=== PATIENT | male | born 1970 | race Caucasian/White ===

== ENCOUNTER → 2025-09-11 | Outpatient (CLI) | payer OTHER, SELFPAY ==
--- NOTE | 2025-09-11 15:36 | RAD_ITS ---
PROCEDURE: WRIST MIN 3 VIEWS 09/11/2025 REASON FOR EXAM: PAIN for 2-3 weeks. No known injury. TECHNIQUE: Procedure Code: RADWR Modality: DX Procedure: WRIST MIN 3 VIEWS Laterality: Left COMPARISON: None. FINDINGS: BONES: No acute fracture or focal osseous lesion. JOINTS: No dislocation. The joint spaces are normal. SOFT TISSUES: Linear 2.0 mm radiodense object in the palm underlying the 2nd metacarpal head. RAD/Wrist min 3 Views IMPRESSION: 1. No acute osseous abnormality. 2. Possible radiodense foreign body in the palm underlying the 2nd metacarpal head. Reading Location: [id number]
--- OUTSIDE RECORDS SUMMARY | 2025-09-11 17:06 | XMS RPT_ITS | CCD ---
Author Organization [facility] Inform ion Partnership 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 Role Phone Sumit Dhillon Primary Care Provider [phone] VINAYAK MOORE Attending Unavailab le NO, PHYSICIAN Primary Care Unavailable No, Physician Primary Care Provider Unavailabl e Windy Schwartz CNP Unavailable No, Physician Primary Care Provider Unavailaminah e CHRISTIAN ARGUELLES II Admitting Un available MANN VILLALOBOS Attending Unavailab le NO, PHYSICIAN Primary Care Unavailable EZIKE, MAXIMO HERRERA Referring Unavailable NO, PHYSICIAN Primary Care Unavailable COP LULY, GENERIC Admitting Unavailable NO, PHYSICIAN Primary Care Unavailable EZIKE, MAXIMO HERRERA Referring Unavailable EZIKE, MAXIMO HERRERA Referring Unavailable EZIKE, MAXIMO HERRERA Admitting Unavailable NO, PHYSICIAN Primary Care Unavailable EZIKE, MAXIMO HERRERA Referring Unavailable EZIKE, MAXIMO PETER Admitting Unavailable NO, PHYSICIAN Primary Care Unavailable EZIKE, MAXIMO HERRERA Referring Unavailable EZIKE, MAXIMO PETER Admitting Unavailable NO, PHYSICIAN Primary Care Unavailable EZIKE, MAXIMO HERRERA Referring Unavailable EZIKE, MAXIMO PETER Admitting Unavailable NO, PHYSICIAN Primary Care Unavailable EZIKE, MAXIMO PETER Referring Unavailable EZIKE, MAXIMO PETER Admitting Unavailable NO, PHYSICIAN Primary Care Unavailable SYSTEM, PROVIDER NOT IN Admitting Unavaila ble EZIKE, MAXIMO HERRERA Referring Unavailable NO, PHYSICIAN Primary Care Unavailable CHRISTIAN ARGUELLES II Consulting Un available [facility] Attending Ahmet jones NO, PHYSICIAN Primary Care Unavailable CREROD RUBIO Admitting Unavailab le PHYSICI[facility], [facility] Consulting Un available EZRL, MAXIMO HERRERA Referring Unavailable NO, PHYSICIAN Primary Care Unavailable SYSTEM, PROVIDER NOT IN Admitting Unavaila ble EZIKE, MAXIMO HERRERA Referring Unavailable EZIKE, MAXIMO HERRERA Admitting Unavailable NO, PHYSICIAN Primary Care Unavailable EZIKE, MAXIMO HERRERA Referring Unavailable EZIKE, MAXIMO HERRERA Admitting Unavailable NO, PHYSICIAN Primary Care Unavailable EZIKE, MAXIMO HERRERA Referring Unavailable EZIKE, MAXIMO HERRERA Admitting Unavailable NO, PHYSICIAN Primary Care Unavailable EZIKE, MAXIMO HERRERA Referring Unavailable EZIKE, MAXIMO HERRERA Admitting Unavailable NO, PHYSICIAN Primary Care Unavailable EZIKE, MAXIMO HERRERA Admitting Unavailable EZIKE, MAXIMO HERRERA Referring Unavailable NO, PHYSICIAN Primary Care Unavailable EZIKE, MAXIMO HERRERA Admitting Unavailable NO, PHYSICIAN Primary Care Unavailable EZIKE, MAXIMO HERRERA Referring Unavailable EZIKE, MAXIMO HERRERA Referring Unavailable EZIKE, MAXIMO HERRERA Admitting Unavailable NO, PHYSICIAN Primary Care Unavailable HASSMANN II, CHRISTIAN ENGLISH Attending Un available HASSMANN II, CHRISTIAN ENGLISH Referring Un available NO, PHYSICIAN Primary Care Unavailable HASSMANN II, CHRISTIAN ENGLISH Attending Un available HASSMANN II, CHRISTIAN ENGLISH Referring Un available NO, PHYSICIAN Primary Care Unavailable EZIKE, MAXIMO HERRERA Referring Unavailable EZIKE, MAXIMO HERRERA Admitting Unavailable NO, PHYSICIAN Primary Care Unavailable EZRL, MAXIMO HERRERA Referring Unavailable EZIKE, MAXIMO HERRERA Admitting Unavailable NO, PHYSICIAN Primary Care Unavailable EZRL, MAXIMO HERRERA Referring Unavailable NO, PHYSICIAN Primary Care Unavailable COPC LULY, GENERIC Admitting Unavailable TUMU, DELICIA SHUKLAODA Attending Unavailab le TUMU, DELICIA MCMAHON Referring Unavailab le NO, PHYSICIAN Primary Care Unavailable EZRL, MAXIMO HERRERA Admitting Unavailable NO, PHYSICIAN Primary Care Unavailable EZRL, MAXIMO HERRERA Referring Unavailable EZIKE, MAXIMO HERRERA Referring Unavailable EZIKE, MAXIMO HERRERA Admitting Unavailable NO, PHYSICIAN Primary Care Unavailable EZRL, MAXIMO HERRERA Referring Unavailable EZRL, MAXIMO HERRERA Admitting Unavailable NO, PHYSICIAN Primary Care Unavailable EZRL, MAXIMO HERRERA Referring Unavailable EZIKE, MAXIMO HERRERA Admitting Unavailable NO, PHYSICIAN Primary Care Unavailable EZRL, MAXIMO HERRERA Admitting Unavailable NO, PHYSICIAN Primary Care Unavailable EZRL, MAXIMO HERRERA Referring Unavailable EZRL, MAXIMO HERRERA Referring Unavailable EZIKE, MAXIMO HERRERA Admitting Unavailable NO, PHYSICIAN Primary Care Unavailable EZRL, MAXIMO HERRERA Referring Unavailable EZIKE, MAXIMO HERRERA Admitting Unavailable NO, PHYSICIAN Primary Care Unavailable EZIKE, MAXIMO HERRERA Referring Unavailable EZIKE, MAXIMO HERRERA Admitting Unavailable NO, PHYSICIAN Primary Care Unavailable SYSTEM, PROVIDER NOT IN Admitting Unavaila ble EZIKE, MAXIMO HERRERA Referring Unavailable NO, PHYSICIAN Primary Care Unavailable SYSTEM, PROVIDER NOT IN Admitting Unavaila ble EZIKE, MAXIMO HERRERA Referring Unavailable NO, PHYSICIAN Primary Care Unavailable NO, PHYSICIAN Primary Care Unavailable HASSMANN II, CHRISTIAN ENGLISH Attending Un available HASSMANN II, CHRISTIAN ENGLISH Admitting Un available ADAN BOOKER Attending Unavailabl e SELF Referring Unavailable SUMIT DHILLON Primary Care Unavail able NO, PHYSICIAN Primary Care Unavailable HASSMANN II, CHRISTIAN ENGLISH Attending Un available NO, PHYSICIAN Primary Care Unavailable HASSMANN II, CHRISTIAN ENGLISH Attending Un available NO, PHYSICIAN Primary Care Unavailable HASSMANN II, CHRISTIAN ENGLISH Attending Un available NO, PHYSICIAN Primary Care Unavailable HASSMANN II, CHRISTIAN ENGLISH Admitting Un available HASSMANN II, CHRISTIAN ENGLISH Referring Un available NO, PHYSICIAN Primary Care Unavailable HASSMANN II, CHRISTIAN ENGLISH Attending Un available NO, PHYSICIAN Primary Care Unavailable HASSMANN II, CHRISTIAN ENGLISH Referring Un available HASSMANN II, CHRISTIAN ENGLISH Admitting Un available NO, PHYSICIAN Primary Care Unavailable HASSMANN II, CHRISTIAN ENGLISH Referring Un available HASSMANN II, CHRISTIAN ENGLISH Admitting Un available NO, PHYSICIAN Primary Care Unavailable HASSMANN II, CHRISTIAN ENGLISH Attending Un available HASSMANN II, CHRISTIAN ENGLISH Referring Un available HASSMANN II, CHRISTIAN ENGLISH Admitting Un available NO, PHYSICIAN Primary Care Unavailable HASSMANN II, CHRISTIAN ENGLISH Attending Un available NO, PHYSICIAN Primary Care Unavailable NO, PHYSICIAN Primary Care Unavailable HASSMANN II, CHRISTIAN ENGLISH Attending Un available NO, PHYSICIAN Primary Care Unavailable HASSMANN II, CHRISTIAN ENGLISH Attending Un available NO, PHYSICIAN Primary Care Unavailable HASSMANN II, CHRISTIAN ENGLISH Referring Un available HASSMANN II, CHRISTIAN ENGLISH Admitting Un available NO, PHYSICIAN Primary Care Unavailable HASSMANN II, CHRISTIAN ENGLISH Admitting Un available HASSMANN II, CHRISTIAN ENGLISH Referring Un available NO, PHYSICIAN Primary Care Unavailable HASSMANN II, CHRISTIAN ENGLISH Referring Un available HASSMANN II, CHRISTIAN ENGLISH Admitting Un available HASSMANN II, CHRISTIAN ENGLISH Attending Un available NO, PHYSICIAN Primary Care Unavailable NO, PHYSICIAN Primary Care Unavailable WINDY SCHWARTZ Attending Unavailable NO, PHYSICIAN Primary Care Unavailable HASSMANN II, CHRISTIAN ENGLISH Attending Un available NO, PHYSICIAN Primary Care Unavailable WINDY SCHWARTZ Attending Unavailable NO, PHYSICIAN Primary Care Unavailable HASSMANN II, CHRISTIAN ENGLISH Referring Un available HASSMANN II, CHRISTIAN ENGLISH Admitting Un available NO, PHYSICIAN Primary Care Unavailable HASSMANN II, CHRISTIAN ENGLISH Attending Un available NO, PHYSICIAN Primary Care Unavailable HASSMANN II, CHRISTIAN ENGLISH Attending Un available NO, PHYSICIAN Primary Care Unavailable HASSMANN II, CHRISTIAN ENGLISH Attending Un available NO, PHYSICIAN Primary Care Unavailable HASSMANN II, CHRISTIAN ENGLISH Referring Un available HASSMANN II, CHRISTIAN ENGLISH Admitting Un available NO, PHYSICIAN Primary Care Unavailable HASSMANN II, CHRISTIAN EGNLISH Attending Un available NO, PHYSICIAN Primary Care Unavailable HASSMANN II, CHRISTIAN ENGLISH Referring Un available HASSMANN II, CHRISTIAN ENGLISH Admitting Un available NO, PHYSICIAN Primary Care Unavailable HASSMANN II, CHRISTIAN ENGLISH Attending Un available NO, PHYSICIAN Primary Care Unavailable HASSMANN II, CHRISTIAN ENGLISH Referring Un available HASSMANN II, CHRISTIAN ENGLISH Admitting Un available NO, PHYSICIAN Primary Care Unavailable HASSMANN II, CHRISTIAN ENGLISH Attending Un available NO, PHYSICIAN Primary Care Unavailable HASSMANN II, CHRISTIAN ENGLISH Referring Un available HASSMANN II, CHRISTIAN ENGLISH Admitting Un available NO, PHYSICIAN Primary Care Unavailable HASSMANN II, CHRISTIAN ENGLISH Attending Un available NO, PHYSICIAN Primary Care Unavailable HASSMANN II, CHRISTIAN ENGLISH Attending Un available NO, PHYSICIAN Primary Care Unavailable MAGO MOREIRA Attending Unavailable NO, PHYSICIAN Primary Care Unavailable WINDY SCHWARTZ Attending Unavailable Allergies Allergy Classification Reported Allergen(s) Allergy Type Date of Onset Reaction(s) Facility (20 sources) Chlorhexidine; Translations: [CHLORHEXIDINE] Drug Allergy 01-23-2025 Dermatitis [facility] Medications Current Medications Medication Drug Class(es) Dates Sig (Normalized) Sig (Original) acetaminophen 325 mg / oxyCODONE hydrochloride 5 mg oral tablet (2 sources) Opioid Agonist Start: 06-20-2025 End: 06-27-2025 oxyCODONE-acetamin ophen (PERCOCET) 5-325 mg per tablet Indications: Osteomyelitis of left foot, unspecified type (HCC) , Left foot pain Take 1 (one) tablet by mouth every 6 (six) hours as needed for pain (Days supply per fill: 7) . 28 tablet 06/20/2025 06/27/2025 Active amoxicillin 875 mg / clavulanate 125 mg oral tablet (8 sources) Penicillin-class Antibacterial Start: 06-10-2025 End: 06-20-2025 take 1 tablet by mouth twice daily amoxicillin-clavul anate (AUGMENTIN) 875-125 mg per tablet Take 1 (one) tablet by mouth 2 (two) times a day for 10 days . 20 tablet 06/10/2025 06/20/2025 Active Start: 12-31-2024 End: 01-07-2025 take 1 tablet by mouth twice daily amoxicillin-clavulanate (AUGMENTIN) 875-125 mg per tablet Take 1 (one) tablet by mouth 2 (two) times a day for 7 days . 14 tablet 12/31/2024 01/03/2025 Discontinued (Stop Taking at Discharge) Start: 03-21-2022 End: 03-26-2022 take 1 tablet by mouth twice daily amoxicillin-clavulanic acid (AUGMENTIN) 875-125 mg per tablet Take 1 tablet by mouth twice daily for 5 days. 10 tablet 0 03/21/2022 03/26/2022 Active Comment on above: Take 1 tablet by luly twice daily for 5 days. blood-glucose sensor (Dexcom G7 Sensor) Denise (20 sources) Start: 04-09-2025 blood-glucose sensor (Dexcom G7 Sensor) Denise Indications: Type 2 diabetes mellitus with hyperglycemia, with long-term current use of insulin ([facility]) , Type 2 diabetes mellitus without complication, with long-term current use of insulin ([facility]) 1 each by Miscellaneous route every 10 (ten) days . 9 each 3 04/09/2025 Active Start: 04-03-2025 End: 04-09-2025 blood-glucose sensor (Dexcom G7 Sensor) Denise Indications: Type 2 diabetes mellitus with hyperglycemia, with long-term current use of insulin ([facility]) 1 each by Miscellaneous route every 10 (ten) days . 3 each 11 04/03/2025 04/09/2025 Discontinued (Reorder (Suppress CancelRx Message to Pharmacy)) Start: 04-03-2025 blood-glucose sensor (Dexcom G7 Sensor) Denise Indications: Type 2 diabetes mellitus with hyperglycemia, with long-term current use of insulin (HCC) 1 each by Miscellaneous route every 10 (ten) days . 3 each 04/03/2025 Active Start: 03-18-2025 End: 04-03-2025 blood-glucose sensor (Dexcom G7 Sensor) Denise Indications: Type 2 diabetes mellitus with hyperglycemia, with long-term current use of insulin (HCC) 1 each by Miscellaneous route every 10 (ten) days . 3 each 03/18/2025 04/03/2025 Discontinued (Reorder (Suppress CancelRx Message to Pharmacy)) Start: 03-18-2025 blood-glucose sensor (Dexcom G7 Sensor) Denise Indications: Type 2 diabetes mellitus with hyperglycemia, with long-term current use of insulin (HCC) 1 each by Miscellaneous route every 10 (ten) days . 3 each 03/18/2025 Active Start: 01-12-2025 End: 03-18-2025 blood-glucose sensor (Dexcom G7 Sensor) Denise Indications: Type 2 diabetes mellitus with hyperglycemia, with long-term current use of insulin (HCC) 1 each by Miscellaneous route every 10 (ten) days . 3 each 01/12/2025 03/18/2025 Discontinued (Reorder (Suppress CancelRx Message to Pharmacy)) Start: 01-12-2025 blood-glucose sensor (Dexcom G7 Sensor) Denise Indications: Type 2 diabetes mellitus with hyperglycemia, with long-term current use of insulin (HCC) 1 each by Miscellaneous route every 10 (ten) days . 3 each 01/12/2025 Active Start: 01-03-2025 blood-glucose sensor (Dexcom G7 Sensor) Denise Indications: Type 2 diabetes mellitus with hyperglycemia, with long-term current use of insulin (HCC) 1 each by Miscellaneous route every 10 (ten) days . 3 each 01/03/2025 Active Start: 01-03-2025 blood-glucose sensor (Dexcom G7 Sensor) Denise Indications: Type 2 diabetes mellitus with hyperglycemia, with long-term current use of insulin (HCC) 1 each by Miscellaneous route every 10 (ten) days . 3 each 01/03/2025 blood-glucose sensor (FreeStyle Brionna 3 Plus Sensor) Denise (13 sources) Start: 04-02-2025 blood-glucose sensor (FreeStyle Brionna 3 Plus Sensor) Denise Indications: Type 2 diabetes mellitus without complication, with long-term current use of insulin (HCC) Use as directed to monitor BG. Change sensor every 15 days. . 2 each 04/02/2025 Active cephalexin 500 mg oral capsule (3 sources) Cephalosporin Antibacterial Start: 12-18-2024 End: 12-25-2024 take 1 capsule by mouth four times daily cephALEXin (KEFLEX) 500 MG capsule Take 1 (one) capsule (500 mg total) by mouth 4 (four) times a day for 7 days . 28 capsule 12/18/2024 12/25/2024 Active Start: 11-03-2024 End: 11-10-2024 take 1 capsule by mouth four times daily cephALEXin (KEFLEX) 500 MG capsule Take 1 (one) capsule (500 mg total) by mouth 4 (four) times a day for 7 days . 28 capsule 11/03/2024 11/10/2024 Active clindamycin 150 mg oral capsule (2 sources) Lincosamide Antibacterial Start: 06-15-2025 End: 06-22-2025 take 1 capsule by mouth three times daily clindamycin (CLEOCIN) 150 MG capsule Take 1 (one) capsule (150 mg total) by mouth 3 (three) times a day for 7 days . 21 capsule 06/15/2025 06/22/2025 Active 3 ml insulin glargine 100 unt/ml pen injector (20 sources) Insulin Analog Start: 01-03-2025 End: 04-09-2025 insulin glargine (Lantus Solostar U-100 Insulin) 100 unit/mL (3 mL) InPn Indications: Type 2 diabetes mellitus without complication, with long-term current use of insulin (HCC) Inject 25 (twenty five) Units under the skin nightly . 30 mL 3 04/09/2025 Active Start: 01-02-2025 End: 01-03-2025 25 Units, Subcutaneous, Nigh tly, First dose on Sun01/02/25 at 2100, If patient NPO and BG LESS than 100 before procedure, administer half (rounded up to nearest unit) of the glargine insulin (LANTUS) dose; if BG is GREATER than 100, administer the full dose unless otherwise instructed by ordering physician Do not mix with other insulins in a syringe. "Do NOT hold basal insulin without notifying physician" 3 ml insulin lispro 100 unt/ml pen injector (20 sources) Insulin Analog Start: 01-03-2025 End: 04-09-2025 inject 9 [IU] by subcutaneous injection three times daily before mealtime, then inject 80 [IU] by subcutaneous injection once daily insulin lispro (HumaLOG KwikPen Insulin) 100 unit/mL InPn Indications: Type 2 diabetes mellitus without complication, with long-term current use of insulin (HCC) Inject 9 (nine) Units under the skin 3 (three) times a day before meals Plus sliding scale.Up to 80 units daily. DX E11.65 . 30 mL 3 04/09/2025 Active Start: 01-02-2025 End: 01-03-2025 0-30 Units, Subcutaneous, 3 times daily before meals, First dose (after last modification) on Sun01/02/25 at 1330, * Dose should be given EITHER: No sooner than 10-15 minutes BEFORE a meal ("Specific Prandial Doses" or "NO Prandial Dose - Corrective Scale ONLY") - OR - Immediately AFTER meal completed ("Carb Counting Ratio"), Prandial Insulin Dosing Method: SPECIFIC Prandial Doses, Specific Prandial Dose (units of Insulin): 9, Corrective Insulin Regimen (select desired scale to cover BG result): USUAL Sensitivity Scale, Dose Reduction Threshold (at meals) for POC Blood Glucose less than or equal to: 80, For Downtime Calculator, use: "Insulin SC MEALtime PREprandial" isopropyl alcohol 0.7 ml/ml medicated pad (20 sources) Start: 01-03-2025 End: 04-09-2025 alcohol swabs PadM Indications: Type 2 diabetes mellitus without complication, with long-term current use of insulin (HCC) Use as directed to check blood glucose readings 4 times daily. Dx E11.65 . 400 each 3 04/09/2025 Active predniSONE 20 mg oral tablet (1 source) Start: 03-21-2022 End: 03-25-2022 take 1 tablet by mouth once daily at mealtime predniSONE (DELTASONE) 20 mg tablet Take 1 tablet by mouth once daily for 4 days. Take daily with food. 4 tablet 0 03/21/2022 03/25/2022 Active Comment on above: Take 1 tablet by [facility] once daily for 4 days. Take daily with food. traMADol hydrochloride 50 mg oral tablet (20 sources) Opioid Agonist Start: 01-03-2025 End: 01-06-2025 take 1 tablet by mouth every six hours as needed for pain traMADol (ULTRAM) 50 mg tablet Indications: Osteomyelitis of left foot, unspecified type (HCC) Take 1 (one) tablet (50 mg total) by mouth every 6 (six) hours as needed for pain . 12 tablet 01/03/2025 Active Completed/Discontinued Medications Medication Drug Class(es) Dates Sig (Normalized) Sig (Original) acetaminophen 325 mg oral tablet (1 source) Start: 01-01-2025 End: 01-03-2025 take 1 tablet by mouth every four hours as needed for headache and pain [id number] 200 actuat albuterol 0.09 mg/actuat metered dose inhaler (1 source) beta2-Adrenergic Agonist Start: 04-16-2018 take 2 puff(s) by inhalation every four hours as needed for wheezing albuterol HFA (VENTOLIN HFA) 90 mcg/actuation inhaler Inhale 2 Puffs as instructed every 4 hours as needed for Wheezing/Shortness of Breath. 1 Inhaler 0 04/16/2018 Active Comment on above: Inhale 2 Puffs as in structed every 4 hours as needed for Wheezing/Shortness of Breath. alteplase (CATH JOHNNY) injection 2 mg (1 source) Start: 01-01-2025 End: 01-03-2025 2 mg, Other, As needed, occluded PICC, Starting on Elayne 01/01/25 at 1221, Use for occlusion or absence of blood return, unless allergy or infected line. Assess catheter function 30 minutes after instillation. Repeat 2 mg x 1 dose if no blood return obtained after 120 minutes of dwell time. If medication has not yet been reconstituted RECONSTITUTE ALTEPLASE (CATHFLO) INJ WITH 2.2 ML OF STERILE WATER FOR INJ FOR CATHETER CLEARANCE ONLY aluminum hydroxide 40 mg/ml / magnesium hydroxide 40 mg/ml / simethicone 4 mg/ml oral suspension (1 source) Start: 01-01-2025 End: 01-03-2025 take 30 mL by mouth every four hours as needed benzonatate 100 mg oral capsule (1 source) Non-narcotic Antitussive Start: 09-08-2018 take 2 capsules by mouth every eight hours as needed benzonatate (TESSALON PERLES) 100 mg capsule Take 2 capsules by mouth three times daily as needed for Cough. 21 capsule 0 09/08/2018 Active Comment on above: Take 2 capsules by m out three times daily as needed for Cough. bisacodyl 10 mg rectal suppository (1 source) Stimulant Laxative Start: 01-01-2025 End: 01-03-2025 blood-glucose meter Misc (20 sources) Start: 01-03-2025 End: 02-02-2025 blood-glucose meter Misc by Miscellaneous route Use as directed to check blood glucose 4 times daily. May fill with brand insurance prefers. . 1 each 01/03/2025 02/02/2025 Start: 01-03-2025 End: 02-02-2025 blood-glucose meter Misc by Miscellaneous route Use as directed to check blood glucose 4 times daily. May fill with brand insurance prefers. . 1 each 01/03/2025 02/02/2025 Active Start: 01-03-2025 End: 02-02-2025 blood-glucose meter Misc by Miscellaneous route Use as directed to check blood glucose 4 times daily. May fill with brand insurance prefers. . 1 each 01/03/2025 02/02/2025 brompheniramine maleate 0.4 mg/ml / dextromethorphan hydrobromide 2 mg/ml / pseudoephedrine hydrochloride 6 mg/ml oral solution (1 source) alpha-Adrenergic Agonist, Uncompetitive I-woybln-Y-aspartate Receptor Antagonist, Sigma-1 Agonist Start: 04-16-2018 take 5 mL by mouth every six hours as needed Pebytvbodkgwhku-Zybbfuege-EI (BROMFED DM) 2-30-10 mg/5 mL syrup Take 5 mL by mouth four times daily as needed. 120 mL 0 04/16/2018 Active Comment on above: Take 5 mL by mouth f our times daily as needed. cefTRIAXone 2000 mg injection (20 sources) Cephalosporin Antibacterial Start: 02-02-2025 End: 03-31-2025 2,000 mg, Intravenous, at 10 0 mL/hr, Every 24 hours, First dose on 02/02/25 at 1530, Total duration of treatment with ceftriaxone = 4 weeks. Obtain labs for CBC, CRP, ESR, and BMP weekly for 4 weeks. Follow-up with the clinic in 2 weeks and at [facility] Indication: Other (specify), Indication: Osteomyelitis Start: 01-26-2025 End: 02-01-2025 2,000 mg, Intravenous, at 10 0 mL/hr, Every 24 hours, First dose on Elayne 01/29/25 at 1545, Total duration of treatment with ceftriaxone = 4 weeks. Obtain labs for CBC, CRP, ESR, and BMP weekly for 4 weeks. Follow-up with the clinic in 2 weeks and at [facility] Indication: Other (specify), Indication: Osteomyelitis Start: 01-19-2025 End: 01-25-2025 2,000 mg, Intravenous, at 10 0 mL/hr, Every 24 hours, First dose on Sun01/25/25 at 0830, Total duration of treatment with ceftriaxone = 4 weeks. Obtain labs for CBC, CRP, ESR, and BMP weekly for 4 weeks. Follow-up with the clinic in 2 weeks and at [facility] Indication: Other (specify), Indication: Osteomyelitis Start: 01-12-2025 End: 01-18-2025 2,000 mg, Intravenous, at 10 0 mL/hr, Every 24 hours, First dose on Sun01/16/25 at 1545, Total duration of treatment with ceftriaxone = 4 weeks. Obtain labs for CBC, CRP, ESR, and BMP weekly for 4 weeks. Follow-up with the clinic in 2 weeks and at [facility] Indication: Other (specify), Indication: Osteomyelitis Start: 01-05-2025 End: 01-11-2025 2,000 mg, Intravenous, at 10 0 mL/hr, Every 24 hours, First dose on Sun01/09/25 at 1530, Total duration of treatment with ceftriaxone = 4 weeks. Obtain labs for CBC, CRP, ESR, and BMP weekly for 4 weeks. Follow-up with the clinic in 2 weeks and at [facility] Indication: Other (specify), Indication: Osteomyelitis 0.4 ml enoxaparin sodium 100 mg/ml prefilled syringe (1 source) Low Molecular Weight Heparin Start: 01-01-2025 End: 01-03-2025 ibuprofen 600 mg oral tablet (1 source) Nonsteroidal Anti-inflammatory Drug Start: 01-01-2025 End: 01-03-2025 take 1 tablet by mouth every six hours as needed for pain and headache 600 mg, Oral, Every 6 hours PRN, mild pain, fever 100.4 F or greater, headaches, Starting on Sun01/01/25 at 1225, Give with food. Do Not Crush or Chew if administering orally due to bitter taste. May be crushed if given via tube. insulin lispro (AdmeLOG,HumaLOG) injection 0-15 Units (1 source) Start: 01-01-2025 End: 01-03-2025 insulin lispro (AdmeLOG,HumaLOG) injection 0-15 Units 1 ml ketorolac tromethamine 30 mg/ml injection (1 source) Nonsteroidal Anti-inflammatory Drug, Cyclooxygenase Inhibitor Start: 01-02-2025 End: 01-02-2025 30 mg, Intravenous, Once, On Sun01/02/25 at 1415, For 1 dose, Pre-Procedure Start: 01-02-2025 End: 01-02-2025 30 mg, Intravenous, Once, On Sun01/02/25 at 1415, For 1 dose, Pre-Procedure Lidocaine (9 sources) Antiarrhythmic, Amide Local Anesthetic Start: 06-10-2025 End: 06-10-2025 lidocaine 20 mg/mL (2 %) injection 3 mL Start: 06-10-2025 End: 06-10-2025 3 mL, Infiltration, Once, On Sun06/10/25 at 1000, For 1 dose Start: 01-01-2025 End: 01-03-2025 take 1 mL intradermal route every twenty-four hours as needed 1 mL, Intradermal, Once as needed, For PICC placement, if patient has no known Lidocaine allergy., Starting on Sun01/01/25 at 1221, For 1 dose Start: 11-03-2024 End: 11-03-2024 lidocaine 20 mg/mL (2 %) inj ection 6 mL Start: 11-03-2024 End: 11-03-2024 6 mL, Infiltration, Once, On Sun11/03/24 at 1600, For 1 dose magnesium hydroxide 80 mg/ml oral suspension (1 source) Start: 01-01-2025 End: 01-03-2025 melatonin 5 mg oral tablet (1 source) Start: 01-01-2025 End: 01-03-2025 mometasone furoate 0.05 mg/actuat metered dose nasal spray (1 source) Corticosteroid Start: 09-08-2018 take 2 spray(s) by mouth once daily mometasone (NASONEX) 50 mcg/actuation nasal spray Use 2 Sprays in the nose once daily. Rinse mouth after use. 1 Bottle 11 09/08/2018 Active Comment on above: Use 2 Sprays in the nose once daily. Rinse mouth after use. 24 hr nicotine 0.875 mg/hr transdermal system (1 source) Cholinergic Nicotinic Agonist Start: 01-02-2025 End: 01-03-2025 apply 1 dose transdermal route once daily as needed 1 patch, Transdermal, Administer over 24 Hours, Daily PRN, nicotine replacement, Starting on Sun01/02/25 at 1242, U/P Listed Hazardous Drug. Waste Must Be Disposed in [employer] Waste Container ondansetron (ZOFRAN-ODT) disintegrating tablet 4 mg (1 source) Start: 01-01-2025 End: 01-03-2025 take 1 tablet by mouth every six hours as needed for nausea and vomiting ondansetron (ZOFRAN-ODT) disintegrating tablet 4 mg piperacillin 3000 mg / tazobactam 375 mg injection (2 sources) Penicillin-class Antibacterial, beta Lactamase Inhibitor Start: 01-01-2025 End: 01-03-2025 take 3.375 g intravenously every eight hours 3.375 g, Intravenous, at 12.5 mL/hr, Every 8 hours, First dose on Sun01/01/25 at 1600, VESICANT, Indication: Other: (specify), Indication: Osteomyelitis Start: 01-01-2025 End: 01-01-2025 4.5 g, Intravenous, at 200 m L/hr, Once, On Sun01/01/25 at 1105, For 1 dose, VESICANT, Indication: Skin/Soft Tissue Infection sennosides, senior living 8.6 mg oral tablet (1 source) Start: 01-01-2025 End: 01-03-2025 1000 ml sodium chloride 9 mg/ml injection (20 sources) Start: 02-02-2025 End: 02-02-2025 take 25 mL intravenously every hour 25 mL/hr, Intravenous, Continuous, Starting on 02/02/25 at 1530 Start: 02-02-2025 End: 02-02-2025 Starting on Sun02/02/25 at 1 448, For 1 dose, YOGESH MIRAMONTES: cabinet override Start: 01-30-2025 End: 01-30-2025 Starting on Sun01/30/25 at 1 455, For 1 dose, MANN DÍAZ: cabinet override Start: 01-28-2025 End: 01-28-2025 Starting on Sun01/28/25 at 1 512, For 1 dose, Erika Chong: cabinet override Start: 01-27-2025 End: 01-27-2025 Starting on Tu01/27/25 at 1 449, For 1 dose, Chantelle Cervantes: cabinet override Start: 01-26-2025 End: 02-01-2025 take 25 mL intravenously every hour 25 mL/hr, Intraven ous, Continuous, Starting on Elayne 01/29/25 at 1545 Start: 01-25-2025 End: 01-25-2025 Starting on 01/25/25 at 0 754, For 1 dose, Lissa Pozo: cabinet override Start: 01-23-2025 End: 01-23-2025 Starting on Sun01/23/25 at 1 521, For 1 dose, Wilder Burrows: cabinet override Start: 01-21-2025 End: 01-22-2025 Starting on Elayne 01/22/25 at 1 448, For 1 dose, MANN DÍAZ: cabinet override Start: 01-19-2025 End: 01-24-2025 take 25 mL intravenously every hour 25 mL/hr, Intraven ous, Continuous, Starting on 01/24/25 at 0845 Start: 01-19-2025 End: 01-19-2025 Starting on 01/19/25 at 1 532, For 1 dose, Rabia Clark: cabinet override Start: 01-16-2025 End: 01-18-2025 Starting on Sun01/16/25 at 1 505, For 1 dose, MANN DÍAZ: cabinet override Start: 01-13-2025 End: 01-14-2025 Starting on Sun01/14/25 at 1 450, For 1 dose, MANN DÍAZ: cabinet override Start: 01-12-2025 End: 01-18-2025 take 25 mL intravenously every hour 25 mL/hr, Intraven ous, Continuous, Starting on Sun01/16/25 at 1545 Start: 01-11-2025 End: 01-11-2025 Starting on Sun01/11/25 at 07 59, For 1 dose, Sara Polanco: cabinet override Start: 01-09-2025 End: 01-09-2025 Starting on Sun01/09/25 at 14 47, For 1 dose, MANN DÍAZ: cabinet override Start: 01-05-2025 End: 01-11-2025 take 25 mL intravenously every hour 25 mL/hr, Intraven ous, Continuous, Starting on Sun01/09/25 at 1530 Start: 01-02-2025 End: 01-02-2025 1,000 mL, Intravenous, at 1,935.5 mL/hr, Once, On Sun01/02/25 at 1500, For 1 dose, Pre-Procedure Start: 01-02-2025 End: 01-02-2025 Starting on Sun01/02/25 at 0 017, For 1 dose, MIESHA FARMER: cabinet override Start: 01-01-2025 End: 01-03-2025 10 mL, Intracatheter, Every 8 hours scheduled, First dose on Sun01/01/25 at 1400, Flush PICC lumens when not in use. Start: 01-01-2025 End: 01-03-2025 sodium chloride (PF) (NS) fl ush 5 mL Start: 01-01-2025 End: 01-03-2025 10-20 mL, Intracatheter, As needed, line care, Flush PICC with 10ml before and after each use, and with 20ml after blood draws, transfusions, and TPN., Starting on Sun01/01/25 at 1221 Start: 01-01-2025 End: 01-03-2025 sodium chloride (PF) (NS) fl ush 5 mL traZODone hydrochloride 50 mg oral tablet (1 source) Serotonin Reuptake Inhibitor Start: 01-01-2025 End: 01-03-2025 vancomycin (VANCOCIN) 1750 mg in sodium chloride 0.9% (NS) 500 mL IVPB (1 source) Start: 01-01-2025 End: 01-01-2025 1,750 mg, Intravenous, at 250 mL/hr, Once, On Elayne 01/01/25 at 1110, For 1 dose, Indication: Skin/Soft Tissue Infection Problems Active Problems Problem Classification Problem Date Documented Da te Episodic/Chronic Chronic ulcer of skin (2 sources) Non-pressure chronic ulcer of other part of unspecified foot with unspecified severity; Translations: [Non-pressure chronic ulcer of other part of unspecified foot with unspecified severity] Onset: 06-17-2025 Chronic Complications of surgical procedures or medical care (4 sources) Dehiscence of surgical wound; Translations: [Disruption of external operation (surgical) wound, not elsewhere classified, initial encounter] 01-07-2025 Episodic Diabetes mellitus with complications (9 sources) Hyperglycemia due to type 2 diabetes mellitus; Translations: [Type 2 diabetes mellitus with hyperglycemia] Onset: 01-01-2025 01-03-2025 Chronic Diabetes mellitus without complication (12 sources) Type 2 diabetes mellitus; Translations: [Type 2 diabetes mellitus without complications] Onset: 03-09-2025 03-09-2025 Chronic Gangrene (6 sources) Skin necrosis; Translations: [Gangrene, not elsewhere classified] 01-07-2025 Episodic Infective arthritis and osteomyelitis (except that caused by tuberculosis or sexually transmitted disease) (20 sources) Osteomyelitis of left foot; Translations: [Osteomyelitis, unspecified] Onset: 01-01-2025 12-25-2024 Chronic Other connective tissue disease (2 sources) Unspecified rotator cuff tear or rupture of right shoulder, not specified as traumatic; Translations: [Unspecified rotator cuff tear or rupture of right shoulder, not specified as traumatic] Onset: 11-25-2022 Episodic Other connective tissue disease (15 sources) Chronic pain of left foot; Translations: [Pain in left toe(s)] 11-03-2024 Episodic Other connective tissue disease (18 sources) Pain in left foot; Translations: [Pain in left foot] Onset: 06-10-2025 04-01-2025 Episodic Other connective tissue disease (6 sources) Pain in left foot; Translations: [Pain in left foot] Onset: 06-11-2025 Episodic Other inflammatory condition of skin (20 sources) Erythema; Translations: [Erythematous condition, unspecified] Onset: 06-10-2025 12-25-2024 Episodic Other inflammatory condition of skin (6 sources) Erythematous condition, unspecified; Translations: [Erythematous condition, unspecified] Onset: 06-11-2025 Episodic Other nervous system disorders (4 sources) Other chronic pain; Translations: [Other chronic pain] Onset: 12-18-2024 Chronic Other skin disorders (6 sources) Ingrowing nail; Translations: [Ingrowing nail] 11-03-2024 Episodic Other upper respiratory disease (1 source) Congestion of nasal sinus; Translations: [Nasal congestion] Episodic Other upper respiratory infections (1 source) Sore throat symptom; Translations: [Acute pharyngitis, unspecified] Episodic Peripheral and visceral atherosclerosis (20 sources) Peripheral vascular disease; Translations: [Peripheral vascular disease, unspecified] Onset: 06-10-2025 12-25-2024 Chronic Skin and subcutaneous tissue infections (20 sources) Abscess of big toe; Translations: [Cutaneous abscess of left foot] Onset: 12-18-2024 11-03-2024 Episodic Unclassified (2 sources) Wound Check Onset: 04-15-2025 Past or Other Problems Problem Classification Problem Date Documented Date Episodic/Chronic Mood disorders (20 sources) Mood disorders Onset: 01-01-2025 01-01-2025 Other aftercare (4 sources) exterminator termite (current) use of insulin; Translations: [exterminator termite (current) use of insulin] Onset: 03-09-2025 Episodic Other connective tissue disease (4 sources) Pain in left toe(s); Translations: [Pain in left toe(s)] Onset: 12-18-2024 Episodic Other skin disorders (2 sources) Ingrowing nail; Translations: [Ingrowing nail] Onset: 12-18-2024 Episodic Residual codes; unclassified (2 sources) Other specified postprocedural states; Translations: [Other specified postprocedural states] Onset: 12-26-2024 Episodic Results Test Name Value Interpretation Reference Range Facility XR FOOT LEFT 3+ VIEWS (STAND GISELA)on 08-05-2025 XR FOOT LEFT 3+ VIEWS (STANDARD) 3 views of the left foot reviewed today persistent visualization of interval amputation of the distal phalanx. No evidence of subcutaneous emphysema or cortical erosion. Stable x-ray. Dictated by: FATMATA ARGUELLES on SunAug 07, 2025 9:59:13 AM EDT Transcribed by: FATMATA ARGUELLES on SunAug 07, 2025 9:59:13 AM EDT Finalized by: FTAMATA ARGUELLES on SunAug 07, 2025 9:59:13 AM EDT [facility] Comment on above: Order Comment: Injur y/Trauma or Illness?:Illness/Other How long have you had these symptoms (acute/chronic)?:Unknown Reason for exam?:Left foot pain History of cancer?:unknown Surgeries, chemotherapy, or radiation?:unknown Type of Exam?:Unknown Additional signs and symptoms?:Left foot pain XR FOOT LEFT 3+ VIEWS (STAND GISELA)on 07-15-2025 XR FOOT LEFT 3+ VIEWS (STANDARD) 3 views of the left foot reviewed today persistent visualization of interval amputation of the distal phalanx. No evidence of subcutaneous emphysema or cortical erosion. Stable x-ray. Dictated by: FATMATA ARGUELLES on SunJul 16, 2025 3:48:24 PM EDT Transcribed by: FATMATA ARGUELLES on SunJul 16, 2025 3:48:24 PM EDT Finalized by: FATMATA ARGUELLES on SunJul 16, 2025 3:48:24 PM EDT [facility] Comment on above: Order Comment: Injur y/Trauma or Illness?:Illness/Other How long have you had these symptoms (acute/chronic)?:Acute Reason for exam?:F/U left hallux amputation History of cancer?:unknown Surgeries, chemotherapy, or radiation?:unknown Type of Exam?:Ongoing Additional signs and symptoms?:DOS 06/19/25 XR FOOT LEFT 3+ VIEWS (STAND GISELA)on 06-24-2025 XR FOOT LEFT 3+ VIEWS (STANDARD) 3 views of the left foot reviewed today persistent visualization of interval amputation of the distal phalanx. No evidence of subcutaneous emphysema or cortical erosion. Stable x-ray. Dictated by: FATMATA ARGUELLES on SunJun 24, 2025 4:13:05 PM EDT Transcribed by: FATMATA ARGUELLES on SunJun 24, 2025 4:13:05 PM EDT Finalized by: FATMATA ARGUELLES on SunJun 24, 2025 4:13:05 PM EDT Normal [facility] Comment on above: Order Comment: Injur y/Trauma or Illness?:Illness/Other How long have you had these symptoms (acute/chronic)?:Acute Reason for exam?:F/U left hallux amputation History of cancer?:unknown Surgeries, chemotherapy, or radiation?:unknown Type of Exam?:Ongoing Additional signs and symptoms?:DOS 06/19/25 OP NOTEon 06-19-2025 OP NOTE Operative Report 06/19/2025 Joel Falk 54 y.o. Surgeon: FATMATA Arguelles, ANASTACIO, ANASTACIO Assistants: Scrub Person: Destiny Hermosillo RN Pre-operative Diagnosis: Osteomyelitis of left foot, unspecified type (HCC) [M86.9] Left foot pain [M79.672] Dependent rubor [L53.9] Abscess, toe, left [L02.612] Peripheral vascular disease [I73.9] Abscess of left great toe [L02.612] Post-operative Diagnosis: Same Procedure: 1. Partial hallux amputation with disarticulation at the distal interphalangeal joint, left foot Anesthesia:General Hemostasis: Well-padded ankle tourniquet inflated to 250 mmHg Estimated Blood Loss: Less than 5 Materials: 3-0 Vicryl, 4-0 Prolene Injectables: 20 cc of 0.5% Marcaine plain Pathology/Microbiology: Both, left foot partial hallux amputation stump Complications: NONE Indications: Patient is a 54y.o. male who underwent a unsuccessful salvage attempt of a intraosseous abscess of his left hallux at the distal phalanx. At this time all conservative options have been exhausted and surgical intervention is necessary. The procedure has been explained to the patient and they understand the risks, benefits and possible complications including but not limited to further infection, dehiscence, need for more proximal amputation, chronic pain, neuritis, CRPS, DVT, PE loss of limb, loss of life. No promises have been made as to surgical outcome. Procedure: The patient was transported from the pre-op holding to the operating room and placed in a supine position. A pneumatic ankle tourniquet was applied to the left ankle. A pre-operative injection of 20 cc of 0.5% Marcaine plain was injected into the left foot in a Kenny and hallux block. The left foot was then prepped and draped in the normal aspetic manner. The left foot was then exsanguinated with an esmark and the tourniquet was inflated to 250 mmHg. Attention was then directed to the left first digit. A skin marker was used to create a fishmouth type incision line at the interphalangeal joint. Forceps were then applied to the digit to check for proper anesthesia. A towel clamp was then used to grasp the distal aspect of the toe. A full thickness incision was made down to the level of bone. The interphalangeal joint joint was visualized, and all ligamentous and capsular structures were released. The dis-articulated digit was then sent to Pathology and Microbiology for Aerobic and Anaerobic culture and sensitivity. The incision site was then inspected for viable healthy tissue. The surgical site was then thoroughly irrigated using a copious amounts of sterile saline and Irrisept.. The incision was flushed with copious amounts of sterile saline. The subcutaneous tissues were re-appoximated with 3-0 Vicryl. The skin was closed using 4-0 Prolene. The incision was dressed with adaptic, 4x4's, kerlix, etc. The pneumatic ankle tourniquet was then deflated and an immediate hyperemic response was noted to all digits of the left foot. A below-knee posterior splint was then applied. The patient was transported to the PACU with VSS and NVS intact to all digits of the left foot. No complications were noted throughout the procedure. The patient is to be discharged per PACU protocol. Patient to follow-up in my outpatient clinic. FATMATA Arguelles DPM Podiatric Foot & Ankle Surgery 06/19/2025 8:01 AM AUTHENTICATED BY CHRISTIAN ARGUELLES II, ON 06/26/2025 07:29:55 Normal [facility] POC GLUCOSE - Jimena 06-19- 025 Glucose [Mass/Vol] 104 mg/dL High 65-99 [facility] Comment on above: Performed By: #### [id number] #### [address] [place], [place] [address] Adonis Gee M.D. [id number] Glucose [Mass/Vol] 110 mg/dL High 65-99 [facility] Comment on above: Performed By: #### [id number] #### [address] [place], [place] [address] Adonis Gee M.D. [id number] TISSUE EXAMon 06-19-2025 TISSUE EXAM Surgical Pathology Report Case: [id number] Authorizing Provider: FATMATA Arguelles DPM Collected: 06/19/2025 07:41 AM Ordering Location: [facility] Periop Received: 06/22/2025 08:25 AM Pathologist: Gabrielle Grande MD Specimen: Amputation, Toe, Left, left first great toe A. Toe(s), Left, First, amputation: Focal acute osteomyelitis. Skin and soft tissue with focal ulcer and abscess associated with ruptured epidermal inclusion cyst. at 1440 EDT M86.9 - Osteomyelitis of left foot, unspecified type (HCC) [ICD-10-CM] M79.672 - Left foot pain [ICD-10-CM] L53.9 - Dependent rubor [ICD-10-CM] L02.612 - Abscess, toe, left [ICD-10-CM] I73.9 - Peripheral vascular disease [ICD-10-CM] L02.612 - Abscess of left great toe [ICD-10-CM] A. The specimen is received in formalin, designated " amputation, toe, left-left first great toe", and consists of the distal portion of a digit resembling toe measuring 3.3 x 3 x 1.7 cm. The nail is thickened, yellow-diaz, and lobulated. There is an area of ulceration present at the nail base. Bone underlying the ulceration and nail is hard and not easily transected. Farm[employer] sections are submitted for decalcification in 2 cassettes. JK Gross examination performed at: [facility] - [address] [place] [address] Microscopic examination is performed. Normal [facility] Comment on above: Performed By: #### [id number] #### [address] [place], [place] [address] Adonis Gee M.D. [id number] XR CHEST AP/PA AND LATon XR CHEST AP/PA AND LAT EXAMINATION: XR CHEST AP/PA AND LAT HISTORY: ORDERING SYSTEM PROVIDED HISTORY: Osteomyelitis of left foot, unspecified type (HCC), TECHNOLOGIST PROVIDED HISTORY: Illness/Other Reason for exam: pre-op for toe sx. hx of PAD Cancer History: unknown Surgery, RadiationHistory: unknown Encounter Type: Initial Additional signs and symptoms: n ORDERING SYSTEM PROVIDED DIAGNOSIS CODES: M86.9 Osteomyelitis of left foot, unspecified type (HCC) M79.672 Left foot pain L53.9 Dependent rubor L02.612 Abscess, toe, left I73.9 Peripheral vascular disease L02.612 Abscess of left great toe COMPARISON: None. FINDINGS: Two-view chest x-ray. No pneumothorax, pleural effusion or focal airspace consolidation. Heart is normal in size. Bony thorax is unremarkable. IMPRESSION: No acute cardiopulmonary process. ST/ads Workstation ID: [id number] Dictated by: DELICIA MYERS on SunJun 17, 2025 3:45:15 PM EDT Transcribed by: CATE FEBRUARY on SunJun 17, 2025 3:57:24 PM EDT Finalized by: DELICIA MYERS on SunJun 17, 2025 8:41:55 PM EDT [facility] Comment on above: Order Comment: Injur y/Trauma or Illness?:Illness/Other How long have you had these symptoms (acute/chronic)?:Acute Reason for exam?:pre-op for toe sx. hx of PAD History of cancer?:unknown Surgeries, chemotherapy, or radiation?:unknown Type of Exam?:Initial Additional signs and symptoms?:n Basic metabolic 2000 panelon 06-11-2025 Anion gap [Moles/Vol] 12 mmol/L [facility] Calcium [Mass/Vol] 9.3 mg/dL 8.6 - 10. 3 mg/dL [facility] Chloride [Moles/Vol] 104 mmol/L 98 - 110 mmol/L [facility] CO2 [Moles/Vol] 21 mmol/L 20 - 32 mmol/L [facility] Creatinine [Mass/Vol] 1.09 mg/dL 0.70 - 1.30 mg/dL [facility] GFR/1.73 sq M.predicted among non-blacks MDRD (S/P/Bld) [Vol rate/Area] 81 mL/min/{1.73_m2} > OR = 60 mL/min/1.73m2 [facility] Glucose [Mass/Vol] 87 mg/dL 65 - 99 mg/dL [facility] Comment on above: Fasting reference interval Potassium [Moles/Vol] 4.5 mmol/L 3.5 - 5.3 mmol/L [facility] Sodium [Moles/Vol] 137 mmol/L 135 - 146 mmol/L [facility] Urea nitrogen [Mass/Vol] 16 mg/dL 7 - 25 mg/dL [facility] Urea nitrogen/Creatinine [Mass ratio] SEE NOTE: [facility] Comment on above: Not Reported: BUN an d Creatinine are within reference range. FASTING:UNKNOWN FASTING: UNKNOWN [facility] CRP [Mass/Vol]on 06-11-2025 FASTING:UNKNOWN FASTING: UNKNOWN [facility] ESR Westergren method (Bld) [Velocity]on 06-11-2025 ESR (Bld) [Velocity] 2 mm/h < OR = 20 [facility] Comment on above: No collection date a nd/or time was provided. If collection time exceeds 24 hours until testing, evaluate result with caution. It is recommended that sample be recollected, with date and time appropriately documented. FASTING:UNKNOWN FASTING: UNKNOWN [facility] Laboratory - Chemistry and C hemistry - challengeon 06-11-2025 CRP [Mass/Vol] 4.9 mg/L NINF - 8.0 mg/L [facility] Laboratory - Hematology and Cell countson 06-10-2025 Basophils (Bld) [#/Vol] 28 10*3/uL [facility] Basophils/100 WBC (Bld) 0.4 % [facility] Eosinophils (Bld) [#/Vol] 104 10*3/uL [facility] Eosinophils/100 WBC (Bld) 1.5 % [facility] Erythrocyte distribution width (RBC) [Ratio] 14.3 % 11.0 - 15.0 % [facility] Hematocrit (Bld) [Volume fraction] 53.7 % High 38.5 - 50.0 % [facility] Hemoglobin (Bld) [Mass/Vol] 18 g/dL High 13.2 - 17.1 g/dL [facility] Lymphocytes (Bld) [#/Vol] 2318 10*3/uL [facility] Lymphocytes/100 WBC (Bld) 33.6 % [facility] MCH (RBC) [Entitic mass] 31.5 pg 27.0 - 33.0 pg [facility] MCHC (RBC) [Mass/Vol] 33.5 g/dL 32.0 - 36.0 g/dL [facility] Comment on above: For adults, a slight decrease in the calculated MCHC value (in the range of 30 to 32 g/dL) is most likely not clinically significant; however, it should be interpreted with caution in correlation with other red cell parameters and the patient's clinical condition. MCV (RBC) [Entitic vol] 94 fL 80.0 - 100.0 fL [facility] Monocytes (Bld) [#/Vol] 690 10*3/uL [facility] Monocytes/100 WBC (Bld) 10 % [facility] Neutrophils (Bld) [#/Vol] 3761 10*3/uL [facility] Neutrophils/100 WBC (Bld) 54.5 % [facility] Platelet mean volume (Bld) [Entitic vol] 10.9 fL 7.5 - 12.5 fL [facility] Platelets (Bld) [#/Vol] 198 10*3/uL [facility] RBC (Bld) [#/Vol] 5.71 10*6/uL [facility]alth WBC (Bld) [#/Vol] 6.9 10*3/uL [facility] alth No Panel Informationon 06-10 Interpretation and review of laboratory results Abnormal [facility] FASTING:UNKNOWN FASTING: UNKNOWN [facility]-PI ARSEN [facility] TISSUE EXAMon 06-10-2025 TISSUE EXAM Surgical Pathology Report Case: [id number] Authorizing Provider: FATMATA Arguelles DPM Collected: 06/10/2025 08:55 AM Ordering Location: [facility] Received: 06/10/2025 01:01 PM Podiatry Pathologist: Jeffy Hill DO Specimen: Bone, Please Specify A. Bone/Nail, Left First Toe, excision: Fragments of squamous epithelium and hyperparakeratosis with focal acute inflammation, consistent with nail with focal acute inflammation. at 1412 EDT Of note, no fungal organisms are identified with PAS-F special staining. bone vs nail spicule, left first toe Osteomyelitis of left foot, unspecified type A. Received in saline designated "Bone-Tissue", is 1 fragment(s) of kqylr-fcec-hcr tissue measuring 0.9 x 0.7 x 0.7 cm. The specimen is serially sectioned. Totally submitted in 1 cassette(s). CW Gross examination performed at: [facility] - [address] [place] [address] Microscopic examination is performed. Normal [facility] Comment on above: Performed By: #### [id number] ####[place] [address] Adonis Gee M.D. [id number] WOUND AEROBIC AND ANAEROBIC CULTUREon 06-10-2025 WOUND AEROBIC AND ANAEROBIC CULTURE EXT KEERTHI - CULTURE, ANAEROBIC BACTERIA W/GRAM STAIN SEE NOTE CULTURE, ANAEROBIC BACTERIA W/GRAM STAIN Micro Number: [id number] Test Status: Final Specimen Source: Abscess Specimen Quality: Adequate Gram Stain: No white blood cells seen Rare Gram positive cocci Result: No anaerobes isolated. EXT KEERTHI - CULTURE, AEROBIC BACTERIA SEE NOTE CULTURE, AEROBIC BACTERIA Micro Number: [id number] Test Status: Final Specimen Source: Abscess Specimen Quality: Adequate Result: Moderate growth of Methicillin resistant Staphylococcus aureus (MRSA) Negative for inducible clindamycin resistance. MRSA INT CHALO CIPROFLOXACIN R >=8 CLINDAMYCIN S <=0.25 ERYTHROMYCIN R >=8 GENTAMICIN S <=0.5 LEVOFLOXACIN R >=8 OXACILLIN R NR 1 TETRACYCLINE R >=16 TRIMETHOPRIM/SULFA R >=320 VANCOMYCIN S <=0.5 S = Susceptible I = Intermediate R = Resistant NS = Not susceptible SDD = Susceptible Dose Dependent * = Not Tested NR = Not Reported NN = See Therapy Comments THERAPY COMMENTS Note 1: Oxacillin-resistant staphylococci are resistant to all currently available beta-lactam antimicrobial agents with the possible exception of ceftaroline. Abnormal [facility] XR FOOT LEFT 3+ VIEWS (STAND GISELA)on 06-10-2025 XR FOOT LEFT 3+ VIEWS (STANDARD) 3 views of the left foot reviewed today AP MO and lateral. Persistent visualization of surgical intervention to the distal phalanx which does not appear to have any increased erosion. No evidence of subcutaneous emphysema. No interval change. Stable x-ray. Dictated by: FATMATA ARGUELLES on SunJun 12, 2025 12:05:03 PM EDT Transcribed by: FATMATA ARGUELLES on SunJun 12, 2025 12:05:03 PM EDT Finalized by: FATMATA ARGUELLES on SunJun 12, 2025 12:05:03 PM EDT Normal [facility] Comment on above: Order Comment: Injur y/Trauma or Illness?:Illness/Other How long have you had these symptoms (acute/chronic)?:Acute Reason for exam?:F/U left hallux amputation History of cancer?:unknown Surgeries, chemotherapy, or radiation?:unknown Type of Exam?:Ongoing Additional signs and symptoms?:DOS 06/19/25 ALBUMIN, RANDOM URINE W/CREA TININEon 06-09-2025 ALBUMIN, URINE 0.6 mg/dL Normal See Note: [facility] Comment on above: Order Comment: FASTI NG:YES FASTING: YES Result Comment: Refe rencony Range: Reference Range Not established Performed By: #### 6 517 #### [facility] [address], [address] [place] [address] [employer] Installer: Kobe Chandler MD ALBUMIN/CREATININE RATIO, RANDOM URINE 6 mg/g creat Normal <30 [facility] Comment on above: Order Comment: FASTI NG:YES FASTING: YES Result Comment: The ADA defines abnormalities in albumin excretion as follows: Albuminuria Category Result (mg/g creatinine) Normal to Mildly increased <30 Moderately increased 30-299 Severely increased > OR = 300 The ADA recommends that at least two of three specimens collected within a 3-6 month period be abnormal before considering a patient to be within a diagnostic category. Performed By: #### 6 517 #### [facility] [address], [address] [place] [address] [employer] Installer: Kobe Chandler MD Creatinine (U) [Mass/Vol] 101 mg/dL Normal 20-320 [facility] Comment on above: Order Comment: FASTI NG:YES FASTING: YES Performed By: #### 6 517 #### [facility] [place] [address] [address] [employer] Installer: Kobe Chandler MD COMPREHENSIVE METABOLIC PANE L W/ANION GAPon 06-09-2025 Albumin [Mass/Vol] 4.4 g/dL Normal 3.6-5.1 [facility] Comment on above: Performed By: #### 4 96, 899, 866, 66390, 10732 #### [facility] of [place] [address] [employer]er: Kobe Chandler MD ALP [Catalytic activity/Vol] 70 U/L Normal 35-144 [facility] Comment on above: Performed By: #### 4 96, 899, 866, 18793, 19983 #### [facility] of [place] [address] [employer] Installer: Kobe Chandler MD ALT [Catalytic activity/Vol] 16 U/L Normal 9-46 [facility] Comment on above: Performed By: #### 4 96, 899, 866, 91739, 21169 #### [facility] of [place] [address] [employer] Installer: Kobe Chandler MD AST [Catalytic activity/Vol] 15 U/L Normal 10-35 [facility] Comment on above: Performed By: #### 4 96, 899, 866, 52871, 11720 #### [facility] of [place] [address] [employer] Installer: Kobe Chandler MD Bilirubin [Mass/Vol] 0.4 mg/dL Normal 0.2-1.2 [facility] Comment on above: Performed By: #### 4 96, 899, 866, 37870, 87971 #### [facility] of [place] [address] [employer] Installer: Kobe Chandler MD Calcium [Mass/Vol] 9.9 mg/dL Normal 8.6-10.3 [facility] Comment on above: Performed By: #### 4 96, 899, 866, 24360, 75033 #### [facility] of [place] [address] [employer] Installer: Kobe Chandler MD Chloride [Moles/Vol] 105 mmol/L Normal 98-110 [facility] Comment on above: Performed By: #### 4 96, 899, 866, 38539, 44295 #### [facility] [place] [address] [employer] Installer: Kobe Chandler MD CO2 [Moles/Vol] 28 mmol/L Normal 20-32 [facility] Comment on above: Performed By: #### 4 96, 899, 866, 52473, 27885 #### [facility] [place] [address] [employer] Installer: Kobe Chandler MD Creatinine [Mass/Vol] 1.24 mg/dL Normal 0.70-1.30 [facility] Comment on above: Performed By: #### 4 96, 899, 866, 33404, 81051 #### [facility] [place] [address] [employer] Installer: Kobe Chandler MD ELECTROLYTE BALANCE 6 mmol/L (calc) Low 7-17 [facility] Comment on above: Performed By: #### 4 96, 899, 866, 45559, 40117 #### [facility] [place] [address] [employer] Installer: Kobe Chandler MD GFR/1.73 sq M.predicted among non-blacks MDRD (S/P/Bld) [Vol rate/Area] 70 mL/min/{1.73_m2} Normal > OR = 60 [facility] Comment on above: Performed By: #### 4 96, 899, 866, 88341, 26645 #### [facility] of [place] [address] [employer] Installer: Kobe Chandler MD Glucose [Mass/Vol] 98 mg/dL Normal 65-99 [facility] Comment on above: Result Comment: Fasting reference interval Performed By: #### 4 96, 899, 866, 44292, 22708 #### [facility] [place] [address] [employer] Installer: Kobe Chandler MD Potassium [Moles/Vol] 4.7 mmol/L Normal 3.5-5.3 [facility] Comment on above: Performed By: #### 4 96, 899, 866, 46926, 24959 #### [facility] [place] [address] [employer] He[employer] Installer: Kobe Chandler MD Protein [Mass/Vol] 7.3 g/dL Normal 6.1-8.1 [facility] Comment on above: Performed By: #### 4 96, 899, 866, 03426, 13563 #### [facility] [place] [address] [employer] Heating Installer: Kobe Chandler MD Sodium [Moles/Vol] 139 mmol/L Normal 135-146 [facility] Comment on above: Performed By: #### 4 96, 899, 866, 38162, 13114 #### [facility] [place] [address] [employer] Installer: Kobe Chandler MD Urea nitrogen [Mass/Vol] 17 mg/dL Normal 7-25 [facility] Comment on above: Performed By: #### 4 96, 899, 866, 93577, 09409 #### [facility] [place] [address] [employer] He[employer] Installer: Kobe Chandler MD HEMOGLOBIN A1con 06-09-2025 HbA1c (Bld) [Mass fraction] 6.5 % High <5.7 [facility] Comment on above: Result Comment: For someone without known diabetes, a hemoglobin A1c value of 6.5% or greater indicates that they may have diabetes and this should be confirmed with a follow-up test. For someone with known diabetes, a value <7% indicates that their diabetes is well controlled and a value greater than or equal to 7% indicates suboptimal control. A1c targets should be individualized based on duration of diabetes, age, comorbid conditions, and other considerations. Currently, no consensus exists regarding use of hemoglobin A1c for diagnosis of diabetes for children. Performed By: #### 4 96, 899, 866, 72428, 24855 #### [facility] [address], [address] [place] [address] [employer] Installer: Kobe Chandler MD LIPID PANEL WITH REFLEX TO D IRECT LDLon 06-09-2025 Cholesterol [Mass/Vol] 148 mg/dL Normal <200 [facility] Comment on above: Order Comment: FASTI NG:YES FASTING: YES Performed By: #### 4 96, 899, 866, 09512, 29182 #### [facility] [address], [address] [place] [address] [employer] Installer: Kobe Chandler MD Cholesterol in HDL [Mass/Vol] 34 mg/dL Low > OR = 40 [facility] Comment on above: Order Comment: FASTI NG:YES FASTING: YES Performed By: #### 4 96, 899, 866, 35783, 58080 #### [facility] [address], [address] [place] [address] [employer] Installer: Kobe Chandler MD Cholesterol in LDL [Mass/Vol] 88 mg/dL Normal [facility] Comment on above: Order Comment: FASTI NG:YES FASTING: YES Result Comment: Refe rence range: <100 Desirable range <100 mg/dL for primary prevention; <70 mg/dL for patients with CHD or diabetic patients with > or = 2 CHD risk factors. LDL-C is now calculated using the Mendel calculation, which is a validated novel method providing better accuracy than the Friedewald equation in the estimation of LDL-C. Mat SS et al. CHERYL. 2013;310(19): 2228-3989 (http://education.[employer]Flextrip/faq/TBJ673) Performed By: #### 4 96, 899, 866, 07037, 24602 #### [facility] [address], [address] [place] [address] [employer]ating Installer: Kobe Chandler MD Cholesterol.total/C holesterol in HDL [Mass ratio] 4.4 {ratio} Normal <5.0 [facility] Comment on above: Order Comment: FASTI NG:YES FASTING: YES Performed By: #### 4 96, 899, 866, 18556, 82977 #### [facility] [place] [address] [employer] Installer: Kobe Chandler MD NON HDL CHOLESTEROL 114 mg/dL (calc) Normal <130 [facility] Comment on above: Order Comment: FASTI NG:YES FASTING: YES Result Comment: For patients with diabetes plus 1 major ASCVD risk factor, treating to a non-HDL-C goal of <100 mg/dL (LDL-C of <70 mg/dL) is considered a therapeutic option. Performed By: #### 4 96, 899, 866, 97309, 39674 #### [facility] [place] [address] [employer] Installer: Kobe Chandler MD Triglyceride [Mass/Vol] 162 mg/dL High <150 [facility] Comment on above: Order Comment: FASTI NG:YES FASTING: YES Performed By: #### 4 96, 899, 866, 63763, 14308 #### [facility] [place] [address] [employer] He[employer] Installer: Kobe Chandler MD T4, FREEon 06-09-2025 Free T4 [Mass/Vol] 1.2 ng/dL Normal 0.8-1.8 [facility] Comment on above: Performed By: #### 4 96, 899, 866, 35820, 02107 #### [facility] [place] [address] [employer] He[employer] Installer: Kobe Chandler MD TSHon 06-09-2025 TSH Qn 0.97 m[IU]/L Normal 0.40-4.50 [facility] Comment on above: Performed By: #### 4 96, 899, 866, 62032, 02574 #### [facility] [place] [address] [place] [address] [employer] Installer: Kobe Chandler MD XR FOOT LEFT 3+ VIEWS (STAND GISELA)on 04-01-2025 XR FOOT LEFT 3+ VIEWS (STANDARD) 3 views of the left foot reviewed today AP MO and lateral. Persistent visualization of surgical intervention to the distal phalanx which does not appear to have any increased erosion. No evidence of subcutaneous emphysema. No interval change. Stable x-ray. Dictated by: FATMATA ARGUELLES on SunApril 01, 2025 4:49:12 PM EDT Transcribed by: FATMATA ARGUELLES on SunApril 01, 2025 4:49:12 PM EDT Finalized by: FATMATA ARGUELLES on SunApril 01, 2025 4:49:12 PM EDT Normal [facility] Comment on above: Order Comment: Injur y/Trauma or Illness?:Illness/Other How long have you had these symptoms (acute/chronic)?:Acute Reason for exam?:F/U left hallux amputation History of cancer?:unknown Surgeries, chemotherapy, or radiation?:unknown Type of Exam?:Ongoing Additional signs and symptoms?:DOS 06/19/25 XR Foot - left 3 Viewson 3 views of the left foot reviewed today AP MO and lateral. Persistent visualization of surgical intervention to the distal phalanx which does not appear to have any increased erosion. No evidence of subcutaneous emphysema. No interval change. Stable x-ray. Wi[facility] Radiology Study observation (narrative) [facility] XR FOOT LEFT 3+ VIEWS (STAND GISELA)on 03-11-2025 XR FOOT LEFT 3+ VIEWS (STANDARD) 3 views of the left foot reviewed today AP MO and lateral. Persistent visualization of surgical intervention to the distal phalanx which does not appear to have any increased erosion. No evidence of subcutaneous emphysema. Stable x-ray. Dictated by: FATMATA ARGUELLES on SunMarch 11, 2025 4:33:44 PM EDT Transcribed by: FATMATA ARGUELLES on SunMarch 11, 2025 4:33:44 PM EDT Finalized by: FATMATA ARGUELLES on SunMarch 11, 2025 4:33:44 PM EDT [facility] Comment on above: Order Comment: Injur y/Trauma or Illness?:Illness/Other How long have you had these symptoms (acute/chronic)?:Unknown Reason for exam?:Left foot pain History of cancer?:unknown Surgeries, chemotherapy, or radiation?:unknown Type of Exam?:Unknown Additional signs and symptoms?:Left foot pain BASIC METABOLIC PANELon - Anion gap [Moles/Vol] 15 mmol/L Normal 10-20 [facility] Comment on above: Order Comment: [facility] has implemented the eGFR calculation approach that does not have a coefficient for race that conforms to the NKF-ASN Task Force Recommendations. Performed By: #### 4 4287 #### [facility] [address] [place] [address] Rod Corona M.D. [id number] Calcium [Mass/Vol] 9.4 mg/dL Normal 8.4-10.2 [facility] Comment on above: Order Comment: [facility] has implemented the eGFR calculation approach that does not have a coefficient for race that conforms to the NKF-ASN Task Force Recommendations. Performed By: #### 4 4287 #### [facility] [address] [place] [address] Rod Corona M.D. [id number] Chloride [Moles/Vol] 101 mmol/L Normal 98-108 [facility] Comment on above: Order Comment: [facility] has implemented the eGFR calculation approach that does not have a coefficient for race that conforms to the NKF-ASN Task Force Recommendations. Performed By: #### 4 4287 #### [facility] [address] [place] [address] Rod Corona M.D. [id number] Creatinine [Mass/Vol] 1.04 mg/dL Normal 0.50-1.30 [facility] Comment on above: Order Comment: [facility] has implemented the eGFR calculation approach that does not have a coefficient for race that conforms to the NKF-ASN Task Force Recommendations. Performed By: #### 4 4287 #### [facility] [address] [place], [place] [address] Rod Corona M.D. [id number] EGFR 86 mL/min/1.73 m2 Normal >=60 [facility] Comment on above: Order Comment: [facility] has implemented the eGFR calculation approach that does not have a coefficient for race that conforms to the NKF-ASN Task Force Recommendations. Result Comment: Maria Fernanda mated GFR was calculated using the 2020 CKD-EPI creatinine equation. Performed By: #### 4 4287 #### [facility] [address] [place] [address] Rod Corona M.D. [id number] Glucose [Mass/Vol] 78 mg/dL Normal 65-99 [facility] Comment on above: Order Comment: [facility] has implemented the eGFR calculation approach that does not have a coefficient for race that conforms to the NKF-ASN Task Force Recommendations. Performed By: #### 4 4287 #### [facility] [address] [place], [place] [id number] Rod Corona M.D. [id number] HCO3 (Bld) [Moles/Vol] 24 mmol/L Normal 21-32 [facility] Comment on above: Order Comment: [facility] has implemented the eGFR calculation approach that does not have a coefficient for race that conforms to the NKF-ASN Task Force Recommendations. Performed By: #### 4 4287 #### [facility] [address] [place] [address] Rod Corona M.D. [id number] Potassium [Moles/Vol] 4.1 mmol/L Normal 3.5-5.1 [facility] Comment on above: Order Comment: [facility] has implemented the eGFR calculation approach that does not have a coefficient for race that conforms to the NKF-ASN Task Force Recommendations. Performed By: #### 4 4287 #### [facility] [address] [place] [address] Rod Corona M.D. [id number] Sodium [Moles/Vol] 136 mmol/L Normal 135-145 [facility] Comment on above: Order Comment: [facility] has implemented the eGFR calculation approach that does not have a coefficient for race that conforms to the NKF-ASN Task Force Recommendations. Performed By: #### 4 4287 #### [facility] [address] [place] [address] Rod Corona M.D. [id number] Urea nitrogen [Mass/Vol] 13 mg/dL Normal 8-25 [facility] Comment on above: Order Comment: [facility] has implemented the eGFR calculation approach that does not have a coefficient for race that conforms to the NKF-ASN Task Force Recommendations. Performed By: #### 4 4287 #### [facility] [address] [place] [address] Rod Corona M.D. [id number] Urea nitrogen/Creatinine [Mass ratio] 12.5 mg/mg Normal 10.0-20.0 [facility] Comment on above: Order Comment: [facility] has implemented the eGFR calculation approach that does not have a coefficient for race that conforms to the NKF-ASN Task Force Recommendations. Performed By: #### 4 4287 #### [facility] [address] [place] [address] Rod Corona M.D. [id number] Basic metabolic 2000 panelon 01-29-2025 Anion gap [Moles/Vol] 15 mmol/L 10 - 20 mmol/L [facility] Calcium [Mass/Vol] 9.4 mg/dL 8.4 - 10. 2 mg/dL [facility] Chloride [Moles/Vol] 101 mmol/L 98 - 108 mmol/L [facility] Creatinine [Mass/Vol] 1.04 mg/dL 0.50 - 1.30 mg/dL [facility] GFR/1.73 sq M.predicted CKD-EPI (S/P/Bld) [Vol rate/Area] 86 - PINF [facility] Comment on above: Estimated GFR was ca lculated using the 2020 CKD-EPI creatinine equation. Glucose [Mass/Vol] 78 mg/dL 65 - 99 mg/dL [facility] HCO3 [Moles/Vol] 24 mmol/L 21 - 32 mmol/L [facility] Potassium [Moles/Vol] 4.1 mmol/L 3.5 - 5.1 mmol/L [facility] Sodium [Moles/Vol] 136 mmol/L 135 - 145 mmol/L [facility] Urea nitrogen [Mass/Vol] 13 mg/dL 8 - 25 mg/dL [facility] Urea nitrogen/Creatinine [Mass ratio] 12.5 mg/mg 10.0 - 20.[address] [facility] has implemented the eGFR calculation approach that does not have a coefficient for race that conforms to the NKF-ASN Task Force Recommendations. [facility] CBCon 01-29-2025 AUTO NRBC 0.0 % Normal [facility] Comment on above: Performed By: #### 4 [id number] #### [facility] [address] [place], [place] [address] Rod Corona M.D. [id number] AUTO NRBC ABS COUNT 0.00 K/mcL Normal 0.00-0.00 [facility] Comment on above: Performed By: #### 4 4287 #### [facility] [address] [place], [place] [address] Rod Corona M.D. [id number] Erythrocyte distribution width (RBC) [Ratio] 13.2 % Normal 11.6-14.8 [facility] Comment on above: Performed By: #### 4 4287 #### [facility] [address] [place], [place] [address] Rod Corona M.D. [id number] Hematocrit (Bld) [Volume fraction] 49.0 % Normal 41.0-53.0 [facility] Comment on above: Performed By: #### 4 4287 #### [facility] [address] [place], [place] [address] Rod Corona M.D. [id number] Hemoglobin (Bld) [Mass/Vol] 16.3 g/dL Normal 13.5-17.5 [facility] Comment on above: Performed By: #### 4 4287 #### [facility] [address] [place], [place] [address] Rod Corona M.D. [id number] MCH (RBC) [Entitic mass] 31.0 pg Normal 26.0-34.0 [facility] Comment on above: Performed By: #### 4 4287 #### [facility] [address] [place], [place] [address] Rod Corona M.D. [id number] MCV (RBC) [Entitic vol] 93.2 fL Normal 80.0-100.0 [facility] Comment on above: Performed By: #### 4 4287 #### [facility] [address] [place], [place] [address] Rod Corona M.D. [id number] MEAN CORPUSCULAR HEMOGLOBIN CONC 33.3 g/dL Normal 31.0-37.0 [facility] Comment on above: Performed By: #### 4 4287 #### [facility] [address] [place], [place] [address] Rod Corona M.D. [id number] Platelet mean volume (Bld) [Entitic vol] 10.0 fL Normal 9.4-12.4 [facility] Comment on above: Performed By: #### 4 4287 #### [facility] [address] [place], [place] [address] Rod Corona M.D. [id number] Platelets (Bld) [#/Vol] 198 10*3/uL Normal 150-400 [facility] Comment on above: Performed By: #### 4 [id number] #### [facility] [address] [place], [place] [address] Rod Corona M.D. [id number] RBC (Bld) [#/Vol] 5.26 10*6/uL Normal 4.50-5.90 [facility] Comment on above: Performed By: #### 4 4287 #### [facility] [address] [place], [place] [address] Rod Corona M.D. [id number] WBC (Bld) [#/Vol] 7.39 10*3/uL Normal 4.50-11.00 [facility] Comment on above: Performed By: #### 4 [id number] #### [facility] [address] [place], [place] [address] Rod Corona M.D. [id number] CBC panel Auto (Bld)on 01-29 Erythrocyte distribution width (RBC) [Entitic vol] 13.2 % 11.6 - 14.8 % [facility] Hematocrit (Bld) [Volume fraction] 49 % 41.0 - 53.0 % [facility] Hemoglobin (Bld) [Mass/Vol] 16.3 g/dL 13.5 - 17.5 g/dL [facility] MCH (RBC) [Entitic mass] 31 pg 26.0 - 34.0 pg [facility] MCHC (RBC) [Mass/Vol] 33.3 g/dL 31.0 - 37.0 g/dL [facility] MCV (RBC) [Entitic vol] 93.2 fL 80.0 - 100.0 fL [facility] Nucleated RBC (Bld) [#/Vol] 0 10*3/uL [facility] Nucleated RBC/100 WBC (Bld) [Ratio] 0 % [facility] Platelet mean volume (Bld) [Entitic vol] 10 fL 9.4 - 12.4 fL [facility] Platelets (Bld) [#/Vol] 198 10*3/uL [facility] RBC (Bld) [#/Vol] 5.26 10*6/uL [facility] WBC (Bld) [#/Vol] 7.39 10*3/uL [facility] CRP, INFLAMMATIONon 01-30-20 CRP [Mass/Vol] 4.3 mg/L Normal 0.0-10.0 [facility] Comment on above: Performed By: #### 4 6932 #### [facility] [address] [place], [place] [address] Adonis Gee M.D. [id number] ESR Westergren method (Bld) [Velocity]on 01-29-2025 ESR (Bld) [Velocity] 14 mm/h [facility] Interpretation and review of laboratory results Normal [facility] Laboratory - Chemistry and C hemistry - challengeon 01-29-2025 CRP [Mass/Vol] 4.3 mg/L 0.0 - 10.0 mg/L [facility] No Panel Informationon 01-29 Interpretation and review of laboratory results Normal [facility] SEDIMENTATION RATEon 025 SEDIMENTATION RATE, ERYTHROCYTE 14 mm/hr Normal 0-20 [facility] Comment on above: Performed By: #### 4 6932 #### [facility] [address] [place] [address] Adonis Gee M.D. [id number] BASIC METABOLIC PANELon 01-04 Anion gap [Moles/Vol] 14 mmol/L Normal 10-20 [facility] Comment on above: Order Comment: [facility] has implemented the eGFR calculation approach that does not have a coefficient for race that conforms to the NKF-ASN Task Force Recommendations. Performed By: #### 4 6932 #### [facility] [address] [place] [address] Adonis Gee M.D. [id number] Calcium [Mass/Vol] 9.3 mg/dL Normal 8.4-10.2 [facility] Comment on above: Order Comment: [facility] has implemented the eGFR calculation approach that does not have a coefficient for race that conforms to the NKF-ASN Task Force Recommendations. Performed By: #### 4 6932 #### [facility] [address] [place] [address] Adonis Gee M.D. [id number] Chloride [Moles/Vol] 102 mmol/L Normal 98-108 [facility] Comment on above: Order Comment: [facility] has implemented the eGFR calculation approach that does not have a coefficient for race that conforms to the NKF-ASN Task Force Recommendations. Performed By: #### 4 [id number] #### LAB [address] [address] Adonis Gee M.D. [id number] Creatinine [Mass/Vol] 1.09 mg/dL Normal 0.50-1.30 [facility] Comment on above: Order Comment: [facility] has implemented the eGFR calculation approach that does not have a coefficient for race that conforms to the NKF-ASN Task Force Recommendations. Performed By: #### 4 [id number] #### LAB [address] [address] Adonis Gee M.D. [id number] EGFR 81 mL/min/1.73 m2 Normal >=60 [facility] Comment on above: Order Comment: [facility] has implemented the eGFR calculation approach that does not have a coefficient for race that conforms to the NKF-ASN Task Force Recommendations. Result Comment: Maria Fernanda mated GFR was calculated using the 2020 CKD-EPI creatinine equation. Performed By: #### 4 [id number] #### LAB [address] [address] Adonis Gee M.D. [id number] Glucose [Mass/Vol] 90 mg/dL Normal 65-99 [facility] Comment on above: Order Comment: [facility] has implemented the eGFR calculation approach that does not have a coefficient for race that conforms to the NKF-ASN Task Force Recommendations. Performed By: #### 4 [id number] #### LAB [address] [address] Adonis Gee M.D. [id number] HCO3 (Bld) [Moles/Vol] 25 mmol/L Normal 21-32 [facility] Comment on above: Order Comment: [facility] has implemented the eGFR calculation approach that does not have a coefficient for race that conforms to the NKF-ASN Task Force Recommendations. Performed By: #### 4 [id number] #### LAB [address] [address] Adonis Gee M.D. [id number] Potassium [Moles/Vol] 4.3 mmol/L Normal 3.5-5.1 [facility] Comment on above: Order Comment: [facility] has implemented the eGFR calculation approach that does not have a coefficient for race that conforms to the NKF-ASN Task Force Recommendations. Performed By: #### 4 [id number] #### LAB [address] [place], [place] [address] Adonis Gee M.D. [id number] Sodium [Moles/Vol] 137 mmol/L Normal 135-145 [facility] Comment on above: Order Comment: [facility] has implemented the eGFR calculation approach that does not have a coefficient for race that conforms to the NKF-ASN Task Force Recommendations. Performed By: #### 4 [id number] #### LAB [address] [address] Adonis Gee M.D. [id number] Urea nitrogen [Mass/Vol] 12 mg/dL Normal 8-25 [facility] Comment on above: Order Comment: [facility] has implemented the eGFR calculation approach that does not have a coefficient for race that conforms to the NKF-ASN Task Force Recommendations. Performed By: #### 4 [id number] #### LAB [address] [address] Adonis Gee M.D. [id number] Urea nitrogen/Creatinine [Mass ratio] 11.0 mg/mg Normal 10.0-20.0 [facility] Comment on above: Order Comment: [facility] has implemented the eGFR calculation approach that does not have a coefficient for race that conforms to the NKF-ASN Task Force Recommendations. Performed By: #### 4 [id number] #### LAB [address] [place], [place] [address] Adonis Gee M.D. [id number] Basic metabolic 2000 panelon 01-22-2025 Anion gap [Moles/Vol] 14 mmol/L 10 - 20 mmol/L [facility] Calcium [Mass/Vol] 9.3 mg/dL 8.4 - 10. 2 mg/dL [facility] Chloride [Moles/Vol] 102 mmol/L 98 - 108 mmol/L [facility] Creatinine [Mass/Vol] 1.09 mg/dL 0.50 - 1.30 mg/dL [facility] GFR/1.73 sq M.predicted CKD-EPI (S/P/Bld) [Vol rate/Area] 81 - PINF [facility] Comment on above: Estimated GFR was ca lculated using the 2020 CKD-EPI creatinine equation. Glucose [Mass/Vol] 90 mg/dL 65 - 99 mg/dL [facility] HCO3 [Moles/Vol] 25 mmol/L 21 - 32 mmol/L [facility] Potassium [Moles/Vol] 4.3 mmol/L 3.5 - 5.1 mmol/L [facility] Sodium [Moles/Vol] 137 mmol/L 135 - 145 mmol/L [facility] Urea nitrogen [Mass/Vol] 12 mg/dL 8 - 25 mg/dL [facility] Urea nitrogen/Creatinine [Mass ratio] 11 mg/mg 10.0 - 20.[address] [facility] has implemented the eGFR calculation approach that does not have a coefficient for race that conforms to the NKF-ASN Task Force Recommendations. [facility] CBCon 01-22-2025 AUTO NRBC 0.0 % Normal [facility] Comment on above: Performed By: #### [id number] #### [facility] [address] [place], [place] [address] Rod Corona M.D. [id number] AUTO NRBC ABS COUNT 0.00 K/mcL Normal 0.00-0.00 [facility] Comment on above: Performed By: #### 4 [id number] #### [facility] [address] [place] [address] Rod Corona M.D. [id number] Erythrocyte distribution width (RBC) [Ratio] 13.1 % Normal 11.6-14.8 [facility] Comment on above: Performed By: #### 4 [id number] #### [facility] [address] [place], [place] [address] Rod Corona M.D. [id number] Hematocrit (Bld) [Volume fraction] 48.8 % Normal 41.0-53.0 [facility] Comment on above: Performed By: #### 4 [id number] #### [facility] [address] [place], [place] [address] Rod Corona M.D. [id number] Hemoglobin (Bld) [Mass/Vol] 16.5 g/dL Normal 13.5-17.5 [facility] Comment on above: Performed By: #### 4 [id number] #### [facility] [address] [place], [place] [address] Rod Corona M.D. [id number] MCH (RBC) [Entitic mass] 31.7 pg Normal 26.0-34.0 [facility] Comment on above: Performed By: #### 4 [id number] #### [facility] [address] [place] [address] Rod Corona M.D. [id number] MCV (RBC) [Entitic vol] 93.7 fL Normal 80.0-100.0 [facility] Comment on above: Performed By: #### 4 [id number] #### [facility] [address] [place] [address] Rod Corona M.D. [id number] MEAN CORPUSCULAR HEMOGLOBIN CONC 33.8 g/dL Normal 31.0-37.0 [facility] Comment on above: Performed By: #### 4 [id number] #### [facility] [address] [place], [place] [address] Rod Corona M.D. [id number] Platelet mean volume (Bld) [Entitic vol] 10.3 fL Normal 9.4-12.4 [facility] Comment on above: Performed By: #### 4 [id number] #### [facility] [address] [place], [place] [address] Rod Corona M.D. [id number] Platelets (Bld) [#/Vol] 190 10*3/uL Normal 150-400 [facility] Comment on above: Performed By: #### 4 [id number] #### [facility] [address] [place], [place] [address] Rod Corona M.D. [id number] RBC (Bld) [#/Vol] 5.21 10*6/uL Normal 4.50-5.90 [facility] Comment on above: Performed By: #### 4 [id number] #### [facility] [address] [place], [place] [address] Rod Corona M.D. [id number] WBC (Bld) [#/Vol] 8.20 10*3/uL Normal 4.50-11.00 [facility] Comment on above: Performed By: #### 4 [id number] #### [facility] [address] [place] [address] Rod Corona M.D. [id number] CBC panel Auto (Bld)on 01-22 Erythrocyte distribution width (RBC) [Entitic vol] 13.1 % 11.6 - 14.8 % [facility] Hematocrit (Bld) [Volume fraction] 48.8 % 41.0 - 53.0 % [facility] Hemoglobin (Bld) [Mass/Vol] 16.5 g/dL 13.5 - 17.5 g/dL [facility] MCH (RBC) [Entitic mass] 31.7 pg 26.0 - 34.0 pg [facility] MCHC (RBC) [Mass/Vol] 33.8 g/dL 31.0 - 37.0 g/dL [facility] MCV (RBC) [Entitic vol] 93.7 fL 80.0 - 100.0 fL [facility] Nucleated RBC (Bld) [#/Vol] 0 10*3/uL [facility] Nucleated RBC/100 WBC (Bld) [Ratio] 0 % [facility] Platelet mean volume (Bld) [Entitic vol] 10.3 fL 9.4 - 12.4 fL [facility] Platelets (Bld) [#/Vol] 190 10*3/uL [facility] RBC (Bld) [#/Vol] 5.21 10*6/uL [facility] WBC (Bld) [#/Vol] 8.2 10*3/uL [facility] CRP, INFLAMMATIONon 01-23-20 CRP [Mass/Vol] 3.9 mg/L Normal 0.0-10.0 [facility] Comment on above: Performed By: #### 4 [id number] #### [facility] [address] [place], [place] [address] Adonis Gee M.D. [id number] ESR Westergren method (Bld) [Velocity]on 01-22-2025 ESR (Bld) [Velocity] 9 mm/h [facility] Interpretation and review of laboratory results Normal [facility] Laboratory - Chemistry and C hemistry - challengeon 01-22-2025 CRP [Mass/Vol] 3.9 mg/L 0.0 - 10.0 mg/L [facility] No Panel Informationon 01-22 Interpretation and review of laboratory results Normal [facility] SEDIMENTATION RATEon 025 SEDIMENTATION RATE, ERYTHROCYTE 9 mm/hr Normal [facility] Comment on above: Performed By: #### 4 6939 #### [facility] [address] [facility] [place] [address] Adonis Gee M.D. [id number] XR FOOT LEFT 3+ VIEWS (STAND GISELA)on 01-19-2025 XR FOOT LEFT 3+ VIEWS (STANDARD) Left AP MO and lateral. Interval visualization of antibiotic beads and ostectomy of the distal phalanx. Most have been resorbed leaving none remaining. No evidence of subcutaneous emphysema. Stable x-ray Dictated by: FATMATA ARGUELLES on SunFeb 06, 2025 7:25:21 AM EDT Transcribed by: FATMATA ARGUELLES on SunFeb 06, 2025 7:25:21 AM EDT Finalized by: FATMATA ARGUELLES on SunFeb 06, 2025 7:25:21 AM EDT Normal [facility] Comment on above: Order Comment: Injur y/Trauma or Illness?:Illness/Other How long have you had these symptoms (acute/chronic)?:Unknown Reason for exam?:Left foot wound History of cancer?:unknown Surgeries, chemotherapy, or radiation?:unknown Type of Exam?:Subsequent/Follow-up Additional signs and symptoms?:Left foot wound BASIC METABOLIC PANELon 01-03 Anion gap [Moles/Vol] 14 mmol/L Normal 08-24 [facility] Comment on above: Order Comment: [facility] has implemented the eGFR calculation approach that does not have a coefficient for race that conforms to the NKF-ASN Task Force Recommendations. Performed By: #### 4 [id number] #### [facility] [address] [place], [place] [address] Adonis Gee M.D. [id number] Calcium [Mass/Vol] 9.5 mg/dL Normal 8.4-10.2 [facility] Comment on above: Order Comment: [facility] has implemented the eGFR calculation approach that does not have a coefficient for race that conforms to the NKF-ASN Task Force Recommendations. Performed By: #### 4 [id number] #### [facility] [address] [address] Adonis Gee M.D. [id number] Chloride [Moles/Vol] 104 mmol/L Normal 98-108 [facility] Comment on above: Order Comment: [facility] has implemented the eGFR calculation approach that does not have a coefficient for race that conforms to the NKF-ASN Task Force Recommendations. Performed By: #### 4 [id number] #### LAB [address] [address] Adonis Gee M.D. [id number] Creatinine [Mass/Vol] 0.99 mg/dL Normal 0.50-1.30 [facility] Comment on above: Order Comment: [facility] has implemented the eGFR calculation approach that does not have a coefficient for race that conforms to the NKF-ASN Task Force Recommendations. Performed By: #### 4 [id number] #### LAB [address] [address] Adonis Gee M.D. [id number] EGFR 91 mL/min/1.73 m2 Normal >=60 [facility] Comment on above: Order Comment: [facility] has implemented the eGFR calculation approach that does not have a coefficient for race that conforms to the NKF-ASN Task Force Recommendations. Result Comment: Maria Fernanda mated GFR was calculated using the 2020 CKD-EPI creatinine equation. Performed By: #### 4 [id number] #### [facility] [address] [address] Adonis Gee M.D. [id number] Glucose [Mass/Vol] 118 mg/dL High 65-99 [facility] Comment on above: Order Comment: [facility] has implemented the eGFR calculation approach that does not have a coefficient for race that conforms to the NKF-ASN Task Force Recommendations. Performed By: #### 4 [id number] #### [facility] [address] [address] Adonis Gee M.D. [id number] HCO3 (Bld) [Moles/Vol] 25 mmol/L Normal 21-32 [facility] Comment on above: Order Comment: [facility] has implemented the eGFR calculation approach that does not have a coefficient for race that conforms to the NKF-ASN Task Force Recommendations. Performed By: #### 4 6917 #### [facility] [address] [address] Adonis Gee M.D. [id number] Potassium [Moles/Vol] 4.5 mmol/L Normal 3.5-5.1 [facility] Comment on above: Order Comment: [facility] has implemented the eGFR calculation approach that does not have a coefficient for race that conforms to the NKF-ASN Task Force Recommendations. Performed By: #### 4 [id number] #### [facility] [address] [address] Adonis Gee M.D. [id number] Sodium [Moles/Vol] 138 mmol/L Normal 135-145 [facility] Comment on above: Order Comment: [facility] has implemented the eGFR calculation approach that does not have a coefficient for race that conforms to the NKF-ASN Task Force Recommendations. Performed By: #### 4 6935 #### LAB [address] [address] Adonis Gee M.D. [id number] Urea nitrogen [Mass/Vol] 15 mg/dL Normal 8-25 [facility] Comment on above: Order Comment: [facility] has implemented the eGFR calculation approach that does not have a coefficient for race that conforms to the NKF-ASN Task Force Recommendations. Performed By: #### 4 6976 #### [facility] [address] [address] Adonis Gee M.D. [id number] Urea nitrogen/Creatinine [Mass ratio] 15.2 mg/mg Normal 10.0-20.0 [facility] Comment on above: Order Comment: [facility] has implemented the eGFR calculation approach that does not have a coefficient for race that conforms to the NKF-ASN Task Force Recommendations. Performed By: #### 4 [id number] #### [facility] [address] [place], [place] [address] Adonis Gee M.D. [id number] Basic metabolic 2000 panelon 01-15-2025 Anion gap [Moles/Vol] 14 mmol/L 10 - 20 mmol/L [facility] Calcium [Mass/Vol] 9.5 mg/dL 8.4 - 10. 2 mg/dL [facility] Chloride [Moles/Vol] 104 mmol/L 98 - 108 mmol/L [facility] Creatinine [Mass/Vol] 0.99 mg/dL 0.50 - 1.30 mg/dL [facility] GFR/1.73 sq M.predicted CKD-EPI (S/P/Bld) [Vol rate/Area] 91 - PINF [facility] Comment on above: Estimated GFR was ca lculated using the 2020 CKD-EPI creatinine equation. Glucose [Mass/Vol] 118 mg/dL High 65 - 99 mg/dL [facility] HCO3 [Moles/Vol] 25 mmol/L 21 - 32 mmol/L [facility] Interpretation and review of laboratory results Abnormal [facility] Potassium [Moles/Vol] 4.5 mmol/L 3.5 - 5.1 mmol/L [facility] Sodium [Moles/Vol] 138 mmol/L 135 - 145 mmol/L [facility] Urea nitrogen [Mass/Vol] 15 mg/dL 8 - 25 mg/dL [facility] Urea nitrogen/Creatinine [Mass ratio] 15.2 mg/mg 10.0 - 20.[address] [facility] has implemented the eGFR calculation approach that does not have a coefficient for race that conforms to the NKF-ASN Task Force Recommendations. [facility] CBCon 01-15-2025 AUTO NRBC 0.0 % Normal [facility] Comment on above: Performed By: #### [id number] #### [facility] [address] [address] Rdo Corona M.D. [id number] AUTO NRBC ABS COUNT 0.00 K/mcL Normal 0.00-0.00 [facility] Comment on above: Performed By: #### 4 [id number] #### [facility] [address] [place] [address] Rod Corona M.D. [id number] Erythrocyte distribution width (RBC) [Ratio] 13.2 % Normal 11.6-14.8 [facility] Comment on above: Performed By: #### 4 [id number] #### [facility] [address] [place] [address] Rod Corona M.D. [id number] Hematocrit (Bld) [Volume fraction] 48.2 % Normal 41.0-53.0 [facility] Comment on above: Performed By: #### 4 [id number] #### [facility] [address] [place] [address] Rod Corona M.D. [id number] Hemoglobin (Bld) [Mass/Vol] 16.2 g/dL Normal 13.5-17.5 [facility] Comment on above: Performed By: #### 4 [id number] #### [facility] [address] [place], [place] [address] Rod Corona M.D. [id number] MCH (RBC) [Entitic mass] 32.0 pg Normal 26.0-34.0 [facility] Comment on above: Performed By: #### 4 [id number] #### [facility] [address] [place], [place] [address] Rod Corona M.D. [id number] MCV (RBC) [Entitic vol] 95.1 fL Normal 80.0-100.0 [facility] Comment on above: Performed By: #### 4 [id number] #### [facility] [address] [place] [address] Rod Corona M.D. [id number] MEAN CORPUSCULAR HEMOGLOBIN CONC 33.6 g/dL Normal 31.0-37.0 [facility] Comment on above: Performed By: #### 4 [id number] #### [facility] [address] [place], [place] [address] Rod Corona M.D. [id number] Platelet mean volume (Bld) [Entitic vol] 9.9 fL Normal 9.4-12.4 [facility] Comment on above: Performed By: #### 4 [id number] #### [facility] [address] [place] [address] Rod Corona M.D. [id number] Platelets (Bld) [#/Vol] 212 10*3/uL Normal 150-400 [facility] Comment on above: Performed By: #### 4 [id number] #### [facility] [address] [place] [address] Rod Corona M.D. [id number] RBC (Bld) [#/Vol] 5.07 10*6/uL Normal 4.50-5.90 [facility] Comment on above: Performed By: #### 4 [id number] #### [facility] [address] [place], [place] [address] Rod Corona M.D. [id number] WBC (Bld) [#/Vol] 8.95 10*3/uL Normal 4.50-11.00 [facility] Comment on above: Performed By: #### 4 [id number] #### [facility] [address] [place], [place] [address] Rod Corona M.D. [id number] CBC panel Auto (Bld)on 01-15 Erythrocyte distribution width (RBC) [Entitic vol] 13.2 % 11.6 - 14.8 % [facility] Hematocrit (Bld) [Volume fraction] 48.2 % 41.0 - 53.0 % [facility] Hemoglobin (Bld) [Mass/Vol] 16.2 g/dL 13.5 - 17.5 g/dL [facility] MCH (RBC) [Entitic mass] 32 pg 26.0 - 34.0 pg [facility] MCHC (RBC) [Mass/Vol] 33.6 g/dL 31.0 - 37.0 g/dL [facility] MCV (RBC) [Entitic vol] 95.1 fL 80.0 - 100.0 fL [facility] Nucleated RBC (Bld) [#/Vol] 0 10*3/uL [facility] Nucleated RBC/100 WBC (Bld) [Ratio] 0 % [facility] Platelet mean volume (Bld) [Entitic vol] 9.9 fL 9.4 - 12.4 fL [facility] Platelets (Bld) [#/Vol] 212 10*3/uL [facility] RBC (Bld) [#/Vol] 5.07 10*6/uL [facility] WBC (Bld) [#/Vol] 8.95 10*3/uL [facility] CRP [Mass/Vol]on 01-15-2025 Interpretation and review of laboratory results Normal [facility] CRP, INFLAMMATIONon 01-16-20 25 CRP [Mass/Vol] 3.7 mg/L Normal 0.0-10.0 [facility] Comment on above: Performed By: #### 4 [id number] #### [facility] [address] [place], [place] [address] Adonis Gee M.D. [id number] ESR Westergren method (Bld) [Velocity]on 01-15-2025 ESR (Bld) [Velocity] 15 mm/h [facility] Interpretation and review of laboratory results Normal [facility] Laboratory - Chemistry and C hemistry - challengeon 01-15-2025 CRP [Mass/Vol] 3.7 mg/L 0.0 - 10.0 mg/L [facility] No Panel Informationon 01-15 [facility] SEDIMENTATION RATEon 025 SEDIMENTATION RATE, ERYTHROCYTE 15 mm/hr Normal 0-20 [facility] Comment on above: Performed By: #### [id number] #### [facility] [address] [place], [place] [address] Rod Corona M.D. [id number] XR FOOT LEFT 3+ VIEWS (STAND GISELA)on 01-14-2025 XR FOOT LEFT 3+ VIEWS (STANDARD) 3 views of the left foot reviewed today AP MO and lateral. Interval visualization of antibiotic beads and ostectomy of the distal phalanx. Most have been resorbed or are coming out. No evidence of subcutaneous emphysema. Stable x-ray Dictated by: FATMATA ARGUELLES on SunJan 19, 2025 4:40:36 PM EDT Transcribed by: FATMATA ARGUELLES on SunJan 19, 2025 4:40:36 PM EDT Finalized by: FATMATA ARGUELLES on SunJan 19, 2025 4:40:36 PM EDT Normal [facility] Comment on above: Order Comment: Injur y/Trauma or Illness?:Illness/Other How long have you had these symptoms (acute/chronic)?:Unknown Reason for exam?:Left foot pain History of cancer?:unknown Surgeries, chemotherapy, or radiation?:unknown Type of Exam?:Unknown Additional signs and symptoms?:Left foot pain BASIC METABOLIC PANELon Anion gap [Moles/Vol] 14 mmol/L Normal 10-20 [facility] Comment on above: Order Comment: [facility] has implemented the eGFR calculation approach that does not have a coefficient for race that conforms to the NKF-ASN Task Force Recommendations. Performed By: #### [id number] #### [facility] [address] [place] [address] Rod Corona M.D. [id number] Calcium [Mass/Vol] 9.4 mg/dL Normal 8.4-10.2 [facility] Comment on above: Order Comment: [facility] has implemented the eGFR calculation approach that does not have a coefficient for race that conforms to the NKF-ASN Task Force Recommendations. Performed By: #### [id number] #### [facility] [address] [place] [address] Rod Corona M.D. [id number] Chloride [Moles/Vol] 104 mmol/L Normal 98-108 [facility] Comment on above: Order Comment: [facility] has implemented the eGFR calculation approach that does not have a coefficient for race that conforms to the NKF-ASN Task Force Recommendations. Performed By: #### 4 [id number] #### [facility] [address] [place] [address] Rod Corona M.D. [id number] Creatinine [Mass/Vol] 1.02 mg/dL Normal 0.50-1.30 [facility] Comment on above: Order Comment: [facility] has implemented the eGFR calculation approach that does not have a coefficient for race that conforms to the NKF-ASN Task Force Recommendations. Performed By: #### [id number] #### [facility] [address] [place] [address] Rod Corona M.D. [id number] EGFR 88 mL/min/1.73 m2 Normal >=60 [facility] Comment on above: Order Comment: [facility] has implemented the eGFR calculation approach that does not have a coefficient for race that conforms to the NKF-ASN Task Force Recommendations. Result Comment: Maria Fernanda mated GFR was calculated using the 2020 CKD-EPI creatinine equation. Performed By: #### 4 [id number] #### [facility] [address] [place] [address] Rod Corona M.D. [id number] Glucose [Mass/Vol] 106 mg/dL High 65-99 [facility] Comment on above: Order Comment: [facility] has implemented the eGFR calculation approach that does not have a coefficient for race that conforms to the NKF-ASN Task Force Recommendations. Performed By: #### 4 [id number] #### [facility] [address] [place] [address] Rod Corona M.D. [id number] HCO3 (Bld) [Moles/Vol] 24 mmol/L Normal 21-32 [facility] Comment on above: Order Comment: [facility] has implemented the eGFR calculation approach that does not have a coefficient for race that conforms to the NKF-ASN Task Force Recommendations. Performed By: #### 4 [id number] #### [facility] [address] [place] [address] Rod Corona M.D. [id number] Potassium [Moles/Vol] 4.3 mmol/L Normal 3.5-5.1 [facility] Comment on above: Order Comment: [facility] has implemented the eGFR calculation approach that does not have a coefficient for race that conforms to the NKF-ASN Task Force Recommendations. Performed By: #### 4 [id number] #### [facility] [address] [place] [address] Rod Corona M.D. [id number] Sodium [Moles/Vol] 138 mmol/L Normal 135-145 [facility] Comment on above: Order Comment: [facility] has implemented the eGFR calculation approach that does not have a coefficient for race that conforms to the NKF-ASN Task Force Recommendations. Performed By: #### 4 [id number] #### [facility] [address] [place] [address] Rod Corona M.D. [id number] Urea nitrogen [Mass/Vol] 17 mg/dL Normal 8-25 [facility] Comment on above: Order Comment: [facility] has implemented the eGFR calculation approach that does not have a coefficient for race that conforms to the NKF-ASN Task Force Recommendations. Performed By: #### 4 [id number] #### [facility] [address] [place] [address] Rod Corona M.D. [id number] Urea nitrogen/Creatinine [Mass ratio] 16.7 mg/mg Normal 10.0-20.0 [facility] Comment on above: Order Comment: [facility] has implemented the eGFR calculation approach that does not have a coefficient for race that conforms to the NKF-ASN Task Force Recommendations. Performed By: #### [id number] #### [facility] [address] [place] [address] Rod Corona M.D. [id number] Basic metabolic 2000 panelon 01-08-2025 Anion gap [Moles/Vol] 14 mmol/L 10 - 20 mmol/L [facility] Calcium [Mass/Vol] 9.4 mg/dL 8.4 - 10. 2 mg/dL [facility] Chloride [Moles/Vol] 104 mmol/L 98 - 108 mmol/L [facility] Creatinine [Mass/Vol] 1.02 mg/dL 0.50 - 1.30 mg/dL [facility] GFR/1.73 sq M.predicted CKD-EPI (S/P/Bld) [Vol rate/Area] 88 - PINF [facility] Comment on above: Estimated GFR was ca lculated using the 2020 CKD-EPI creatinine equation. Glucose [Mass/Vol] 106 mg/dL High 65 - 99 mg/dL [facility] HCO3 [Moles/Vol] 24 mmol/L 21 - 32 mmol/L [facility] Interpretation and review of laboratory results Abnormal [facility] Potassium [Moles/Vol] 4.3 mmol/L 3.5 - 5.1 mmol/L [facility] Sodium [Moles/Vol] 138 mmol/L 135 - 145 mmol/L [facility] Urea nitrogen [Mass/Vol] 17 mg/dL 8 - 25 mg/dL [facility] Urea nitrogen/Creatinine [Mass ratio] 16.7 mg/mg 10.0 - 20.[address] [facility] has implemented the eGFR calculation approach that does not have a coefficient for race that conforms to the NKF-ASN Task Force Recommendations. [facility] CBCon 01-08-2025 AUTO NRBC 0.0 % Normal [facility] Comment on above: Performed By: #### [id number] #### [facility] [address] [place], [place] [id number] Rod Corona M.D. [id number] AUTO NRBC ABS COUNT 0.00 K/mcL Normal 0.00-0.00 [facility] Comment on above: Performed By: #### 4 [id number] #### [facility] [address] [place], [place] [id number] Rod Corona M.D. [id number] Erythrocyte distribution width (RBC) [Ratio] 13.2 % Normal 11.6-14.8 [facility] Comment on above: Performed By: #### 4 [id number] #### [facility] [address] [place], [place] [address] Rod Corona M.D. [id number] Hematocrit (Bld) [Volume fraction] 48.1 % Normal 41.0-53.0 [facility] Comment on above: Performed By: #### 4 [id number] #### [facility] [address] [place] [address] Rod Corona M.D. [id number] Hemoglobin (Bld) [Mass/Vol] 16.3 g/dL Normal 13.5-17.5 [facility] Comment on above: Performed By: #### 4 [id number] #### [facility] [address] [place] [address] Rod Corona M.D. [id number] MCH (RBC) [Entitic mass] 31.4 pg Normal 26.0-34.0 [facility] Comment on above: Performed By: #### 4 [id number] #### [facility] [address] [place], [place] [address] Rod Corona M.D. [id number] MCV (RBC) [Entitic vol] 92.7 fL Normal 80.0-100.0 [facility] Comment on above: Performed By: #### 4 [id number] #### [facility] [address] [place], [place] [address] Rod Corona M.D. [id number] MEAN CORPUSCULAR HEMOGLOBIN CONC 33.9 g/dL Normal 31.0-37.0 [facility] Comment on above: Performed By: #### 4 [id number] #### [facility] [address] [place], [place] [address] Rod Corona M.D. [id number] Platelet mean volume (Bld) [Entitic vol] 10.3 fL Normal 9.4-12.4 [facility] Comment on above: Performed By: #### 4 [id number] #### [facility] [place], [place] [address] Rod Corona M.D. [id number] Platelets (Bld) [#/Vol] 207 10*3/uL Normal 150-400 [facility] Comment on above: Performed By: #### 4 [id number] #### [facility] [address] [place] [address] Rod Corona M.D. [id number] RBC (Bld) [#/Vol] 5.19 10*6/uL Normal 4.50-5.90 [facility] Comment on above: Performed By: #### 4 [id number] #### [facility] [address] [place] [address] Rod Corona M.D. [id number] WBC (Bld) [#/Vol] 9.87 10*3/uL Normal 4.50-11.00 [facility] Comment on above: Performed By: #### 4 [id number] #### [facility] [address] [place] [address] Rod Corona M.D. [id number] CBC panel Auto (Bld)on 01-08 Erythrocyte distribution width (RBC) [Entitic vol] 13.2 % 11.6 - 14.8 % [facility] Hematocrit (Bld) [Volume fraction] 48.1 % 41.0 - 53.0 % [facility] Hemoglobin (Bld) [Mass/Vol] 16.3 g/dL 13.5 - 17.5 g/dL [facility] MCH (RBC) [Entitic mass] 31.4 pg 26.0 - 34.0 pg [facility] MCHC (RBC) [Mass/Vol] 33.9 g/dL 31.0 - 37.0 g/dL [facility] MCV (RBC) [Entitic vol] 92.7 fL 80.0 - 100.0 fL [facility] Nucleated RBC (Bld) [#/Vol] 0 10*3/uL [facility] Nucleated RBC/100 WBC (Bld) [Ratio] 0 % [facility] Platelet mean volume (Bld) [Entitic vol] 10.3 fL 9.4 - 12.4 fL [facility] Platelets (Bld) [#/Vol] 207 10*3/uL [facility] RBC (Bld) [#/Vol] 5.19 10*6/uL [facility] WBC (Bld) [#/Vol] 9.87 10*3/uL [facility] CRP [Mass/Vol]on 01-08-2025 Interpretation and review of laboratory results Normal [facility] CRP, INFLAMMATIONon 01-09-20 25 CRP [Mass/Vol] 9.8 mg/L Normal 0.0-10.0 [facility] Comment on above: Performed By: #### 4 [id number] #### [facility] [address] [place], [place] [address] Adonis Gee M.D. [id number] ESR Westergren method (Bld) [Velocity]on 01-08-2025 ESR (Bld) [Velocity] 20 mm/h [facility] Interpretation and review of laboratory results Normal [facility] - Chemistry and C hemistry - challengeon 01-08-2025 CRP [Mass/Vol] 9.8 mg/L 0.0 - 10.0 mg/L [facility] No Panel Informationon 01-08 [facility] SEDIMENTATION RATEon 025 SEDIMENTATION RATE, ERYTHROCYTE 20 mm/hr Normal 0-20 [facility] Comment on above: Performed By: #### 4 [id number] #### [facility] [address] [address] Rod Corona M.D. [id number] XR FOOT LEFT 3+ VIEWS (STAND GISELA)on 01-07-2025 XR FOOT LEFT 3+ VIEWS (STANDARD) Left AP MO and lateral. Interval visualization of antibiotic beads and ostectomy of the distal phalanx. No evidence of subcutaneous emphysema. Stable x-ray Dictated by: FATMATA ARGUELLES on SunJan 09, 2025 7:22:34 AM EST Transcribed by: FATMATA ARGUELLES on SunJan 09, 2025 7:22:34 AM EST Finalized by: FATMATA ARGUELLES on SunJan 09, 2025 7:22:34 AM EST Normal [facility] Comment on above: Order Comment: Injur y/Trauma or Illness?:Illness/Other How long have you had these symptoms (acute/chronic)?:Unknown Reason for exam?:Left foot pain History of cancer?:unknown Surgeries, chemotherapy, or radiation?:unknown Type of Exam?:Unknown Additional signs and symptoms?:Left foot pain CREATININE, SERUMon 01-04-20 25 Creatinine [Mass/Vol] 1.12 mg/dL Normal 0.50-1.30 [facility] Comment on above: Order Comment: [facility] has implemented the eGFR calculation approach that does not have a coefficient for race that conforms to the NKF-ASN Task Force Recommendations. Performed By: #### 4 [id number] #### [facility] [address] [place], [place] [address] Adonis Gee M.D. [id number] EGFR 79 mL/min/1.73 m2 Normal >=60 [facility] Comment on above: Order Comment: [facility] has implemented the eGFR calculation approach that does not have a coefficient for race that conforms to the NKF-ASN Task Force Recommendations. Result Comment: Maria Fernanda mated GFR was calculated using the 2020 CKD-EPI creatinine equation. Performed By: #### 4 [id number] #### [facility] [address] [place], [place] [address] Adonis Gee M.D. [id number] Creatinine [Mass/Vol]on GFR/1.73 sq M.predicted CKD-EPI (S/P/Bld) [Vol rate/Area] 79 - PINF [facility] Comment on above: Estimated GFR was ca lculated using the 2020 CKD-EPI creatinine equation. Interpretation and review of laboratory results Normal [facility] has implemented the eGFR calculation approach that does not have a coefficient for race that conforms to the NKF-ASN Task Force Recommendations. [facility] Creatinine, serumon 01-04-20 25 Creatinine [Mass/Vol] 1.12 mg/dL 0.50 - 1.30 mg/dL [facility] Glucose (Bld) [Mass/Vol]on 0 01-03-2025 Glucose [Mass/Vol] 163 mg/dL High 65 - 99 mg/dL [facility] Interpretation and review of laboratory results Abnormal [facility] POC GLUCOSE - [facility] 025 Glucose [Mass/Vol] 163 mg/dL High 65-99 [facility] Comment on above: Performed By: #### 4 [id number] #### [facility] [address] [address] Adonis Gee M.D. [id number] BASIC METABOLIC PANELon 12-07 Anion gap [Moles/Vol] 13 mmol/L Normal 10-20 [facility] Comment on above: Order Comment: [facility] has implemented the eGFR calculation approach that does not have a coefficient for race that conforms to the NKF-ASN Task Force Recommendations. Performed By: #### 4 [id number] #### [facility] [address] [address] Adonis Gee M.D. [id number] Calcium [Mass/Vol] 9.0 mg/dL Normal 8.4-10.2 [facility] Comment on above: Order Comment: [facility] has implemented the eGFR calculation approach that does not have a coefficient for race that conforms to the NKF-ASN Task Force Recommendations. Performed By: #### 4 [id number] #### [facility] [address] [address] Adonis Gee M.D. [id number] Chloride [Moles/Vol] 100 mmol/L Normal 98-108 [facility] Comment on above: Order Comment: [facility] has implemented the eGFR calculation approach that does not have a coefficient for race that conforms to the NKF-ASN Task Force Recommendations. Performed By: #### 4 [id number] #### [facility] [address] [address] Adonis Gee M.D. [id number] Creatinine [Mass/Vol] 1.07 mg/dL Normal 0.50-1.30 [facility] Comment on above: Order Comment: [facility] has implemented the eGFR calculation approach that does not have a coefficient for race that conforms to the NKF-ASN Task Force Recommendations. Performed By: #### 4 [id number] #### [facility] [address] [address] Adonis Gee M.D. [id number] EGFR 83 mL/min/1.73 m2 Normal >=60 [facility] Comment on above: Order Comment: [facility] has implemented the eGFR calculation approach that does not have a coefficient for race that conforms to the NKF-ASN Task Force Recommendations. Result Comment: Maria Fernanda mated GFR was calculated using the 2020 CKD-EPI creatinine equation. Performed By: #### 4 [id number] #### [facility] [address] [address] Adonis Gee M.D. [id number] Glucose [Mass/Vol] 240 mg/dL High 65-99 [facility] Comment on above: Order Comment: [facility] has implemented the eGFR calculation approach that does not have a coefficient for race that conforms to the NKF-ASN Task Force Recommendations. Performed By: #### 4 [id number] #### [facility] [address] [address] Adonis Gee M.D. [id number] HCO3 (Bld) [Moles/Vol] 26 mmol/L Normal 21-32 [facility] Comment on above: Order Comment: [facility] has implemented the eGFR calculation approach that does not have a coefficient for race that conforms to the NKF-ASN Task Force Recommendations. Performed By: #### 4 [id number] #### [facility] [address] [address] Adonis Gee M.D. [id number] Potassium [Moles/Vol] 4.0 mmol/L Normal 3.5-5.1 [facility] Comment on above: Order Comment: [facility] has implemented the eGFR calculation approach that does not have a coefficient for race that conforms to the NKF-ASN Task Force Recommendations. Performed By: #### 4 [id number] #### [facility] [address] [address] Adonis Gee M.D. [id number] Sodium [Moles/Vol] 135 mmol/L Normal 135-145 [facility] Comment on above: Order Comment: [facility] has implemented the eGFR calculation approach that does not have a coefficient for race that conforms to the NKF-ASN Task Force Recommendations. Performed By: #### 4 [id number] #### [facility] [address] [place], [place] [address] Adonis Gee M.D. [id number] Urea nitrogen [Mass/Vol] 11 mg/dL Normal 8-25 [facility] Comment on above: Order Comment: [facility] has implemented the eGFR calculation approach that does not have a coefficient for race that conforms to the NKF-ASN Task Force Recommendations. Performed By: #### 4 [id number] #### [facility] [address] [place], [place] [address] Adonis Gee M.D. [id number] Urea nitrogen/Creatinine [Mass ratio] 10.3 mg/mg Normal 10.0-20.0 [facility] Comment on above: Order Comment: [facility] has implemented the eGFR calculation approach that does not have a coefficient for race that conforms to the NKF-ASN Task Force Recommendations. Performed By: #### 4 [id number] #### [facility] [address] [place], [place] [address] Adonis Gee M.D. [id number] Basic metabolic 2000 panelon 01-02-2025 Anion gap [Moles/Vol] 13 mmol/L 10 - 20 mmol/L [facility] Calcium [Mass/Vol] 9 mg/dL 8.4 - 10. 2 mg/dL [facility] Chloride [Moles/Vol] 100 mmol/L 98 - 108 mmol/L [facility] Creatinine [Mass/Vol] 1.07 mg/dL 0.50 - 1.30 mg/dL [facility] GFR/1.73 sq M.predicted CKD-EPI (S/P/Bld) [Vol rate/Area] 83 - PINF [facility] Comment on above: Estimated GFR was ca lculated using the 2020 CKD-EPI creatinine equation. Glucose [Mass/Vol] 240 mg/dL High 65 - 99 mg/dL [facility] HCO3 [Moles/Vol] 26 mmol/L 21 - 32 mmol/L [facility] Interpretation and review of laboratory results Abnormal [facility] Potassium [Moles/Vol] 4 mmol/L 3.5 - 5.1 mmol/L [facility] Sodium [Moles/Vol] 135 mmol/L 135 - 145 mmol/L [facility] Urea nitrogen [Mass/Vol] 11 mg/dL 8 - 25 mg/dL [facility] Urea nitrogen/Creatinine [Mass ratio] 10.3 mg/mg 10.0 - 20.[address] [facility] has implemented the eGFR calculation approach that does not have a coefficient for race that conforms to the NKF-ASN Task Force Recommendations. [facility] CBCon 01-02-2025 AUTO NRBC 0.0 % Normal [facility] Comment on above: Performed By: #### 4 [id number] #### [facility] [address] [address] Adonis Gee M.D. [id number] AUTO NRBC ABS COUNT 0.00 K/mcL Normal 0.00-0.00 [facility] Comment on above: Performed By: #### 4 6917 #### [facility] [address] [address] Adonis Gee M.D. [id number] Erythrocyte distribution width (RBC) [Ratio] 13.2 % Normal 11.6-14.8 [facility] Comment on above: Performed By: #### 4 [id number] #### [facility] [address] [address] Adonis Gee M.D. [id number] Hematocrit (Bld) [Volume fraction] 48.4 % Normal 41.0-53.0 [facility] Comment on above: Performed By: #### 4 [id number] #### [facility] [address] [address] Adonis Gee M.D. [id number] Hemoglobin (Bld) [Mass/Vol] 16.2 g/dL Normal 13.5-17.5 [facility] Comment on above: Performed By: #### 4 6930 #### [facility] [address] [address] Adonis Gee M.D. [id number] MCH (RBC) [Entitic mass] 32.0 pg Normal 26.0-34.0 [facility] Comment on above: Performed By: #### 4 [id number] #### [facility] [address] [address] Adonis Gee M.D. [id number] MCV (RBC) [Entitic vol] 95.5 fL Normal 80.0-100.0 [facility] Comment on above: Performed By: #### 4 [id number] #### [facility] [address] [address] Adonis Gee M.D. [id number] MEAN CORPUSCULAR HEMOGLOBIN CONC 33.5 g/dL Normal 31.0-37.0 [facility] Comment on above: Performed By: #### 4 [id number] #### [facility] [address] [address] Adonis Gee M.D. [id number] Platelet mean volume (Bld) [Entitic vol] 10.8 fL Normal 9.4-12.4 [facility] Comment on above: Performed By: #### 4 [id number] #### [facility] [address] [address] Adonis Gee M.D. [id number] Platelets (Bld) [#/Vol] 162 10*3/uL Normal 150-400 [facility] Comment on above: Performed By: #### 4 [id number] #### [facility] [address] [address] Adonis Gee M.D. [id number] RBC (Bld) [#/Vol] 5.07 10*6/uL Normal 4.50-5.90 [facility] Comment on above: Performed By: #### 4 [id number] #### [facility] [address] [address] Adonis Gee M.D. [id number] WBC (Bld) [#/Vol] 7.58 10*3/uL Normal 4.50-11.00 [facility] Comment on above: Performed By: #### 4 [id number] #### [facility] [address] [address] Adonis Gee M.D. [id number] CBC panel Auto (Bld)on 01-02 Erythrocyte distribution width (RBC) [Entitic vol] 13.2 % 11.6 - 14.8 % [facility] Hematocrit (Bld) [Volume fraction] 48.4 % 41.0 - 53.0 % [facility] Hemoglobin (Bld) [Mass/Vol] 16.2 g/dL 13.5 - 17.5 g/dL [facility] MCH (RBC) [Entitic mass] 32 pg 26.0 - 34.0 pg [facility] MCHC (RBC) [Mass/Vol] 33.5 g/dL 31.0 - 37.0 g/dL [facility] MCV (RBC) [Entitic vol] 95.5 fL 80.0 - 100.0 fL [facility] Nucleated RBC (Bld) [#/Vol] 0 10*3/uL [facility] Nucleated RBC/100 WBC (Bld) [Ratio] 0 % [facility] Platelet mean volume (Bld) [Entitic vol] 10.8 fL 9.4 - 12.4 fL [facility] Platelets (Bld) [#/Vol] 162 10*3/uL [facility] RBC (Bld) [#/Vol] 5.07 10*6/uL [facility] WBC (Bld) [#/Vol] 7.58 10*3/uL [facility] CONSULTon 01-02-2025 CONSULT --- Attestation signed by Chang Charles MD at 01/06/2025 2:12 PM I attest to Maximo's evaluation, review medical record and radiological findings, and labs, have discussed extensively with nurse practitioner management plan, and examination. Patient was presented with Left great toe wounds, being followed by the airborne and air delivery specialist, with the left great toe also swelling and had an MRI that showed osteomyelitis of the left great toe. Patient admitted in the hospital for debridement and bone biopsy. Patient had WBC of 11.9 on admission and C-reactive protein of 15.5. MRI however has shown some aspect of abscess in the fourth distal phalanx. Podiatry following. Patient with 1. Left great toe abscess 2. Left great toe osteomyelitis 3. Cellulitis of the left great toe Plan. Continue patient on current therapy Patient currently on IV Zosyn and continue vancomycin DC antibiotics at this time pending culture result Follow-up airborne and air delivery specialist for I&D and bone culture. I reviewed MRI with a comfortable signs of infection of the first toe, and abscess of the distal phalanx. Appreciate podiatry evaluation, scheduling for I&D Will continue to follow with you. Patient Name: Joel Falk Admit Date: [id number] MR #: [id number] : 1970 Physicians: No, Physician (Family); No ref. provider found (Referring) Chief complaint: Left great toe osteomyelitis History: Joel is a 54-year-old male with no pertinent medical history on file except for ACL repair. He presented at the ER yesterday with complaint of foot injury. Stated that a couple of months ago he had a nail avulsion of the left great toe and has been following up with airborne and air delivery specialist Dr. Jett and has been on oral antibiotics. He stated that last week they did an MRI that showed any osteomyelitis. He had denied any history of fever or chills, no nausea no vomiting and no diarrhea. Patient does not have any abdominal or urinary symptoms. Has a white cell counts of 11.9 leukocytosis. ESR of 12 and CRP of 15.5. MRSA probe is negative. Blood culture has no growth to date. Left foot MRI findings compatible with infection of the first toenail with erosive changes of the adjacent dorsal cortex of the first distal phalanx and intervention was abscess of the first distal phalanx with surrounding osteomyelitis of the majority of the first distal phalanx. Patient has been placed on IV Zosyn and IV vancomycin. Current evaluation is for left great toe nail avulsion, abscess, osteomyelitis and antibiotics management. ROS: Constitutional: Negative for fatigue, change in appetite, chills and fever. HENT: Negative for congestion and rhinorrhea. Negative for ear pain, sore throat. Eyes: Negative for pain and redness. Respiratory: Negative for cough and shortness of breath. Cardiovascular: Negative for chest pain and palpitations. Gastrointestinal: Negative for abdominal pain, constipation, diarrhea, nausea and vomiting. Genitourinary: Negative for difficulty urinating, dysuria, frequency, hesitancy, flank pain Musculoskeletal: Negative for back pain, neck pain and neck stiffness. Skin: Negative for color change and rash. Neurological: Negative for lightheadedness, dizziness, syncope, weakness and headaches. Psychiatric/Behavioral: Negative for confusion, hallucinations and suicidal ideas. Positives and pertinent negatives as per HPI. History reviewed. No pertinent past medical history. Past Surgical History: Procedure Laterality Date ACL REPAIR Right History reviewed. No pertinent family history. Exam: PACU Vitals 01/02/25 0752 BP: (!) 152/81 Pulse: 66 Resp: Temp: 98.1 degrees F (36.7 degrees C) SpO2: 94% Allergies: Patient has no known allergies. Current Facility-Administered Medications: acetaminophen (TYLENOL) tablet 650 mg, 650 mg, Oral, Q4H PRN, Rod Frost MD alteplase (CATH JOHNNY) injection 2 mg, 2 mg, Other, PRN, Rod Frost MD aluminum-magnesium hydroxide-simethicone (MAALOX PLUS) 200-200-20 mg/5 mL suspension 30 mL, 30 mL, Oral, Q4H PRN, Rod Frost MD bisacodyL (DULCOLAX) suppository 10 mg, 10 mg, Rectal, Daily PRN, Rod Frost MD enoxaparin (LOVENOX) syringe 40 mg, 40 mg, Subcutaneous, Daily, Rod Frost MD ibuprofen (ADVIL,MOTRIN) tablet 600 mg, 600 mg, Oral, Q6H PRN, Rod Frost MD, 600 mg at 01/01/255 insulin lispro (AdmeLOG,HumaLOG) injection 0-15 Units, 0-15 Units, Subcutaneous, at bedtime AND Notify physician, , , Until Discontinued, Rod Frost MD insulin lispro (AdmeLOG,HumaLOG) injection 0-30 Units, 0-30 Units, Subcutaneous, TID AC, Rod Frost MD lidocaine 10 mg/mL (1 %) injection 1 mL, 1 mL, Intraderm (more content not included)... Normal [facility] CONSULT Patient ID: Patient Name: Joel Falk Admit Date: 01/01/2025 MR #: [id number] : 1970 Current location: [facility] Physicians: Yesi, Physician (Family); Alondra Gregorio CNP (Referring) Reason for consult: Type 2 diabetes newly diagnosed Assessment/Plan: Dx: Type 2 diabetes, under poor control- newly diagnosed Currently taking as outpatient: No DM Meds Current Hemoglobin A1C= Lab Results Component Value Date HGBA1C 11.5 (H) 01/02/2025 NOTES: 01/02: Patient resting in bed with no real complaints right now. He is awaiting a an I&D procedure with podiatry. Blood sugar this morning was elevated at 243. He is currently ordered sliding scale insulin coverage. He is n.p.o. currently. Blood Glucoses: 12/13: 243--- Plan: 1. Rx changes: see below Start Lantus insulin 25 units nightly Start Humalog 9 units at meals plus usual sensitivity sliding scale Consults of already been placed for diabetic education and dietitian referral. We did discuss what is diabetes, goals/expectations of treatment, possible complications from diabetes should it remain out of control. 2. Education: Reviewed 'ABCs' of diabetes management (respective goals in parentheses): A1C (7.0-8.0), blood pressure (<130/80), and cholesterol (LDL <100). Referral to Diabetes Education Referral to Nutrition therapy Subjective: Brief HPI: Joel Falk is a 54 y.o. 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 Spoke with podiatry who prescribed Augmentin and was coordinating outpatient IV antibiotics. Patient says noone has communicated with him since, so he presented to the ED. this has been an ongoing issue for this patient for quite some time, since August. No fever, chills, N/V. Denies h/o diabetes. He had an MRI which demonstrated osteomyelitis on 12/26/2024. He was also found to be hyperglycemic on admission and endocrinology was consulted to further evaluate. Hemoglobin A1c was checked and was 11.5%. He denies any family history of diabetes. He does drink mountain dew every day, about 8 or 9 cans per day. He denies polyuria, polydipsia or polyphagia. He has had no weight loss. Allergies: No Known Allergies Home Medications: Outpatient Medications Marked as Taking for the 01/01/25 encounter (Hospital Encounter): amoxicillin-clavulanate (AUGMENTIN) 875-125 mg per tablet, Take 1 (one) tablet by mouth 2 (two) times a day for 7 days . Current Medications: enoxaparin (LOVENOX) injection 40 mg Subcutaneous Daily lispro insulin 0-15 Units Subcutaneous at bedtime insulin lispro 0-30 Units Subcutaneous TID AC piperacillin-tazobactam (ZOSYN) extended infusion 3.375 g Intravenous Q8H sodium chloride (PF) 10 mL Intracatheter Q8H DONELL sodium chloride (PF) 5 mL Intravenous Q8H DONELL acetaminophen, alteplase, aluminum-magnesium hydroxide-simethicone, bisacodyL, ibuprofen, lidocaine 1%, magnesium hydroxide, melatonin, ondansetron OR ondansetron, senna, sodium chloride (PF), [COMPLETED] Insert peripheral IV AND Saline lock IV AND sodium chloride (PF) AND sodium chloride 0.9 %, Saline lock IV AND sodium chloride (PF) AND sodium chloride (PF) AND sodium chloride 0.9 %, sodium chloride 0.9 %, traZODone Review of Systems: Review of Systems Constitutional: Negative for activity change, appetite change, fatigue and unexpected weight change. HENT: Negative. Negative for sore throat and trouble swallowing. Eyes: Negative. Respiratory: Negative for cough, chest tightness and shortness of breath. Cardiovascular: Negative for chest pain, palpitations and leg swelling. Gastrointestinal: Negative for abdominal pain, constipation, diarrhea, nausea and vomiting. Endocrine: Negative for cold intolerance, heat intolerance, polydipsia, polyphagia and polyuria. Genitourinary: Negative for dysuria and frequency. Musculoskeletal: Negative. Skin: Positive for wound (Left great toe). Negative for rash. Allergic/Immunologic: Negative. Neurological: Negative for numbness. Hematological: Negative. Psychiatric/Behavioral: Negative. History: History reviewed. No pertinent past medical history. Past Surgical History: Procedure Laterality Date ACL REPAIR Right History reviewed. No pertinent family history. Social History Tobacco Use Smoking status: Every Day Current packs/day: 1.00 Types: Cigarettes Smokeless tobacco: Never Vaping Use Vaping status: Never Used Substance Use Topics Drug use: Never The following portions of the patient's history were reviewed and updated as appropriate: allergies, current medications, past family history, past medical history, past social history, past surgical history and problem list. Objective: BP (!) 152/81 Pulse 66 Temp 98.1 degrees F (36.7 degrees C) (Oral) Resp 16 Ht 5' 10" Wt 116.4 kg (256 lb 9.9 oz) SpO2 94% BMI 36.82 (more content not included)... Normal [facility] Glucose (Bld) [Mass/Vol]on 0 01-02-2025 Glucose [Mass/Vol] 237 mg/dL High 65 - 99 mg/dL [facility] Interpretation and review of laboratory results Abnormal [facility] Glucose [Mass/Vol] 175 mg/dL High 65 - 99 mg/dL [facility] Interpretation and review of laboratory results Abnormal [facility] Glucose [Mass/Vol] 215 mg/dL High 65 - 99 mg/dL [facility] Interpretation and review of laboratory results Abnormal [facility] Glucose [Mass/Vol] 226 mg/dL High 65 - 99 mg/dL [facility] Interpretation and review of laboratory results Abnormal [facility] Glucose [Mass/Vol] 243 mg/dL High 65 - 99 mg/dL [facility] Interpretation and review of laboratory results Abnormal [facility] HEMOGLOBIN A1Con 01-02-2025 Glucose [Mass/Vol] 283 mg/dL High 74-114 [facility] Comment on above: Performed By: #### 4 [id number] #### LAB [address] [place] [place] [address] Adonis Gee M.D. [id number] HbA1c (Bld) [Mass fraction] 11.5 % High 4.2-5.6 [facility] Comment on above: Performed By: #### 4 [id number] #### LAB [address] [place], [place] [address] Adonis Gee M.D. [id number] HbA1c (Bld) [Mass fraction]o n 01-02-2025 Average glucose Estimated from glycated hemoglobin (Bld) [Mass/Vol] 283 mg/dL High 74 - 114 mg/dL [facility] Interpretation and review of laboratory results Abnormal [facility] Hemoglobin A1con 01-02-2025 HbA1c (Bld) [Mass fraction] 11.5 % High 4.2 - 5.6 % [facility] OP NOTEon 01-02-2025 OP NOTE Operative Report 01/02/2025 Joel Laddion 54 y.o. Surgeon: FATMATA Arguelles DPM, ANASTACIO Assistants: Clerk Guide: Anita Valentin PSA Scrub Person Preceptor: Chiquis Gottlieb ST Float: Nallely Linton RN; Nevin Granado RN Pre-operative Diagnosis: * Left great toe osteomyelitis status post previous traumatic nail avulsion Left great toe cellulitis Tobacco abuse Post-operative Diagnosis: Same Procedure: 1. Incision and drainage of left great toe, distal phalanx with bone biopsy, left foot 2. Implantation of antibiotic impregnated cement beads, left hallux, left foot Anesthesia:General Hemostasis: Well-padded ankle tourniquet inflated 250 mmHg Estimated Blood Loss: Less than 5 Materials: 3-0 Prolene Injectables: 10 cc of 0.5% Marcaine plain Pathology/Microbiology: 2 samples for micro bone and swab of purulence, left hallux 1 sample sent for pathology of bone, left hallux Complications: NONE Indications: Patient is a 54 y.o. male who unfortunately acquired osteomyelitis after a traumatic nail avulsion. MRI confirmed intraosseous abscess. Patient's wound was essentially all completely healed at this time but the toe remains quite erythematous and painful. At this time all conservative options have been exhausted and surgical intervention is necessary. The procedure has been explained to the patient and they understand the risks, benefits and possible complications including further infection, dehiscence, loss of toe, loss of limb, loss of life. No promises have been made as to surgical outcome. Procedure: The patient was transported from the pre-op holding to the operating room and placed in a supine position. A pneumatic ankle tourniquet was applied to the left ankle. A pre-operative injection of 10 cc of 0.5% Marcaine plain was injected into the left foot in a H block. The left foot was then prepped and draped in the normal aspetic manner. The left foot was then exsanguinated with an esmark and the tourniquet was inflated to 250 mmHg. Attention was directed to the left hallux. Upon manipulation of the hallux and squeezing the toe a small amount of purulence was expressed from a distal what appears to be sinus tract that was previously undiscovered. Swab culture was taken of this for aerobic and anaerobic evaluation. At this time an L-type incision was planned. 15 blade was used to make a full-thickness incision down to bone. Full flap was raised appropriately and a small amount of purulence was encountered and bone abscess was appreciated. Area was thoroughly irrigated for visualization. Curette was utilized to take bone specimen for aerobic and anaerobic evaluation and saline as well as pathological analysis in formalin. Curette was used to curettage the distal phalanx until hard bone and viable bleeding bone was encountered. Rongeur was utilized to assist in this. At this time healthy bleeding and viable tissue remained. Distal abscess site was ellipsed and excised. Area was then thoroughly irrigated with copious amounts of Irrisept. On the back table antibiotic beads with half a gram of vancomycin were created. They were then implanted into the wound site into the bone cavity and attempt for salvage. The incision was flushed with copious amounts of sterile saline. The skin was closed using 4-0 Prolene. Proximal corner was closed using an modified Allgower Donati stitch. The incision was dressed with adaptic, 4x4's, kerlix, etc. The pneumatic ankle tourniquet was then deflated and an immediate hyperemic response was noted to all digits of the left foot. A postop shoe was then applied. The patient was transported to the PACU with VSS and NVS intact to all digits of the left foot. No complications were noted throughout the procedure. The patient is to be discharged per PACU protocol. Patient will need at least 6 to 8 weeks of IV antibiotics. Did warn patient that should this fail patient would likely need a hallux amputation. Patient understands high risk nature given clinical disposition of the toe and elevated hemoglobin A1c. FATMATA Arguelles DPM Podiatric Foot & Ankle Surgery 01/02/2025 3:42 PM AUTHENTICATED BY CHRISTIAN ARGUELLES II, ON 01/13/2025 08:15:50 [facility] POC GLUCOSE - [facility] 025 Glucose [Mass/Vol] 237 mg/dL High [address] [place] [address] Comment on above: Performed By: #### 4 [id number] #### [facility] [address] [place] [address] Adonis Gee M.D. [id number] Glucose [Mass/Vol] 175 mg/dL [address] Comment on above: Performed By: #### 4 [id number] #### [facility] [address] [place] [address] Adonis Gee M.D. [id number] Glucose [Mass/Vol] 215 mg/dL [address] Comment on above: Performed By: #### 4 [id number] #### [facility] [address] [place] [address] Adonis Gee M.D. [id number] Glucose [Mass/Vol] 226 mg/dL [address] Comment on above: Performed By: #### 4 [id number] #### [facility] [address] [place] [address] Adonis Gee M.D. [id number] Glucose [Mass/Vol] 243 mg/dL [address] Comment on above: Performed By: #### 4 [id number] #### [facility] [address] [place] [address] Adonis Gee M.D. [id number] TISSUE EXAMon 01-02-2025 TISSUE EXAM Surgical Pathology Report Case: [id number] Authorizing Provider: FATMATA Arguelles DPM Collected: 01/02/2025 03:12 PM Ordering Location: [facility] Periop Received: 01/05/2025 08:01 AM Pathologist: Erwin Ignacio IV, MD Specimen: Toe, Left, One A. Bone, Left Great Toe, excision: Acute osteomyelitis. A. Received in formalin, designated "Toe, Left, One Bone", is 1 fragment(s) of bone measuring 0.7 x 0.4 x 0.4 cm. Submitted for decalcification. Totally submitted in 1 cassette(s). CW Microscopic examination is performed. Normal [facility] Comment on above: Performed By: #### 4 [id number] #### LAB [address] [place], [place] [address] Adonis Gee M.D. [id number] WOUND AEROBIC AND ANAEROBIC CULTUREon 01-02-2025 WOUND AEROBIC AND ANAEROBIC CULTURE CULTURE STREPTOCOCCUS VIRIDANS- ANGINOSUS GROUP Heavy Growth Streptococcus viridans, Anginosus Group COAGULASE NEGATIVE STAPHYLOCOCCUS Rare growth Coagulase Negative Staphylococcus Heavy Growth Mixed Anaerobic Margaux GRAM STAIN RESULT No WBC Seen Few Gram Positive Bacilli Many Gram Positive Cocci Many Gram Negative Bacilli Organism: STREPTOCOCCUS VIRIDANS- ANGINOSUS GROUP Antibiotic Interpretation CHALO Status Ampicillin Susc Islt S <=0.25 F Penicillin G Susc Islt S <=0.06 F Ceftriaxone Susc Islt S <=0.12 F Clindamycin Susc Islt R >=1 F Erythromycin Susc Islt R >=8 F Vancomycin Susc Islt S 0.5 F Abnormal [facility] Comment on above: Performed By: #### 4 [id number] #### [facility] [address] [place] [address] Rod Corona M.D. [id number] XR Foot - left 2 Viewson EXAMINATION: XR OR FOOT LEFT 2 VIEWS HISTORY: ORDERING SYSTEM PROVIDED HISTORY: Lt. Foot Great Toe Bx, TECHNOLOGIST PROVIDED HISTORY: Illness/Other Reason for exam: Lt. Foot Great Toe Bx Encounter Type: Initial Additional signs and symptoms: n Fluoro dose in mGy: 0.02 ORDERING SYSTEM PROVIDED DIAGNOSIS CODES: M86.9 Osteomyelitis of great toe of left foot (HCC) COMPARISON: 12/26/2024 FINDINGS: Fluoroscopic spot images are acquired during distal phalangeal tuft resection in progress. Juan Miguel Brand MD - 01/02/2025 EXAMINATION: XR OR FOOT LEFT 2 VIEWS HISTORY: ORDERING SYSTEM PROVIDED HISTORY: Lt. Foot Great Toe Bx, TECHNOLOGIST PROVIDED HISTORY: Illness/Other Reason for exam: Lt. Foot Great Toe Bx Encounter Type: Initial Additional signs and symptoms: n Fluoro dose in mGy: 0.02 ORDERING SYSTEM PROVIDED DIAGNOSIS CODES: M86.9 Osteomyelitis of great toe of left foot (HCC) COMPARISON: 12/26/2024 FINDINGS: Fluoroscopic spot images are acquired during distal phalangeal tuft resection in progress. IMPRESSION: 1. Intraoperative fluoroscopy. See operative report for procedure description 2. Ka,r mGy: Fluoro dose in Ka,r mGy: 0.02 Workstation ID: [id number] [facility] Radiology Study observation (narrative) [facility] XR Foot - left 2 ViewsOrdere d By: Juan Miguel Clarke on 01-02-2025 [facility] Work Phone: XR OR FOOT LEFT 2 VIEWSon XR OR FOOT LEFT 2 VIEWS EXAMINATION: XR OR FOOT LEFT 2 VIEWS HISTORY: ORDERING SYSTEM PROVIDED HISTORY: Lt. Foot Great Toe Bx, TECHNOLOGIST PROVIDED HISTORY: Illness/Other Reason for exam: Lt. Foot Great Toe Bx Encounter Type: Initial Additional signs and symptoms: n Fluoro dose in mGy: 0.02 ORDERING SYSTEM PROVIDED DIAGNOSIS CODES: M86.9 Osteomyelitis of great toe of left foot (HCC) COMPARISON: 12/26/2024 FINDINGS: Fluoroscopic spot images are acquired during distal phalangeal tuft resection in progress. IMPRESSION: 1. Intraoperative fluoroscopy. See operative report for procedure description 2. Ka,r mGy: Fluoro dose in Ka,r mGy: 0.02 Workstation ID: [id number] Dictated by: JUAN MIGUEL CLARKE on SunJan 02, 2025 4:05:17 PM EST Transcribed by: JUAN MIGUEL CLARKE on SunJan 02, 2025 4:05:17 PM EST Finalized by: JUAN MIGUEL CLARKE on SunJan 02, 2025 4:05:17 PM EST Normal [facility] Comment on above: Order Comment: Injur y/Trauma or Illness?:Illness/OtherHow long have you had these symptoms (acute/chronic)?:AcuteReason for exam?:Lt. Foot Great Toe BxType of Exam?:InitialAdditional signs and symptoms?:nFluoro time in minutes:0.053 secondsFluoro dose in mGy?:0.02 BASIC METABOLIC PANELon 12-07 Anion gap [Moles/Vol] 16 mmol/L Normal 10-20 [facility] Comment on above: Order Comment: [facility] has implemented the eGFR calculation approach that does not have a coefficient for race that conforms to the NKF-ASN Task Force Recommendations. Performed By: #### 4 6965 #### LAB [address] [address] Adonis Gee M.D. [id number] Calcium [Mass/Vol] 9.4 mg/dL Normal 8.4-10.2 [facility] Comment on above: Order Comment: [facility] has implemented the eGFR calculation approach that does not have a coefficient for race that conforms to the NKF-ASN Task Force Recommendations. Performed By: #### 4 [id number] #### LAB [address] [address] Adonis Gee M.D. [id number] Chloride [Moles/Vol] 98 mmol/L Normal 98-108 [facility] Comment on above: Order Comment: [facility] has implemented the eGFR calculation approach that does not have a coefficient for race that conforms to the NKF-ASN Task Force Recommendations. Performed By: #### 4 [id number] #### LAB [address] [address] Adonis Gee M.D. [id number] Creatinine [Mass/Vol] 1.05 mg/dL Normal 0.50-1.30 [facility] Comment on above: Order Comment: [facility] has implemented the eGFR calculation approach that does not have a coefficient for race that conforms to the NKF-ASN Task Force Recommendations. Performed By: #### 4 6971 #### LAB [address] [address] Adonis Gee M.D. [id number] EGFR 85 mL/min/1.73 m2 Normal >=60 [facility] Comment on above: Order Comment: [facility] has implemented the eGFR calculation approach that does not have a coefficient for race that conforms to the NKF-ASN Task Force Recommendations. Result Comment: Maria Fernanda mated GFR was calculated using the 2020 CKD-EPI creatinine equation. Performed By: #### 4 [id number] #### LAB [address] [address] Adonis Gee M.D. [id number] Glucose [Mass/Vol] 294 mg/dL High 65-99 [facility] Comment on above: Order Comment: [facility] has implemented the eGFR calculation approach that does not have a coefficient for race that conforms to the NKF-ASN Task Force Recommendations. Performed By: #### 4 [id number] #### LAB [address] [address] Adonis Gee M.D. [id number] HCO3 (Bld) [Moles/Vol] 24 mmol/L Normal 21-32 [facility] Comment on above: Order Comment: [facility] has implemented the eGFR calculation approach that does not have a coefficient for race that conforms to the NKF-ASN Task Force Recommendations. Performed By: #### 4 [id number] #### LAB [address] [address] Adonis Gee M.D. [id number] Potassium [Moles/Vol] 4.3 mmol/L Normal 3.5-5.1 [facility] Comment on above: Order Comment: [facility] has implemented the eGFR calculation approach that does not have a coefficient for race that conforms to the NKF-ASN Task Force Recommendations. Performed By: #### 4 [id number] #### LAB [address] [address] Adonis Gee M.D. [id number] Sodium [Moles/Vol] 134 mmol/L Low 135-145 [facility] Comment on above: Order Comment: [facility] has implemented the eGFR calculation approach that does not have a coefficient for race that conforms to the NKF-ASN Task Force Recommendations. Performed By: #### 4 [id number] #### LAB [address] [place], [place] [address] Adonis Gee M.D. [id number] Urea nitrogen [Mass/Vol] 11 mg/dL Normal 8-25 [facility] Comment on above: Order Comment: [facility] has implemented the eGFR calculation approach that does not have a coefficient for race that conforms to the NKF-ASN Task Force Recommendations. Performed By: #### 4 [id number] #### LAB [address] [address] Adonis Gee M.D. [id number] Urea nitrogen/Creatinine [Mass ratio] 10.5 mg/mg Normal 10.0-20.0 [facility] Comment on above: Order Comment: [facility] has implemented the eGFR calculation approach that does not have a coefficient for race that conforms to the NKF-ASN Task Force Recommendations. Performed By: #### 4 [id number] #### LAB [address] [address] Adonis Gee M.D. [id number] BLOOD CULTURE AEROBIC/ANAERO BIC 01-01-2025 BLOOD CULTURE AEROBIC/ANAEROBIC BLOOD CULTURE No Growth after 5 days [facility] Comment on above: Performed By: #### 4 [id number] #### LAB [address] [address] Adonis Gee M.D. [id number] Performed By: #### 4 [id number] #### LAB [address] [address] Adonis Gee M.D. [id number] Basic metabolic 2000 panelon 01-01-2025 Anion gap [Moles/Vol] 16 mmol/L 10 - 20 mmol/L [facility] Calcium [Mass/Vol] 9.4 mg/dL 8.4 - 10. 2 mg/dL [facility] Chloride [Moles/Vol] 98 mmol/L 98 - 108 mmol/L [facility] Creatinine [Mass/Vol] 1.05 mg/dL 0.50 - 1.30 mg/dL [facility] GFR/1.73 sq M.predicted CKD-EPI (S/P/Bld) [Vol rate/Area] 85 - PINF [facility] Comment on above: Estimated GFR was ca lculated using the 2020 CKD-EPI creatinine equation. Glucose [Mass/Vol] 294 mg/dL High 65 - 99 mg/dL [facility] HCO3 [Moles/Vol] 24 mmol/L 21 - 32 mmol/L [facility] Interpretation and review of laboratory results Abnormal [facility] Potassium [Moles/Vol] 4.3 mmol/L 3.5 - 5.1 mmol/L [facility] Sodium [Moles/Vol] 134 mmol/L Low 135 - 145 mmol/L [facility] Urea nitrogen [Mass/Vol] 11 mg/dL 8 - 25 mg/dL [facility] Urea nitrogen/Creatinine [Mass ratio] 10.5 mg/mg 10.0 - 20.[address] [facility] has implemented the eGFR calculation approach that does not have a coefficient for race that conforms to the NKF-ASN Task Force Recommendations. [facility] CBC Auto Differentialon 12-07 Basophils (Bld) [#/Vol] 0.05 10*3/uL [facility] Basophils/100 WBC (Bld) 0.4 % [facility] Eosinophils (Bld) [#/Vol] 0.07 10*3/uL [facility] Eosinophils/100 WBC (Bld) 0.6 % [facility] Erythrocyte distribution width (RBC) [Entitic vol] 13.1 % 11.6 - 14.8 % [facility] Hematocrit (Bld) [Volume fraction] 50.1 % 41.0 - 53.0 % [facility] Hemoglobin (Bld) [Mass/Vol] 17.6 g/dL High 13.5 - 17.5 g/dL [facility] Immature granulocytes (Bld) [#/Vol] 0.05 10*3/uL [facility] Immature granulocytes/100 WBC (Bld) 0.4 % [facility] Comment on above: The IG parameter is the percentage of metamyelocytes, myelocytes and promyelocytes. An immature granulocyte count (IG) of 1% or more suggests the possibility of infection, an IG count of 3% is very likely related to an infection. Interpretation and review of laboratory results Abnormal [facility] Lymphocytes (Bld) [#/Vol] 1.95 10*3/uL [facility] Lymphocytes/100 WBC (Bld) 16.4 % [facility] MCH (RBC) [Entitic mass] 31.7 pg 26.0 - 34.0 pg [facility] MCHC (RBC) [Mass/Vol] 35.1 g/dL 31.0 - 37.0 g/dL [facility] MCV (RBC) [Entitic vol] 90.1 fL 80.0 - 100.0 fL [facility] Monocytes (Bld) [#/Vol] 0.75 10*3/uL [facility] Monocytes/100 WBC (Bld) 6.3 % [facility] Neutrophils (Bld) [#/Vol] 9.03 10*3/uL High [facility] Neutrophils/100 WBC (Bld) 75.9 % [facility] Nucleated RBC (Bld) [#/Vol] 0 10*3/uL [facility] Nucleated RBC/100 WBC (Bld) [Ratio] 0 % [facility] Platelet mean volume (Bld) [Entitic vol] 10.9 fL 9.4 - 12.4 fL [facility] Platelets (Bld) [#/Vol] 186 10*3/uL [facility] RBC (Bld) [#/Vol] 5.56 10*6/uL [facility] WBC (Bld) [#/Vol] 11.9 10*3/uL High [facility] WITH AUTO DIFFERENTIALon 01-01-2025 AUTO NRBC 0.0 % Normal [facility] Comment on above: Performed By: #### 4 [id number] #### LAB [address] [address] Adonis Gee M.D. [id number] AUTO NRBC ABS COUNT 0.00 K/mcL Normal 0.00-0.00 [facility] Comment on above: Performed By: #### 4 [id number] #### LAB [address] [address] Adonis Gee M.D. [id number] BASOPHILS ABSOLUTE COUNT 0.05 K/mcL Normal 0.00-0.30 [facility] Comment on above: Performed By: #### 4 [id number] #### LAB [address] [address] Adonis Gee M.D. [id number] Basophils/100 WBC (Bld) 0.4 % Normal [facility] Comment on above: Performed By: #### 4 6965 #### LAB [address] [address] Adonis Gee M.D. [id number] Eosinophils (Bld) [#/Vol] 0.07 10*3/uL Normal 0.00-0.50 [facility] Comment on above: Performed By: #### 4 [id number] #### LAB [address] [address] Adonis Gee M.D. [id number] Eosinophils/100 WBC (Bld) 0.6 % Normal [facility] Comment on above: Performed By: #### 4 6817 #### LAB [address] [address] Adonis Gee M.D. [id number] Erythrocyte distribution width (RBC) [Ratio] 13.1 % Normal 11.6-14.8 [facility] Comment on above: Performed By: #### 4 [id number] #### LAB [address] [address] Adonis Gee M.D. [id number] Hematocrit (Bld) [Volume fraction] 50.1 % Normal 41.0-53.0 [facility] Comment on above: Performed By: #### 4 6977 #### LAB [address] [address] Adonis Gee M.D. [id number] Hemoglobin (Bld) [Mass/Vol] 17.6 g/dL High 13.5-17.5 [facility] Comment on above: Performed By: #### 4 0110 #### LAB [address] [address] Adonis Gee M.D. [id number] IG ABSOLUTE 0.05 K/mcL Normal 0.00-0.30 [facility] Comment on above: Performed By: #### 4 3758 #### LAB [address] [address] Adonis Gee M.D. [id number] IG PERCENT 0.40 % Normal [facility] Comment on above: Result Comment: The IG parameter is the percentage of metamyelocytes, myelocytes and promyelocytes. An immature granulocyte count (IG) of 1% or more suggests the possibility of infection, an IG count of 3% is very likely related to an infection. Performed By: #### 4 [id number] #### LAB [address] [address] Adonis Gee M.D. [id number] Lymphocytes (Bld) [#/Vol] 1.95 10*3/uL Normal 0.90-4.00 [facility] Comment on above: Performed By: #### 4 6953 #### LAB [address] [address] Adonis Gee M.D. [id number] Lymphocytes/100 WBC (Bld) 16.4 % Normal [facility] Comment on above: Performed By: #### 4 6939 #### LAB [address] [address] Adonis Gee M.D. [id number] MCH (RBC) [Entitic mass] 31.7 pg Normal 26.0-34.0 [facility] Comment on above: Performed By: #### 4 6971 #### LAB [address] [address] Adonis Gee M.D. [id number] MCV (RBC) [Entitic vol] 90.1 fL Normal 80.0-100.0 [facility] Comment on above: Performed By: #### 4 6971 #### LAB [address] [address] Adonis Gee M.D. [id number] MEAN CORPUSCULAR HEMOGLOBIN CONC 35.1 g/dL Normal 31.0-37.0 [facility] Comment on above: Performed By: #### 4 6988 #### LAB [address] [place] [address] Adonis Gee M.D. [id number] Monocytes (Bld) [#/Vol] 0.75 10*3/uL Normal 0.30-0.90 [facility] Comment on above: Performed By: #### 4 [id number] #### LAB [address] [address] Adonis Gee M.D. [id number] Monocytes/100 WBC (Bld) 6.3 % Normal [facility] Comment on above: Performed By: #### 4 [id number] #### LAB [address] [address] Adonis Gee M.D. [id number] NEUTROPHILS ABSOLUTE COUNT 9.03 K/mcL High 1.70-7.00 [facility] Comment on above: Performed By: #### 4 [id number] #### LAB [address] [address] Adonis Gee M.D. [id number] Neutrophils/100 WBC (Bld) 75.9 % Normal [facility] Comment on above: Performed By: #### 4 6932 #### LAB [address] [address] Adonis Gee M.D. [id number] Platelet mean volume (Bld) [Entitic vol] 10.9 fL Normal 9.4-12.4 [facility] Comment on above: Performed By: #### 4 [id number] #### LAB [address] [address] Adonis Gee M.D. [id number] Platelets (Bld) [#/Vol] 186 10*3/uL Normal 150-400 [facility] Comment on above: Performed By: #### 4 [id number] #### LAB [address] [address] Adonis Gee M.D. [id number] RBC (Bld) [#/Vol] 5.56 10*6/uL Normal 4.50-5.90 [facility] Comment on above: Performed By: #### 4 6918 #### LAB [address] [address] Adonis Gee M.D. [id number] WBC (Bld) [#/Vol] 11.90 10*3/uL High 4.50-11.00 [facility] Comment on above: Performed By: #### 4 [id number] #### [facility] LAB [address] [place] [address] Adonis Gee M.D. [id number] CONSULTon 01-01-2025 CONSULT --- Attestation signed by FATMATA Arguelles, DPTisha at 01/02/2025 7:24 AM Patient was seen at bedside. I agree with Daisy Abarca's assessment and plan. PODIATRY CONSULTATION Patient Name: Joel Falk. . Date of : 1970, 54 y.o.. Gender: male. Date of Consultation: 01/01/2025. Author: Mayuri Abarca CNP Thank you Rod Frost MD for this consultation. We appreciate the opportunity to help care for your patient. Below you will find our findings and recommendations: Reason for Consultation: Left great toe osteomyelitis Assessment: 54 y.o. male with the following pedal anomalies: Left great toe osteomyelitis status post previous traumatic nail avulsion Left great toe cellulitis Tobacco abuse Plan: Patient was seen and evaluated at the bedside, I discussed the findings with the patient. CRP 15.5, ESR normal. WBC 11.90. Hemoglobin A1c pending Left foot MRI: probable infection of the 1st toenail with erosive change of the adjacent dorsal cortex of the 1st distal phalanx and an intraosseous abscess of the 1st distal phalanx with surrounding osteomyelitis of the majority of the 1st distal phalanx. Previous wound culture in October no growth. Toe is completely closed without ulceration at this time. Infectious disease has been consulted Plan for surgical washout and bone biopsy tomorrow with Dr. Arguelles 01/02. N.p.o. at midnight, hold blood thinners History of Present Illness: Patient is a 54 y.o. male consulted to the Podiatry Service for left great toe osteomyelitis. Patient suffered left great toe trauma back in October when he dropped a soup can onto his left foot. He did have a traumatic nail avulsion as a result and was following with Dr. Arguelels. Nail bed and left great toe in general was slow to heal despite outpatient antibiotics. Toe remained erythematous, bruised, swollen and tender. MRI was obtained which showed osteomyelitis and possible intraosseous abscess. Due to clinical presentation of the left great toe, arrangements were started with infectious disease for outpatient IV antibiotics. Instead of waiting for infectious disease to follow-up with him, patient came to the ED instead. Decision was made for inpatient admission. Since infectious disease specialist Dr. Charles is requesting bone biopsy to determine need for IV antibiotics, patient will go for surgical washout and bone biopsy tomorrow with Dr. Jett 01/02. On exam patient reports sinus congestion and feeling cold but no other constitutional symptoms. No reports of fevers, no nausea/vomiting/diarrhe a. No changes in appetite. Reports no further trauma to the great toe other than what happened in October. 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 Patient has no significant past medical history. Patient is a daily smoker. Estimated body mass index is 36.59 kg/m as calculated from the following: Height as of 12/26/24: 5' 10". Weight as of 12/26/24: 115.7 kg (255 lb). Allergies: No Known Allergies. Scheduled Meds: enoxaparin (LOVENOX) injection 40 mg Subcutaneous Daily lispro insulin 0-15 Units Subcutaneous at bedtime insulin lispro 0-30 Units Subcutaneous TID AC sodium chloride (PF) 10 mL Intracatheter Q8H DONELL sodium chloride (PF) 5 mL Intravenous Q8H DONELL . Continuous Infusions: . PRN Meds: acetaminophen, alteplase, aluminum-magnesium hydroxide-simethicone, bisacodyL, ibuprofen, lidocaine 1%, magnesium hydroxide, melatonin, ondansetron OR ondansetron, senna, sodium chloride (PF), [COMPLETED] Insert peripheral IV AND Saline lock IV AND sodium chloride (PF) AND sodium chloride 0.9 %, Saline lock IV AND sodium chloride (PF) AND sodium chloride (PF) AND sodium chloride 0.9 %, traZODone. Medical History: History reviewed. No pertinent past medical history.. Surgical History: Past Surgical History: Procedure Laterality Date ACL REPAIR Right . Social History: Social History Socioeconomic History Marital status: Tobacco Use Smoking status: Every Day Current packs/day: 1.00 Types: Cigarettes Smokeless tobacco: Never Vaping Use Vaping status: Never Used Substance and Sexual Activity Drug use: Never Family History: History reviewed. No pertinent family history. Review of Systems: Pertinent positives and negatives as mentioned above, otherwise full review of systems is negative unless mentioned below: Patient currently denies Nausea/Vomiting/Fever/C hills/Shortness of Breath/Chest Pain. Physical Examination: BP (!) 149/86 Pulse 79 Temp 97.5 degrees F (36.4 degrees C) Resp 18 SpO2 92% General Appearance: Alert, cooperative, no distress, appears stated age. Podiatric Exam Vascular: DP and PT pulses are palpable 2 of 4. Capill (more content not included)... Normal [facility] CRP [Mass/Vol]on 01-01-2025 Interpretation and review of laboratory results Abnormal [facility] CRP, INFLAMMATIONon 01-01-20 25 CRP [Mass/Vol] 15.5 mg/L High 0.0-10.0 [facility] Comment on above: Performed By: #### 4 [id number] #### [facility] [address] [facility] [address] [place], [place] [address] Adonis Gee M.D. [id number] CRP, Inflammationon 01-01-20 25 CRP [Mass/Vol] 15.5 mg/L High 0.0 - 10.0 mg/L [facility] ED Prov Noteon 01-01-2025 ED Prov Note ED PROVIDER NOTE [facility] MEDICAL OBSERVATION NAME: Joel Falk AGE: 54 y.o. : 1970 VISIT DATE: 01/01/2025 CSN: [id number] PCP: Yesi, Physician Chief Complaint Patient presents with Foot Injury Patient is a 54-year-old male history of ACL repair, temporary nail avulsion of left great toe presents to emergency department for evaluation of left great toe infection . Patient stated that he has been following up with his airborne and air delivery specialist for the past few months. Patient also stated that he completed a couple of courses of oral antibiotics 1 in September and second 1 in November. Approximately 1 week ago he underwent MRI imaging of his left foot which revealed osteomyelitis. Patient subsequently came to emergency for further evaluation management. He denies any fever or chills, no other complaints no other concerns. Past Medical History: Diagnosis Date Diabetes mellitus (HCC) Type 2 Past Surgical History: Procedure Laterality Date ACL REPAIR Right 2009 INCISION AND DRAINAGE FOOT AND ANKLE Left 01/02/2025 Procedure: INCISION AND DRAINAGE Left Great Toe with bone bx; Surgeon: FATMATA Arguelles DPM; Location: Main OR; Service: Podiatry; Laterality: Left; History reviewed. No pertinent family history. Social History Socioeconomic History Marital status: Tobacco Use Smoking status: Every Day Current packs/day: 1.00 Average packs/day: 1 pack/day for 35.2 years (35.2 ttl pk-yrs) Types: Cigarettes Start date: 1989 Smokeless tobacco: Never Vaping Use Vaping status: Never Used Substance and Sexual Activity Drug use: Never Social Drivers of Health Food Insecurity: No Food Insecurity (01/01/2025) Hunger Vital Sign Worried About Running Out of Food in the Last Year: Never true Ran Out of Food in the Last Year: Never true Transportation Needs: No Transportation Needs (01/01/2025) PRAPARE - Transportation Lack of Transportation (Medical): No Lack of Transportation (Non-Medical): No Housing Stability: Low Risk (01/01/2025) Housing Stability Vital Sign Unable to Pay for Housing in the Last Year: No Number of Times Moved in the Last Year: 0 Homeless in the Last Year: No No current outpatient medications on file prior to encounter. No Known Allergies Review of Systems All other systems reviewed and are negative. No data found. Physical Exam Vitals and nursing note reviewed. Constitutional: General: He is not in acute distress. Appearance: Normal appearance. He is not ill-appearing, toxic-appearing or diaphoretic. HENT: Head: Normocephalic and atraumatic. Mouth/Throat: Mouth: Mucous membranes are moist. Eyes: Conjunctiva/sclera: Conjunctivae normal. Cardiovascular: Rate and Rhythm: Normal rate and regular rhythm. Musculoskeletal: Cervical back: Normal range of motion. Comments: Left great toe exam; no erythema, no purulent drainage noted. Range of motion normal, neurovascularly intact. No tenderness noted at this time. Patient appears to have a onychomycosis. Pulmonary: Effort: Pulmonary effort is normal. No respiratory distress. Breath sounds: Normal breath sounds. No stridor. Abdominal: General: There is no distension. Palpations: Abdomen is soft. Tenderness: There is no abdominal tenderness. Neurological: Mental Status: He is alert and oriented to person, place, and time. Psychiatric: Mood and Affect: Mood normal. Behavior: Behavior normal. Laboratory & Radiographic Imaging (if done): Results for orders placed or performed during the hospital encounter of 01/01/25 Blood Culture Aerobic/Anaerobic Specimen: Blood, Peripheral Result Value Ref Range Culture No Growth after 5 days Blood Culture Aerobic/Anaerobic Specimen: Blood, Peripheral Result Value Ref Range Culture No Growth after 5 days MRSA DNA Amplified Probe Specimen: Nasal; Swab Result Value Ref Range MRSA DNA Amplified Probe MRSA NEGATIVE Not Detected, MRSA NEGATIVE Wound Aerobic And Anaerobic Culture Specimen: Toe, Left, One; Swab Result Value Ref Range Culture (A) Heavy Growth Streptococcus viridans, Anginosus Group Culture Rare growth Coagulase Negative Staphylococcus (A) Culture Heavy Growth Mixed Anaerobic Margaux Gram Stain Result No WBC Seen Gram Stain Result Few Gram Positive Bacilli Gram Stain Result Many Gram Positive Cocci Gram Stain Result Many Gram Negative Bacilli Susceptibility Streptococcus viridans, Anginosus Group - CHALO Ampicillin Susceptible mcg/mL Penicillin G Susceptible mcg/mL Ceftriaxone Susceptible mcg/mL Clindamycin Resistant mcg/mL Erythromycin Resistant mcg/mL Vancomycin Susceptible mcg/mL Bone Aerobic & Anaerobic Culture Specimen: Toe, Left, One; Bone Result Value Ref Range Culture (A) Moderate Growth Streptococcus viridans, Anginosus Group Culture Moderate Growth Peptostreptococcus species (A) Gram Stain Result Many RBC Gram Stain Result Rare WBC G (more content not included)... Normal [facility] ESR Westergren method (Bld) [Velocity]on 01-01-2025 ESR (Bld) [Velocity] 12 mm/h [facility] Interpretation and review of laboratory results Normal [facility] LACTIC ACID, PLASMAon 2024 LACTIC ACID, PLASMA 1.8 mmol/L Normal 0.6-2.0 [facility] Comment on above: Performed By: #### 4 [id number] #### [facility] [address] [place] [id number] Rod Corona M.D. [id number] Lactate [Moles/Vol]on 2024 Interpretation and review of laboratory results Normal [facility] Lactic Acidon 01-01-2025 Lactate [Moles/Vol] 1.8 mmol/L 0.6 - 2. 0 mmol/L [facility] Light Blue Topon 01-01-2025 Extra Tube Hold for add-ons. [facility] Comment on above: Auto resulted. [facility] MRSA DNA AMPLIFIED PROBEon 0 01-01-2025 MRSA DNA AMPLIFIED PROBE Negative Normal Not Detected, MRSA NEGATIVE [facility] Comment on above: Performed By: #### 4 8061 #### LAB [address] [place] [address] Adonis Gee M.D. [id number] MRSA DNA Amplified ProbeOrde red By: Tayler Hall on 01-01-2025 MRSA DNA GARRETT+probe Ql (Unsp spec) Negative Not Detected, MRSA NEGATIVE [facility] MRSA DNA GARRETT+probe Ql (Unsp spec)Ordered By: Tayler Hall on 01-01-2025 Interpretation and review of laboratory results Normal [facility] SEDIMENTATION RATEon 025 SEDIMENTATION RATE, ERYTHROCYTE 12 mm/hr Normal 0-20 [facility] Comment on above: Performed By: #### 4 [id number] #### [facility] [address] [place] [address] Rod Corona M.D. [id number] MR FOOT LEFT WITHOUT CONTRAS Ton 12-26-2024 MR FOOT LEFT WITHOUT CONTRAST EXAMINATION: MR FOOT LEFT WITHOUT CONTRAST 12/26/2024. HISTORY: ORDERING SYSTEM PROVIDED HISTORY: possible osteomyelitis left hallux, TECHNOLOGIST PROVIDED HISTORY: Illness/Other Reason for exam: left great toe wound/bruising/redness following dropping can of soup on it 3 months ago: Encounter Type: Unknown Additional signs and symptoms: n ORDERING SYSTEM PROVIDED DIAGNOSIS CODES: M86.9 Osteomyelitis of left foot, unspecified type ([facility]) M79.675 Chronic toe pain, left foot G89.29 Chronic toe pain, left foot L02.612 Abscess of left great toe L53.9 Dependent rubor I73.9 Peripheral vascular disease COMPARISON: Radiographs left foot 12/18/2024. TECHNIQUE: Multiplanar, multisequence MRI images of the left midfoot/forefoot were obtained without contrast. CONTRAST: None. FINDINGS: The bone marrow signal intensity is age-appropriate. The Lisfranc ligament complex appears intact. There is diffuse thickening and increased STIR signal intensity involving the toenail of the 1st toe. There is erosive change of the adjacent dorsal cortex of the 1st distal phalanx in this region and there is an ovoid focus of increased STIR signal intensity within the base and shaft of the 1st distal phalanx in this region. This measures 4 x 4 x 10 mm in craniocaudal, transverse and AP dimension respectively. There is abnormal decreased T1 and increased STIR signal intensity involving the majority of the bone marrow of the 1st distal phalanx and there is also erosive change of the tuft of the 1st distal phalanx. There is mild soft tissue edema of the distal aspect of the 1st toe. The bone marrow signal intensity of the remainder of the midfoot/forefoot appears within normal limits. There are mild degenerative changes of the 1st metatarsal-sesamoid joints. IMPRESSION: There are MRI findings compatible with a probable infection of the 1st toenail with erosive change of the adjacent dorsal cortex of the 1st distal phalanx and an intraosseous abscess of the 1st distal phalanx with surrounding osteomyelitis of the majority of the 1st distal phalanx. Workstation ID: [id number] Dictated by: RYAN COLON on SunDec 26, 2024 9:56:49 AM EST Transcribed by: RYAN COLON on SunDec 26, 2024 9:56:49 AM EST Finalized by: RYAN COLON on SunDec 26, 2024 9:56:49 AM EST Normal [facility] Comment on above: Order Comment: Injur y/Trauma or Illness?:Illness/OtherHow long have you had these symptoms (acute/chronic)?:UnknownReason for exam?:left great toe wound/bruising/redness following dropping can of soup on it 3 months ago:Type of Exam?:UnknownAdditional signs and symptoms?:n XR FOR MRI CLEARANCEon 12-26 XR FOR MRI CLEARANCE EXAMINATION: XR FOR MRI CLEARANCE HISTORY: ORDERING SYSTEM PROVIDED HISTORY: Hx of metal removed from eye, TECHNOLOGIST PROVIDED HISTORY: Illness/Other Reason for exam: Hx of metal removed from eye Cancer History: unknown Surgery, RadiationHistory: unknown Encounter Type: Initial Additional signs and symptoms: . ORDERING SYSTEM PROVIDED DIAGNOSIS CODES: Z98.890 Hx of metal removed from eye COMPARISON: None. TECHNIQUE: Two views of the orbits and facial bones. FINDINGS: No radiopaque foreign bodies overlying the orbits. Normal aeration and development of the paranasal sinuses. IMPRESSION: No radiopaque foreign bodies overlying the orbits. ST/jw Workstation ID: [id number] Dictated by: DELICIA MYERS on SunDec 26, 2024 8:49:15 AM EST Transcribed by: RUBÉN CLARKE on SunDec 26, 2024 9:17:55 AM EST Finalized by: DELICIA MYERS on SunDec 26, 2024 2:49:52 PM EST Normal [facility] Comment on above: Order Comment: Orbit xray/ pre-mri clearanceInjury/Trauma or Illness?:Illness/OtherHow long have you had these symptoms (acute/chronic)?:AcuteReason for exam?:Hx of metal removed from eyeHistory of cancer?:unknownSurgeries, chemotherapy, or radiation?:unknownType of Exam?:InitialAdditional signs and symptoms?:. XR ORTHO FOOT LEFTon 025 XR ORTHO FOOT LEFT 3 views of the left foot reviewed today AP MO and lateral. No acute fracture or dislocation of note. No evidence of cortical erosion or subcutaneous emphysema. Stable x-ray Dictated by: FATMATA ARGUELLES on SunDec 19, 2024 8:48:51 AM EST Transcribed by: FATMATA ARGUELLES on SunDec 19, 2024 8:48:51 AM EST Finalized by: FATMATA ARGUELLES on SunDec 19, 2024 8:48:51 AM EST Normal [facility] Comment on above: Order Comment: Injur y/Trauma or Illness?:Illness/Other How long have you had these symptoms (acute/chronic)?:Unknown Reason for exam?:Left foot pain History of cancer?:unknown Surgeries, chemotherapy, or radiation?:unknown Type of Exam?:Unknown Additional signs and symptoms?:Left foot pain Destruction of lesionon 10-07 FATMATA Arguelles DPM 11/03/2024 4:38 PM Destruction of lesion Timeout: Verbal Consent obtained?: Yes Written Consent obtained?: Yes Date:: 11/03/2024 Consent given by:: Patient Procedure: Procedure Performed for: Left great toe total temporary nail avulsion Performed by: Physician Dr. FATMATA Arguelles DPM Fenestrated: No Bleeding: Minimal Hemostasis Achieved: N/A Secured: Yes Secured with: Bandage Dressing Applied: Yes Type of dressing applied: Adaptic Pain Control: 2% Lidocaine Procedural Pain:: 0 Post Procedural Pain:: 0 Additional Procedure details:: Attention was directed to the left great toenail. Area was prepped and draped in normal aseptic fashion. [place] elevator was used to free up the nail plate from the nailbed. Upon doing this small amount of purulence was released. No significant malodor is noted with this. Appears almost cottage cheeselike possibly consistent with a sterile abscess. Aerobic and anaerobic culture was taken. Proximal nail fold was then freed up from the nail plate. The nail was then avulsed appropriately. Area was inspected and no spicules were found. Area was then thoroughly irrigated. Dry sterile dressing was applied. Response to Treatment:: Procedure was tolerated well [facility] XR FOOT LEFT 3+ VIEWS (STAND GISELA)on 11-03-2024 XR FOOT LEFT 3+ VIEWS (STANDARD) 3 views of the left foot reviewed today AP MO and lateral. No acute fracture or dislocation of note. Questionable radiolucency noted to the distal hallux will clinically correlate. Dictated by: FATMATA ARGUELLES on SunNov 07, 2024 10:23:35 AM EST Transcribed by: FATMATA ARGUELLES on SunNov 07, 2024 10:23:35 AM EST Finalized by: FATMATA ARGUELLES on SunNov 07, 2024 10:23:35 AM EST Normal [facility] Comment on above: Order Comment: Injur y/Trauma or Illness?:Injury/Trauma How long have you had these symptoms (acute/chronic)?:Acute Reason for exam?:Left great toe injury History of cancer?:unknown Surgeries, chemotherapy, or radiation?:unknown Type of Exam?:Initial Mechanism of injury?:Left great toe injury XR SHOULDER RIGHT 2+ VIEWS ( STANDARD)on 11-25-2022 XR SHOULDER RIGHT 2+ VIEWS (STANDARD) EXAMINATION: XR SHOULDER RIGHT 2+ VIEWS (STANDARD) 11/25/2022 7:37 am HISTORY: ORDERING SYSTEM PROVIDED HISTORY: pain, TECHNOLOGIST PROVIDED HISTORY: Injury/Trauma Reason for exam: pain Cancer History: [place] Surgery, RadiationHistory: [place] Encounter Type: Initial Mechanism of injury: Pt presents to the ED with right shoulder pain after picking dog up last night. +limited ROM ORDERING SYSTEM PROVIDED DIAGNOSIS CODES: M75.101 Rotator cuff syndrome of right shoulder COMPARISON: None IMPRESSION: FINDINGS/ Normal alignment. Mild AC joint and glenohumeral osteoarthritis. Normal shoulder soft tissues. Workstation ID: [id number] Dictated by: CARLOS MAGDALENO on Sat Nov 25, 2022 8:49:21 AM EST Transcribed by: CAROLS MAGDALENO on [facility] Nov 25, 2022 8:49:21 AM EST Finalized by: CARLOS MAGDALENO on Sat Nov 25, 2022 8:49:21 AM EST Normal [facility] Comment on above: Order Comment: Injur y/Trauma or Illness?:Injury/Trauma How long have you had these symptoms (acute/chronic)?:Acute Reason for exam?:pain History of cancer?:uk Surgeries, chemotherapy, or radiation?: Type of Exam?:Initial Mechanism of injury?:Pt presents to the ED with right shoulder pain after picking dog up last night. +limited ROM STREP A MOLECULAR (POC)on Procedural Control Valid [facility] Strep A (POCT) Negative Negative [facility] Vital Signs Date Time Vital Sign Value Performing Clinician Faci lity 08-05-2025 15:16-0400 Body temperature 98.4 [degF] FATMATA DUMASM Work Phone: [facility] 08-05-2025 15:16-0400 Diastolic blood pressure 89 mm[Hg] FATMATA Arguelles DPM Work Phone: [facility] 08-05-2025 15:16-0400 Heart rate 85 /min FATMATA DUMASM Work Phone: [facility] 08-05-2025 15:16-0400 Systolic blood pressure 160 mm[Hg] CJ Hassmann DPM Work Phone: [facility] 07-15-2025 08:40-0400 Diastolic blood pressure 96 mm[Hg] CJ Hassmann DPM Work Phone: [facility] 07-15-2025 08:40-0400 Systolic blood pressure 164 mm[Hg] CJ Hassmann DPM Work Phone: [facility] 07-15-2025 08:38-0400 Heart rate 90 /min CJ Hassmann DPM Work Phone: [facility] 07-15-2025 08:38-0400 SaO2% (BldA) [Mass fraction] 92 % CJ Hassmann DPM Work Phone: [facility] 07-09-2025 08:19-0400 Body mass index (BMI) [Ratio] 35.58 kg/m2 Windy Lowe DOPE DRY HOUSE OPERATOR Work Phone: [facility] 07-09-2025 08:19-0400 Body weight 112.49 kg Windy Lowe DOPE DRY HOUSE OPERATOR Work Phone: [facility] 07-09-2025 08:19-0400 Diastolic blood pressure 92 mm[Hg] Windy Lowe DOPE DRY HOUSE OPERATOR Work Phone: [facility] 07-09-2025 08:19-0400 Heart rate 82 /min Windy Lowe DOPE DRY HOUSE OPERATOR Work Phone: [facility] 07-09-2025 08:19-0400 SaO2% (BldA) [Mass fraction] 92 % Windy Lowe DOPE DRY HOUSE OPERATOR Work Phone: [facility] 07-09-2025 08:19-0400 Systolic blood pressure 143 mm[Hg] Windy Lowe DOPE DRY HOUSE OPERATOR Work Phone: [facility] 06-24-2025 08:32-0400 Diastolic blood pressure 98 mm[Hg] CJ Hassmann DPM Work Phone: [facility] 06-24-2025 08:32-0400 SaO2% (BldA) [Mass fraction] 89 % CJ Hassmann DPM Work Phone: [facility] 06-24-2025 08:32-0400 Systolic blood pressure 158 mm[Hg] CJ Hassmann DPM Work Phone: [facility] 06-15-2025 13:14-0400 Diastolic blood pressure 90 mm[Hg] CJ Hassmann DPM Work Phone: [facility] 06-15-2025 13:14-0400 Heart rate 84 /min CJ Hassmann DPM Work Phone: [facility] 06-15-2025 13:14-0400 SaO2% (BldA) [Mass fraction] 92 % CJ Hassmann DPM Work Phone: [facility] 06-15-2025 13:14-0400 Systolic blood pressure 165 mm[Hg] CJ Hassmann DPM Work Phone: [facility] 06-10-2025 08:21-0400 Diastolic blood pressure 106 mm[Hg] CJ Hassmann DPM Work Phone: [facility] 06-10-2025 08:21-0400 Systolic blood pressure 160 mm[Hg] CJ Hassmann DPM Work Phone: [facility] 06-10-2025 07:50-0400 Body temperature 97.5 [degF] CJ Hassmann DPM Work Phone: [facility] 06-10-2025 07:50-0400 Heart rate 79 /min CJ Hassmann DPM Work Phone: [facility] 06-10-2025 07:50-0400 SaO2% (BldA) [Mass fraction] 92 % CJ Hassmann DPM Work Phone: [facility] 04-15-2025 15:34-0400 Body temperature 98.49 [degF] CJ Hassmann DPM Work Phone: [facility] 04-15-2025 15:34-0400 Diastolic blood pressure 92 mm[Hg] CJ Hassmann DPM Work Phone: [facility] 04-15-2025 15:34-0400 Heart rate 85 /min CJ Hassmann DPM Work Phone: [facility] 04-15-2025 15:34-0400 SaO2% (BldA) [Mass fraction] 92 % CJ Hassmann DPM Work Phone: [facility] 04-15-2025 15:34-0400 Systolic blood pressure 148 mm[Hg] CJ Hassmann DPM Work Phone: [facility] 04-01-2025 15:35-0400 Body temperature 98.2 [degF] CJ Hassmann DPM Work Phone: [facility] 04-01-2025 15:35-0400 Diastolic blood pressure 76 mm[Hg] CJ Hassmann DPM Work Phone: [facility] 04-01-2025 15:35-0400 Heart rate 81 /min CJ Hassmann DPM Work Phone: [facility] 04-01-2025 15:35-0400 Systolic blood pressure 132 mm[Hg] CJ Hassmann DPM Work Phone: [facility] 03-11-2025 15:21-0400 Body temperature 98.6 [degF] CJ Hassmann DPM Work Phone: [facility] 03-11-2025 15:21-0400 Diastolic blood pressure 89 mm[Hg] CJ Hassmann DPM Work Phone: [facility] 03-11-2025 15:21-0400 Heart rate 86 /min CJ Hassmann DPM Work Phone: [facility] 03-11-2025 15:21-0400 SaO2% (BldA) [Mass fraction] 91 % CJ Hassmann DPM Work Phone: [facility] 03-11-2025 15:21-0400 Systolic blood pressure 152 mm[Hg] CJ Hassmann DPM Work Phone: [facility] 03-09-2025 13:30-0400 Diastolic blood pressure 96 mm[Hg] Windy Schwartz DOPE DRY HOUSE OPERATOR Work Phone: [facility] 03-09-2025 13:30-0400 Heart rate 84 /min Windy Schwartz DOPE DRY HOUSE OPERATOR Work Phone: [facility] 03-09-2025 13:30-0400 Systolic blood pressure 152 mm[Hg] Windy Schwartz DOPE DRY HOUSE OPERATOR Work Phone: [facility] 03-09-2025 13:20-0400 Body mass index (BMI) [Ratio] 36.82 kg/m2 Windy Schwartz DOPE DRY HOUSE OPERATOR Work Phone: [facility] 03-09-2025 13:20-0400 Body weight 116.39 kg Windy Schwartz DOPE DRY HOUSE OPERATOR Work Phone: [facility] 02-09-2025 15:51-0400 Body temperature 98.2 [degF] CJ Hassmann DPM Work Phone: [facility] 02-09-2025 15:51-0400 Diastolic blood pressure 84 mm[Hg] CJ Hassmann DPM Work Phone: [facility] 02-09-2025 15:51-0400 Heart rate 71 /min CJ Hassmann DPM Work Phone: [facility] 02-09-2025 15:51-0400 Systolic blood pressure 160 mm[Hg] CJ Hassmann DPM Work Phone: [facility] 02-02-2025 16:05-0400 Heart rate 74 /min [facility] 02-02-2025 16:05-0400 SaO2% (BldA) [Mass fraction] 93 % [facility] 02-02-2025 16:04-0400 Diastolic blood pressure 79 mm[Hg] [facility] 02-02-2025 16:04-0400 Systolic blood pressure 148 mm[Hg] [facility] 02-01-2025 08:40-0400 Body temperature 97.39 [degF] [facility] 02-01-2025 08:40-0400 Diastolic blood pressure 88 mm[Hg] [facility] 02-01-2025 08:40-0400 Heart rate 76 /min [facility] 02-01-2025 08:40-0400 Respiratory rate 18 /min [facility] 02-01-2025 08:40-0400 SaO2% (BldA) [Mass fraction] 91 % [facility] 02-01-2025 08:40-0400 Systolic blood pressure 145 mm[Hg] [facility] 01-31-2025 07:56-0400 Body temperature 97.7 [degF] [facility] 01-31-2025 07:56-0400 Diastolic blood pressure 89 mm[Hg] [facility] 01-31-2025 07:56-0400 Heart rate 85 /min [facility] 01-31-2025 07:56-0400 Respiratory rate 16 /min [facility] 01-31-2025 07:56-0400 SaO2% (BldA) [Mass fraction] 93 % [facility] 01-31-2025 07:56-0400 Systolic blood pressure 155 mm[Hg] [facility] 01-30-2025 15:10-0400 Body temperature 98.6 [degF] [facility] 01-30-2025 15:10-0400 Diastolic blood pressure 78 mm[Hg] [facility] 01-30-2025 15:10-0400 Heart rate 87 /min [facility] 01-30-2025 15:10-0400 Respiratory rate 16 /min [facility] 01-30-2025 15:10-0400 SaO2% (BldA) [Mass fraction] 93 % [facility] 01-30-2025 15:10-0400 Systolic blood pressure 137 mm[Hg] [facility] 01-29-2025 15:33-0400 Body temperature 97.5 [degF] [facility] 01-29-2025 15:33-0400 Diastolic blood pressure 82 mm[Hg] [facility] 01-29-2025 15:33-0400 Heart rate 82 /min [facility] 01-29-2025 15:33-0400 Respiratory rate 16 /min [facility] 01-29-2025 15:33-0400 SaO2% (BldA) [Mass fraction] 92 % [facility] 01-29-2025 15:33-0400 Systolic blood pressure 142 mm[Hg] [facility] 01-28-2025 15:19-0400 Body temperature 98.29 [degF] [facility] 01-28-2025 15:19-0400 Diastolic blood pressure 81 mm[Hg] [facility] 01-28-2025 15:19-0400 Heart rate 80 /min [facility] 01-28-2025 15:19-0400 Respiratory rate 16 /min [facility] 01-28-2025 15:19-0400 SaO2% (BldA) [Mass fraction] 93 % [facility] 01-28-2025 15:19-0400 Systolic blood pressure 163 mm[Hg] [facility] 01-27-2025 14:53-0400 Body temperature 97.39 [degF] [facility] 01-27-2025 14:53-0400 Diastolic blood pressure 90 mm[Hg] [facility] 01-27-2025 14:53-0400 Heart rate 80 /min [facility] 01-27-2025 14:53-0400 Respiratory rate 16 /min [facility] 01-27-2025 14:53-0400 SaO2% (BldA) [Mass fraction] 93 % [facility] 01-27-2025 14:53-0400 Systolic blood pressure 160 mm[Hg] [facility] 01-26-2025 14:52-0400 Body temperature 97.5 [degF] [facility] 01-26-2025 14:52-0400 Diastolic blood pressure 85 mm[Hg] [facility] 01-26-2025 14:52-0400 Heart rate 82 /min [facility] 01-26-2025 14:52-0400 Respiratory rate 16 /min [facility] 01-26-2025 14:52-0400 SaO2% (BldA) [Mass fraction] 94 % [facility] 01-26-2025 14:52-0400 Systolic blood pressure 141 mm[Hg] [facility] 01-26-2025 14:17-0400 Diastolic blood pressure 91 mm[Hg] CJ Hassmann DPM Work Phone: [facility] 01-26-2025 14:17-0400 Heart rate 83 /min CJ Hassmann DPM Work Phone: [facility] 01-26-2025 14:17-0400 SaO2% (BldA) [Mass fraction] 93 % CJ Hassmann DPM Work Phone: [facility] 01-26-2025 14:17-0400 Systolic blood pressure 155 mm[Hg] CJ Hassmann DPM Work Phone: [facility] 01-25-2025 08:39-0400 Body temperature 97.3 [degF] [facility] 01-25-2025 08:39-0400 Diastolic blood pressure 83 mm[Hg] [facility] 01-25-2025 08:39-0400 Heart rate 82 /min [facility] 01-25-2025 08:39-0400 Respiratory rate 16 /min [facility] 01-25-2025 08:39-0400 SaO2% (BldA) [Mass fraction] 93 % [facility] 01-25-2025 08:39-0400 Systolic blood pressure 134 mm[Hg] [facility] 01-24-2025 07:53-0400 Body temperature 97.3 [degF] [facility] 01-24-2025 07:53-0400 Diastolic blood pressure 94 mm[Hg] [facility] 01-24-2025 07:53-0400 Heart rate 84 /min [facility] 01-24-2025 07:53-0400 Respiratory rate 16 /min [facility] 01-24-2025 07:53-0400 SaO2% (BldA) [Mass fraction] 93 % [facility] 01-24-2025 07:53-0400 Systolic blood pressure 162 mm[Hg] [facility] 01-23-2025 14:47-0400 Body temperature 97.5 [degF] [facility] 01-23-2025 14:47-0400 Diastolic blood pressure 94 mm[Hg] [facility] 01-23-2025 14:47-0400 Heart rate 89 /min [facility] 01-23-2025 14:47-0400 Respiratory rate 16 /min [facility] 01-23-2025 14:47-0400 SaO2% (BldA) [Mass fraction] 94 % [facility] 01-23-2025 14:47-0400 Systolic blood pressure 157 mm[Hg] [facility] 01-22-2025 14:59-0400 Body temperature 97.81 [degF] [facility] 01-22-2025 14:59-0400 Diastolic blood pressure 83 mm[Hg] [facility] 01-22-2025 14:59-0400 Heart rate 87 /min [facility] 01-22-2025 14:59-0400 Respiratory rate 16 /min [facility] 01-22-2025 14:59-0400 SaO2% (BldA) [Mass fraction] 93 % [facility] 01-22-2025 14:59-0400 Systolic blood pressure 139 mm[Hg] [facility] 01-21-2025 15:12-0400 Diastolic blood pressure 76 mm[Hg] [facility] 01-21-2025 15:12-0400 Heart rate 87 /min [facility] 01-21-2025 15:12-0400 SaO2% (BldA) [Mass fraction] 93 % [facility] 01-21-2025 15:12-0400 Systolic blood pressure 143 mm[Hg] [facility] 01-20-2025 15:11-0400 Body temperature 97.7 [degF] [facility] 01-20-2025 15:11-0400 Diastolic blood pressure 68 mm[Hg] [facility] 01-20-2025 15:11-0400 Heart rate 81 /min [facility] 01-20-2025 15:11-0400 Respiratory rate 18 /min [facility] 01-20-2025 15:11-0400 SaO2% (BldA) [Mass fraction] 94 % [facility] 01-20-2025 15:11-0400 Systolic blood pressure 129 mm[Hg] [facility] 01-19-2025 15:31-0400 Body temperature 97.3 [degF] [facility] 01-19-2025 15:31-0400 Diastolic blood pressure 88 mm[Hg] [facility] 01-19-2025 15:31-0400 Heart rate 95 /min [facility] 01-19-2025 15:31-0400 Respiratory rate 16 /min [facility] 01-19-2025 15:31-0400 SaO2% (BldA) [Mass fraction] 93 % [facility] 01-19-2025 15:31-0400 Systolic blood pressure 156 mm[Hg] [facility] 01-19-2025 14:44-0400 Body temperature 98.49 [degF] FATMATA Arguelles DPM Work Phone: [facility] 01-19-2025 14:44-0400 Diastolic blood pressure 85 mm[Hg] FATMATA Arguelles DPM Work Phone: [facility] 01-19-2025 14:44-0400 Heart rate 93 /min FATMATA Arguelles DPM Work Phone: [facility] 01-19-2025 14:44-0400 Systolic blood pressure 137 mm[Hg] FATMATA Arguelles DPTisha Work Phone: [facility] 01-18-2025 07:56-0400 Body temperature 97.3 [degF] [facility] 01-18-2025 07:56-0400 Diastolic blood pressure 87 mm[Hg] [facility] 01-18-2025 07:56-0400 Heart rate 99 /min [facility] 01-18-2025 07:56-0400 Respiratory rate 16 /min [facility] 01-18-2025 07:56-0400 SaO2% (BldA) [Mass fraction] 92 % [facility] 01-18-2025 07:56-0400 Systolic blood pressure 138 mm[Hg] [facility] 01-17-2025 08:02-0400 Body temperature 97.7 [degF] [facility] 01-17-2025 08:02-0400 Diastolic blood pressure 79 mm[Hg] [facility] 01-17-2025 08:02-0400 Heart rate 89 /min [facility] 01-17-2025 08:02-0400 Respiratory rate 14 /min [facility] 01-17-2025 08:02-0400 SaO2% (BldA) [Mass fraction] 92 % [facility] 01-17-2025 08:02-0400 Systolic blood pressure 155 mm[Hg] [facility] 01-16-2025 15:19-0400 Body temperature 97.9 [degF] [facility] 01-16-2025 15:19-0400 Diastolic blood pressure 84 mm[Hg] [facility] 01-16-2025 15:19-0400 Heart rate 84 /min [facility] 01-16-2025 15:19-0400 Respiratory rate 18 /min [facility] 01-16-2025 15:19-0400 SaO2% (BldA) [Mass fraction] 92 % [facility] 01-16-2025 15:19-0400 Systolic blood pressure 127 mm[Hg] [facility] 01-15-2025 14:43-0400 Body temperature 97.9 [degF] [facility] 01-15-2025 14:43-0400 Diastolic blood pressure 79 mm[Hg] [facility] 01-15-2025 14:43-0400 Heart rate 85 /min [facility] 01-15-2025 14:43-0400 Respiratory rate 18 /min [facility] 01-15-2025 14:43-0400 SaO2% (BldA) [Mass fraction] 94 % [facility] 01-15-2025 14:43-0400 Systolic blood pressure 144 mm[Hg] [facility] 01-14-2025 15:04-0400 Body temperature 98.6 [degF] [facility] 01-14-2025 15:04-0400 Diastolic blood pressure 78 mm[Hg] [facility] 01-14-2025 15:04-0400 Heart rate 90 /min [facility] 01-14-2025 15:04-0400 Respiratory rate 16 /min [facility] 01-14-2025 15:04-0400 SaO2% (BldA) [Mass fraction] 91 % [facility] 01-14-2025 15:04-0400 Systolic blood pressure 126 mm[Hg] [facility] 01-14-2025 13:59-0400 Body temperature 98.2 [degF] FATMATA Arguelles DPM Work Phone: [facility] 01-14-2025 13:59-0400 Diastolic blood pressure 78 mm[Hg] FATMATA Arguelles DPM Work Phone: [facility] 01-14-2025 13:59-0400 Heart rate 94 /min FATMATA Arguelles DPM Work Phone: [facility] 01-14-2025 13:59-0400 Systolic blood pressure 137 mm[Hg] FATMATA Arguelles DPTisha Work Phone: [facility] 01-13-2025 14:59-0400 Body temperature 98.01 [degF] [facility] 01-13-2025 14:59-0400 Diastolic blood pressure 81 mm[Hg] [facility] 01-13-2025 14:59-0400 Heart rate 83 /min [facility] 01-13-2025 14:59-0400 Respiratory rate 16 /min [facility] 01-13-2025 14:59-0400 SaO2% (BldA) [Mass fraction] 93 % [facility] 01-13-2025 14:59-0400 Systolic blood pressure 147 mm[Hg] [facility] 01-12-2025 15:13-0400 Body temperature 98.29 [degF] [facility] 01-12-2025 15:13-0400 Diastolic blood pressure 74 mm[Hg] [facility] 01-12-2025 15:13-0400 Heart rate 81 /min [facility] 01-12-2025 15:13-0400 Respiratory rate 16 /min [facility] 01-12-2025 15:13-0400 SaO2% (BldA) [Mass fraction] 92 % [facility] 01-12-2025 15:13-0400 Systolic blood pressure 142 mm[Hg] [facility] 01-11-2025 07:58-0400 Body temperature 97.81 [degF] [facility] 01-11-2025 07:58-0400 Diastolic blood pressure 82 mm[Hg] [facility] 01-11-2025 07:58-0400 Heart rate 99 /min [facility] 01-11-2025 07:58-0400 Respiratory rate 16 /min [facility] 01-11-2025 07:58-0400 SaO2% (BldA) [Mass fraction] 94 % [facility] 01-11-2025 07:58-0400 Systolic blood pressure 149 mm[Hg] [facility] 01-10-2025 07:53-0500 Body temperature 97.9 [degF] [facility] 01-10-2025 07:53-0500 Diastolic blood pressure 77 mm[Hg] [facility] 01-10-2025 07:53-0500 Heart rate 106 /min [facility] 01-10-2025 07:53-0500 Respiratory rate 16 /min [facility] 01-10-2025 07:53-0500 SaO2% (BldA) [Mass fraction] 94 % [facility] 01-10-2025 07:53-0500 Systolic blood pressure 171 mm[Hg] [facility] 01-09-2025 14:54-0500 Body temperature 98.01 [degF] [facility] 01-09-2025 14:54-0500 Diastolic blood pressure 80 mm[Hg] [facility] 01-09-2025 14:54-0500 Heart rate 86 /min [facility] 01-09-2025 14:54-0500 SaO2% (BldA) [Mass fraction] 94 % [facility] 01-09-2025 14:54-0500 Systolic blood pressure 127 mm[Hg] [facility] 01-08-2025 15:00-0500 Body temperature 98.1 [degF] [facility] 01-08-2025 15:00-0500 Diastolic blood pressure 80 mm[Hg] [facility] 01-08-2025 15:00-0500 Heart rate 89 /min [facility] 01-08-2025 15:00-0500 Respiratory rate 16 /min [facility] 01-08-2025 15:00-0500 SaO2% (BldA) [Mass fraction] 92 % [facility] 01-08-2025 15:00-0500 Systolic blood pressure 135 mm[Hg] [facility] 01-07-2025 16:17-0500 Body temperature 97.9 [degF] [facility] 01-07-2025 16:17-0500 Diastolic blood pressure 92 mm[Hg] [facility] 01-07-2025 16:17-0500 Heart rate 87 /min [facility] 01-07-2025 16:17-0500 Respiratory rate 16 /min [facility] 01-07-2025 16:17-0500 SaO2% (BldA) [Mass fraction] 90 % [facility] 01-07-2025 16:17-0500 Systolic blood pressure 161 mm[Hg] [facility] 01-07-2025 15:12-0500 Body temperature 98.2 [degF] CJ Hassmann DPM Work Phone: [facility] 01-07-2025 15:12-0500 Diastolic blood pressure 92 mm[Hg] CJ Hassmann DPM Work Phone: [facility] 01-07-2025 15:12-0500 Heart rate 89 /min CJ Hassmann DPM Work Phone: [facility] 01-07-2025 15:12-0500 Systolic blood pressure 157 mm[Hg] CJ Hassmann DPM Work Phone: [facility] 01-06-2025 15:16-0500 Body temperature 97.59 [degF] [facility] 01-06-2025 15:16-0500 Diastolic blood pressure 93 mm[Hg] [facility] 01-06-2025 15:16-0500 Heart rate 85 /min [facility] 01-06-2025 15:16-0500 Respiratory rate 16 /min [facility] 01-06-2025 15:16-0500 SaO2% (BldA) [Mass fraction] 94 % [facility] 01-06-2025 15:16-0500 Systolic blood pressure 163 mm[Hg] [facility] 01-05-2025 15:13-0500 Body height 177.8 cm [facility] 01-05-2025 15:13-0500 Body mass index (BMI) [Ratio] 36.59 kg/m2 [facility] 01-05-2025 15:13-0500 Body weight 115.67 kg [facility] [facility] 01-05-2025 14:22-0500 Body temperature 97.7 [degF] [facility] 01-05-2025 14:22-0500 Diastolic blood pressure 85 mm[Hg] [facility] 01-05-2025 14:22-0500 Heart rate 85 /min [facility] 01-05-2025 14:22-0500 Respiratory rate 14 /min [facility] 01-05-2025 14:22-0500 SaO2% (BldA) [Mass fraction] 93 % [facility] 01-05-2025 14:22-0500 Systolic blood pressure 151 mm[Hg] Room [facility] 01-03-2025 07:57-0500 Body temperature 97.9 [degF] Generic [facility] Work Phone: [facility] 01-03-2025 07:57-0500 Diastolic blood pressure 83 mm[Hg] Generic [facility] Work Phone: [facility] 01-03-2025 07:57-0500 Heart rate 85 /min [facility] Work Phone: [facility] 01-03-2025 07:57-0500 Respiratory rate 18 /min [facility] Work Phone: [facility] 01-03-2025 07:57-0500 SaO2% (BldA) [Mass fraction] 92 % [facility] Work Phone: [facility] 01-03-2025 07:57-0500 Systolic blood pressure 152 mm[Hg] [facility] Work Phone: [facility] 01-01-2025 17:29-0500 Body height 177.8 cm Generic [facility] Work Phone: [facility] 01-01-2025 17:29-0500 Body mass index (BMI) [Ratio] 36.82 kg/m2 Generic [facility] Work Phone: [facility] 01-01-2025 17:29-0500 Body weight 116.4 kg Generic [facility] Work Phone: [facility] 12-31-2024 15:26-0500 Body temperature 98.01 [degF] CJ Hassmann DPM Work Phone: [facility] 12-31-2024 15:26-0500 Diastolic blood pressure 103 mm[Hg] CJ Hassmann DPM Work Phone: [facility] 12-31-2024 15:26-0500 Heart rate 90 /min CJ Hassmann DPM Work Phone: [facility] 12-31-2024 15:26-0500 Systolic blood pressure 166 mm[Hg] CJ Hassmann DPM Work Phone: [facility] 12-25-2024 09:39-0500 Body temperature 98.4 [degF] CJ Hassmann DPM Work Phone: [facility] 12-25-2024 09:39-0500 Diastolic blood pressure 100 mm[Hg] CJ Hassmann DPM Work Phone: [facility] 12-25-2024 09:39-0500 Heart rate 98 /min CJ Hassmann DPM Work Phone: [facility] 12-25-2024 09:39-0500 Systolic blood pressure 150 mm[Hg] CJ Hassmann DPM Work Phone: [facility] 12-18-2024 14:27-0500 Body temperature 98.01 [degF] CJ Hassmann DPM Work Phone: [facility] 12-18-2024 14:27-0500 Diastolic blood pressure 119 mm[Hg] CJ Hassmann DPM Work Phone: [facility] 12-18-2024 14:27-0500 Heart rate 103 /min CJ Hassmann DPM Work Phone: [facility] 12-18-2024 14:27-0500 Systolic blood pressure 165 mm[Hg] CJ Hassmann DPM Work Phone: [facility] 11-20-2024 10:36-0500 Body temperature 97 [degF] CJ Hassmann DPM Work Phone: [facility] 11-20-2024 10:36-0500 Diastolic blood pressure 99 mm[Hg] CJ Hassmann DPM Work Phone: [facility] 11-20-2024 10:36-0500 Heart rate 99 /min CJ Hassmann DPM Work Phone: [facility] 11-20-2024 10:36-0500 Systolic blood pressure 172 mm[Hg] CJ Hassmann DPM Work Phone: [facility] 11-03-2024 13:58-0500 Body temperature 98.49 [degF] CJ Hassmann DPM Work Phone: [facility] 11-03-2024 13:58-0500 Diastolic blood pressure 98 mm[Hg] CJ Hassmann DPM Work Phone: [facility] 11-03-2024 13:58-0500 Heart rate 83 /min CJ Hassmann DPM Work Phone: [facility] 11-03-2024 13:58-0500 SaO2% (BldA) [Mass fraction] 92 % CJ Hassmann DPM Work Phone: [facility] 11-03-2024 13:58-0500 Systolic blood pressure 166 mm[Hg] CJ Hassmann DPM Work Phone: [facility] 03-21-2022 10:06-0400 Body temperature 97.59 [degF] Marlyn Martin APRN.[employer]OPE [employer]Y HOUSE OPERATOR Work Phone: [facility] 03-21-2022 10:06-0400 Body weight 119.48 kg Marlyn Martin APRN.[employer]OPE [employer]Y HOUSE OPERATOR Work Phone: [facility] 03-21-2022 10:06-0400 Diastolic blood pressure 84 mm[Hg] Marlyn Martin APRN.[employer]OPE [employer]Y HOUSE OPERATOR Work Phone: [facility] 03-21-2022 10:06-0400 Heart rate 77 /min Marlyn Martin APRN.DOPE [employer]Y HOUSE OPERATOR Work Phone: [facility] 03-21-2022 10:06-0400 Respiratory rate 16 /min Marlyn Martin APRN.[employer]OPE [employer]Y HOUSE OPERATOR Work Phone: [facility] 03-21-2022 10:06-0400 SaO2% (BldA) [Mass fraction] 96 % Marlyn Martin APRN.[employer]OPE [employer]Y HOUSE OPERATOR Work Phone: [facility] 03-21-2022 10:06-0400 Systolic blood pressure 132 mm[Hg] Marlyn Martin APRN.[employer]OPE [employer]Y HOUSE OPERATOR Work Phone: [facility] Encounters Encounter Date Encounter Type Care Provider Facility Start: 09-08-2025 ambulatory ADAN BOOKER Fa cility:[facility] Start: 08-05-2025 End: 08-05-2025 Office outpatient visit 15 minutes FATMATA Arguelles DPM Work Phone: [facility] Comment on above: Status post amputati on (Primary Dx); Osteomyelitis of left foot, unspecified type (HCC); Left foot pain; Abscess, toe, left; Peripheral vascular disease; Dependent rubor Start: 08-05-2025 End: 08-09-2025 ambulatory PHYSICIAN [facility] Start: 07-15-2025 End: 07-15-2025 Office outpatient visit 15 minutes FATMATA Arguelles DPM Work Phone: [facility] Comment on above: Osteomyelitis of lef t foot, unspecified type (HCC) (Primary Dx); Left foot pain; Peripheral vascular disease Start: 07-15-2025 End: 07-19-2025 ambulatory PHYSICIAN NO [facility] Start: 07-09-2025 End: 07-09-2025 Office outpatient visit 25 minutes Windy Schwartz DOPE [employer]Y HOUSE OPERATOR Work Phone: [facility] Comment on above: Type 2 diabetes babatunde itus without complication, with long-term current use of insulin (HCC) (Primary Dx) Start: 07-09-2025 End: 07-09-2025 ambulatory PHYSICIAN [facility] ry Start: 06-24-2025 End: 06-24-2025 Office outpatient visit 15 minutes FATMATA Arguelles DPM Work Phone: [facility] Comment on above: Osteomyelitis of lef t foot, unspecified type (HCC) (Primary Dx); Left foot pain; Abscess, toe, left; Peripheral vascular disease Start: 06-24-2025 End: 06-28-2025 ambulatory PHYSICIAN [facility] Start: 06-20-2025 End: 06-20-2025 Orders Only FATMATA Arguelles DPM Work Phone: [facility] Comment on above: Osteomyelitis of lef t foot, unspecified type (HCC) (Primary Dx); Left foot pain Start: 06-19-2025 End: 06-19-2025 ambulatory PHYSICIAN [facility] Start: 06-17-2025 Preprocedural examination done FATMATA Arguelles DPM Work Phone: [facility] Start: 06-17-2025 Encounter for other preprocedural examination MANN [facility] Start: 06-17-2025 End: 06-17-2025 ambulatory [facility] Start: 06-17-2025 End: 06-21-2025 ambulatory [facility] Start: 06-17-2025 End: 06-21-2025 Encounter for other preprocedural examination [facility] Start: 06-15-2025 End: 06-15-2025 Office outpatient visit 25 minutes FATMATA Arguelles DPM Work Phone: [facility] Comment on above: Osteomyelitis of lef t foot, unspecified type (HCC) (Primary Dx); Left foot pain; Dependent rubor; Abscess, toe, left; Peripheral vascular disease Start: 06-15-2025 End: 06-15-2025 [facility] Start: 06-10-2025 End: 06-10-2025 Office outpatient visit 25 minutes FATMATA Arguelles DPM Work Phone: [facility] Comment on above: Osteomyelitis of lef t foot, unspecified type (HCC) (Primary Dx); Left foot pain; Dependent rubor; Abscess, toe, left; Peripheral vascular disease; Abscess of left great toe Start: 06-10-2025 End: 06-14-2025 [facility] Start: 04-15-2025 End: 04-15-2025 Office outpatient visit 10 minutes FATMATA Arguelles DPM Work Phone: [facility] Comment on above: Chronic toe pain, le ft foot (Primary Dx); Osteomyelitis of left foot, unspecified type (HCC); Left foot pain; Peripheral vascular disease Start: 04-15-2025 End: 04-15-2025 ambulatory PHYSICIAN NO [facility] ry Start: 04-09-2025 End: 04-09-2025 Refill Windy Schwartz CNP Work Phone: [facility] Comment on above: Type 2 diabetes babatunde itus with hyperglycemia, with long-term current use of insulin ([facility]); Type 2 diabetes mellitus without complication, with long-term current use of insulin (HCC) Start: 04-03-2025 End: 04-03-2025 Refill iWndy Schwartz CNP Work Phone: [facility] Comment on above: Type 2 diabetes babatunde itus with hyperglycemia, with long-term current use of insulin (HCC) Start: 04-02-2025 End: 04-02-2025 Orders Only Windy Schwartz CNP Work Phone: [facility] Comment on above: Type 2 diabetes babatunde itus without complication, with long-term current use of insulin (HCC) (Primary Dx) Start: 04-01-2025 End: 04-01-2025 Office outpatient visit 15 minutes FATMATA Arguelles DPM Work Phone: [facility] Comment on above: Left foot pain (Prim narendra Dx); Chronic toe pain, left foot; Osteomyelitis of left foot, unspecified type (HCC); Peripheral vascular disease; Dependent rubor Start: 04-01-2025 End: 04-05-2025 ambulatory PHYSICIAN NO [facility] Start: 03-18-2025 End: 03-18-2025 Willa Randolph DOPE DRY HOUSE OPERATOR Work Phone: [facility] Comment on above: Type 2 diabetes babatunde itus with hyperglycemia, with long-term current use of insulin (HCC) Start: 03-11-2025 End: 03-11-2025 Postop follow up visit related to original px FATMATA Arguelles DPM Work Phone: [facility] Comment on above: Osteomyelitis of lef t foot, unspecified type (HCC) (Primary Dx); Chronic toe pain, left foot; Peripheral vascular disease; Dependent rubor Start: 03-11-2025 End: 03-15-2025 ambulatory PHYSICIAN NO [facility] Start: 03-11-2025 ambulatory PHYSICIAN NO [facility] Start: 03-09-2025 End: 03-09-2025 Office outpatient visit 25 minutes Windy Schwartz CNP Work Phone: [facility] Comment on above: Type 2 diabetes babatunde itus without complication, with long-term current use of insulin (HCC) (Primary Dx) Start: 03-09-2025 End: 03-09-2025 ambulatory PHYSICIAN NO [facility] Start: 02-09-2025 End: 02-09-2025 Postop follow up visit related to original px FATMATA Arguelles DPM Work Phone: [facility] Comment on above: Skin necrosis (HCC) (Primary Dx); Osteomyelitis of left foot, unspecified type (HCC); Chronic toe pain, left foot; Dependent rubor; Peripheral vascular disease Start: 02-09-2025 End: 02-09-2025 ambulatory PHYSICIAN NO [facility] Start: 02-02-2025 End: 02-03-2025 ambulatory Maximo Charles DOPE DRY HOUSE OPERATOR Work Phone: [facility] Librarian Comment on above: Acute hematogenous o steomyelitis, unspecified site (HCC) (Primary Dx) Start: 02-01-2025 End: 02-01-2025 ambulatory Provider Not In System [facility] Libr[facility] Comment on above: Acute hematogenous o steomyelitis, unspecified site (HCC) (Primary Dx) Start: 01-31-2025 End: 01-31-2025 ambulatory Provider Not In System [facility] Librarian Comment on above: Acute hematogenous o steomyelitis, unspecified site (HCC) (Primary Dx) Start: 01-30-2025 End: 01-30-2025 ambulatory Maximo P Ezike DOPE DRY HOUSE OPERATOR Work Phone: [facility] Librarian Comment on above: Acute hematogenous o steomyelitis, unspecified site (HCC) (Primary Dx) Start: 01-30-2025 End: 01-30-2025 Documentation procedure Windy Schwartz DOPE DRY HOUSE OPERATOR Work Phone: [facility] Start: 01-29-2025 End: 01-29-2025 ambulatory Maximo P Ezike DOPE DRY HOUSE OPERATOR Work Phone: [facility] Librarian Comment on above: Acute hematogenous o steomyelitis, unspecified site (HCC) (Primary Dx) Start: 01-28-2025 End: 01-28-2025 ambulatory Maximo P Ezike DOPE DRY HOUSE OPERATOR Work Phone: [facility] Librarian Comment on above: Acute hematogenous o steomyelitis, unspecified site (HCC) (Primary Dx) Start: 01-27-2025 End: 01-27-2025 ambulatory Maximo P Ezike DOPE DRY HOUSE OPERATOR Work Phone: [facility] Librarian Comment on above: Acute hematogenous o steomyelitis, unspecified site (HCC) (Primary Dx) Start: 01-26-2025 End: 01-26-2025 Postop follow up visit related to original px FATMATA DUMASM Work Phone: [facility] Comment on above: Surgical wound dehis cence, initial encounter (Primary Dx); Skin necrosis (HCC); Osteomyelitis of left foot, unspecified type (HCC); Chronic toe pain, left foot Start: 01-26-2025 End: 01-26-2025 ambulatory Maximo P Ezike DOPE DRY HOUSE OPERATOR Work Phone: [facility] Librarian Comment on above: Acute hematogenous o steomyelitis, unspecified site (HCC) (Primary Dx) Start: 01-25-2025 End: 01-25-2025 ambulatory Provider Not In System [facility] Librarian Comment on above: Acute hematogenous o steomyelitis, unspecified site (HCC) (Primary Dx) Start: 01-24-2025 End: 01-24-2025 ambulatory Maximo P Ezike DOPE DRY HOUSE OPERATOR Work Phone: [facility] Librarian Comment on above: Acute hematogenous o steomyelitis, unspecified site (HCC) (Primary Dx) Start: 01-23-2025 End: 01-23-2025 ambulatory Generic [facility] Work Phone: [facility] Librarian Comment on above: Acute hematogenous o steomyelitis, unspecified site (HCC) (Primary Dx) Start: 01-22-2025 End: 01-22-2025 ambulatory Maximo P Ezike DOPE DRY HOUSE OPERATOR Work Phone: [facility] Librarian Comment on above: Acute hematogenous o steomyelitis, unspecified site (HCC) (Primary Dx) Start: 01-21-2025 End: 01-21-2025 ambulatory Maximo P Ezike DOPE DRY HOUSE OPERATOR Work Phone: [facility] Librarian Comment on above: Acute hematogenous o steomyelitis, unspecified site (HCC) (Primary Dx) Start: 01-20-2025 End: 01-20-2025 ambulatory Maximo P Ezike DOPE DRY HOUSE OPERATOR Work Phone: [facility] Librarian Comment on above: Acute hematogenous o steomyelitis, unspecified site (HCC) (Primary Dx) Start: 01-19-2025 End: 01-19-2025 Office outpatient visit 15 minutes FATMATA Arguelles DPM Work Phone: [facility] Comment on above: Surgical wound dehis cence, initial encounter (Primary Dx); Skin necrosis (HCC); Osteomyelitis of left foot, unspecified type (HCC); Chronic toe pain, left foot Start: 01-19-2025 End: 01-23-2025 ambulatory Maximo P Ezike DOPE DRY HOUSE OPERATOR Work Phone: [facility] Librarian Comment on above: Acute hematogenous o steomyelitis, unspecified site (HCC) (Primary Dx) Start: 01-18-2025 End: 01-18-2025 ambulatory Maximo P Ezike DOPE DRY HOUSE OPERATOR Work Phone: [facility] Librarian Comment on above: Acute hematogenous o steomyelitis, unspecified site (HCC) (Primary Dx) Start: 01-17-2025 End: 01-17-2025 ambulatory Maximo P Ezike DOPE DRY HOUSE OPERATOR Work Phone: [facility] Librarian Comment on above: Acute hematogenous o steomyelitis, unspecified site (HCC) (Primary Dx) Start: 01-16-2025 End: 01-16-2025 ambulatory Maximo P Ezike DOPE DRY HOUSE OPERATOR Work Phone: [facility] Librarian Comment on above: Acute hematogenous o steomyelitis, unspecified site (HCC) (Primary Dx) Start: 01-15-2025 End: 01-15-2025 ambulatory Maximo P Ezike DOPE DRY HOUSE OPERATOR Work Phone: [facility] Librarian Comment on above: Acute hematogenous o steomyelitis, unspecified site (HCC) (Primary Dx) Start: 01-14-2025 End: 01-14-2025 Office outpatient visit 15 minutes FATMATA Arguelles DPM Work Phone: [facility] Comment on above: Surgical wound dehis cence, initial encounter (Primary Dx); Skin necrosis (HCC); Osteomyelitis of left foot, unspecified type (HCC); Chronic toe pain, left foot; Abscess of left great toe; Dependent rubor Start: 01-14-2025 End: 01-18-2025 ambulatory Maximo P Ezike DOPE DRY HOUSE OPERATOR Work Phone: [facility] Librarian Comment on above: Acute hematogenous o steomyelitis, unspecified site (HCC) (Primary Dx) Start: 01-13-2025 End: 01-13-2025 ambulatory Maximo P Ezike DOPE DRY HOUSE OPERATOR Work Phone: [facility] Libr[facility] Comment on above: Acute hematogenous o steomyelitis, unspecified site (HCC) (Primary Dx) Start: 01-12-2025 End: 01-13-2025 ambulatory Maximo P Ezike DOPE DRY HOUSE OPERATOR Work Phone: [facility] Librarian Comment on above: Acute hematogenous o steomyelitis, unspecified site (HCC) (Primary Dx) Start: 01-11-2025 End: 01-11-2025 ambulatory Room 13 [facility] Librarian Comment on above: Acute hematogenous o steomyelitis, unspecified site (HCC) (Primary Dx) Start: 01-10-2025 End: 01-10-2025 ambulatory Maximo P Ezike DOPE DRY HOUSE OPERATOR Work Phone: [facility] Librarian Comment on above: Acute hematogenous o steomyelitis, unspecified site (HCC) (Primary Dx) Start: 01-09-2025 End: 01-09-2025 ambulatory Maximo P Ezike DOPE DRY HOUSE OPERATOR Work Phone: [facility] Librarian Comment on above: Acute hematogenous o steomyelitis, unspecified site (HCC) (Primary Dx) Start: 01-08-2025 End: 01-08-2025 ambulatory Maximo P Ezike DOPE DRY HOUSE OPERATOR Work Phone: [facility] Libr[facility] Comment on above: Acute hematogenous o steomyelitis, unspecified site (HCC) (Primary Dx) Start: 01-07-2025 End: 01-07-2025 Office outpatient visit 25 minutes FATMATA Arguelles DPM Work Phone: [facility] Comment on above: Surgical wound dehis cence, initial encounter (Primary Dx); Skin necrosis (HCC); Osteomyelitis of left foot, unspecified type (HCC); Chronic toe pain, left foot; Abscess of left great toe; Dependent rubor; Cellulitis of foot, left Start: 01-07-2025 End: 01-11-2025 ambulatory Maximo P Ezike DOPE DRY HOUSE OPERATOR Work Phone: [facility] Librarian Comment on above: Acute hematogenous o steomyelitis, unspecified site (HCC) (Primary Dx) Start: 01-06-2025 End: 01-06-2025 ambulatory Provider Not In System [facility] Librarian Comment on above: Acute hematogenous o steomyelitis, unspecified site (HCC) (Primary Dx) Start: 01-05-2025 End: 01-06-2025 Orders Only Chang Charles MD Work Phone: [facility] Provider Infectious Disease Comment on above: Acute hematogenous o steomyelitis, unspecified site (HCC) (Primary Dx) Start: 01-01-2025 End: 01-03-2025 Evaluation and management of inpatient Yfn Moss MD Work Phone: [facility] Medical Observation Start: 01-01-2025 End: 01-03-2025 ambulatory CHRISTIAN [facility] Start: 12-31-2024 End: 12-31-2024 Office outpatient visit 25 minutes FATMATA Arguelles DPM Work Phone: [facility] Comment on above: Osteomyelitis of lef t foot, unspecified type (HCC) (Primary Dx); Chronic toe pain, left foot; Abscess of left great toe; Dependent rubor; Peripheral vascular disease Start: 12-31-2024 End: 12-31-2024 ambulatory PHYSICIAN YESI [facility] Start: 12-26-2024 End: 12-26-[address] [facility] Start: 12-25-2024 End: 12-25-2024 Office outpatient visit 15 minutes FATMATA Arguelles DPM Work Phone: [facility] Comment on above: Osteomyelitis of lef t foot, unspecified type (HCC) (Primary Dx); Chronic toe pain, left foot; Abscess of left great toe; Dependent rubor; Peripheral vascular disease Start: 12-25-2024 End: 12-25-2024 ambulatory PHYSICIAN YESI [facility] Start: 12-18-2024 End: 12-18-2024 Office outpatient visit 15 minutes FATMATA Arguelles DPM Work Phone: [facility] Comment on above: Cellulitis, unspecif ied cellulitis site (Primary Dx); Onychocryptosis; Abscess of left great toe; Ingrown nail; Chronic toe pain, left foot Start: 12-18-2024 End: 12-22-2024 ambulatory PHYSICIAN NO [facility] Start: 11-20-2024 End: 11-20-2024 ambulatory PHYSICIAN NO [facility] Start: 11-20-2024 End: 11-20-2024 Office outpatient visit 10 minutes FATMATA Arguelles DPM Work Phone: [facility] Comment on above: Abscess of left grea t toe (Primary Dx); Onychocryptosis; Ingrown nail; Chronic toe pain, left foot Start: 11-03-2024 End: 11-03-2024 Office outpatient new 30 minutes FATMATA Arguelles DPM Work Phone: [facility] Comment on above: Abscess of left grea t toe (Primary Dx); Onychocryptosis; Ingrown nail; Chronic toe pain, left foot Start: 11-03-2024 End: 11-07-2024 [facility] Start: 11-25-2022 End: 11-25-2022 Emergency department patient visit [facility] Start: 03-21-2022 End: 03-21-2022 Patient encounter procedure Marlyn Martin APRN.DOPE DRY HOUSE OPERATOR Work Phone: [facility] Comment on above: Sinus congestion (Pr imary Dx); Sore throat Procedures Date Procedure Procedure Detail Performing Clinician Start: 07-08-2025 End: 07-08-2025 External head doffer, CGM benigno Schwartz DOPE [employer]Y HOUSE OPERATOR Work Phone: Start: 06-10-2025 Basic metabolic panel calcium total FATMATA DUMASM Work Phone: Start: 06-10-2025 C-reactive protein FATMATA DUMASM Work Phone: Start: 06-10-2025 Complete blood count with white cell differential, manual FATMATA DUMASM Work Phone: Start: 04-01-2025 Radex foot complete minimum 3 views FATMATA DUMASM Work Phone: Start: 03-09-2025 External head doffer, CGM sys Windy Schwartz DOPE DRY HOUSE OPERATOR Work Phone: Start: 01-29-2025 Basic metabolic panel calcium total Maximo P Ezike DOPE DRY HOUSE OPERATOR Work Phone: Start: 01-29-2025 C-reactive protein Maximo P Ezike DOPE DRY HOUSE OPERATOR Work Phone: Start: 01-22-2025 Basic metabolic panel calcium total Maximo P Ezike DOPE DRY HOUSE OPERATOR Work Phone: Start: 01-22-2025 C-reactive protein Maximo P Ezike DOPE DRY HOUSE OPERATOR Work Phone: Start: 01-15-2025 Basic metabolic panel calcium total Maximo P Ezike DOPE DRY HOUSE OPERATOR Work Phone: Start: 01-15-2025 C-reactive protein Maximo P Ezike DOPE DRY HOUSE OPERATOR Work Phone: Start: 01-08-2025 Basic metabolic panel calcium total Maximo P Ezike DOPE DRY HOUSE OPERATOR Work Phone: Start: 01-08-2025 C-reactive protein Maximo P Ezike DOPE [employer]Y HOUSE OPERATOR Work Phone: Start: 01-03-2025 Glucose measurement Generic [facility] Work Phone: Start: 01-03-2025 Creatinine blood Arron Olivas [facility],Ph armD Start: 01-02-2025 Glucose measurement Generic [facility] Work Phone: Start: 01-02-2025 Radiologic examination foot 2 views FATMATA Arguelles DPM Work Phone: Start: 01-02-2025 Glucose measurement Generic [facility] Work Phone: Start: 01-02-2025 End: 01-02-2025 Cul bact xcpt urine blood/stool aerobic isol FATMATA Arguelles DPM Work Phone: Start: 01-02-2025 Glucose measurement Generic [facility] Work Phone: Start: 01-02-2025 Glucose measurement Generic [facility] ists Work Phone: Start: 01-02-2025 Glucose measurement Generic [facility] ists Work Phone: Start: 01-02-2025 Basic metabolic panel calcium total Rod Frost MD Work Phone: Start: 01-01-2025 Iadna s aureus methicillin resist amp probe tq Rod Frost MD Work Phone: Start: 01-01-2025 LIGHT BLUE TOP Yfn Moss MD Work Phone: Start: 01-01-2025 RAINBOW DRAW Yfn Moss MD Work Phone: Start: 01-01-2025 Basic metabolic panel calcium total Yfn Moss MD Work Phone: Start: 01-01-2025 C-reactive protein Mayuri Abarca [employer]SE OPERATOR Work Phone: Start: 01-01-2025 Culture bacterial blood aerobic w/id isolates Yfn Moss MD Work Phone: Start: 11-03-2024 Destruction of lesion FATMATA Arguelles DPM Work Phone: Start: 03-21-2022 STREP A MOLECULAR (POC) Marlyn Martin APRN.[employer] HOU[employer] OPERATOR Work Phone: Start: 01-12-2017 Colonoscopy FATMATA Arguelles DPM Work Phone: H/O: surgery Status post amputation FATMATA DUMASM Work Phone: Plan of Treatment Date Care Activity Detail Author Start: 01-12-2027 Screening for malignant neoplasm of colon [facility] Start: 06-10-2026 eGFR Diabetes eGFR Diabetes [facility] Start: 06-08-2026 eGFR Diabetes eGFR Diabetes [facility] Start: 06-08-2026 Urine screening for protein Urine (micro)albumin/creatini ne ratio - Diabetes [facility] Start: 01-29-2026 eGFR Diabetes eGFR Diabetes [facility] Start: 01-29-2026 Urine screening for protein eGFR Diabetes [facility] Start: 01-22-2026 Urine screening for protein eGFR Diabetes [facility] Start: 01-15-2026 Urine screening for protein eGFR Diabetes [facility] Start: 01-08-2026 Urine screening for protein eGFR Diabetes [facility] Start: 01-03-2026 Urine screening for protein eGFR Diabetes [facility] Start: 01-01-2026 Depression screening using PHQ-9 (Patient Health Questionnaire 9) score Depression Screening/Follow-Up (PHQ-2/9) [facility] Start: 2025 Hemoglobin A1c measurement A1C [facility] Start: 11-09-2025 End: 11-09-2025 Patient encounter procedure [facility] Start: 08-05-2025 End: 08-05-2025 Follow-up encounter 08/05/2025 3:00 PM EDT Follow-Up [facility] [address] [place] [address] FATMATA Arguelles, DPM [address] [place] [address] [facility] Start: 07-15-2025 End: 07-15-2025 Follow-up encounter 07/15/2025 8:30 AM EDT Follow-Up [facility] [address] [place] [address] FATMATA Arguelles, DPM [address] [place] [address] [facility] Start: 07-09-2025 End: 07-09-2025 Patient encounter procedure 07/09/2025 8:30 AM EDT Office Visit [facility] [address] [place] [address] [place] [id number] Windy Schwartz, DOPE [employer]Y HOUSE OPERATOR [address] [place] [address] [facility] Start: 07-06-2025 COVID-19 Vaccine () COVID-19 Vaccine () [facility] Start: 07-06-2025 Influenza vaccination [facility] Start: 06-24-2025 End: 06-24-2025 Patient encounter procedure 06/24/2025 8:30 AM EDT Office Visit [facility] [address] [place] [address] FATMATA Arguelles, DPM [address] [place] [address] [facility] Start: 06-19-2025 End: 06-19-2025 Admission to same day surgery center 06/19/2025 9:43 AM EDT - 06/19/2025 10:48 AM EDT Surgery [facility] [address] [place] [phone] FATMATA Arguelles, DPM [address] [place] [address] Left hallux amputation, left foot, - Podiatry set [facility] Comment on above: Left hallux amputation, left foot, - Pod iatry set Start: 06-19-2025 End: 06-19-2025 Amputation toe metatarsophalangeal joint AMPUTATION TOE(S) Osteomyelitis of left foot, unspecified type (HCC) Left foot pain Dependent rubor Abscess, toe, left Peripheral vascular disease Abscess of left great toe 06/19/2025 9:43 AM EDT [facility] Start: 06-19-2025 End: 06-19-2025 Anesthesia consultation 06/19/2025 9:43 AM EDT Anesthesia Event [facility]i [address] [place] [address] Shelia Stanley MD [address], [place] [id number] [facility] Start: 06-19-2025 Subsequent hospital visit by physician [facility] Start: 06-17-2025 End: 06-17-2025 Patient encounter procedure 06/17/2025 11:15 AM EDT Office Visit [facility] Preadmission Testing [address] [place] [address] Discharge Disposition: Home [facility] Preadmission Testing Start: 06-15-2025 End: 06-15-2025 Patient encounter procedure 06/15/2025 1:00 PM EDT Office Visit [facility] [address] [place] [address] FATMATA Arguelles, DPM [address] [place] [address] [facility] Start: 06-12-2025 End: 06-11-2026 12 lead ECG ECG 12 Lead ECG Routine Osteomyelitis of left foot, unspecified type (HCC) Left foot pain Dependent rubor Abscess, toe, left Peripheral vascular disease Abscess of left great toe Expected: 06/12/2025, Expires: 06/11/2026 [facility] Comment on above: Expected: 06/12/2025, Expires: Start: 06-12-2025 End: 06-11-2026 Basic metabolic 2000 panel - Serum or Plasma Basic metabolic panel Lab Routine Osteomyelitis of left foot, unspecified type (HCC) Left foot pain Dependent rubor Abscess, toe, left Peripheral vascular disease Abscess of left great toe Expected: 06/12/2025, Expires: 06/11/2026 [facility] Comment on above: Expected: 06/12/2025, Expires: Start: 06-12-2025 End: 06-11-2026 Complete blood count with white cell differential, manual CBC and differential Lab Routine Osteomyelitis of left foot, unspecified type (HCC) Left foot pain Dependent rubor Abscess, toe, left Peripheral vascular disease Abscess of left great toe Expected: 06/12/2025, Expires: 06/11/2026 [facility] Comment on above: Expected: 06/12/2025, Expires: Start: 06-12-2025 End: 06-11-2026 XR Chest PA and Lateral and AP lateral-decubitus XR Chest AP/PA and LAT Imaging Routine Osteomyelitis of left foot, unspecified type (HCC) Left foot pain Dependent rubor Abscess, toe, left Peripheral vascular disease Abscess of left great toe Expected: 06/12/2025, Expires: 06/11/2026 [facility] Comment on above: Expected: 06/12/2025, Expires: Start: 06-11-2025 End: 06-11-2025 Patient encounter procedure 06/11/2025 1:15 PM EDT Office Visit [facility] [address] [facility] [place] [address] Windy Schwartz, DOPE [employer]Y HOUSE OPERATOR [address] [place] [address] [facility] Start: 06-10-2025 End: 06-10-2026 Bacteria identified in Blood by Culture Blood Culture Aerobic/Anaerobic Microbiology Routine Osteomyelitis of left foot, unspecified type (HCC) Expected: 06/10/2025, Expires: 06/10/2026 [facility] Work Phone: Comment on above: Expected: 06/10/2025, Expires: Start: 06-10-2025 End: 06-10-2026 Wound Aerobic And Anaerobic Culture [facility] Comment on above: Expected: 06/10/2025, Expires: Start: 06-09-2025 End: 03-09-2026 Comprehensive metabolic 2000 panel - Serum or Plasma Comprehensive Metabolic Panel Lab Routine Type 2 diabetes mellitus without complication, with long-term current use of insulin (HCC) Expected: 06/09/2025 (Approximate), Expires: 03/09/2026 [facility] Comment on above: Expected: 06/09/2025 (Approximate), Expi res: 03/09/2026 Start: 06-09-2025 End: 03-09-2026 Hemoglobin A1c/Hemoglobin.total in Blood Hemoglobin A1c Lab Routine Type 2 diabetes mellitus without complication, with long-term current use of insulin (HCC) Expected: 06/09/2025 (Approximate), Expires: 03/09/2026 [facility] Work Phone: Comment on above: Expected: 06/09/2025 (Approximate), Expi res: 03/09/2026 Start: 06-09-2025 End: 03-09-2026 Lipid 1996 panel - Serum or Plasma Lipid Panel Lab Routine Type 2 diabetes mellitus without complication, with long-term current use of insulin (HCC) Expected: 06/09/2025 (Approximate), Expires: 03/09/2026 [facility] Comment on above: Expected: 06/09/2025 (Approximate), Expi res: 03/09/2026 Start: 06-09-2025 End: 03-09-2026 Microalbumin measurement, urine, quantitative Microalbumin/Creatinine Ratio, UR Random Lab Routine Type 2 diabetes mellitus without complication, with long-term current use of insulin (HCC) Expected: 06/09/2025 (Approximate), Expires: 03/09/2026 [facility] Comment on above: Expected: 06/09/2025 (Approximate), Expi res: 03/09/2026 Start: 06-09-2025 End: 03-09-2026 Thyrotropin [Units/volume] in Serum or Plasma TSH Lab Routine Type 2 diabetes mellitus without complication, with long-term current use of insulin (HCC) Expected: 06/09/2025 (Approximate), Expires: 03/09/2026 [facility] Comment on above: Expected: 06/09/2025 (Approximate), Expi res: 03/09/2026 Start: 06-09-2025 End: 03-09-2026 Thyroxine (T4) free [Mass/volume] in Serum or Plasma T4, Free Lab Routine Type 2 diabetes mellitus without complication, with long-term current use of insulin (HCC) Expected: 06/09/2025 (Approximate), Expires: 03/09/2026 [facility] Comment on above: Expected: 06/09/2025 (Approximate), Expi res: 03/09/2026 Start: 04-15-2025 End: 04-15-2025 Patient encounter procedure 04/15/2025 3:30 PM EDT Office Visit [facility] [address] [place] [address] FATMATA Arguelles, DPM [address] [place] [address] [facility] Start: 04-01-2025 Hemoglobin A1c measurement A1C [facility] Start: 03-11-2025 End: 03-11-2025 Patient encounter procedure 03/11/2025 3:15 PM EDT Office Visit [facility] [address] [place] [address] FATMATA Arguelles, DPM [address] [place] [address] [facility] Start: 03-09-2025 End: 03-09-2025 Patient encounter procedure 03/09/2025 1:30 PM EDT Office Visit [facility] [address] [place] [address] [place] [address] Windy Schwartz, DOPE [employer]Y HOUSE OPERATOR [address] [place] [address] [facility] Start: 02-09-2025 End: 02-09-2025 Patient encounter procedure 02/09/2025 3:45 PM EDT Office Visit [facility] [address] [place] [address] FATMATA Arguelles, DPM [address] [place] [address] [facility] Physician [facility] Podiatry Start: 02-02-2025 End: 02-02-2025 ambulatory [facility] Librarian Start: 02-01-2025 End: 02-01-2025 ambulatory [facility] Librarian Start: 01-31-2025 End: 01-31-2025 ambulatory [facility] Librarian Start: 01-30-2025 End: 01-30-2025 ambulatory [facility] Librarian Start: 01-29-2025 End: 01-29-2025 ambulatory [facility] Librarian Start: 01-28-2025 End: 01-28-2025 [facility] Librarian Start: 01-27-2025 End: 01-27-2025 ambulatory [facility] Librarian Start: 01-26-2025 End: 01-26-2025 ambulatory [facility] Librarian Comment on above: Acute hematogenous osteomyelitis, unspec ified site (HCC) (Primary Dx) Start: 01-26-2025 End: 01-26-2025 Patient encounter procedure 01/26/2025 2:00 PM EDT Office Visit [facility] [address] [place] [address] FATMATA Arguelles, DPM [address] [place] [address] [facility] Start: 01-25-2025 End: 01-25-2025 ambulatory [facility] Librarian Start: 01-24-2025 End: 01-24-2025 [facility] Librarian Start: 01-23-2025 End: 01-23-2025 [facility] Librarian Start: 01-22-2025 End: 01-22-2025 [facility] Librarian Start: 01-21-2025 End: 01-21-2025 [facility] Librarian Start: 01-20-2025 End: 01-20-2025 ambulatory 01/20/2025 3:00 PM EDT Infusion/Injection [facility] Librarian [address] [place] [address] [facility] Librarian Start: 01-19-2025 End: 01-19-2025 [facility] Librarian Start: 01-19-2025 End: 01-19-2025 Patient encounter procedure 01/19/2025 2:30 PM EDT Office Visit [facility] [address] [place] [address] FATMATA Arguelles, DPM [address] [place] [address] [facility] Start: 01-18-2025 End: 01-18-2025 ambulatory [facility] Librarian Start: 01-17-2025 End: 01-17-2025 ambulatory [facility] Librarian Start: 01-16-2025 End: 01-16-2025 ambulatory [facility] Librarian Start: 01-15-2025 End: 01-15-2025 ambulatory [facility] Librarian Start: 01-14-2025 End: 01-14-2025 ambulatory [facility] Librarian Start: 01-14-2025 End: 01-14-2025 Follow-up encounter 01/14/2025 1:45 PM EDT Follow-Up [facility] [address] [place] [address] FATMATA Arguelles, DPTisha [address] [place] [address] [facility] Start: 01-13-2025 End: 01-13-2025 ambulatory [facility] Librarian Start: 01-12-2025 End: 01-12-2025 ambulatory [facility] Librarian Start: 01-11-2025 End: 01-11-2025 ambulatory [facility] Librarian Start: 01-10-2025 End: 01-10-2025 ambulatory [facility] Librarian Start: 01-09-2025 End: 01-09-2025 ambulatory [facility] Librarian Start: 01-08-2025 End: 01-08-2025 ambulatory [facility] Librarian Start: 01-07-2025 End: 01-07-2025 ambulatory [facility] Librarian Start: 01-07-2025 End: 01-07-2025 Patient encounter procedure 01/07/2025 3:15 PM EST Office Visit [facility] [address] [place] [address] FATMATA Arguelles, DPM [address] [place] [address] [facility] Physician [facility] Podiatry Start: 01-06-2025 End: 01-06-2025 ambulatory 01/06/2025 3:00 PM EST Infusion/Injection [facility] [address] [place] [address] Discharge Disposition: Home [facility] Librarian Start: 01-05-2025 End: 01-05-2025 Nursing evaluation of patient and report [facility] Librarian Comment on above: Arrived Start: 12-31-2024 End: 12-31-2024 Patient encounter procedure 12/31/2024 3:30 PM EST Office Visit [facility] [address] [place] [address] FATMATA Arguelles, DPM [address] [place] [address] [facility] Start: 12-26-2024 Subsequent hospital visit by physician 12/26/2024 9:30 AM EST Hospital Encounter [facility] MRI [address] [place] [address] FATMATA Arguelles, DPM [address] [place] [address] [facility] MRI Start: 12-25-2024 End: 12-25-2025 MR Foot - left WO contrast MR Foot Left Without Contrast Imaging STAT Osteomyelitis of left foot, unspecified type (HCC) Chronic toe pain, left foot Abscess of left great toe Dependent rubor Peripheral vascular disease Expected: 12/25/2024, Expires: 12/25/2025 [facility] Work Phone: Comment on above: Expected: 12/25/2024, Expires: Start: 12-25-2024 End: 12-25-2024 Patient encounter procedure 12/25/2024 9:30 AM EST Office Visit [facility] [address] [place] [address] FATMATA Arguelles, DPM [address] [place] [address] [facility] Physicians [facility] Start: 11-20-2024 End: 11-20-2024 Patient encounter procedure 11/20/2024 10:30 AM EST Office Visit [facility] [address] [place] [address] FATMATA Arguelles, DPM [address] [place] [address] [facility] Start: 11-03-2024 End: 11-03-2025 Wound Aerobic And Anaerobic Culture Wound Aerobic And Anaerobic Culture Microbiology Routine Abscess of left great toe Onychocryptosis Ingrown nail Chronic toe pain, left foot Expected: 11/03/2024, Expires: 11/03/2025 [facility] Work Phone: Comment on above: Expected: 11/03/2024, Expires: Start: 07-06-2024 COVID-19 Vaccine ( season) COVID-19 Vaccine ( season) [facility] Start: 07-06-2024 COVID-19 Vaccine ( season) COVID-19 Vaccine ( season) [facility] Start: 07-06-2024 Influenza vaccination Influenza Vaccine (#1) [facility] Start: 07-06-2022 Influenza vaccination INFLUENZA (Season Ended) [facility] Start: 2021 Administration of herpes zoster vaccine Zoster Vaccines (1 of 2) [facility] Start: 2021 Screening for malignant neoplasm of colon Flexible sigmoidoscopy [facility] Start: 2021 SHINGRIX VACCINE (1 of 2) SHINGRIX VACCINE (1 of 2) [facility] Start: 2016 COLOGUARD (FIT-DNA) COLOGUARD (FIT-DNA) [facility] Start: 2016 Colonoscopy COLONOSCOPY [facility] Start: 2016 COLORECTAL CANCER SCREENING COLORECTAL CANCER SCREENING [facility] Start: [address] COLONOGRAPHY [facility] Start: 2016 DIABETES SCREEN DIABETES SCREEN [facility] Start: 2016 FECAL OCCULT BLOOD FECAL OCCULT BLOOD [facility] Start: 2016 SIGMOIDOSCOPY SIGMOIDOSCOPY [facility] Start: 2006 LIPID SCREEN LIPID SCREEN [facility] Start: 1990 Pneumococcal Vaccine: Age 50+ (1 of 2 - PCV) Pneumococcal Vaccine: Age 50+ (1 of 2 - PCV) [facility] Start: 1990 Pneumococcal Vaccine: Ped or At-Risk (1 of 2 - PCV) Pneumococcal Vaccine: Ped or At-Risk (1 of 2 - PCV) [facility] Start: 1990 Urine microalbumin profile DTAP,TDAP,TD (1 - Tdap) [facility] Start: 1989 HEPATITIS C SCREENING HEPATITIS C SCREENING [facility] Start: 1989 Hepatitis C screening Hepatitis C Screening [facility] Start: 1989 HIV SCREENING HIV SCREENING [facility] Start: 1986 HIV screening HIV Screening [facility] Start: 1983 Adult depression screening assessment [facility] Start: 1981 Diabetic foot examination Diabetic Foot Exam [facility] Start: 1981 Glaucoma screening Diabetic Eye Exam [facility] Start: 1981 Urine screening for protein Urine (micro)albumin/creatini ne ratio - Diabetes [facility] Start: 1976 COVID-19 VACCINE (#1) COVID-19 VACCINE (#1) [facility] Start: 1974 History and physical examination, annual for health maintenance Wellness Visit [facility] Start: 1971 Prostate specific antigen measurement PSA Level [facility] Start: 1971 Screening for malignant neoplasm of colon [facility] Start: 1971 Screening for malignant neoplasm of lung Low-dose CT Lung Cancer Screen [facility] Start: 1971 Tetanus vaccination Tetanus: Every 10yrs [facility] Amputation toe metatarsophalangeal joint AMPUTATION TOE(S) Osteomyelitis of left foot, unspecified type (HCC) Left foot pain Dependent rubor Abscess, toe, left Peripheral vascular disease Abscess of left great toe [facility] Bacteria identified in Blood by Culture Blood Culture Aerobic/Anaerobic Microbiology Routine 01/01/2025 11:06 AM [facility] Work Phone: Bacteria identified in Unspecified specimen by Anaerobe culture Bone Aerobic & Anaerobic Culture Microbiology Routine 01/02/2025 3:11 PM EST [facility] End: 06-10-2026 Basic metabolic 2000 panel - Serum or Plasma Basic Metabolic Panel Lab Routine Osteomyelitis of left foot, unspecified type (HCC) 1 Occurrences starting 06/10/2025 until 06/10/2026 [facility] Comment on above: 1 Occurrences starting 06/10/2025 until 06/10/2026 End: 06-10-2026 C reactive protein [Mass/volume] in Serum or Plasma CRP, Inflammation Lab Routine Osteomyelitis of left foot, unspecified type (HCC) 1 Occurrences starting 06/10/2025 until 06/10/2026 [facility] Comment on above: 1 Occurrences starting 06/10/2025 until 06/10/2026 End: 06-10-2026 Complete blood count with white cell differential, manual CBC and differential Lab Routine Osteomyelitis of left foot, unspecified type (HCC) 1 Occurrences starting 06/10/2025 until 06/10/2026 [facility] Comment on above: 1 Occurrences starting 06/10/2025 until 06/10/2026 End: 06-10-2026 Erythrocyte sedimentation rate Sedimentation Rate Lab Routine Osteomyelitis of left foot, unspecified type (HCC) 1 Occurrences starting 06/10/2025 until 06/10/2026 [facility] Comment on above: 1 Occurrences starting 06/10/2025 until 06/10/2026 Procedure on tissue specimen Tissue Exam Pathology and Cytology STAT Release Upon Ordering for 1 Occurrences starting 01/02/2025 [facility] Work Phone: Comment on above: Release Upon Ordering for 1 Occurrences starting 01/02/2025 Procedure on tissue specimen Tissue Exam Pathology and Cytology Routine Osteomyelitis of left foot, unspecified type (HCC) 06/10/2025 8:55 AM EDT [facility] Wound Aerobic And An aerobic Culture Wound Aerobic And Anaerobic Culture Microbiology Routine 01/02/2025 2:59 PM EST [facility] Payers Date Payer Category Payer Managed Care PPO (unspecified) [id number] 2024 Unknown [id number] 2024 Unknown [id number] 2022 Private Health Insurance [employer]ET[employer] AETNA CHOICE POS II [id number] 2022-Present [phone] [address] [place] [address] POS [id number] 2022 Managed Care POS (unspecified) [employer] CHOICE POS/POSII/PREMIER CARE/PREMIER CARE PLUS [id number] 2022 Private Health Insurance [id number] 1971 Unknown [id number] 1971 Unknown [id number] 1971 Unknown [id number] 1971 Unknown [id number] 2.16840.1.971592.3.579. 2. 1970 Unknown [id number] 2.16840.1.739708.3.579. 2. 1971 Unknown [id number] 2.16840.1.447567.3.579. 2.3 1971 Unknown [id number] 2.16840.1.291952.3.579. 2. 1971 Unknown [id number] 2.16840.1.726683.3.579. 2. 1971 Unknown [id number] 2.16840.1.227604.3.579. 2. 1971 Unknown [id number] 2.16840.1.257110.3.579. 2. 1971 Unknown [id number] 2.16840.1.414395.3.579. 2 1971 Unknown [id number] 2.840.1.315668.3.579. 2 1971 Unknown [id number] 2.840.1.557522.3.579. 2 1971 Unknown [id number] 2.840.1.497310.3.579. 2 1971 Unknown [id number] .840.1.695477.3.579. 2 1971 Unknown [id number] 2.840.1.550529.3.579. 2 1971 Unknown [id number] ..1.242475.3.579. 2 1971 Unknown [id number] 12.21.830.1.077564.3.579. 2 1971 Unknown [id number] .1.893746.3.579. 2 1971 Unknown [id number] .1.944921.3.579. 2 1971 Unknown [id number] .1.500701.3.579. 2 1971 Unknown [id number] 12.21.830.1.091023.3.579. 2 1971 Unknown [id number] 12.21.830.1.850795.3.579. 2 1971 Unknown [id number] 12.21.830.1.795327.3.579. 2 1971 Unknown [id number] 12.21.830.1.875892.3.579. 2 1971 Unknown [id number] 2840.1.203566.3.579. 2 1971 Unknown [id number] 840.1.134407.3.579. 2 1971 Unknown [id number] .0.1.571038.3.579. 2 1971 Unknown [id number] 2..1.061158.3.579. 2 1971 Unknown [id number] .1.259145.3.579. 2 1971 Unknown [id number] .0.1.226435.3.579. 2 1971 Unknown [id number] ..1.710765.3.579. 1971 Unknown [id number] ..1.951235.3.579. 2 1971 Unknown [id number] .1.683661.3.579. 1971 Unknown [id number] .1.962897.3.579. 2 1971 Unknown [id number] .1.526393.3.579. 2 1971 Unknown [id number] .1.108270.3.579. 2 1971 Unknown [id number] .1.817717.3.579. 2 1971 Unknown [id number] .1.831882.3.579. 2 1971 Unknown [id number] .1.529886.3.579. 2 1971 Unknown [id number] .1.310188.3.579. 2 1971 Unknown [id number] 12.21.830.1.432840.3.579. 2 1971 Unknown [id number] 12.21.830.1.719894.3.579. 2 1971 Unknown [id number] 2.0.1.847401.3.579. 2 1971 Unknown [id number] 2.840.1.276843.3.579. 2 1971 Unknown [id number] 2.840.1.889917.3.579. 2 1971 Unknown [id number] 2.0.1.513632.3.579. 2 1971 Unknown [id number] 12.21.830.1.933293.3.579. 2 1971 Unknown [id number] 20.1.830335.3.579. 2 1971 Unknown [id number] 2.1.162138.3.579. 2 1971 Unknown [id number] 2.1.941461.3.579. 2 1971 Unknown [id number] 12.21.830.1.602966.3.579. 2 1971 Unknown [id number] 20.1.387779.3.579. 2 1971 Unknown [id number] 12.21.830.1.087298.3.579. 2 1971 Unknown [id number] 840.1.129615.3.579. 2 1971 Unknown [id number] 840.1.765298.3.579. 2 1971 Unknown [id number] 840.1.529294.3.579. 2 1971 Unknown [id number] 2840.1.274729.3.579. 21972 Unknown [id number] 2.16.840.1.402376.3.579. 2. 1971 Unknown [id number] 2.16.840.1.551902.3.579. 2. 1971 Unknown [id number] 2.16.840.1.518202.3.579. 2. 1971 Unknown [id number] 2.16.840.1.422259.3.579. 2. 1971 Unknown [id number] 2.16.840.1.501739.3.579. 2. 1971 Unknown [id number] 2.16840.1.990498.3.579. 2. 1971 Unknown [id number] 2.16840.1.751432.3.579. 2 1971 Unknown [id number] 2.16840.1.355563.3.579. 2. 1971 Unknown [id number] 2.16840.1.518545.3.579. 2. 1971 Unknown [id number] 2.16840.1.460150.3.579. 2. 1971 Unknown [id number] 2.16840.1.171859.3.579. 2. 1971 Unknown [id number] 2.16840.1.873080.3.579. 2 Social History Date Type Detail Facility Start: 11-05-1989 End: 01-05-2025 Tobacco smoking status NHIS Smokes tobacco daily [facility] Start: 04-16-2018 End: 01-05-2025 Tobacco use and exposure Smokeless tobacco non-user [facility] Start: 1970 Sex Assigned At Not on file [facility] Start: 03-11-2022 End: 03-21-2022 Exposure to SARS-CoV-2 (event) Not sure [facility] Work Phone: Start: 11-05-1989 History of tobacco use Cigarette Smo ker [facility] Start: 11-03-2024 End: 01-22-2025 Alcoholic beverage intake Not Asked [facility] Start: 11-03-2024 End: 01-01-2025 History of Social function [facility] Start: 11-03-2024 End: 01-01-2025 Tobacco use panel [facility] Start: 11-03-2024 Alcohol Comment occassional [facility] Has the [employer], or [employer] threatened to shut off services in your home in past 12Mo No [facility] Adult Depression Screening Assessment 0 [facility] (I/We) worried wheth er (my/our) food would run out before (I/we) got money to buy more. Never true [facility] Start: 01-23-2025 End: 08-05-2025 Alcoholic beverage intake Current drinker of alcohol (finding) [facility] Medical Equipment Procedure Code Equipment Code Equipment Origin al Text Equipment Identifier Dates Kit 5cc Fast Cur e Mini Bead Resorb Osteoset - [id number] Start: 01-02-2025 Use as directed to check blood glucose readings 4 times daily. Dx E11.65 . [id number] Start: 01-03-2025 End: 03-09-2025 Use as directed to check blood glucose 4 times daily. DX . [id number] Start: 01-03-2025 End: 03-09-2025 Use as directed to check blood glucose readings 4 times daily. Dx E11.65 . [id number] Start: 01-03-2025 End: 03-09-2025 Use as directed to check blood glucose readings 4 times daily. Dx E11.65 . [id number] Start: 03-09-2025 End: 04-09-2025 Use as directed to check blood glucose 4 times daily. DX . [id number] Start: 03-09-2025 End: 04-09-2025 Use as directed to check blood glucose readings 4 times daily. Dx E11.65 . [id number] Start: 03-09-2025 End: 04-09-2025 Use as directed to check blood glucose readings 4 times daily. Dx E11.65 . [id number] Start: 03-09-2025 End: 03-09-2025 Use as directed to check blood glucose readings 4 times daily. Dx E11.65 . [id number] Start: 04-09-2025 Use as directed to check blood glucose 4 times daily. DX . [id number] Start: 04-09-2025 Use as directed to check blood glucose readings 4 times daily. Dx E11.65 . 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 Author Type: Broadcasting Equipment Mechanic Type: Progress Notes Filed: 09/08/2025 15:13 Note Text: ASSESSMENT/PLAN: 1. Type 2 diabetes mellitus without retinopathy (HCC) - ICD9: 250.00, ICD10: E11.9 (primary diagnosis) Examination shows no ocular diabetic complications today. Discussed need for optimal diabetes control to minimize chance of ocular complications. Advise patient to immediately report worsening in status or additional symptoms. Continue yearly dilated eye examinations. 2. Floaters, bilateral - ICD9: 379.24, ICD10: H43.393 Signs and symptoms of a retinal tear/detachment (flashes, floaters or change in peripheral vision) were reviewed with the patients. Patient understands they should return or call our office immediately if any of theses symptoms present. 3. 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 Hyperopia, bilateral - ICD9: 367.0, ICD10: H52.03 5. Regular astigmatism, bilateral - ICD9: 367.21, ICD10: H52.223 6. Presbyopia - ICD9: 367.4, ICD10: H52.4 Continue to wear his glasses as desired. Recommended yearly dilated exams. Adan Booker, MARVIN I have confirmed and edited as necessary the relevant ophthalmic history, ROS, and the neuro exam findings as obtained by others. [facility] 08-05-2025 Note Established Patient Visit FATMATA Arguelles DPM Patient Name: Joel Falk. . Date of : 1970, 54 y.o.. Gender: male. Subjective: Patient is a pleasant 54-year-old for preop status post partial left hallux amputation (date of surgery 06/19/2025).. Patient's toe is completely healed and he is doing incredibly well with no pain. Patient denies any current fever, chills, nausea, vomiting, chest pain calf pain or shortness of breath. Patient has no other pedal complaints at this time. Physical Examination: BP (!) 160/89 Pulse 85 Temp 98.4 degrees F (36.9 degrees C) (Oral) General Appearance: Alert, cooperative, no distress, appears stated age. Podiatric Exam Vascular: DP and PT pulses are easily palpable, 2/4. Capillary refill time is brisk to distal digits, less than 3 seconds. Skin temperature is warm to warm from proximal tibial tuberosity to distal digits. No dependent rubor. Neurological: Epicritic and protopathic sensation intact to bilateral lower extremities. Dermatologic: Toe is completely healed. No ischemia to the incision. Mild hyperemia and edema present. Musculoskeletal: Bilateral foot and ankle overall rectus alignment. Muscle strength testing 5 out of 5 to all tested muscle groups. Ankle range of motion limited with knee extended and slightly creased knee flex. No tenderness to the incision. Diagnoses: 1. Status post amputation 2. Osteomyelitis of left foot, unspecified type (HCC) 3. Left foot pain 4. Abscess, toe, left 5. Peripheral vascular disease 6. Dependent rubor Imagin views of the left foot reviewed today persistent visualization of interval amputation of the distal phalanx. No evidence of subcutaneous emphysema or cortical erosion. Stable x-ray. MRI reviewed in detail today. Impression below. XR MR Clear Result Date: 12/26/2024 EXAMINATION: XR FOR MRI CLEARANCE HISTORY: ORDERING SYSTEM PROVIDED HISTORY: Hx of metal removed from eye, TECHNOLOGIST PROVIDED HISTORY: Illness/Other Reason for exam: Hx of metal removed from eye Cancer History: unknown Surgery, RadiationHistory: unknown Encounter Type: Initial Additional signs and symptoms: . ORDERING SYSTEM PROVIDED DIAGNOSIS CODES: Z98.890 Hx of metal removed from eye COMPARISON: None. TECHNIQUE: Two views of the orbits and facial bones. FINDINGS: No radiopaque foreign bodies overlying the orbits. Normal aeration and development of the paranasal sinuses. No radiopaque foreign bodies overlying the orbits. [employer] Workstation ID: [id number] MR Foot Left Without Contrast Result Date: 12/26/2024 EXAMINATION: MR FOOT LEFT WITHOUT CONTRAST 12/26/2024. HISTORY: ORDERING SYSTEM PROVIDED HISTORY: possible osteomyelitis left hallux, TECHNOLOGIST PROVIDED HISTORY: Illness/Other Reason for exam: left great toe wound/bruising/redness following dropping can of soup on it 3 months ago: Encounter Type: Unknown Additional signs and symptoms: n ORDERING SYSTEM PROVIDED DIAGNOSIS CODES: M86.9 Osteomyelitis of left foot, unspecified type ([facility]) M79.675 Chronic toe pain, left foot G89.29 Chronic toe pain, left foot L02.612 Abscess of left great toe L53.9 Dependent rubor I73.9 Peripheral vascular disease COMPARISON: Radiographs left foot 12/18/2024. TECHNIQUE: Multiplanar, multisequence MRI images of the left midfoot/forefoot were obtained without contrast. CONTRAST: None. FINDINGS: The bone marrow signal intensity is age-appropriate. The Lisfranc ligament complex appears intact. There is diffuse thickening and increased STIR signal intensity involving the toenail of the 1st toe. There is erosive change of the adjacent dorsal cortex of the 1st distal phalanx in this region and there is an ovoid focus of increased STIR signal intensity within the base and shaft of the 1st distal phalanx in this region. This measures 4 x 4 x 10 mm in craniocaudal, transverse and AP dimension respectively. There is abnormal decreased T1 and increased STIR signal intensity involving the majority of the bone marrow of the 1st distal phalanx and there is also erosive change of the tuft of the 1st distal phalanx. There is mild soft tissue edema of the distal aspect of the 1st toe. The bone marrow signal intensity of the remainder of the midfoot/forefoot appears within normal limits. There are mild degenerative changes of the 1st metatarsal-sesamoid joints. There are MRI findings compatible with a probable infection of the 1st toenail with erosive change of the adjacent dorsal cortex of the 1st distal phalanx and an intraosseous abscess of the 1st distal phalanx with surrounding osteomyelitis of the majority of the 1st distal phalanx. Workstation ID: [id number] Xr Ortho Foot Left Result Date: 12/19/2024 3 views of the left foot reviewed today AP MO and lateral. No acute fracture or dislocation of note. No evidence of cortical erosion or subcutaneous emphysema. Stable x-ray Assessment/Plan: Patient w (more content not included)... [facility] 08-05-2025 History of Present illness Narrative Images from the original note were not included. Established Patient Visit FATMATA Arguelles DPM Patient Name: Joel Falk. . Date of : 1970, 54 y.o.. Gender: male. Subjective: Patient is a pleasant 54-year-old for preop status post partial left hallux amputation (date of surgery 06/19/2025).. Patient's toe is completely healed and he is doing incredibly well with no pain. Patient denies any current fever, chills, nausea, vomiting, chest pain calf pain or shortness of breath. Patient has no other pedal complaints at this time. Physical Examination: BP (!) 160/89 Pulse 85 Temp 98.4 F (36.9 C) (Oral) General Appearance: Alert, cooperative, no distress, appears stated age. Podiatric Exam Vascular: DP and PT pulses are easily palpable, 2/4. Capillary refill time is brisk to distal digits, less than 3 seconds. Skin temperature is warm to warm from proximal tibial tuberosity to distal digits. No dependent rubor. Neurological: Epicritic and protopathic sensation intact to bilateral lower extremities. Dermatologic: Toe is completely healed. No ischemia to the incision. Mild hyperemia and edema present. Musculoskeletal: Bilateral foot and ankle overall rectus alignment. Muscle strength testing 5 out of 5 to all tested muscle groups. Ankle range of motion limited with knee extended and slightly creased knee flex. No tenderness to the incision. Diagnoses: 1. Status post amputation 2. Osteomyelitis of left foot, unspecified type (HCC) 3. Left foot pain 4. Abscess, toe, left 5. Peripheral vascular disease 6. Dependent rubor Imagin views of the left foot reviewed today persistent visualization of interval amputation of the distal phalanx. No evidence of subcutaneous emphysema or cortical erosion. Stable x-ray. MRI reviewed in detail today. Impression below. XR MR Clear Result Date: 12/26/2024 EXAMINATION: XR FOR MRI CLEARANCE HISTORY: ORDERING SYSTEM PROVIDED HISTORY: Hx of metal removed from eye, TECHNOLOGIST PROVIDED HISTORY: Illness/Other Reason for exam: Hx of metal removed from eye Cancer History: unknown Surgery, RadiationHistory: unknown Encounter Type: Initial Additional signs and symptoms: . ORDERING SYSTEM PROVIDED DIAGNOSIS CODES: Z98.890 Hx of metal removed from eye COMPARISON: None. TECHNIQUE: Two views of the orbits and facial bones. FINDINGS: No radiopaque foreign bodies overlying the orbits. Normal aeration and development of the paranasal sinuses. No radiopaque foreign bodies overlying the orbits. [employer] Workstation ID: [id number] MR Foot Left Without Contrast Result Date: 12/26/2024 EXAMINATION: MR FOOT LEFT WITHOUT CONTRAST 12/26/2024. HISTORY: ORDERING SYSTEM PROVIDED HISTORY: possible osteomyelitis left hallux, TECHNOLOGIST PROVIDED HISTORY: Illness/Other Reason for exam: left great toe wound/bruising/redness following dropping can of soup on it 3 months ago: Encounter Type: Unknown Additional signs and symptoms: n ORDERING SYSTEM PROVIDED DIAGNOSIS CODES: M86.9 Osteomyelitis of left foot, unspecified type ([facility]) M79.675 Chronic toe pain, left foot G89.29 Chronic toe pain, left foot L02.612 Abscess of left great toe L53.9 Dependent rubor I73.9 Peripheral vascular disease COMPARISON: Radiographs left foot 12/18/2024. TECHNIQUE: Multiplanar, multisequence MRI images of the left midfoot/forefoot were obtained without contrast. CONTRAST: None. FINDINGS: The bone marrow signal intensity is age-appropriate. The Lisfranc ligament complex appears intact. There is diffuse thickening and increased STIR signal intensity involving the toenail of the 1st toe. There is erosive change of the adjacent dorsal cortex of the 1st distal phalanx in this region and there is an ovoid focus of increased STIR signal intensity within the base and shaft of the 1st distal phalanx in this region. This measures 4 x 4 x 10 mm in craniocaudal, transverse and AP dimension respectively. There is abnormal decreased T1 and increased STIR signal intensity involving the majority of the bone marrow of the 1st distal phalanx and there is also erosive change of the tuft of the 1st distal phalanx. There is mild soft tissue edema of the distal aspect of the 1st toe. The bone marrow signal intensity of the remainder of the midfoot/forefoot appears within normal limits. There are mild degenerative changes of the 1st metatarsal-sesamoid joints. There are MRI findings compatible with a probable infection of the 1st toenail with erosive change of the adjacent dorsal cortex of the 1st distal phalanx and an intraosseous abscess of the 1st distal phalanx with surrounding osteomyelitis of the majority of the 1st distal phalanx. Workstation ID: [id number] Xr Ortho Foot Left Result Date: 12/19/2024 3 views of the left foot reviewed today AP MO and lateral. No acute fracture or dislocation of note. No evidence of cortical erosion or subcutaneous emphysema. Stable x-ray Assessment/Plan: Patient was seen and evaluated. Discussed all clinical findings Educated patient on overall nature of injury and process of bone and soft tissue healing. Educated patient on overall status of the toe. Incision is completely healed. Pat wash pat dry no soaking still. No picking. Patient can start using lotion to the area and massaging incision. Patient follow-up in 3 months for reevaluation. This note was partially created using voice recognition software and is inherently subject to errors including those of syntax and "sound-alike" substitutions which may escape proofreading. In such instances, original meaning may be extrapolated by contextual derivation. FATMATA Arguelles DPM Podiatric Foot & Ankle Surgery documented in this encounter [facility] 07-15-2025 Note Established Patient Visit FATMATA Arguelles DPM Patient Name: Joel Falk. . Date of : 1970, 54 y.o.. Gender: male. Subjective: Patient is a pleasant 54-year-old for preop status post partial left hallux amputation (date of surgery 06/19/2025).. Patient overall doing quite well minimal pain. Patient did sustain a multiple falls recently but did not place any pressure on the toe. Patient denies any current fever, chills, nausea, vomiting, chest pain calf pain or shortness of breath. Patient has no other pedal complaints at this time. Physical Examination: BP (!) 164/96 (BP Location: Right arm, Patient Position: Sitting, BP Cuff Size: X-large Adult) Pulse 90 SpO2 92% General Appearance: Alert, cooperative, no distress, appears stated age. Podiatric Exam Vascular: DP and PT pulses are easily palpable, 2/4. Capillary refill time is brisk to distal digits, less than 3 seconds. Skin temperature is warm to warm from proximal tibial tuberosity to distal digits. No dependent rubor. Neurological: Epicritic and protopathic sensation intact to bilateral lower extremities. Dermatologic: See picture below. Mild ischemic changes to the dorsal aspect of the toe and incision. Many of these flaked off except for the central dorsal aspect. Otherwise plantar flap is appropriate and has appropriate CFT. Upon removal of sutures skin is well-healed flap is perfused. Musculoskeletal: Bilateral foot and ankle overall rectus alignment. Muscle strength testing 5 out of 5 to all tested muscle groups. Ankle range of motion limited with knee extended and slightly creased knee flex. Minimal to no tenderness to the incision. Diagnoses: 1. Osteomyelitis of left foot, unspecified type (HCC) 2. Left foot pain 3. Peripheral vascular disease Imagin views of the left foot reviewed today persistent visualization of interval amputation of the distal phalanx. No evidence of subcutaneous emphysema or cortical erosion. Stable x-ray. MRI reviewed in detail today. Impression below. XR MR Clear Result Date: 12/26/2024 EXAMINATION: XR FOR MRI CLEARANCE HISTORY: ORDERING SYSTEM PROVIDED HISTORY: Hx of metal removed from eye, TECHNOLOGIST PROVIDED HISTORY: Illness/Other Reason for exam: Hx of metal removed from eye Cancer History: unknown Surgery, RadiationHistory: unknown Encounter Type: Initial Additional signs and symptoms: . ORDERING SYSTEM PROVIDED DIAGNOSIS CODES: Z98.890 Hx of metal removed from eye COMPARISON: None. TECHNIQUE: Two views of the orbits and facial bones. FINDINGS: No radiopaque foreign bodies overlying the orbits. Normal aeration and development of the paranasal sinuses. No radiopaque foreign bodies overlying the orbits. ST[facility] Workstation ID: [id number] MR Foot Left Without Contrast Result Date: 12/26/2024 EXAMINATION: MR FOOT LEFT WITHOUT CONTRAST 12/26/2024. HISTORY: ORDERING SYSTEM PROVIDED HISTORY: possible osteomyelitis left hallux, TECHNOLOGIST PROVIDED HISTORY: Illness/Other Reason for exam: left great toe wound/bruising/redness following dropping can of soup on it 3 months ago: Encounter Type: Unknown Additional signs and symptoms: n ORDERING SYSTEM PROVIDED DIAGNOSIS CODES: M86.9 Osteomyelitis of left foot, unspecified type ([facility]) M79.675 Chronic toe pain, left foot G89.29 Chronic toe pain, left foot L02.612 Abscess of left great toe L53.9 Dependent rubor I73.9 Peripheral vascular disease COMPARISON: Radiographs left foot 12/18/2024. TECHNIQUE: Multiplanar, multisequence MRI images of the left midfoot/forefoot were obtained without contrast. CONTRAST: None. FINDINGS: The bone marrow signal intensity is age-appropriate. The Lisfranc ligament complex appears intact. There is diffuse thickening and increased STIR signal intensity involving the toenail of the 1st toe. There is erosive change of the adjacent dorsal cortex of the 1st distal phalanx in this region and there is an ovoid focus of increased STIR signal intensity within the base and shaft of the 1st distal phalanx in this region. This measures 4 x 4 x 10 mm in craniocaudal, transverse and AP dimension respectively. There is abnormal decreased T1 and increased STIR signal intensity involving the majority of the bone marrow of the 1st distal phalanx and there is also erosive change of the tuft of the 1st distal phalanx. There is mild soft tissue edema of the distal aspect of the 1st toe. The bone marrow signal intensity of the remainder of the midfoot/forefoot appears within normal limits. There are mild degenerative changes of the 1st metatarsal-sesamoid joints. There are MRI findings compatible with a probable infection of the 1st toenail with erosive change of the adjacent dorsal cortex of the 1st distal phalanx and an intraosseous abscess of the 1st distal phalanx with surrounding osteomyelitis of the majority of the 1st distal phalanx. Workstation ID: [id number] Xr Ortho Foot Left (more content not included)... [facility] 07-15-2025 History of Present illness Narrative Images from the original note were not included. Established Patient Visit FATMATA Arguelles DPM Patient Name: Joel Falk. . Date of : 1970, 54 y.o.. Gender: male. Subjective: Patient is a pleasant 54-year-old for preop status post partial left hallux amputation (date of surgery 06/19/2025).. Patient overall doing quite well minimal pain. Patient did sustain a multiple falls recently but did not place any pressure on the toe. Patient denies any current fever, chills, nausea, vomiting, chest pain calf pain or shortness of breath. Patient has no other pedal complaints at this time. Physical Examination: BP (!) 164/96 (BP Location: Right arm, Patient Position: Sitting, BP Cuff Size: X-large Adult) Pulse 90 SpO2 92% General Appearance: Alert, cooperative, no distress, appears stated age. Podiatric Exam Vascular: DP and PT pulses are easily palpable, 2/4. Capillary refill time is brisk to distal digits, less than 3 seconds. Skin temperature is warm to warm from proximal tibial tuberosity to distal digits. No dependent rubor. Neurological: Epicritic and protopathic sensation intact to bilateral lower extremities. Dermatologic: See picture below. Mild ischemic changes to the dorsal aspect of the toe and incision. Many of these flaked off except for the central dorsal aspect. Otherwise plantar flap is appropriate and has appropriate CFT. Upon removal of sutures skin is well-healed flap is perfused. Musculoskeletal: Bilateral foot and ankle overall rectus alignment. Muscle strength testing 5 out of 5 to all tested muscle groups. Ankle range of motion limited with knee extended and slightly creased knee flex. Minimal to no tenderness to the incision. Diagnoses: 1. Osteomyelitis of left foot, unspecified type (HCC) 2. Left foot pain 3. Peripheral vascular disease Imagin views of the left foot reviewed today persistent visualization of interval amputation of the distal phalanx. No evidence of subcutaneous emphysema or cortical erosion. Stable x-ray. MRI reviewed in detail today. Impression below. XR MR Clear Result Date: 12/26/2024 EXAMINATION: XR FOR MRI CLEARANCE HISTORY: ORDERING SYSTEM PROVIDED HISTORY: Hx of metal removed from eye, TECHNOLOGIST PROVIDED HISTORY: Illness/Other Reason for exam: Hx of metal removed from eye Cancer History: unknown Surgery, RadiationHistory: unknown Encounter Type: Initial Additional signs and symptoms: . ORDERING SYSTEM PROVIDED DIAGNOSIS CODES: Z98.890 Hx of metal removed from eye COMPARISON: None. TECHNIQUE: Two views of the orbits and facial bones. FINDINGS: No radiopaque foreign bodies overlying the orbits. Normal aeration and development of the paranasal sinuses. No radiopaque foreign bodies overlying the orbits. ST/ Workstation ID: [id number] MR Foot Left Without Contrast Result Date: 12/26/2024 EXAMINATION: MR FOOT LEFT WITHOUT CONTRAST 12/26/2024. HISTORY: ORDERING SYSTEM PROVIDED HISTORY: possible osteomyelitis left hallux, TECHNOLOGIST PROVIDED HISTORY: Illness/Other Reason for exam: left great toe wound/bruising/redness following dropping can of soup on it 3 months ago: Encounter Type: Unknown Additional signs and symptoms: n ORDERING SYSTEM PROVIDED DIAGNOSIS CODES: M86.9 Osteomyelitis of left foot, unspecified type ([facility]) M79.675 Chronic toe pain, left foot G89.29 Chronic toe pain, left foot L02.612 Abscess of left great toe L53.9 Dependent rubor I73.9 Peripheral vascular disease COMPARISON: Radiographs left foot 12/18/2024. TECHNIQUE: Multiplanar, multisequence MRI images of the left midfoot/forefoot were obtained without contrast. CONTRAST: None. FINDINGS: The bone marrow signal intensity is age-appropriate. The Lisfranc ligament complex appears intact. There is diffuse thickening and increased STIR signal intensity involving the toenail of the 1st toe. There is erosive change of the adjacent dorsal cortex of the 1st distal phalanx in this region and there is an ovoid focus of increased STIR signal intensity within the base and shaft of the 1st distal phalanx in this region. This measures 4 x 4 x 10 mm in craniocaudal, transverse and AP dimension respectively. There is abnormal decreased T1 and increased STIR signal intensity involving the majority of the bone marrow of the 1st distal phalanx and there is also erosive change of the tuft of the 1st distal phalanx. There is mild soft tissue edema of the distal aspect of the 1st toe. The bone marrow signal intensity of the remainder of the midfoot/forefoot appears within normal limits. There are mild degenerative changes of the 1st metatarsal-sesamoid joints. There are MRI findings compatible with a probable infection of the 1st toenail with erosive change of the adjacent dorsal cortex of the 1st distal phalanx and an intraosseous abscess of the 1st distal phalanx with surrounding osteomyelitis of the majority of the 1st distal phalanx. Workstation ID: [id number] Xr Ortho Foot Left Result Date: 12/19/2024 3 views of the left foot reviewed today AP MO and lateral. No acute fracture or dislocation of note. No evidence of cortical erosion or subcutaneous emphysema. Stable x-ray Assessment/Plan: Patient was seen and evaluated. Discussed all clinical findings Educated patient on overall nature of injury and process of bone and soft tissue healing. Patient was consented and sutures were removed without incident. A couple of the dried hematoma scabs flaked off. The central dorsal 1 is still well intact. Patient can bathe pat wash pat dry no soaking. Betadine every other day patient can start ambulating in a shoe. He can return back to work but told him to be aware of the site and let us know if there is any problems. Patient follow-up in 3 weeks for reevaluation This note was partially created using voice recognition software and is inherently subject to errors including those of syntax and "sound-alike" substitutions which may escape proofreading. In such instances, original meaning may be extrapolated by contextual derivation. FATMATA Arguelles DPM Podiatric Foot & Ankle Surgery documented in this encounter [facility] 07-09-2025 Instructions Windy Schwartz, [facility] - 07/09/2025 8:38 AM EDT Humalog with Sliding scale insulin with meals and at bedtime: BG<150=0 150-200=+1 U 201-250=+2 U 251-300= +3 U 301-350=+4 U >350=+5 U Lantus 25 units nightly Call the office with Blood sugar readings in 1 week for dose adjustments to your insulin, if needed. The goal hemoglobin A1C is 7%-8%, closer to 7%, which is an average BG of 150 Please call the office sooner for episodes of hypoglycemia, BG < 70. Please remember to check your blood sugar 4x per day. Bring your blood sugar meter with you to appointments for review/download. It is important for us to prove you are checking your blood sugar, in order for us to renew/prescribe testing supplies. *Get updated labs done prior to your follow up appointment with us. If you do not get updated labs done, that are requested, please consider rescheduling your appointment until those are done * If you do not have labs or blood sugar readings for review at your visit please consider rescheduling your appointment as it is difficult for us to make changes to your diabetes regimen without sufficient information. documented in this encounter [facility] 07-09-2025 History of Present illness Narrative Images from the original note were not included. Reason for visit/chief complaint: Type 2 diabetes Date: 07/09/2025 Referring Provider: No ref. provider found Primary Care Provider: Yesi, Physician HPI: Mr. Falk is a 54 y.o. male with hx of osteomyelitis who was initially seen by our practice during hospital admission 01/01/2025. He presents today for hospital follow-up of his type 2 diabetes. His most recent hemoglobin A1c is 6.5%. He is currently utilizing a Dexcom CGM which was downloaded and reviewed today. DM type: T2DM Duration/since: 12/2024 At time of diagnosis, patient was overweight/obese Hx of autoimmune diseases: No Family hx of DM: No Diagnostic continuous glucose monitoring interpretation: Trends/interpretation of data: CGM trends reviewed. BG predominantly within target range. Overall excellent glucose control. 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 Glucose checks: -Frequency: 4 times daily; Dexcom -Trends: 72-165 -Hypoglycemia: yes, 70-80 with lunch and dinner (false low on dexcom) glucometer read 101., awareness: no. Lab Results Component Value Date HGBA1C 11.5 (H) 01/02/2025 Mr. Falk endorses No increased thirst, polyuria, blurry vision, or weight loss. Complications/comorbidities: -Retinopathy: no, last dilated eye exam: few years--eye exam coming up. -Nephropathy: no Lab Results Component Value Date EGFR 86 01/29/2025 EGFR 81 01/22/2025 EGFR 91 01/15/2025 -Neuropathy: no, does follow up with podiatry, no feet ulcers--Dr. John; Surgery 01/02/25; status post left great toe partial amputation due to osteomyelitis -Prior CV events: no No results found for: "LDLCALC" -Smoking status: current --1 PPD smoker Diabetes medications tried before/other possible contraindications for DM medications: --none Patient has personal/family hx of medullary thyroid cancer/MEN2 syndrome( Aunt--not sure if thyroid cancer had thyroidectomy). No renal impairment, alcoholism, CHF, decompensated liver disease, persistent nausea/vomiting, hx of pancreatitis, GB/biliary disease, recurrent UTI/genital fungal infections, postural dizziness, PVD, or osteoporosis Review of Systems: as per HPI Medical History: Past Medical History: Diagnosis Date Diabetes mellitus, type 2 (HCC) Surgical History: Past Surgical History: Procedure Laterality Date ACL REPAIR Right 2009 AMPUTATION TOE(S) Left 06/19/2025 Procedure: Left hallux amputation, left foot, - Podiatry set; Surgeon: FATMATA Arguelles DPM; Location: Main OR; Service: Podiatry; Laterality: Left; INCISION AND DRAINAGE FOOT AND ANKLE Left 01/02/2025 Procedure: INCISION AND DRAINAGE Left Great Toe with bone bx; Surgeon: FATMATA Arguelles DPM; Location: Main OR; Service: Podiatry; Laterality: Left; MULTIPLE TOOTH EXTRACTIONS top set of dentures Family History: Family History Problem Relation Age of Onset Multiple sclerosis Mother Cancer Father Cancer Natural Brother No Known Problems Natural Sister No Known Problems Natural Sister Social History: Social History[1] Allergies: Allergies[2] Current Medications: Current Medications[3] Physical Exam: Vitals: BP (!) 143/92 Pulse 82 Wt 112.5 kg (248 lb) SpO2 92% BMI 35.58 kg/m , Body mass index is 35.58 kg/m ., Wt Readings from Last 3 Encounters: 07/09/25 112.5 kg (248 lb) 06/19/25 112.9 kg (249 lb) 06/17/25 112.9 kg (249 lb) General/Constitutional: well-developed and in no distress. Head: atrautmatic, no facial lesions observed Eyes: no lid retraction (stare), no proptosis Neck: supple, normal range of motion. no thyromegaly present Cardiovascular: normal rate, regular rhythm, normal heart sounds and intact distal pulses, no edema. Pulmonary/Chest: effort normal and breath sounds normal, no respiratory distress Abdominal: soft, no tenderness Musculoskeletal: nomal range of motion, normal muscle mass and strength Neurological: alert and oriented, no focal deficits, no tremors, DTRs normal, Skin: warm and moist, no rash noted, no acanthosis nigricans, no lipohypertrophy/lipodystrophy, no ulcers or lesions on the feet and nails are intact Psychiatric: appropriate affect Lab/Imaging Data: Lab Results Component Value Date WBC 7.39 01/29/2025 HGB 16.3 01/29/2025 HCT 49.0 01/29/2025 MCV 93.2 01/29/2025 PLT 198 01/29/2025 Lab Results Component Value Date GLUCOSE 78 01/29/2025 NA 136 01/29/2025 K 4.1 01/29/2025 CL 101 01/29/2025 BUN 13 01/29/2025 CREATININE 1.09 06/10/2025 No results found for: "ALT", "AST", "GGT", "ALKPHOS", BILITOT No results found for: "TSH", "[id number]", "THYROIDAB" Lab Results Component Value Date CALCIUM 9.4 01/29/2025 Lab Results Component Value Date HGBA1C 11.5 (H) 01/02/2025 No results found for: "LDLCALC", "CHOL", "HDL", "TRIG", "CHOLHDL" No results found for: "MICALBCREAT", "[id number]" No results found for: "CPEPTIDE" 06/08/2025 Hemoglobin A1c 6.5% Creatinine 1.24, eGFR 70 Microalbumin/creatinine ratio: 6 AST 15, ALT 16 TChol 148, TG 162, HDL 34, LDL 88 TSH 0.97, free T4--1.2 Assessment and plan: Mr. Falk is a 54 y.o. male with T2DM. HbA1c goal <7% At goal? yes 6.5 % Lab Results Component Value Date HGBA1C 11.5 (H) 01/02/2025 Assessment of glycemic status Excellent Recommended testing frequency Continue 4 times daily blood glucose checks with CGM Changes recommended None Retinopathy Due for dilated exam yes --has appointment coming up Nephropathy Next microalb due Next Cr/GFR due CHERELLE inh/ARB indicated? no 06/08/2025 Creatinine 1.24, eGFR 70 Microalbumin/creatinine ratio: 6 no Neuropathy Due for foot exam no --Follows with podiatry --S/p partial great toe L foot CV risk/Lipids ACC 10 yr ASCVD risk Due for repeat lipid panel Statin indicated? 06/08/2025 AST 15, ALT 16 TChol 148, TG 162, HDL 34, LDL 88 Thyroid functions/other tests No results found for: "TSH" 06/08/2025 TSH 0.97, free T4--1.2 Vaccines If not up to date, recommend annual flu vaccine, COVID vaccine, pneumococcal vaccine, HBV vaccine if (specially if <60 years), shingles vaccine >50 years, tetanus vaccine every 10 years, and HPV vaccine (<26 years). Return in about 4 months (around 11/08/2025). Humalog with Sliding scale insulin with meals and at bedtime: BG<150=0 150-200=+1 U 201-250=+2 U 251-300= +3 U 301-350=+4 U >350=+5 U Lantus 25 units nightly No changes were made to the patient's current diabetic medication management today. He is applauded at his efforts to keep his diabetes under improved control. He is advised to contact our office should he experience multiple episodes of hypo-/hyperglycemia with any questions/concerns prior to follow-up. We did discuss the possibility of adding on other agents to further assist with his diabetic management and possibly transition off of some insulin however the patient declines at the present time and would like to continue with 4 times daily injections. I am managing Joel Falk for complex chronic condition(s) serving as the focal point for the patient's care for consistency and continuity over time. Electronically signed by CASSIDY Castillo 07/09/2025 [1] Social History Socioeconomic History Marital status: Tobacco Use Smoking status: Every Day Current packs/day: 1.00 Average packs/day: 1 pack/day for 35.7 years (35.7 ttl pk-yrs) Types: Cigarettes Start date: 1989 Smokeless tobacco: Never Vaping Use Vaping status: Never Used Substance and Sexual Activity Alcohol use: Yes Comment: occassional Drug use: Never Social Drivers of Health Food Insecurity: No Food Insecurity (01/01/2025) Hunger Vital Sign Worried About Running Out of Food in the Last Year: Never true Ran Out of Food in the Last Year: Never true Transportation Needs: No Transportation Needs (01/01/2025) PRAPARE - Transportation Lack of Transportation (Medical): No Lack of Transportation (Non-Medical): No Housing Stability: Low Risk (01/01/2025) Housing Stability Vital Sign Unable to Pay for Housing in the Last Year: No Number of Times Moved in the Last Year: 0 Homeless in the Last Year: No [2] Allergies Allergen Reactions Chlorhexidine Dermatitis [3] Current Outpatient Medications Medication Sig Dispense Refill alcohol swabs PadM Use as directed to check blood glucose readings 4 times daily. Dx E11.65 . 400 each 3 blood sugar diagnostic strips Use as directed to check blood glucose readings 4 times daily. Dx E11.65 . 400 each 3 blood-glucose sensor (Dexcom G7 Sensor) Denise 1 each by Miscellaneous route every 10 (ten) days . 9 each 3 blood-glucose sensor (FreeStyle Brionna 3 Plus Sensor) Denise Use as directed to monitor BG. Change sensor every 15 days. . 2 each 11 insulin glargine (Lantus Solostar U-100 Insulin) 100 unit/mL (3 mL) InPn Inject 25 (twenty five) Units under the skin nightly . 30 mL 3 insulin lispro (HumaLOG KwikPen Insulin) 100 unit/mL InPn Inject 9 (nine) Units under the skin 3 (three) times a day before meals Plus sliding scale.Up to 80 units daily. DX E11.65 . 30 mL 3 lancets Misc Use as directed to check blood glucose 4 times daily. DX . 400 each 3 pen needle, diabetic (NovoFine Plus) 32 gauge x 1/6" Ndle Use as directed to check blood glucose readings 4 times daily. Dx E11.65 . 400 each 3 traMADol (ULTRAM) 50 mg tablet Take 1 (one) tablet (50 mg total) by mouth every 6 (six) hours as needed for pain . (Patient not taking: Reported on 07/09/2025 .) 12 tablet 0 No current facility-administered medications for this visit. documented in this encounter [facility] 07-09-2025 Note Reason for visit/chi ef complaint: Type 2 diabetes Date: 07/09/2025 Referring Provider: Yesi ref. provider found Primary Care Provider: Yesi Physician HPI: Mr. Falk is a 54 y.o. male with hx of osteomyelitis who was initially seen by our practice during hospital admission 01/01/2025. He presents today for hospital follow-up of his type 2 diabetes. His most recent hemoglobin A1c is 6.5%. He is currently utilizing a Dexcom CGM which was downloaded and reviewed today. DM type: T2DM Duration/since: 12/2024 At time of diagnosis, patient was overweight/obese Hx of autoimmune diseases: No Family hx of DM: No Diagnostic continuous glucose monitoring interpretation: Trends/interpretation of data: CGM trends reviewed. BG predominantly within target range. Overall excellent glucose control. 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 Glucose checks: -Frequency: 4 times daily; Dexcom -Trends: 72-165 -Hypoglycemia: yes, 70-80 with lunch and dinner (false low on dexcom) glucometer read 101., awareness: no. Lab Results Component Value Date HGBA1C 11.5 (H) 01/02/2025 Mr. Falk endorses No increased thirst, polyuria, blurry vision, or weight loss. Complications/comorbidities: -Retinopathy: no, last dilated eye exam: few years--eye exam coming up. -Nephropathy: no Lab Results Component Value Date EGFR 86 01/29/2025 EGFR 81 01/22/2025 EGFR 91 01/15/2025 -Neuropathy: no, does follow up with podiatry, no feet ulcers--Dr. John; Surgery 01/02/25; status post left great toe partial amputation due to osteomyelitis -Prior CV events: no No results found for: "LDLCALC" -Smoking status: current --1 PPD smoker Diabetes medications tried before/other possible contraindications for DM medications: --none Patient has personal/family hx of medullary thyroid cancer/MEN2 syndrome( Aunt--not sure if thyroid cancer had thyroidectomy). No renal impairment, alcoholism, CHF, decompensated liver disease, persistent nausea/vomiting, hx of pancreatitis, GB/biliary disease, recurrent UTI/genital fungal infections, postural dizziness, PVD, or osteoporosis Review of Systems: as per HPI Medical History: Past Medical History: Diagnosis Date Diabetes mellitus, type 2 (HCC) Surgical History: Past Surgical History: Procedure Laterality Date ACL REPAIR Right 2009 AMPUTATION TOE(S) Left 06/19/2025 Procedure: Left hallux amputation, left foot, - Podiatry set; Surgeon: FATMATA Arguelles DPM; Location: Main OR; Service: Podiatry; Laterality: Left; INCISION AND DRAINAGE FOOT AND ANKLE Left 01/02/2025 Procedure: INCISION AND DRAINAGE Left Great Toe with bone bx; Surgeon: FATMATA Arguelles DPM; Location: Main OR; Service: Podiatry; Laterality: Left; MULTIPLE TOOTH EXTRACTIONS top set of dentures Family History: Family History Problem Relation Age of Onset Multiple sclerosis Mother Cancer Father Cancer Natural Brother No Known Problems Natural Sister No Known Problems Natural Sister Social History: Social History[1] Allergies: Allergies[2] Current Medications: Current Medications[3] Physical Exam: Vitals: BP (!) 143/92 Pulse 82 Wt 112.5 kg (248 lb) SpO2 92% BMI 35.58 kg/m , Body mass index is 35.58 kg/m ., Wt Readings from Last 3 Encounters: 07/09/25 112.5 kg (248 lb) 06/19/25 112.9 kg (249 lb) 06/17/25 112.9 kg (249 lb) General/Constitutional: well-developed and in no distress. Head: atrautmatic, no facial lesions observed Eyes: no lid retraction (stare), no proptosis Neck: supple, normal range of motion. no thyromegaly present Cardiovascular: normal rate, regular rhythm, normal heart sounds and intact distal pulses, no edema. Pulmonary/Chest: effort normal and breath sounds normal, no respiratory distress Abdominal: soft, no tenderness Musculoskeletal: nomal range of motion, normal muscle mass and strength Neurological: alert and oriented, no focal deficits, no tremors, DTRs normal, Skin: warm and moist, no rash noted, no acanthosis nigricans, no lipohypertrophy/lipodystrophy, no ulcers or lesions on the feet and nails are intact Psychiatric: appropriate affect Lab/Imaging Data: Lab Results Component Value Date WBC 7.39 01/29/2025 HGB 16.3 01/29/2025 HCT 49.0 01/29/2025 MCV 93.2 01/29/2025 PLT 198 01/29/2025 Lab Results Component Value Date GLUCOSE 78 01/29/2025 NA 136 01/29/2025 K 4.1 01/29/2025 CL 101 01/29/2025 BUN 13 01/29/2025 CREATININE 1.09 06/10/2025 No results found for: "ALT", "AST", "GGT", "ALKPHOS", BILITOT No results found for: "TSH", "[id number]", "THYROIDAB" Lab Results Component Va (more content not included)... [facility] 06-24-2025 Note Established Patient Visit FATMATA Arguelles DPM Patient Name: Joel Falk. . Date of : 1970, 54 y.o.. Gender: male. Subjective: Patient is a pleasant 54-year-old for preop status post partial left hallux amputation (date of surgery 06/19/2025).. Patient overall doing quite well minimal pain. Patient did sustain a multiple falls recently but did not place any pressure on the toe. Patient denies any current fever, chills, nausea, vomiting, chest pain calf pain or shortness of breath. Patient has no other pedal complaints at this time. Physical Examination: BP (!) 158/98 (BP Location: Right arm, Patient Position: Sitting, BP Cuff Size: X-large Adult) SpO2 (!) 89% General Appearance: Alert, cooperative, no distress, appears stated age. Podiatric Exam Vascular: DP and PT pulses are easily palpable, 2/4. Capillary refill time is brisk to distal digits, less than 3 seconds. Skin temperature is warm to warm from proximal tibial tuberosity to distal digits. No dependent rubor. Neurological: Epicritic and protopathic sensation intact to bilateral lower extremities. Dermatologic: See picture below. Mild ischemic changes to the dorsal aspect of the toe and incision. Otherwise plantar flap is appropriate and has appropriate CFT. Musculoskeletal: Bilateral foot and ankle overall rectus alignment. Muscle strength testing 5 out of 5 to all tested muscle groups. Ankle range of motion limited with knee extended and slightly creased knee flex. Mild tenderness to the incision. Diagnoses: 1. Osteomyelitis of left foot, unspecified type (HCC) 2. Left foot pain 3. Abscess, toe, left 4. Peripheral vascular disease Imagin views of the left foot reviewed today persistent visualization of interval amputation of the distal phalanx. No evidence of subcutaneous emphysema or cortical erosion. Stable x-ray. MRI reviewed in detail today. Impression below. XR MR Clear Result Date: 12/26/2024 EXAMINATION: XR FOR MRI CLEARANCE HISTORY: ORDERING SYSTEM PROVIDED HISTORY: Hx of metal removed from eye, TECHNOLOGIST PROVIDED HISTORY: Illness/Other Reason for exam: Hx of metal removed from eye Cancer History: unknown Surgery, RadiationHistory: unknown Encounter Type: Initial Additional signs and symptoms: . ORDERING SYSTEM PROVIDED DIAGNOSIS CODES: Z98.890 Hx of metal removed from eye COMPARISON: None. TECHNIQUE: Two views of the orbits and facial bones. FINDINGS: No radiopaque foreign bodies overlying the orbits. Normal aeration and development of the paranasal sinuses. No radiopaque foreign bodies overlying the orbits. ST/ Workstation ID: [id number] MR Foot Left Without Contrast Result Date: 12/26/2024 EXAMINATION: MR FOOT LEFT WITHOUT CONTRAST 12/26/2024. HISTORY: ORDERING SYSTEM PROVIDED HISTORY: possible osteomyelitis left hallux, TECHNOLOGIST PROVIDED HISTORY: Illness/Other Reason for exam: left great toe wound/bruising/redness following dropping can of soup on it 3 months ago: Encounter Type: Unknown Additional signs and symptoms: n ORDERING SYSTEM PROVIDED DIAGNOSIS CODES: M86.9 Osteomyelitis of left foot, unspecified type (HCC) M79.675 Chronic toe pain, left foot G89.29 Chronic toe pain, left foot L02.612 Abscess of left great toe L53.9 Dependent rubor I73.9 Peripheral vascular disease COMPARISON: Radiographs left foot 12/18/2024. TECHNIQUE: Multiplanar, multisequence MRI images of the left midfoot/forefoot were obtained without contrast. CONTRAST: None. FINDINGS: The bone marrow signal intensity is age-appropriate. The Lisfranc ligament complex appears intact. There is diffuse thickening and increased STIR signal intensity involving the toenail of the 1st toe. There is erosive change of the adjacent dorsal cortex of the 1st distal phalanx in this region and there is an ovoid focus of increased STIR signal intensity within the base and shaft of the 1st distal phalanx in this region. This measures 4 x 4 x 10 mm in craniocaudal, transverse and AP dimension respectively. There is abnormal decreased T1 and increased STIR signal intensity involving the majority of the bone marrow of the 1st distal phalanx and there is also erosive change of the tuft of the 1st distal phalanx. There is mild soft tissue edema of the distal aspect of the 1st toe. The bone marrow signal intensity of the remainder of the midfoot/forefoot appears within normal limits. There are mild degenerative changes of the 1st metatarsal-sesamoid joints. There are MRI findings compatible with a probable infection of the 1st toenail with erosive change of the adjacent dorsal cortex of the 1st distal phalanx and an intraosseous abscess of the 1st distal phalanx with surrounding osteomyelitis of the majority of the 1st distal phalanx. Workstation ID: [id number] Xr Ortho Foot Left Result Date: 12/19/2024 3 views of the left foot reviewed today AP MO and lateral. No acute fracture or dislocation (more content not included)... [facility] 06-24-2025 History of Present illness Narrative Images from the original note were not included. Established Patient Visit FATMATA Arguelles DPM Patient Name: Joel Falk. . Date of : 1970, 54 y.o.. Gender: male. Subjective: Patient is a pleasant 54-year-old for preop status post partial left hallux amputation (date of surgery 06/19/2025).. Patient overall doing quite well minimal pain. Patient did sustain a multiple falls recently but did not place any pressure on the toe. Patient denies any current fever, chills, nausea, vomiting, chest pain calf pain or shortness of breath. Patient has no other pedal complaints at this time. Physical Examination: BP (!) 158/98 (BP Location: Right arm, Patient Position: Sitting, BP Cuff Size: X-large Adult) SpO2 (!) 89% General Appearance: Alert, cooperative, no distress, appears stated age. Podiatric Exam Vascular: DP and PT pulses are easily palpable, 2/4. Capillary refill time is brisk to distal digits, less than 3 seconds. Skin temperature is warm to warm from proximal tibial tuberosity to distal digits. No dependent rubor. Neurological: Epicritic and protopathic sensation intact to bilateral lower extremities. Dermatologic: See picture below. Mild ischemic changes to the dorsal aspect of the toe and incision. Otherwise plantar flap is appropriate and has appropriate CFT. Musculoskeletal: Bilateral foot and ankle overall rectus alignment. Muscle strength testing 5 out of 5 to all tested muscle groups. Ankle range of motion limited with knee extended and slightly creased knee flex. Mild tenderness to the incision. Diagnoses: 1. Osteomyelitis of left foot, unspecified type (HCC) 2. Left foot pain 3. Abscess, toe, left 4. Peripheral vascular disease Imagin views of the left foot reviewed today persistent visualization of interval amputation of the distal phalanx. No evidence of subcutaneous emphysema or cortical erosion. Stable x-ray. MRI reviewed in detail today. Impression below. XR MR Clear Result Date: 12/26/2024 EXAMINATION: XR FOR MRI CLEARANCE HISTORY: ORDERING SYSTEM PROVIDED HISTORY: Hx of metal removed from eye, TECHNOLOGIST PROVIDED HISTORY: Illness/Other Reason for exam: Hx of metal removed from eye Cancer History: unknown Surgery, RadiationHistory: unknown Encounter Type: Initial Additional signs and symptoms: . ORDERING SYSTEM PROVIDED DIAGNOSIS CODES: Z98.890 Hx of metal removed from eye COMPARISON: None. TECHNIQUE: Two views of the orbits and facial bones. FINDINGS: No radiopaque foreign bodies overlying the orbits. Normal aeration and development of the paranasal sinuses. No radiopaque foreign bodies overlying the orbits. ST/anjana Workstation ID: [id number] MR Foot Left Without Contrast Result Date: 12/26/2024 EXAMINATION: MR FOOT LEFT WITHOUT CONTRAST 12/26/2024. HISTORY: ORDERING SYSTEM PROVIDED HISTORY: possible osteomyelitis left hallux, TECHNOLOGIST PROVIDED HISTORY: Illness/Other Reason for exam: left great toe wound/bruising/redness following dropping can of soup on it 3 months ago: Encounter Type: Unknown Additional signs and symptoms: n ORDERING SYSTEM PROVIDED DIAGNOSIS CODES: M86.9 Osteomyelitis of left foot, unspecified type ([facility]) M79.675 Chronic toe pain, left foot G89.29 Chronic toe pain, left foot L02.612 Abscess of left great toe L53.9 Dependent rubor I73.9 Peripheral vascular disease COMPARISON: Radiographs left foot 12/18/2024. TECHNIQUE: Multiplanar, multisequence MRI images of the left midfoot/forefoot were obtained without contrast. CONTRAST: None. FINDINGS: The bone marrow signal intensity is age-appropriate. The Lisfranc ligament complex appears intact. There is diffuse thickening and increased STIR signal intensity involving the toenail of the 1st toe. There is erosive change of the adjacent dorsal cortex of the 1st distal phalanx in this region and there is an ovoid focus of increased STIR signal intensity within the base and shaft of the 1st distal phalanx in this region. This measures 4 x 4 x 10 mm in craniocaudal, transverse and AP dimension respectively. There is abnormal decreased T1 and increased STIR signal intensity involving the majority of the bone marrow of the 1st distal phalanx and there is also erosive change of the tuft of the 1st distal phalanx. There is mild soft tissue edema of the distal aspect of the 1st toe. The bone marrow signal intensity of the remainder of the midfoot/forefoot appears within normal limits. There are mild degenerative changes of the 1st metatarsal-sesamoid joints. There are MRI findings compatible with a probable infection of the 1st toenail with erosive change of the adjacent dorsal cortex of the 1st distal phalanx and an intraosseous abscess of the 1st distal phalanx with surrounding osteomyelitis of the majority of the 1st distal phalanx. Workstation ID: [id number] Xr Ortho Foot Left Result Date: 12/19/2024 3 views of the left foot reviewed today AP MO and lateral. No acute fracture or dislocation of note. No evidence of cortical erosion or subcutaneous emphysema. Stable x-ray Assessment/Plan: Patient was seen and evaluated. Discussed all clinical findings Educated patient on overall nature of injury and process of bone and soft tissue healing. Did educate patient on evidence of subtle ischemia to the dorsal aspect of the incision. I do feel that this is mostly superficial. CFT is credibly brisk and foot is stable. No need for antibiotics. Dry sterile dressing was applied today. Patient to continue nonweightbearing. Patient follow-up in 2 weeks for reevaluation. This note was partially created using voice recognition software and is inherently subject to errors including those of syntax and "sound-alike" substitutions which may escape proofreading. In such instances, original meaning may be extrapolated by contextual derivation. FATMATA Arguelles DPM Podiatric Foot & Ankle Surgery documented in this encounter [facility] 06-17-2025 Note Pre-Operative H&P Assessment and Plan Osteomyelitis (HCC) Pt scheduled to undergo a Left hallux amputation, left foot with Dr. Arguelles on 06/19/2025. Diabetes (HCC) HA1C down from 11.5 to 6.5. He has made great diet changes and is compliant with insulin schedule. Preoperative insulin instructions have been discussed. Pre-op examination BYRNES score indicates a less than 1% risk of VA or cardiac arrest, intraoperatively or up to 30 days post-op. Pt denies chest pain, abnormal SOB with exertion, palpitations, syncope or near syncopal episodes, PND, orthopnea, or pedal edema. METS greater than 4. Per 2014 ACC/AHA guidelines, no further cardiac testing is indicated. Apfel score of 1; 21% 24-hour risk of PONV. According to the stop bang assessment, the patient would be considered a moderate risk for SLOAN. Chronic conditions appear stable for surgery at this time. Labs drawn 7 days ago are stable. EKG denotes NSR. Chest xray pending. Chief Complaint Patient presents with Pre-operative Medical Risk Stratification History of Present Illness Joel Falk is a 54 y.o. male who presents at the request of Dr. Arguelles prior to Left hallux amputation, left foot. Héctor has a past medical history that consists of diabetes, foot ulcer, and diabetes. He denies previous complications with anesthesia. He denies cardiopulmonary complaints. Labs and EKG reviewed. Chest xray pending. Preoperative medication instructions have been provided. Please see below regarding status of active medical conditions and assessment and plan regarding details of preoperative medical risk stratification. Past Medical History: Diagnosis Date Diabetes mellitus, type 2 (HCC) No past medical history pertinent negatives. Past Surgical History: Procedure Laterality Date ACL REPAIR Right 2009 INCISION AND DRAINAGE FOOT AND ANKLE Left 01/02/2025 Procedure: INCISION AND DRAINAGE Left Great Toe with bone bx; Surgeon: FATMATA Arguelles DPM; Location: Main OR; Service: Podiatry; Laterality: Left; MULTIPLE TOOTH EXTRACTIONS top set of dentures Social History Tobacco Use Smoking status: Every Day Current packs/day: 1.00 Average packs/day: 1 pack/day for 35.6 years (35.6 ttl pk-yrs) Types: Cigarettes Start date: 1989 Smokeless tobacco: Never Substance Use Topics Alcohol use: Yes Comment: occassional Family History Problem Relation Age of Onset Multiple sclerosis Mother Cancer Father Cancer Natural Brother No Known Problems Natural Sister No Known Problems Natural Sister Prior to Admission medications taking for visit date 06/17/25 Medication Sig Taking? Discontinued? alcohol swabs PadM Use as directed to check blood glucose readings 4 times daily. Dx E11.65 . Yes blood sugar diagnostic strips Use as directed to check blood glucose readings 4 times daily. Dx E11.65 . Yes blood-glucose sensor ([employer] G7 Sensor) Denise 1 each by Miscellaneous route every 10 (ten) days . Yes blood-glucose sensor ([employer] Bironna 3 Plus Sensor) Denise Use as directed to monitor BG. Change sensor every 15 days. . Yes clindamycin (CLEOCIN) 150 MG capsule Take 1 (one) capsule (150 mg total) by mouth 3 (three) times a day for 7 days . Yes insulin glargine (Lantus Solostar U-100 Insulin) 100 unit/mL (3 mL) InPn Inject 25 (twenty five) Units under the skin nightly . Yes insulin lispro (HumaLOG KwikPen Insulin) 100 unit/mL InPn Inject 9 (nine) Units under the skin 3 (three) times a day before meals Plus sliding scale.Up to 80 units daily. DX E11.65 . Yes lancets Misc Use as directed to check blood glucose 4 times daily. DX . Yes pen needle, diabetic (NovoFine Plus) 32 gauge x 1/6" Ndle Use as directed to check blood glucose readings 4 times daily. Dx E11.65 . Yes amoxicillin-clavulanate (AUGMENTIN) 875-125 mg per tablet Take 1 (one) tablet by mouth 2 (two) times a day for 10 days . traMADol (ULTRAM) 50 mg tablet Take 1 (one) tablet (50 mg total) by mouth every 6 (six) hours as needed for pain . Patient not taking: Reported on 06/15/2025 . Allergies[1] Review of Systems Constitution: (negative) HENT: abnormal dentition Eyes: (negative) Respiratory: (negative) Cardiovascular: (negative) - Exercise capacity: Greater than 4 METS Gastrointestinal: (negative) Genitourinary: (negative) Musculoskeletal: - Left foot ulcer Skin: (negative) Neurological: (negative) Hematological: (negative) Physical Exam BP (!) 150/83 (BP Location: Left arm, Patient Position: Sitting) Pulse 74 Ht 5' 10" Wt 112.9 kg (249 lb) SpO2 93% BMI 35.73 kg/m Constitutional: He is oriented to person, place, and time. He appears well developed and well-nourished. Skin: Skin is warm, dry and intact. Eyes: Conjunctivae and EOM are normal. Pupils are equal, round, and reactive to light. HENT: Right Ear: External ear normal. Left Ear: External ear normal. Nose: Nose normal. Mouth/Throat: Abnormal dentitio (more content not included)... [facility] 06-15-2025 Note Established Patient Visit FAMTATA Arguelles DPM Patient Name: Joel Falk. . Date of : 1970, 54 y.o.. Gender: male. Subjective: Patient is a pleasant 54-year-old for preop H&P of left hallux amputation (date of surgery 06/19/2025).. Patient overall doing quite well minimal pain. He has been doing the dressing daily. Here for preop consent patient denies any current fever, chills, nausea, vomiting, chest pain calf pain or shortness of breath. Patient has no other pedal complaints at this time. Physical Examination: BP (!) 165/90 (BP Location: Right arm, Patient Position: Sitting, BP Cuff Size: X-large Adult) Pulse 84 SpO2 92% General Appearance: Alert, cooperative, no distress, appears stated age. Podiatric Exam Vascular: DP and PT pulses are easily palpable, 2/4. Capillary refill time is brisk to distal digits, less than 3 seconds. Skin temperature is warm to warm from proximal tibial tuberosity to distal digits. No dependent rubor. Neurological: Epicritic and protopathic sensation intact to bilateral lower extremities. Dermatologic: See picture below. Patient has fluctuance of the proximal lateral nail fold. No purulence noted today. This is down to and including bone. No streaking lymphangitis or erythema. No malodor. No crepitus. Musculoskeletal: Bilateral foot and ankle overall rectus alignment. Muscle strength testing 5 out of 5 to all tested muscle groups. Ankle range of motion limited with knee extended and slightly creased knee flex. tenderness to the left great toe in its entirety mostly to the distal phalanx, improved. Diagnoses: 1. Osteomyelitis of left foot, unspecified type (HCC) 2. Left foot pain 3. Dependent rubor 4. Abscess, toe, left 5. Peripheral vascular disease Imagin views of the left foot reviewed today AP MO and lateral. Persistent visualization of surgical intervention to the distal phalanx which does not appear to have any increased erosion. No evidence of subcutaneous emphysema. No interval change. Stable x-ray. MRI reviewed in detail today. Impression below. XR MR Clear Result Date: 12/26/2024 EXAMINATION: XR FOR MRI CLEARANCE HISTORY: ORDERING SYSTEM PROVIDED HISTORY: Hx of metal removed from eye, TECHNOLOGIST PROVIDED HISTORY: Illness/Other Reason for exam: Hx of metal removed from eye Cancer History: unknown Surgery, RadiationHistory: unknown Encounter Type: Initial Additional signs and symptoms: . ORDERING SYSTEM PROVIDED DIAGNOSIS CODES: Z98.890 Hx of metal removed from eye COMPARISON: None. TECHNIQUE: Two views of the orbits and facial bones. FINDINGS: No radiopaque foreign bodies overlying the orbits. Normal aeration and development of the paranasal sinuses. No radiopaque foreign bodies overlying the orbits. ST/jw Workstation ID: [id number] MR Foot Left Without Contrast Result Date: 12/26/2024 EXAMINATION: MR FOOT LEFT WITHOUT CONTRAST 12/26/2024. HISTORY: ORDERING SYSTEM PROVIDED HISTORY: possible osteomyelitis left hallux, TECHNOLOGIST PROVIDED HISTORY: Illness/Other Reason for exam: left great toe wound/bruising/redness following dropping can of soup on it 3 months ago: Encounter Type: Unknown Additional signs and symptoms: n ORDERING SYSTEM PROVIDED DIAGNOSIS CODES: M86.9 Osteomyelitis of left foot, unspecified type ([facility]) M79.675 Chronic toe pain, left foot G89.29 Chronic toe pain, left foot L02.612 Abscess of left great toe L53.9 Dependent rubor I73.9 Peripheral vascular disease COMPARISON: Radiographs left foot 12/18/2024. TECHNIQUE: Multiplanar, multisequence MRI images of the left midfoot/forefoot were obtained without contrast. CONTRAST: None. FINDINGS: The bone marrow signal intensity is age-appropriate. The Lisfranc ligament complex appears intact. There is diffuse thickening and increased STIR signal intensity involving the toenail of the 1st toe. There is erosive change of the adjacent dorsal cortex of the 1st distal phalanx in this region and there is an ovoid focus of increased STIR signal intensity within the base and shaft of the 1st distal phalanx in this region. This measures 4 x 4 x 10 mm in craniocaudal, transverse and AP dimension respectively. There is abnormal decreased T1 and increased STIR signal intensity involving the majority of the bone marrow of the 1st distal phalanx and there is also erosive change of the tuft of the 1st distal phalanx. There is mild soft tissue edema of the distal aspect of the 1st toe. The bone marrow signal intensity of the remainder of the midfoot/forefoot appears within normal limits. There are mild degenerative changes of the 1st metatarsal-sesamoid joints. There are MRI findings compatible with a probable infection of the 1st toenail with erosive change of the adjacent dorsal cortex of the 1st distal phalanx and an intraosseous abscess of the 1st distal phalanx with surrounding osteomyelitis of the majority of the 1st distal phalan (more content not included)... [facility] 06-15-2025 History of Present illness Narrative Images from the original note were not included. Established Patient Visit FATMATA Arguelles DPM Patient Name: Joel Falk. . Date of : 1970, 54 y.o.. Gender: male. Subjective: Patient is a pleasant 54-year-old for preop H&P of left hallux amputation (date of surgery 06/19/2025).. Patient overall doing quite well minimal pain. He has been doing the dressing daily. Here for preop consent patient denies any current fever, chills, nausea, vomiting, chest pain calf pain or shortness of breath. Patient has no other pedal complaints at this time. Physical Examination: BP (!) 165/90 (BP Location: Right arm, Patient Position: Sitting, BP Cuff Size: X-large Adult) Pulse 84 SpO2 92% General Appearance: Alert, cooperative, no distress, appears stated age. Podiatric Exam Vascular: DP and PT pulses are easily palpable, 2/4. Capillary refill time is brisk to distal digits, less than 3 seconds. Skin temperature is warm to warm from proximal tibial tuberosity to distal digits. No dependent rubor. Neurological: Epicritic and protopathic sensation intact to bilateral lower extremities. Dermatologic: See picture below. Patient has fluctuance of the proximal lateral nail fold. No purulence noted today. This is down to and including bone. No streaking lymphangitis or erythema. No malodor. No crepitus. Musculoskeletal: Bilateral foot and ankle overall rectus alignment. Muscle strength testing 5 out of 5 to all tested muscle groups. Ankle range of motion limited with knee extended and slightly creased knee flex. tenderness to the left great toe in its entirety mostly to the distal phalanx, improved. Diagnoses: 1. Osteomyelitis of left foot, unspecified type (HCC) 2. Left foot pain 3. Dependent rubor 4. Abscess, toe, left 5. Peripheral vascular disease Imagin views of the left foot reviewed today AP MO and lateral. Persistent visualization of surgical intervention to the distal phalanx which does not appear to have any increased erosion. No evidence of subcutaneous emphysema. No interval change. Stable x-ray. MRI reviewed in detail today. Impression below. XR MR Clear Result Date: 12/26/2024 EXAMINATION: XR FOR MRI CLEARANCE HISTORY: ORDERING SYSTEM PROVIDED HISTORY: Hx of metal removed from eye, TECHNOLOGIST PROVIDED HISTORY: Illness/Other Reason for exam: Hx of metal removed from eye Cancer History: unknown Surgery, RadiationHistory: unknown Encounter Type: Initial Additional signs and symptoms: . ORDERING SYSTEM PROVIDED DIAGNOSIS CODES: Z98.890 Hx of metal removed from eye COMPARISON: None. TECHNIQUE: Two views of the orbits and facial bones. FINDINGS: No radiopaque foreign bodies overlying the orbits. Normal aeration and development of the paranasal sinuses. No radiopaque foreign bodies overlying the orbits. ST/jw Workstation ID: [id number] MR Foot Left Without Contrast Result Date: 12/26/2024 EXAMINATION: MR FOOT LEFT WITHOUT CONTRAST 12/26/2024. HISTORY: ORDERING SYSTEM PROVIDED HISTORY: possible osteomyelitis left hallux, TECHNOLOGIST PROVIDED HISTORY: Illness/Other Reason for exam: left great toe wound/bruising/redness following dropping can of soup on it 3 months ago: Encounter Type: Unknown Additional signs and symptoms: n ORDERING SYSTEM PROVIDED DIAGNOSIS CODES: M86.9 Osteomyelitis of left foot, unspecified type ([facility]) M79.675 Chronic toe pain, left foot G89.29 Chronic toe pain, left foot L02.612 Abscess of left great toe L53.9 Dependent rubor I73.9 Peripheral vascular disease COMPARISON: Radiographs left foot 12/18/2024. TECHNIQUE: Multiplanar, multisequence MRI images of the left midfoot/forefoot were obtained without contrast. CONTRAST: None. FINDINGS: The bone marrow signal intensity is age-appropriate. The Lisfranc ligament complex appears intact. There is diffuse thickening and increased STIR signal intensity involving the toenail of the 1st toe. There is erosive change of the adjacent dorsal cortex of the 1st distal phalanx in this region and there is an ovoid focus of increased STIR signal intensity within the base and shaft of the 1st distal phalanx in this region. This measures 4 x 4 x 10 mm in craniocaudal, transverse and AP dimension respectively. There is abnormal decreased T1 and increased STIR signal intensity involving the majority of the bone marrow of the 1st distal phalanx and there is also erosive change of the tuft of the 1st distal phalanx. There is mild soft tissue edema of the distal aspect of the 1st toe. The bone marrow signal intensity of the remainder of the midfoot/forefoot appears within normal limits. There are mild degenerative changes of the 1st metatarsal-sesamoid joints. There are MRI findings compatible with a probable infection of the 1st toenail with erosive change of the adjacent dorsal cortex of the 1st distal phalanx and an intraosseous abscess of the 1st distal phalanx with surrounding osteomyelitis of the majority of the 1st distal phalanx. Workstation ID: [id number] Xr Ortho Foot Left Result Date: 12/19/2024 3 views of the left foot reviewed today AP MO and lateral. No acute fracture or dislocation of note. No evidence of cortical erosion or subcutaneous emphysema. Stable x-ray Assessment/Plan: Patient was seen and evaluated. Discussed all clinical findings Educated patient on overall nature of injury and process of bone and soft tissue healing. Reviewed blood cultures which were preliminarily negative Tissue exam showed hyperparakeratosis with focal acute inflammation. ESR and CRP are within normal limits Hemoglobin A1c is 6.5 No leukocytosis Wound cultures are growing gram-positive cocci almost tiwari resistant with exception to clindamycin and vancomycin Rx for clindamycin Discussed what surgical intervention would entail in the form of left hallux partial or for total amputation, left foot. Educated patient on risk associated proposed procedure including but not limited to infection, dehiscence, numbness burning tingling neuritis, CRPS, delayed union, malunion, nonunion, hardware pain, chronic pain, posttraumatic arthritis DVT, PE, loss of limb, loss of life. Despite these risks patient wishes to move forward with proposed treatment. No promises were made or implied. Informed consent was received and consent was signed Reviewed preoperative labs chest x-ray and EKG. PAT visit this Sunday. Will reevaluate this prior to surgery to ensure appropriate to move forward with proposed treatment. Patient relates that he will not need narcotic medication. Answered all of patient's questions to their satisfaction. Patient to follow-up postoperatively. This note was partially created using voice recognition software and is inherently subject to errors including those of syntax and "sound-alike" substitutions which may escape proofreading. In such instances, original meaning may be extrapolated by contextual derivation. FATMATA Arguelles DPM Podiatric Foot & Ankle Surgery documented in this encounter [facility] 06-11-2025 Note Addended by: FATMATA DOYLE on: 06/11/2025 02:04 PM Modules accepted: Orders [facility] 06-11-2025 Miscellaneous Notes Addended by: FATMATA ARGUELLES on: 06/11/2025 02:04 PM Modules accepted: Orders documented in this encounter [facility] 06-10-2025 Note Established Patient Visit FATMATA Arguelles DPM Patient Name: Joel Falk. . Date of : 1970, 54 y.o.. Gender: male. Subjective: Patient is a pleasant 54-year-old male status post curettage of left hallux distal phalanx with implantation of antibiotic beads (date of surgery 01/02/2025). Patient presents today with new onset pain and swelling to his operative toe. Patient relates it is bubbling up like it had in the past but had not yet ruptured. He denies any substantial pain only when it is touched. He is not currently on any antibiotics. Patient relates his last known hemoglobin A1c was 6.5. Patient denies any current fever, chills, nausea, vomiting, chest pain calf pain or shortness of breath. Patient has no other pedal complaints at this time. Physical Examination: BP (!) 160/106 (BP Location: Right arm, Patient Position: Sitting, BP Cuff Size: X-large Adult) Pulse 79 Temp 97.5 degrees F (36.4 degrees C) (Oral) SpO2 92% General Appearance: Alert, cooperative, no distress, appears stated age. Podiatric Exam Vascular: DP and PT pulses are easily palpable, 2/4. Capillary refill time is brisk to distal digits, less than 3 seconds. Skin temperature is warm to warm from proximal tibial tuberosity to distal digits. No dependent rubor. Neurological: Epicritic and protopathic sensation intact to bilateral lower extremities. Dermatologic: See picture below. Patient has fluctuance of the proximal lateral nail fold. Moderate purulent drainage was expressed. This is down to and including bone. No streaking lymphangitis or erythema. No malodor. No crepitus. Musculoskeletal: Bilateral foot and ankle overall rectus alignment. Muscle strength testing 5 out of 5 to all tested muscle groups. Ankle range of motion limited with knee extended and slightly creased knee flex. tenderness to the left great toe in its entirety mostly to the distal phalanx, improved. Diagnoses: 1. Osteomyelitis of left foot, unspecified type (HCC) Blood Culture Aerobic/Anaerobic CBC and differential Basic Metabolic Panel Sedimentation Rate CRP, Inflammation Wound Aerobic And Anaerobic Culture Tissue Exam Blood Culture Aerobic/Anaerobic Wound Aerobic And Anaerobic Culture 2. Left foot pain 3. Dependent rubor 4. Abscess, toe, left 5. Peripheral vascular disease 6. Abscess of left great toe Imagin views of the left foot reviewed today AP MO and lateral. Persistent visualization of surgical intervention to the distal phalanx which does not appear to have any increased erosion. No evidence of subcutaneous emphysema. No interval change. Stable x-ray. MRI reviewed in detail today. Impression below. XR MR Clear Result Date: 12/26/2024 EXAMINATION: XR FOR MRI CLEARANCE HISTORY: ORDERING SYSTEM PROVIDED HISTORY: Hx of metal removed from eye, TECHNOLOGIST PROVIDED HISTORY: Illness/Other Reason for exam: Hx of metal removed from eye Cancer History: unknown Surgery, RadiationHistory: unknown Encounter Type: Initial Additional signs and symptoms: . ORDERING SYSTEM PROVIDED DIAGNOSIS CODES: Z98.890 Hx of metal removed from eye COMPARISON: None. TECHNIQUE: Two views of the orbits and facial bones. FINDINGS: No radiopaque foreign bodies overlying the orbits. Normal aeration and development of the paranasal sinuses. No radiopaque foreign bodies overlying the orbits. / Workstation ID: [id number] MR Foot Left Without Contrast Result Date: 12/26/2024 EXAMINATION: MR FOOT LEFT WITHOUT CONTRAST 12/26/2024. HISTORY: ORDERING SYSTEM PROVIDED HISTORY: possible osteomyelitis left hallux, TECHNOLOGIST PROVIDED HISTORY: Illness/Other Reason for exam: left great toe wound/bruising/redness following dropping can of soup on it 3 months ago: Encounter Type: Unknown Additional signs and symptoms: n ORDERING SYSTEM PROVIDED DIAGNOSIS CODES: M86.9 Osteomyelitis of left foot, unspecified type ([facility]) M79.675 Chronic toe pain, left foot G89.29 Chronic toe pain, left foot L02.612 Abscess of left great toe L53.9 Dependent rubor I73.9 Peripheral vascular disease COMPARISON: Radiographs left foot 12/18/2024. TECHNIQUE: Multiplanar, multisequence MRI images of the left midfoot/forefoot were obtained without contrast. CONTRAST: None. FINDINGS: The bone marrow signal intensity is age-appropriate. The Lisfranc ligament complex appears intact. There is diffuse thickening and increased STIR signal intensity involving the toenail of the 1st toe. There is erosive change of the adjacent dorsal cortex of the 1st distal phalanx in this region and there is an ovoid focus of increased STIR signal intensity within the base and shaft of the 1st distal phalanx in this region. This measures 4 x 4 x 10 mm in craniocaudal, transverse and AP dimension respectively. There is abnormal decreased T1 and increased STIR signal intensity involving the majority of the bone marrow of the 1st distal phalanx and the (more content not included)... [facility] 06-10-2025 History of Present illness Narrative Images from the original note were not included. Established Patient Visit FATMATA Arguelles DPM Patient Name: Joel Falk. . Date of : 1970, 54 y.o.. Gender: male. Subjective: Patient is a pleasant 54-year-old male status post curettage of left hallux distal phalanx with implantation of antibiotic beads (date of surgery 01/02/2025). Patient presents today with new onset pain and swelling to his operative toe. Patient relates it is bubbling up like it had in the past but had not yet ruptured. He denies any substantial pain only when it is touched. He is not currently on any antibiotics. Patient relates his last known hemoglobin A1c was 6.5. Patient denies any current fever, chills, nausea, vomiting, chest pain calf pain or shortness of breath. Patient has no other pedal complaints at this time. Physical Examination: BP (!) 160/106 (BP Location: Right arm, Patient Position: Sitting, BP Cuff Size: X-large Adult) Pulse 79 Temp 97.5 F (36.4 C) (Oral) SpO2 92% General Appearance: Alert, cooperative, no distress, appears stated age. Podiatric Exam Vascular: DP and PT pulses are easily palpable, 2/4. Capillary refill time is brisk to distal digits, less than 3 seconds. Skin temperature is warm to warm from proximal tibial tuberosity to distal digits. No dependent rubor. Neurological: Epicritic and protopathic sensation intact to bilateral lower extremities. Dermatologic: See picture below. Patient has fluctuance of the proximal lateral nail fold. Moderate purulent drainage was expressed. This is down to and including bone. No streaking lymphangitis or erythema. No malodor. No crepitus. Musculoskeletal: Bilateral foot and ankle overall rectus alignment. Muscle strength testing 5 out of 5 to all tested muscle groups. Ankle range of motion limited with knee extended and slightly creased knee flex. tenderness to the left great toe in its entirety mostly to the distal phalanx, improved. Diagnoses: 1. Osteomyelitis of left foot, unspecified type ([facility]) Blood Culture Aerobic/Anaerobic CBC and differential Basic Metabolic Panel Sedimentation Rate CRP, Inflammation Wound Aerobic And Anaerobic Culture Tissue Exam Blood Culture Aerobic/Anaerobic Wound Aerobic And Anaerobic Culture 2. Left foot pain 3. Dependent rubor 4. Abscess, toe, left 5. Peripheral vascular disease 6. Abscess of left great toe Imagin views of the left foot reviewed today AP MO and lateral. Persistent visualization of surgical intervention to the distal phalanx which does not appear to have any increased erosion. No evidence of subcutaneous emphysema. No interval change. Stable x-ray. MRI reviewed in detail today. Impression below. XR MR Clear Result Date: 12/26/2024 EXAMINATION: XR FOR MRI CLEARANCE HISTORY: ORDERING SYSTEM PROVIDED HISTORY: Hx of metal removed from eye, TECHNOLOGIST PROVIDED HISTORY: Illness/Other Reason for exam: Hx of metal removed from eye Cancer History: unknown Surgery, RadiationHistory: unknown Encounter Type: Initial Additional signs and symptoms: . ORDERING SYSTEM PROVIDED DIAGNOSIS CODES: Z98.890 Hx of metal removed from eye COMPARISON: None. TECHNIQUE: Two views of the orbits and facial bones. FINDINGS: No radiopaque foreign bodies overlying the orbits. Normal aeration and development of the paranasal sinuses. No radiopaque foreign bodies overlying the orbits. Magin/Fortem Workstation ID: [id number] MR Foot Left Without Contrast Result Date: 12/26/2024 EXAMINATION: MR FOOT LEFT WITHOUT CONTRAST 12/26/2024. HISTORY: ORDERING SYSTEM PROVIDED HISTORY: possible osteomyelitis left hallux, TECHNOLOGIST PROVIDED HISTORY: Illness/Other Reason for exam: left great toe wound/bruising/redness following dropping can of soup on it 3 months ago: Encounter Type: Unknown Additional signs and symptoms: n ORDERING SYSTEM PROVIDED DIAGNOSIS CODES: M86.9 Osteomyelitis of left foot, unspecified type ([facility]) M79.675 Chronic toe pain, left foot G89.29 Chronic toe pain, left foot L02.612 Abscess of left great toe L53.9 Dependent rubor I73.9 Peripheral vascular disease COMPARISON: Radiographs left foot 12/18/2024. TECHNIQUE: Multiplanar, multisequence MRI images of the left midfoot/forefoot were obtained without contrast. CONTRAST: None. FINDINGS: The bone marrow signal intensity is age-appropriate. The Lisfranc ligament complex appears intact. There is diffuse thickening and increased STIR signal intensity involving the toenail of the 1st toe. There is erosive change of the adjacent dorsal cortex of the 1st distal phalanx in this region and there is an ovoid focus of increased STIR signal intensity within the base and shaft of the 1st distal phalanx in this region. This measures 4 x 4 x 10 mm in craniocaudal, transverse and AP dimension respectively. There is abnormal decreased T1 and increased STIR signal intensity involving the majority of the bone marrow of the 1st distal phalanx and there is also erosive change of the tuft of the 1st distal phalanx. There is mild soft tissue edema of the distal aspect of the 1st toe. The bone marrow signal intensity of the remainder of the midfoot/forefoot appears within normal limits. There are mild degenerative changes of the 1st metatarsal-sesamoid joints. There are MRI findings compatible with a probable infection of the 1st toenail with erosive change of the adjacent dorsal cortex of the 1st distal phalanx and an intraosseous abscess of the 1st distal phalanx with surrounding osteomyelitis of the majority of the 1st distal phalanx. Workstation ID: [id number] Xr Ortho Foot Left Result Date: 12/19/2024 3 views of the left foot reviewed today AP MO and lateral. No acute fracture or dislocation of note. No evidence of cortical erosion or subcutaneous emphysema. Stable x-ray Assessment/Plan: Patient was seen and evaluated. Discussed all clinical findings Educated patient on overall status of the toe. Fairly extensive discussion today with patient with regards to the toe. I do believe that there is a clinical abscess in this area. Patient was consented for an I&D/excisional debridement down to and including bone Informed consent was received and consent was signed, procedure was performed, see procedure note below. Area was prepped and draped in normal aseptic fashion. 15 blade was used to make a stab incision to the lateral nail fold. Sharp podiatric dermal curette was used to remove a spicule of nail/bone. This was sent for aerobic and anaerobic evaluation as well as pathological analysis. Culture swab was used for underlying abscess was sent for aerobic and anaerobic evaluation. Area was then thoroughly irrigated with copious amounts of sterile saline. Final wound measurement was approximately 1.3 cm x 1.5 cm x 0.5 cm down to and including bone. Epidermal dermal subcutaneous fascial and bone tissue were removed. Fairly extensive discussion with patient with regards to treatment options moving forward conservative versus surgical and slightly salvage versus amputation. Unfortunately patient has undergone considerable conservative treatment and salvage attempts. While this is not grossly infected I do have concern with the persistent recurrence to the area. Patient is already undergone IV antibiotics. Patient ultimately wanted to move forward with amputation. Discussed case with admitting hospitalist. Upon admission order CBC BMP ESR CRP blood cultures Patient is wanting to move forward with elective hallux semi amputation. Did discuss risk for more proximal amputation. Patient understands this. Podiatry will follow patient while in house. This note was partially created using voice recognition software and is inherently subject to errors including those of syntax and "sound-alike" substitutions which may escape proofreading. In such instances, original meaning may be extrapolated by contextual derivation. FATMATA Arguelles DPM Podiatric Foot & Ankle Surgery documented in this encounter [facility] 06-10-2025 History of Present illness Narrative Images from the original note were not included. Established Patient Visit FATMATA Arguelles DPM Patient Name: Joel Falk. . Date of : 1970, 54 y.o.. Gender: male. Subjective: Patient is a pleasant 54-year-old male status post curettage of left hallux distal phalanx with implantation of antibiotic beads (date of surgery 01/02/2025). Patient presents today with new onset pain and swelling to his operative toe. Patient relates it is bubbling up like it had in the past but had not yet ruptured. He denies any substantial pain only when it is touched. He is not currently on any antibiotics. Patient relates his last known hemoglobin A1c was 6.5. Patient denies any current fever, chills, nausea, vomiting, chest pain calf pain or shortness of breath. Patient has no other pedal complaints at this time. Physical Examination: BP (!) 160/106 (BP Location: Right arm, Patient Position: Sitting, BP Cuff Size: X-large Adult) Pulse 79 Temp 97.5 F (36.4 C) (Oral) SpO2 92% General Appearance: Alert, cooperative, no distress, appears stated age. Podiatric Exam Vascular: DP and PT pulses are easily palpable, 2/4. Capillary refill time is brisk to distal digits, less than 3 seconds. Skin temperature is warm to warm from proximal tibial tuberosity to distal digits. No dependent rubor. Neurological: Epicritic and protopathic sensation intact to bilateral lower extremities. Dermatologic: See picture below. Patient has fluctuance of the proximal lateral nail fold. Moderate purulent drainage was expressed. This is down to and including bone. No streaking lymphangitis or erythema. No malodor. No crepitus. Musculoskeletal: Bilateral foot and ankle overall rectus alignment. Muscle strength testing 5 out of 5 to all tested muscle groups. Ankle range of motion limited with knee extended and slightly creased knee flex. tenderness to the left great toe in its entirety mostly to the distal phalanx, improved. Diagnoses: 1. Osteomyelitis of left foot, unspecified type (HCC) Blood Culture Aerobic/Anaerobic CBC and differential Basic Metabolic Panel Sedimentation Rate CRP, Inflammation Wound Aerobic And Anaerobic Culture Tissue Exam Blood Culture Aerobic/Anaerobic Wound Aerobic And Anaerobic Culture 2. Left foot pain 3. Dependent rubor 4. Abscess, toe, left 5. Peripheral vascular disease 6. Abscess of left great toe Imagin views of the left foot reviewed today AP MO and lateral. Persistent visualization of surgical intervention to the distal phalanx which does not appear to have any increased erosion. No evidence of subcutaneous emphysema. No interval change. Stable x-ray. MRI reviewed in detail today. Impression below. XR MR Clear Result Date: 12/26/2024 EXAMINATION: XR FOR MRI CLEARANCE HISTORY: ORDERING SYSTEM PROVIDED HISTORY: Hx of metal removed from eye, TECHNOLOGIST PROVIDED HISTORY: Illness/Other Reason for exam: Hx of metal removed from eye Cancer History: unknown Surgery, RadiationHistory: unknown Encounter Type: Initial Additional signs and symptoms: . ORDERING SYSTEM PROVIDED DIAGNOSIS CODES: Z98.890 Hx of metal removed from eye COMPARISON: None. TECHNIQUE: Two views of the orbits and facial bones. FINDINGS: No radiopaque foreign bodies overlying the orbits. Normal aeration and development of the paranasal sinuses. No radiopaque foreign bodies overlying the orbits. ST/jw Workstation ID: [id number] MR Foot Left Without Contrast Result Date: 12/26/2024 EXAMINATION: MR FOOT LEFT WITHOUT CONTRAST 12/26/2024. HISTORY: ORDERING SYSTEM PROVIDED HISTORY: possible osteomyelitis left hallux, TECHNOLOGIST PROVIDED HISTORY: Illness/Other Reason for exam: left great toe wound/bruising/redness following dropping can of soup on it 3 months ago: Encounter Type: Unknown Additional signs and symptoms: n ORDERING SYSTEM PROVIDED DIAGNOSIS CODES: M86.9 Osteomyelitis of left foot, unspecified type ([facility]) M79.675 Chronic toe pain, left foot G89.29 Chronic toe pain, left foot L02.612 Abscess of left great toe L53.9 Dependent rubor I73.9 Peripheral vascular disease COMPARISON: Radiographs left foot 12/18/2024. TECHNIQUE: Multiplanar, multisequence MRI images of the left midfoot/forefoot were obtained without contrast. CONTRAST: None. FINDINGS: The bone marrow signal intensity is age-appropriate. The Lisfranc ligament complex appears intact. There is diffuse thickening and increased STIR signal intensity involving the toenail of the 1st toe. There is erosive change of the adjacent dorsal cortex of the 1st distal phalanx in this region and there is an ovoid focus of increased STIR signal intensity within the base and shaft of the 1st distal phalanx in this region. This measures 4 x 4 x 10 mm in craniocaudal, transverse and AP dimension respectively. There is abnormal decreased T1 and increased STIR signal intensity involving the majority of the bone marrow of the 1st distal phalanx and there is also erosive change of the tuft of the 1st distal phalanx. There is mild soft tissue edema of the distal aspect of the 1st toe. The bone marrow signal intensity of the remainder of the midfoot/forefoot appears within normal limits. There are mild degenerative changes of the 1st metatarsal-sesamoid joints. There are MRI findings compatible with a probable infection of the 1st toenail with erosive change of the adjacent dorsal cortex of the 1st distal phalanx and an intraosseous abscess of the 1st distal phalanx with surrounding osteomyelitis of the majority of the 1st distal phalanx. Workstation ID: [id number] Xr Ortho Foot Left Result Date: 12/19/2024 3 views of the left foot reviewed today AP MO and lateral. No acute fracture or dislocation of note. No evidence of cortical erosion or subcutaneous emphysema. Stable x-ray Assessment/Plan: Patient was seen and evaluated. Discussed all clinical findings Educated patient on overall status of the toe. Fairly extensive discussion today with patient with regards to the toe. I do believe that there is a clinical abscess in this area. Patient was consented for an I&D/excisional debridement down to and including bone Informed consent was received and consent was signed, procedure was performed, see procedure note below. Area was prepped and draped in normal aseptic fashion. 15 blade was used to make a stab incision to the lateral nail fold. Sharp podiatric dermal curette was used to remove a spicule of nail/bone. This was sent for aerobic and anaerobic evaluation as well as pathological analysis. Culture swab was used for underlying abscess was sent for aerobic and anaerobic evaluation. Area was then thoroughly irrigated with copious amounts of sterile saline. Final wound measurement was approximately 1.3 cm x 1.5 cm x 0.5 cm down to and including bone. Epidermal dermal subcutaneous fascial and bone tissue were removed. Fairly extensive discussion with patient with regards to treatment options moving forward conservative versus surgical and slightly salvage versus amputation. Unfortunately patient has undergone considerable conservative treatment and salvage attempts. While this is not grossly infected I do have concern with the persistent recurrence to the area. Patient is already undergone IV antibiotics. Patient ultimately wanted to move forward with amputation. Discussed case with admitting hospitalist. Upon admission order CBC BMP ESR CRP blood cultures Patient is wanting to move forward with elective hallux semi amputation. Did discuss risk for more proximal amputation. Patient understands this. Podiatry will follow patient while in house. This note was partially created using voice recognition software and is inherently subject to errors including those of syntax and "sound-alike" substitutions which may escape proofreading. In such instances, original meaning may be extrapolated by contextual derivation. FATMATA Arguelles DPM Podiatric Foot & Ankle Surgery documented in this encounter [facility] 06-10-2025 History of Present illness Narrative Images from the original note were not included. Established Patient Visit FATMATA Arguelles DPM Patient Name: Joel Falk. . Date of : 1970, 54 y.o.. Gender: male. Subjective: Patient is a pleasant 54-year-old male status post curettage of left hallux distal phalanx with implantation of antibiotic beads (date of surgery 01/02/2025). Patient presents today with new onset pain and swelling to his operative toe. Patient relates it is bubbling up like it had in the past but had not yet ruptured. He denies any substantial pain only when it is touched. He is not currently on any antibiotics. Patient relates his last known hemoglobin A1c was 6.5. Patient denies any current fever, chills, nausea, vomiting, chest pain calf pain or shortness of breath. Patient has no other pedal complaints at this time. Physical Examination: BP (!) 160/106 (BP Location: Right arm, Patient Position: Sitting, BP Cuff Size: X-large Adult) Pulse 79 Temp 97.5 F (36.4 C) (Oral) SpO2 92% General Appearance: Alert, cooperative, no distress, appears stated age. Podiatric Exam Vascular: DP and PT pulses are easily palpable, 2/4. Capillary refill time is brisk to distal digits, less than 3 seconds. Skin temperature is warm to warm from proximal tibial tuberosity to distal digits. No dependent rubor. Neurological: Epicritic and protopathic sensation intact to bilateral lower extremities. Dermatologic: See picture below. Patient has fluctuance of the proximal lateral nail fold. Moderate purulent drainage was expressed. This is down to and including bone. No streaking lymphangitis or erythema. No malodor. No crepitus. Musculoskeletal: Bilateral foot and ankle overall rectus alignment. Muscle strength testing 5 out of 5 to all tested muscle groups. Ankle range of motion limited with knee extended and slightly creased knee flex. tenderness to the left great toe in its entirety mostly to the distal phalanx, improved. Diagnoses: 1. Osteomyelitis of left foot, unspecified type (HCC) Blood Culture Aerobic/Anaerobic CBC and differential Basic Metabolic Panel Sedimentation Rate CRP, Inflammation Wound Aerobic And Anaerobic Culture Tissue Exam Blood Culture Aerobic/Anaerobic Wound Aerobic And Anaerobic Culture 2. Left foot pain 3. Dependent rubor 4. Abscess, toe, left 5. Peripheral vascular disease 6. Abscess of left great toe Imagin views of the left foot reviewed today AP MO and lateral. Persistent visualization of surgical intervention to the distal phalanx which does not appear to have any increased erosion. No evidence of subcutaneous emphysema. No interval change. Stable x-ray. MRI reviewed in detail today. Impression below. XR MR Clear Result Date: 12/26/2024 EXAMINATION: XR FOR MRI CLEARANCE HISTORY: ORDERING SYSTEM PROVIDED HISTORY: Hx of metal removed from eye, TECHNOLOGIST PROVIDED HISTORY: Illness/Other Reason for exam: Hx of metal removed from eye Cancer History: unknown Surgery, RadiationHistory: unknown Encounter Type: Initial Additional signs and symptoms: . ORDERING SYSTEM PROVIDED DIAGNOSIS CODES: Z98.890 Hx of metal removed from eye COMPARISON: None. TECHNIQUE: Two views of the orbits and facial bones. FINDINGS: No radiopaque foreign bodies overlying the orbits. Normal aeration and development of the paranasal sinuses. No radiopaque foreign bodies overlying the orbits. / Workstation ID: [id number] MR Foot Left Without Contrast Result Date: 12/26/2024 EXAMINATION: MR FOOT LEFT WITHOUT CONTRAST 12/26/2024. HISTORY: ORDERING SYSTEM PROVIDED HISTORY: possible osteomyelitis left hallux, TECHNOLOGIST PROVIDED HISTORY: Illness/Other Reason for exam: left great toe wound/bruising/redness following dropping can of soup on it 3 months ago: Encounter Type: Unknown Additional signs and symptoms: n ORDERING SYSTEM PROVIDED DIAGNOSIS CODES: M86.9 Osteomyelitis of left foot, unspecified type ([facility]) M79.675 Chronic toe pain, left foot G89.29 Chronic toe pain, left foot L02.612 Abscess of left great toe L53.9 Dependent rubor I73.9 Peripheral vascular disease COMPARISON: Radiographs left foot 12/18/2024. TECHNIQUE: Multiplanar, multisequence MRI images of the left midfoot/forefoot were obtained without contrast. CONTRAST: None. FINDINGS: The bone marrow signal intensity is age-appropriate. The Lisfranc ligament complex appears intact. There is diffuse thickening and increased STIR signal intensity involving the toenail of the 1st toe. There is erosive change of the adjacent dorsal cortex of the 1st distal phalanx in this region and there is an ovoid focus of increased STIR signal intensity within the base and shaft of the 1st distal phalanx in this region. This measures 4 x 4 x 10 mm in craniocaudal, transverse and AP dimension respectively. There is abnormal decreased T1 and increased STIR signal intensity involving the majority of the bone marrow of the 1st distal phalanx and there is also erosive change of the tuft of the 1st distal phalanx. There is mild soft tissue edema of the distal aspect of the 1st toe. The bone marrow signal intensity of the remainder of the midfoot/forefoot appears within normal limits. There are mild degenerative changes of the 1st metatarsal-sesamoid joints. There are MRI findings compatible with a probable infection of the 1st toenail with erosive change of the adjacent dorsal cortex of the 1st distal phalanx and an intraosseous abscess of the 1st distal phalanx with surrounding osteomyelitis of the majority of the 1st distal phalanx. Workstation ID: [id number] Xr Ortho Foot Left Result Date: 12/19/2024 3 views of the left foot reviewed today AP MO and lateral. No acute fracture or dislocation of note. No evidence of cortical erosion or subcutaneous emphysema. Stable x-ray Assessment/Plan: Patient was seen and evaluated. Discussed all clinical findings Educated patient on overall status of the toe. Fairly extensive discussion today with patient with regards to the toe. I do believe that there is a clinical abscess in this area. Patient was consented for an I&D/excisional debridement down to and including bone Informed consent was received and consent was signed, procedure was performed, see procedure note below. Area was prepped and draped in normal aseptic fashion. 15 blade was used to make a stab incision to the lateral nail fold. Sharp podiatric dermal curette was used to remove a spicule of nail/bone. This was sent for aerobic and anaerobic evaluation as well as pathological analysis. Culture swab was used for underlying abscess was sent for aerobic and anaerobic evaluation. Area was then thoroughly irrigated with copious amounts of sterile saline. Final wound measurement was approximately 1.3 cm x 1.5 cm x 0.5 cm down to and including bone. Epidermal dermal subcutaneous fascial and bone tissue were removed. Fairly extensive discussion with patient with regards to treatment options moving forward conservative versus surgical and slightly salvage versus amputation. Unfortunately patient has undergone considerable conservative treatment and salvage attempts. While this is not grossly infected I do have concern with the persistent recurrence to the area. Patient is already undergone IV antibiotics. Patient ultimately wanted to move forward with amputation. Discussed case with admitting hospitalist. Upon admission order CBC BMP ESR CRP blood cultures Patient is wanting to move forward with elective hallux semi amputation. Did discuss risk for more proximal amputation. Patient understands this. Podiatry will follow patient while in house. Addendum: Patient was unable to be admitted due to high in-house census. We will attempt to keep patient on oral antibiotics given stability of ulcer and osteomyelitis and do an outpatient amputation. Preop and PAT request placed. Verbalized everything with patient. This note was partially created using voice recognition software and is inherently subject to errors including those of syntax and "sound-alike" substitutions which may escape proofreading. In such instances, original meaning may be extrapolated by contextual derivation. FATMATA Arguelles DPM Podiatric Foot & Ankle Surgery documented in this encounter [facility] 04-15-2025 History of Present illness Narrative Images from the original note were not included. Established Patient Visit FATMATA Arguelles DPM Patient Name: Joel Falk. . Date of : 1970, 54 y.o.. Gender: male. Subjective: Patient is a pleasant 54-year-old male status post curettage of left hallux distal phalanx with implantation of antibiotic beads (date of surgery 01/02/2025). Patient relates that he has been quite active and only recently he patient presents today with concern of the toe that there was something stuck in the skin. He was unable to put weight on it for a couple days this was as of . He came out and now he has no pain and there is no ulceration at all. Patient denies any current fever, chills, nausea, vomiting, chest pain calf pain or shortness of breath. Patient has no other pedal complaints at this time. Physical Examination: There were no vitals taken for this visit. General Appearance: Alert, cooperative, no distress, appears stated age. Podiatric Exam Vascular: DP and PT pulses are easily palpable, 2/4. Capillary refill time is brisk to distal digits, less than 3 seconds. Skin temperature is warm to warm from proximal tibial tuberosity to distal digits. No dependent rubor. Neurological: Epicritic and protopathic sensation intact to bilateral lower extremities. Dermatologic: Toe looks substantially improved. No open wound noted. Completely healed.. Completely stable and hard. Little bit of rubor still present to the toe. Musculoskeletal: Bilateral foot and ankle overall rectus alignment. Muscle strength testing 5 out of 5 to all tested muscle groups. Ankle range of motion limited with knee extended and slightly creased knee flex. No tenderness to the left great toe in its entirety mostly to the distal phalanx, improved. Diagnoses: No diagnosis found. Imagin views of the left foot reviewed today AP MO and lateral. Persistent visualization of surgical intervention to the distal phalanx which does not appear to have any increased erosion. No evidence of subcutaneous emphysema. No interval change. Stable x-ray. MRI reviewed in detail today. Impression below. XR MR Clear Result Date: 12/26/2024 EXAMINATION: XR FOR MRI CLEARANCE HISTORY: ORDERING SYSTEM PROVIDED HISTORY: Hx of metal removed from eye, TECHNOLOGIST PROVIDED HISTORY: Illness/Other Reason for exam: Hx of metal removed from eye Cancer History: unknown Surgery, RadiationHistory: unknown Encounter Type: Initial Additional signs and symptoms: . ORDERING SYSTEM PROVIDED DIAGNOSIS CODES: Z98.890 Hx of metal removed from eye COMPARISON: None. TECHNIQUE: Two views of the orbits and facial bones. FINDINGS: No radiopaque foreign bodies overlying the orbits. Normal aeration and development of the paranasal sinuses. No radiopaque foreign bodies overlying the orbits. /[employer] Workstation ID: [id number] MR Foot Left Without Contrast Result Date: 12/26/2024 EXAMINATION: MR FOOT LEFT WITHOUT CONTRAST 12/26/2024. HISTORY: ORDERING SYSTEM PROVIDED HISTORY: possible osteomyelitis left hallux, TECHNOLOGIST PROVIDED HISTORY: Illness/Other Reason for exam: left great toe wound/bruising/redness following dropping can of soup on it 3 months ago: Encounter Type: Unknown Additional signs and symptoms: n ORDERING SYSTEM PROVIDED DIAGNOSIS CODES: M86.9 Osteomyelitis of left foot, unspecified type ([facility]) M79.675 Chronic toe pain, left foot G89.29 Chronic toe pain, left foot L02.612 Abscess of left great toe L53.9 Dependent rubor I73.9 Peripheral vascular disease COMPARISON: Radiographs left foot 12/18/2024. TECHNIQUE: Multiplanar, multisequence MRI images of the left midfoot/forefoot were obtained without contrast. CONTRAST: None. FINDINGS: The bone marrow signal intensity is age-appropriate. The Lisfranc ligament complex appears intact. There is diffuse thickening and increased STIR signal intensity involving the toenail of the 1st toe. There is erosive change of the adjacent dorsal cortex of the 1st distal phalanx in this region and there is an ovoid focus of increased STIR signal intensity within the base and shaft of the 1st distal phalanx in this region. This measures 4 x 4 x 10 mm in craniocaudal, transverse and AP dimension respectively. There is abnormal decreased T1 and increased STIR signal intensity involving the majority of the bone marrow of the 1st distal phalanx and there is also erosive change of the tuft of the 1st distal phalanx. There is mild soft tissue edema of the distal aspect of the 1st toe. The bone marrow signal intensity of the remainder of the midfoot/forefoot appears within normal limits. There are mild degenerative changes of the 1st metatarsal-sesamoid joints. There are MRI findings compatible with a probable infection of the 1st toenail with erosive change of the adjacent dorsal cortex of the 1st distal phalanx and an intraosseous abscess of the 1st distal phalanx with surrounding osteomyelitis of the majority of the 1st distal phalanx. Workstation ID: [id number] Xr Ortho Foot Left Result Date: 12/19/2024 3 views of the left foot reviewed today AP MO and lateral. No acute fracture or dislocation of note. No evidence of cortical erosion or subcutaneous emphysema. Stable x-ray Assessment/Plan: Patient was seen and evaluated. Discussed all clinical findings Educated patient on overall status of the toe. Patient was consented and area was investigated. No open wound no maceration no foreign body. Patient to follow-up with me as needed This note was partially created using voice recognition software and is inherently subject to errors including those of syntax and "sound-alike" substitutions which may escape proofreading. In such instances, original meaning may be extrapolated by contextual derivation. FATMATA Arguelles DPM Podiatric Foot & Ankle Surgery documented in this encounter [facility] 04-15-2025 Note Established Patient Visit FATMATA Arguelles DPM Patient Name: Joel Falk. . Date of : 1970, 54 y.o.. Gender: male. Subjective: Patient is a pleasant 54-year-old male status post curettage of left hallux distal phalanx with implantation of antibiotic beads (date of surgery 01/02/2025). Patient relates that he has been quite active and only recently he patient presents today with concern of the toe that there was something stuck in the skin. He was unable to put weight on it for a couple days this was as of . He came out and now he has no pain and there is no ulceration at all. Patient denies any current fever, chills, nausea, vomiting, chest pain calf pain or shortness of breath. Patient has no other pedal complaints at this time. Physical Examination: There were no vitals taken for this visit. General Appearance: Alert, cooperative, no distress, appears stated age. Podiatric Exam Vascular: DP and PT pulses are easily palpable, 2/4. Capillary refill time is brisk to distal digits, less than 3 seconds. Skin temperature is warm to warm from proximal tibial tuberosity to distal digits. No dependent rubor. Neurological: Epicritic and protopathic sensation intact to bilateral lower extremities. Dermatologic: Toe looks substantially improved. No open wound noted. Completely healed.. Completely stable and hard. Little bit of rubor still present to the toe. Musculoskeletal: Bilateral foot and ankle overall rectus alignment. Muscle strength testing 5 out of 5 to all tested muscle groups. Ankle range of motion limited with knee extended and slightly creased knee flex. No tenderness to the left great toe in its entirety mostly to the distal phalanx, improved. Diagnoses: No diagnosis found. Imagin views of the left foot reviewed today AP MO and lateral. Persistent visualization of surgical intervention to the distal phalanx which does not appear to have any increased erosion. No evidence of subcutaneous emphysema. No interval change. Stable x-ray. MRI reviewed in detail today. Impression below. XR MR Clear Result Date: 12/26/2024 EXAMINATION: XR FOR MRI CLEARANCE HISTORY: ORDERING SYSTEM PROVIDED HISTORY: Hx of metal removed from eye, TECHNOLOGIST PROVIDED HISTORY: Illness/Other Reason for exam: Hx of metal removed from eye Cancer History: unknown Surgery, RadiationHistory: unknown Encounter Type: Initial Additional signs and symptoms: . ORDERING SYSTEM PROVIDED DIAGNOSIS CODES: Z98.890 Hx of metal removed from eye COMPARISON: None. TECHNIQUE: Two views of the orbits and facial bones. FINDINGS: No radiopaque foreign bodies overlying the orbits. Normal aeration and development of the paranasal sinuses. No radiopaque foreign bodies overlying the orbits. ST/ Workstation ID: [id number] MR Foot Left Without Contrast Result Date: 12/26/2024 EXAMINATION: MR FOOT LEFT WITHOUT CONTRAST 12/26/2024. HISTORY: ORDERING SYSTEM PROVIDED HISTORY: possible osteomyelitis left hallux, TECHNOLOGIST PROVIDED HISTORY: Illness/Other Reason for exam: left great toe wound/bruising/redness following dropping can of soup on it 3 months ago: Encounter Type: Unknown Additional signs and symptoms: n ORDERING SYSTEM PROVIDED DIAGNOSIS CODES: M86.9 Osteomyelitis of left foot, unspecified type ([facility]) M79.675 Chronic toe pain, left foot G89.29 Chronic toe pain, left foot L02.612 Abscess of left great toe L53.9 Dependent rubor I73.9 Peripheral vascular disease COMPARISON: Radiographs left foot 12/18/2024. TECHNIQUE: Multiplanar, multisequence MRI images of the left midfoot/forefoot were obtained without contrast. CONTRAST: None. FINDINGS: The bone marrow signal intensity is age-appropriate. The Lisfranc ligament complex appears intact. There is diffuse thickening and increased STIR signal intensity involving the toenail of the 1st toe. There is erosive change of the adjacent dorsal cortex of the 1st distal phalanx in this region and there is an ovoid focus of increased STIR signal intensity within the base and shaft of the 1st distal phalanx in this region. This measures 4 x 4 x 10 mm in craniocaudal, transverse and AP dimension respectively. There is abnormal decreased T1 and increased STIR signal intensity involving the majority of the bone marrow of the 1st distal phalanx and there is also erosive change of the tuft of the 1st distal phalanx. There is mild soft tissue edema of the distal aspect of the 1st toe. The bone marrow signal intensity of the remainder of the midfoot/forefoot appears within normal limits. There are mild degenerative changes of the 1st metatarsal-sesamoid joints. There are MRI findings compatible with a probable infection of the 1st toenail with erosive change of the adjacent dorsal cortex of the 1st distal phalanx and an intraosseous abscess of the 1st distal phalanx with surrounding osteomyelitis of the majority of the 1st distal phalanx. (more content not included)... [facility] 04-01-2025 Note Established Patient Visit FATMATA Arguelles DPM Patient Name: Joel Falk. . Date of : 1970, 54 y.o.. Gender: male. Subjective: Patient is a pleasant 54-year-old male status post curettage of left hallux distal phalanx with implantation of antibiotic beads (date of surgery 01/02/2025). Patient relates that he has been quite active and only recently he had a little bit of drainage and was concerned he is here for evaluation. He feels as though it is drying up now. This has been since Sunday. Patient denies any current fever, chills, nausea, vomiting, chest pain calf pain or shortness of breath. Patient has no other pedal complaints at this time. Physical Examination: BP 132/76 (BP Location: Right arm, Patient Position: Sitting, BP Cuff Size: X-large Adult) Pulse 81 Temp 98.2 degrees F (36.8 degrees C) General Appearance: Alert, cooperative, no distress, appears stated age. Podiatric Exam Vascular: DP and PT pulses are easily palpable, 2/4. Capillary refill time is brisk to distal digits, less than 3 seconds. Skin temperature is warm to warm from proximal tibial tuberosity to distal digits. No dependent rubor. Neurological: Epicritic and protopathic sensation intact to bilateral lower extremities. Dermatologic: Toe looks substantially improved. No open wound noted. Dry eschar present. Completely stable and hard. Little bit of rubor still present to the toe. Musculoskeletal: Bilateral foot and ankle overall rectus alignment. Muscle strength testing 5 out of 5 to all tested muscle groups. Ankle range of motion limited with knee extended and slightly creased knee flex. No tenderness to the left great toe in its entirety mostly to the distal phalanx, improved. Diagnoses: 1. Left foot pain XR Foot Left 3+ Views (Standard) 2. Chronic toe pain, left foot 3. Osteomyelitis of left foot, unspecified type ([facility]) 4. Peripheral vascular disease 5. Dependent rubor Imagin views of the left foot reviewed today AP MO and lateral. Persistent visualization of surgical intervention to the distal phalanx which does not appear to have any increased erosion. No evidence of subcutaneous emphysema. No interval change. Stable x-ray. MRI reviewed in detail today. Impression below. XR MR Clear Result Date: 12/26/2024 EXAMINATION: XR FOR MRI CLEARANCE HISTORY: ORDERING SYSTEM PROVIDED HISTORY: Hx of metal removed from eye, TECHNOLOGIST PROVIDED HISTORY: Illness/Other Reason for exam: Hx of metal removed from eye Cancer History: unknown Surgery, RadiationHistory: unknown Encounter Type: Initial Additional signs and symptoms: . ORDERING SYSTEM PROVIDED DIAGNOSIS CODES: Z98.890 Hx of metal removed from eye COMPARISON: None. TECHNIQUE: Two views of the orbits and facial bones. FINDINGS: No radiopaque foreign bodies overlying the orbits. Normal aeration and development of the paranasal sinuses. No radiopaque foreign bodies overlying the orbits. / Workstation ID: [id number] MR Foot Left Without Contrast Result Date: 12/26/2024 EXAMINATION: MR FOOT LEFT WITHOUT CONTRAST 12/26/2024. HISTORY: ORDERING SYSTEM PROVIDED HISTORY: possible osteomyelitis left hallux, TECHNOLOGIST PROVIDED HISTORY: Illness/Other Reason for exam: left great toe wound/bruising/redness following dropping can of soup on it 3 months ago: Encounter Type: Unknown Additional signs and symptoms: n ORDERING SYSTEM PROVIDED DIAGNOSIS CODES: M86.9 Osteomyelitis of left foot, unspecified type ([facility]) M79.675 Chronic toe pain, left foot G89.29 Chronic toe pain, left foot L02.612 Abscess of left great toe L53.9 Dependent rubor I73.9 Peripheral vascular disease COMPARISON: Radiographs left foot 12/18/2024. TECHNIQUE: Multiplanar, multisequence MRI images of the left midfoot/forefoot were obtained without contrast. CONTRAST: None. FINDINGS: The bone marrow signal intensity is age-appropriate. The Lisfranc ligament complex appears intact. There is diffuse thickening and increased STIR signal intensity involving the toenail of the 1st toe. There is erosive change of the adjacent dorsal cortex of the 1st distal phalanx in this region and there is an ovoid focus of increased STIR signal intensity within the base and shaft of the 1st distal phalanx in this region. This measures 4 x 4 x 10 mm in craniocaudal, transverse and AP dimension respectively. There is abnormal decreased T1 and increased STIR signal intensity involving the majority of the bone marrow of the 1st distal phalanx and there is also erosive change of the tuft of the 1st distal phalanx. There is mild soft tissue edema of the distal aspect of the 1st toe. The bone marrow signal intensity of the remainder of the midfoot/forefoot appears within normal limits. There are mild degenerative changes of the 1st metatarsal-sesamoid joints. There are MRI findings compatible with a probable infection of the 1st toenail with erosive change of the eliot (more content not included)... [facility] 04-01-2025 History of Present illness Narrative Images from the original note were not included. Established Patient Visit FATMATA Arguelles DPM Patient Name: Joel Falk. . Date of : 1970, 54 y.o.. Gender: male. Subjective: Patient is a pleasant 54-year-old male status post curettage of left hallux distal phalanx with implantation of antibiotic beads (date of surgery 01/02/2025). Patient relates that he has been quite active and only recently he had a little bit of drainage and was concerned he is here for evaluation. He feels as though it is drying up now. This has been since Sunday. Patient denies any current fever, chills, nausea, vomiting, chest pain calf pain or shortness of breath. Patient has no other pedal complaints at this time. Physical Examination: BP 132/76 (BP Location: Right arm, Patient Position: Sitting, BP Cuff Size: X-large Adult) Pulse 81 Temp 98.2 F (36.8 C) General Appearance: Alert, cooperative, no distress, appears stated age. Podiatric Exam Vascular: DP and PT pulses are easily palpable, 2/4. Capillary refill time is brisk to distal digits, less than 3 seconds. Skin temperature is warm to warm from proximal tibial tuberosity to distal digits. No dependent rubor. Neurological: Epicritic and protopathic sensation intact to bilateral lower extremities. Dermatologic: Toe looks substantially improved. No open wound noted. Dry eschar present. Completely stable and hard. Little bit of rubor still present to the toe. Musculoskeletal: Bilateral foot and ankle overall rectus alignment. Muscle strength testing 5 out of 5 to all tested muscle groups. Ankle range of motion limited with knee extended and slightly creased knee flex. No tenderness to the left great toe in its entirety mostly to the distal phalanx, improved. Diagnoses: 1. Left foot pain XR Foot Left 3+ Views (Standard) 2. Chronic toe pain, left foot 3. Osteomyelitis of left foot, unspecified type ([facility]) 4. Peripheral vascular disease 5. Dependent rubor Imagin views of the left foot reviewed today AP MO and lateral. Persistent visualization of surgical intervention to the distal phalanx which does not appear to have any increased erosion. No evidence of subcutaneous emphysema. No interval change. Stable x-ray. MRI reviewed in detail today. Impression below. XR MR Clear Result Date: 12/26/2024 EXAMINATION: XR FOR MRI CLEARANCE HISTORY: ORDERING SYSTEM PROVIDED HISTORY: Hx of metal removed from eye, TECHNOLOGIST PROVIDED HISTORY: Illness/Other Reason for exam: Hx of metal removed from eye Cancer History: unknown Surgery, RadiationHistory: unknown Encounter Type: Initial Additional signs and symptoms: . ORDERING SYSTEM PROVIDED DIAGNOSIS CODES: Z98.890 Hx of metal removed from eye COMPARISON: None. TECHNIQUE: Two views of the orbits and facial bones. FINDINGS: No radiopaque foreign bodies overlying the orbits. Normal aeration and development of the paranasal sinuses. No radiopaque foreign bodies overlying the orbits. [employer] Workstation ID: [id number] MR Foot Left Without Contrast Result Date: 12/26/2024 EXAMINATION: MR FOOT LEFT WITHOUT CONTRAST 12/26/2024. HISTORY: ORDERING SYSTEM PROVIDED HISTORY: possible osteomyelitis left hallux, TECHNOLOGIST PROVIDED HISTORY: Illness/Other Reason for exam: left great toe wound/bruising/redness following dropping can of soup on it 3 months ago: Encounter Type: Unknown Additional signs and symptoms: n ORDERING SYSTEM PROVIDED DIAGNOSIS CODES: M86.9 Osteomyelitis of left foot, unspecified type (HCC) M79.675 Chronic toe pain, left foot G89.29 Chronic toe pain, left foot L02.612 Abscess of left great toe L53.9 Dependent rubor I73.9 Peripheral vascular disease COMPARISON: Radiographs left foot 12/18/2024. TECHNIQUE: Multiplanar, multisequence MRI images of the left midfoot/forefoot were obtained without contrast. CONTRAST: None. FINDINGS: The bone marrow signal intensity is age-appropriate. The Lisfranc ligament complex appears intact. There is diffuse thickening and increased STIR signal intensity involving the toenail of the 1st toe. There is erosive change of the adjacent dorsal cortex of the 1st distal phalanx in this region and there is an ovoid focus of increased STIR signal intensity within the base and shaft of the 1st distal phalanx in this region. This measures 4 x 4 x 10 mm in craniocaudal, transverse and AP dimension respectively. There is abnormal decreased T1 and increased STIR signal intensity involving the majority of the bone marrow of the 1st distal phalanx and there is also erosive change of the tuft of the 1st distal phalanx. There is mild soft tissue edema of the distal aspect of the 1st toe. The bone marrow signal intensity of the remainder of the midfoot/forefoot appears within normal limits. There are mild degenerative changes of the 1st metatarsal-sesamoid joints. There are MRI findings compatible with a probable infection of the 1st toenail with erosive change of the adjacent dorsal cortex of the 1st distal phalanx and an intraosseous abscess of the 1st distal phalanx with surrounding osteomyelitis of the majority of the 1st distal phalanx. Workstation ID: [id number] Xr Ortho Foot Left Result Date: 12/19/2024 3 views of the left foot reviewed today AP MO and lateral. No acute fracture or dislocation of note. No evidence of cortical erosion or subcutaneous emphysema. Stable x-ray Assessment/Plan: Patient was seen and evaluated. Discussed all clinical findings Educated patient on overall status of the toe. Patient was consented and area was investigated. Patient had a little bit of maceration where his eschar was this was removed to reveal essentially completely healed and epithelialized area underneath. Albeit it is quite deep. Concern for this retaining debris. Educated patient on care for this. Bacitracin and a Band-Aid was applied. Patient to follow-up in 2 weeks for reevaluation This note was partially created using voice recognition software and is inherently subject to errors including those of syntax and "sound-alike" substitutions which may escape proofreading. In such instances, original meaning may be extrapolated by contextual derivation. FATMATA Arguelles DPM Podiatric Foot & Ankle Surgery documented in this encounter [facility] 03-11-2025 Note Established Patient Visit FATMATA Arguelles DPM Patient Name: Joel Falk. . Date of : 1970, 54 y.o.. Gender: male. Subjective: Patient is a pleasant 54-year-old male status post curettage of left hallux distal phalanx with implantation of antibiotic beads (date of surgery 01/02/2025). Patient overall has been doing extremely well. Has no pain. Wound has remained closed and there is been no drainage.. Patient denies any current fever, chills, nausea, vomiting, chest pain calf pain or shortness of breath. Patient has no other pedal complaints at this time. Physical Examination: BP (!) 152/89 (BP Location: Right arm, Patient Position: Sitting, BP Cuff Size: X-large Adult) Pulse 86 Temp 98.6 degrees F (37 degrees C) (Infrared) SpO2 91% General Appearance: Alert, cooperative, no distress, appears stated age. Podiatric Exam Vascular: DP and PT pulses are easily palpable, 2/4. Capillary refill time is brisk to distal digits, less than 3 seconds. Skin temperature is warm to warm from proximal tibial tuberosity to distal digits. No dependent rubor. Neurological: Epicritic and protopathic sensation intact to bilateral lower extremities. Dermatologic: Toe looks substantially improved. No open wound noted. Dry eschar present. Completely stable and hard. Little bit of rubor still present to the toe. Musculoskeletal: Bilateral foot and ankle overall rectus alignment. Muscle strength testing 5 out of 5 to all tested muscle groups. Ankle range of motion limited with knee extended and slightly creased knee flex. No tenderness to the left great toe in its entirety mostly to the distal phalanx, improved. Diagnoses: No diagnosis found. Imagin views of the left foot reviewed today AP MO and lateral. Persistent visualization of surgical intervention to the distal phalanx which does not appear to have any increased erosion. No evidence of subcutaneous emphysema. Stable x-ray. MRI reviewed in detail today. Impression below. XR MR Clear Result Date: 12/26/2024 EXAMINATION: XR FOR MRI CLEARANCE HISTORY: ORDERING SYSTEM PROVIDED HISTORY: Hx of metal removed from eye, TECHNOLOGIST PROVIDED HISTORY: Illness/Other Reason for exam: Hx of metal removed from eye Cancer History: unknown Surgery, RadiationHistory: unknown Encounter Type: Initial Additional signs and symptoms: . ORDERING SYSTEM PROVIDED DIAGNOSIS CODES: Z98.890 Hx of metal removed from eye COMPARISON: None. TECHNIQUE: Two views of the orbits and facial bones. FINDINGS: No radiopaque foreign bodies overlying the orbits. Normal aeration and development of the paranasal sinuses. No radiopaque foreign bodies overlying the orbits. ST/ Workstation ID: [id number] MR Foot Left Without Contrast Result Date: 12/26/2024 EXAMINATION: MR FOOT LEFT WITHOUT CONTRAST 12/26/2024. HISTORY: ORDERING SYSTEM PROVIDED HISTORY: possible osteomyelitis left hallux, TECHNOLOGIST PROVIDED HISTORY: Illness/Other Reason for exam: left great toe wound/bruising/redness following dropping can of soup on it 3 months ago: Encounter Type: Unknown Additional signs and symptoms: n ORDERING SYSTEM PROVIDED DIAGNOSIS CODES: M86.9 Osteomyelitis of left foot, unspecified type ([facility]) M79.675 Chronic toe pain, left foot G89.29 Chronic toe pain, left foot L02.612 Abscess of left great toe L53.9 Dependent rubor I73.9 Peripheral vascular disease COMPARISON: Radiographs left foot 12/18/2024. TECHNIQUE: Multiplanar, multisequence MRI images of the left midfoot/forefoot were obtained without contrast. CONTRAST: None. FINDINGS: The bone marrow signal intensity is age-appropriate. The Lisfranc ligament complex appears intact. There is diffuse thickening and increased STIR signal intensity involving the toenail of the 1st toe. There is erosive change of the adjacent dorsal cortex of the 1st distal phalanx in this region and there is an ovoid focus of increased STIR signal intensity within the base and shaft of the 1st distal phalanx in this region. This measures 4 x 4 x 10 mm in craniocaudal, transverse and AP dimension respectively. There is abnormal decreased T1 and increased STIR signal intensity involving the majority of the bone marrow of the 1st distal phalanx and there is also erosive change of the tuft of the 1st distal phalanx. There is mild soft tissue edema of the distal aspect of the 1st toe. The bone marrow signal intensity of the remainder of the midfoot/forefoot appears within normal limits. There are mild degenerative changes of the 1st metatarsal-sesamoid joints. There are MRI findings compatible with a probable infection of the 1st toenail with erosive change of the adjacent dorsal cortex of the 1st distal phalanx and an intraosseous abscess of the 1st distal phalanx with surrounding osteomyelitis of the majority of the 1st distal phalanx. Workstation ID: [id number] Xr Ortho Foot Left Result Date: 12/19/2024 3 views of the (more content not included)... [facility] 03-11-2025 History of Present illness Narrative Images from the original note were not included. Established Patient Visit FATMATA Arguelles DPM Patient Name: Joel Falk. . Date of : 1970, 54 y.o.. Gender: male. Subjective: Patient is a pleasant 54-year-old male status post curettage of left hallux distal phalanx with implantation of antibiotic beads (date of surgery 01/02/2025). Patient overall has been doing extremely well. Has no pain. Wound has remained closed and there is been no drainage.. Patient denies any current fever, chills, nausea, vomiting, chest pain calf pain or shortness of breath. Patient has no other pedal complaints at this time. Physical Examination: BP (!) 152/89 (BP Location: Right arm, Patient Position: Sitting, BP Cuff Size: X-large Adult) Pulse 86 Temp 98.6 F (37 C) (Infrared) SpO2 91% General Appearance: Alert, cooperative, no distress, appears stated age. Podiatric Exam Vascular: DP and PT pulses are easily palpable, 2/4. Capillary refill time is brisk to distal digits, less than 3 seconds. Skin temperature is warm to warm from proximal tibial tuberosity to distal digits. No dependent rubor. Neurological: Epicritic and protopathic sensation intact to bilateral lower extremities. Dermatologic: Toe looks substantially improved. No open wound noted. Dry eschar present. Completely stable and hard. Little bit of rubor still present to the toe. Musculoskeletal: Bilateral foot and ankle overall rectus alignment. Muscle strength testing 5 out of 5 to all tested muscle groups. Ankle range of motion limited with knee extended and slightly creased knee flex. No tenderness to the left great toe in its entirety mostly to the distal phalanx, improved. Diagnoses: No diagnosis found. Imagin views of the left foot reviewed today AP MO and lateral. Persistent visualization of surgical intervention to the distal phalanx which does not appear to have any increased erosion. No evidence of subcutaneous emphysema. Stable x-ray. MRI reviewed in detail today. Impression below. XR MR Clear Result Date: 12/26/2024 EXAMINATION: XR FOR MRI CLEARANCE HISTORY: ORDERING SYSTEM PROVIDED HISTORY: Hx of metal removed from eye, TECHNOLOGIST PROVIDED HISTORY: Illness/Other Reason for exam: Hx of metal removed from eye Cancer History: unknown Surgery, RadiationHistory: unknown Encounter Type: Initial Additional signs and symptoms: . ORDERING SYSTEM PROVIDED DIAGNOSIS CODES: Z98.890 Hx of metal removed from eye COMPARISON: None. TECHNIQUE: Two views of the orbits and facial bones. FINDINGS: No radiopaque foreign bodies overlying the orbits. Normal aeration and development of the paranasal sinuses. No radiopaque foreign bodies overlying the orbits. / Workstation ID: [id number] MR Foot Left Without Contrast Result Date: 12/26/2024 EXAMINATION: MR FOOT LEFT WITHOUT CONTRAST 12/26/2024. HISTORY: ORDERING SYSTEM PROVIDED HISTORY: possible osteomyelitis left hallux, TECHNOLOGIST PROVIDED HISTORY: Illness/Other Reason for exam: left great toe wound/bruising/redness following dropping can of soup on it 3 months ago: Encounter Type: Unknown Additional signs and symptoms: n ORDERING SYSTEM PROVIDED DIAGNOSIS CODES: M86.9 Osteomyelitis of left foot, unspecified type ([facility]) M79.675 Chronic toe pain, left foot G89.29 Chronic toe pain, left foot L02.612 Abscess of left great toe L53.9 Dependent rubor I73.9 Peripheral vascular disease COMPARISON: Radiographs left foot 12/18/2024. TECHNIQUE: Multiplanar, multisequence MRI images of the left midfoot/forefoot were obtained without contrast. CONTRAST: None. FINDINGS: The bone marrow signal intensity is age-appropriate. The Lisfranc ligament complex appears intact. There is diffuse thickening and increased STIR signal intensity involving the toenail of the 1st toe. There is erosive change of the adjacent dorsal cortex of the 1st distal phalanx in this region and there is an ovoid focus of increased STIR signal intensity within the base and shaft of the 1st distal phalanx in this region. This measures 4 x 4 x 10 mm in craniocaudal, transverse and AP dimension respectively. There is abnormal decreased T1 and increased STIR signal intensity involving the majority of the bone marrow of the 1st distal phalanx and there is also erosive change of the tuft of the 1st distal phalanx. There is mild soft tissue edema of the distal aspect of the 1st toe. The bone marrow signal intensity of the remainder of the midfoot/forefoot appears within normal limits. There are mild degenerative changes of the 1st metatarsal-sesamoid joints. There are MRI findings compatible with a probable infection of the 1st toenail with erosive change of the adjacent dorsal cortex of the 1st distal phalanx and an intraosseous abscess of the 1st distal phalanx with surrounding osteomyelitis of the majority of the 1st distal phalanx. Workstation ID: [id number] Xr Ortho Foot Left Result Date: 12/19/2024 3 views of the left foot reviewed today AP MO and lateral. No acute fracture or dislocation of note. No evidence of cortical erosion or subcutaneous emphysema. Stable x-ray Assessment/Plan: Patient was seen and evaluated. Discussed all clinical findings Educated patient on overall status of the toe. Toe remains completely healed. No pain. Patient to follow-up in 1 year for diabetic foot check. This note was partially created using voice recognition software and is inherently subject to errors including those of syntax and "sound-alike" substitutions which may escape proofreading. In such instances, original meaning may be extrapolated by contextual derivation. FATMATA Arguelles DPM Podiatric Foot & Ankle Surgery documented in this encounter [facility] 03-09-2025 Instructions Windy Schwartz, [facility] - 03/09/2025 1:46 PM EDT Humalog 9 units with meals Humalog with Sliding scale insulin with meals and at bedtime: BG<150=0 150-200=+1 U 201-250=+2 U 251-300= +3 U 301-350=+4 U >350=+5 U Lantus 25 units nightly Call the office with Blood sugar readings in 1 week for dose adjustments to your insulin, if needed. The goal hemoglobin A1C is 7%-8%, closer to 7%, which is an average BG of 150 Please call the office sooner for episodes of hypoglycemia, BG < 70. Please remember to check your blood sugar 4x per day. Bring your blood sugar meter with you to appointments for review/download. It is important for us to prove you are checking your blood sugar, in order for us to renew/prescribe testing supplies. *Get updated labs done prior to your follow up appointment with us. If you do not get updated labs done, that are requested, please consider rescheduling your appointment until those are done * If you do not have labs or blood sugar readings for review at your visit please consider rescheduling your appointment as it is difficult for us to make changes to your diabetes regimen without sufficient information. Become established with PCP. documented in this encounter [facility] 03-09-2025 History of Present illness Narrative Images from the original note were not included. Reason for visit/chief complaint: Type 2 diabetes Date: 03/09/2025 Referring Provider: No ref. provider found Primary Care Provider: Yesi, Physician HPI: Mr. Falk is a 54 y.o. male with hx of osteomyelitis who was initially seen by our practice during hospital admission 01/01/2025. He presents today for hospital follow-up of his type 2 diabetes. His most recent hemoglobin A1c is 11.5%. He is currently utilizing a Dexcom CGM which was downloaded and reviewed today. DM type: T2DM Duration/since: 12/2024 At time of diagnosis, patient was overweight/obese Hx of autoimmune diseases: No Family hx of DM: No Diagnostic continuous glucose monitoring interpretation: Trends/interpretation of data: BG within target range majority of the time. Occasional hypoglycemia seen on CGM however when compared to glucometer tend to be false lows. 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 Glucose checks: -Frequency: 4 times daily; Dexcom -Trends: 72-165 -Hypoglycemia: yes, 70-80 with lunch and dinner (false low on dexcom) glucometer read 101. , awareness: no. Lab Results Component Value Date HGBA1C 11.5 (H) 01/02/2025 Mr. Falk endorses No increased thirst, polyuria, blurry vision, or weight loss. Complications/comorbidities: -Retinopathy: no, last dilated eye exam: few years--eye exam coming up. -Nephropathy: no Lab Results Component Value Date EGFR 86 01/29/2025 EGFR 81 01/22/2025 EGFR 91 01/15/2025 -Neuropathy: no, does follow up with podiatry, no feet ulcers--Dr. John; Surgery 01/02/25; Following closely. -Prior CV events: no No results found for: "LDLCALC" -Smoking status: current --1 PPD smoker Diabetes medications tried before/other possible contraindications for DM medications: --none Patient has personal/family hx of medullary thyroid cancer/MEN2 syndrome( Aunt--not sure if thyroid cancer had thyroidectomy). No renal impairment, alcoholism, CHF, decompensated liver disease, persistent nausea/vomiting, hx of pancreatitis, GB/biliary disease, recurrent UTI/genital fungal infections, postural dizziness, PVD, or osteoporosis Review of Systems: as per HPI Medical History: Past Medical History: Diagnosis Date Diabetes mellitus (HCC) Type 2 Surgical History: Past Surgical History: Procedure Laterality Date ACL REPAIR Right 2009 INCISION AND DRAINAGE FOOT AND ANKLE Left 01/02/2025 Procedure: INCISION AND DRAINAGE Left Great Toe with bone bx; Surgeon: FATMATA Arguelles, ANASTACIO; Location: Main OR; Service: Podiatry; Laterality: Left; Family History: History reviewed. No pertinent family history. Social History: Social History[1] Allergies: Allergies[2] Current Medications: Current Medications[3] Physical Exam: Vitals: BP (!) 152/96 (BP Location: Right arm, Patient Position: Sitting) Pulse 84 Wt 116.4 kg (256 lb 9.6 oz) BMI 36.82 kg/m , Body mass index is 36.82 kg/m ., Wt Readings from Last 3 Encounters: 05/05/25 116.4 kg (256 lb 9.6 oz) 01/05/25 115.7 kg (255 lb) 01/01/25 116.4 kg (256 lb 9.9 oz) General/Constitutional: well-developed and in no distress. Head: atrautmatic, no facial lesions observed Eyes: no lid retraction (stare), no proptosis Neck: supple, normal range of motion. no thyromegaly present Cardiovascular: normal rate, regular rhythm, normal heart sounds and intact distal pulses, no edema. Pulmonary/Chest: effort normal and breath sounds normal, no respiratory distress Abdominal: soft, no tenderness Musculoskeletal: nomal range of motion, normal muscle mass and strength Neurological: alert and oriented, no focal deficits, no tremors, DTRs normal, Skin: warm and moist, no rash noted, no acanthosis nigricans, no lipohypertrophy/lipodystrophy, no ulcers or lesions on the feet and nails are intact Psychiatric: appropriate affect Lab/Imaging Data: Lab Results Component Value Date WBC 7.39 01/29/2025 HGB 16.3 01/29/2025 HCT 49.0 01/29/2025 MCV 93.2 01/29/2025 PLT 198 01/29/2025 Lab Results Component Value Date GLUCOSE 78 01/29/2025 NA 136 01/29/2025 K 4.1 01/29/2025 CL 101 01/29/2025 BUN 13 01/29/2025 CREATININE 1.04 01/29/2025 No results found for: "ALT", "AST", "GGT", "ALKPHOS", BILITOT No results found for: "TSH", "G3HNKDB", "THYROIDAB" Lab Results Component Value Date CALCIUM 9.4 01/29/2025 Lab Results Component Value Date HGBA1C 11.5 (H) 01/02/2025 No results found for: "LDLCALC", "CHOL", "HDL", "TRIG", "CHOLHDL" No results found for: "MICALBCREAT", "[id number]" No results found for: "CPEPTIDE" Assessment and plan: Mr. Falk is a 54 y.o. male with T2DM. HbA1c goal 11.5% At goal? no less than 7% Lab Results Component Value Date HGBA1C 11.5 (H) 01/02/2025 Assessment of glycemic status Most recent hemoglobin A1c greater than goal. However GMI on recent CGM download 6.2% Recommended testing frequency Continue 4 times daily blood glucose checks with CGM Changes recommended None Retinopathy Due for dilated exam yes Now Nephropathy Next microalb due Next Cr/GFR due CHERELLE inh/ARB indicated? no Prior to follow-up Prior to follow-up no Neuropathy Due for foot exam no At follow-up CV risk/Lipids ACC 10 yr ASCVD risk Due for repeat lipid panel Statin indicated? Prior to follow-up Thyroid functions/other tests No results found for: "TSH" Prior to follow-up Vaccines If not up to date, recommend annual flu vaccine, COVID vaccine, pneumococcal vaccine, HBV vaccine if (specially if <60 years), shingles vaccine >50 years, tetanus vaccine every 10 years, and HPV vaccine (<26 years). Return in about 3 months (around 06/09/2025). No changes were made to the patient's current diabetic medication management today. His blood glucose is extremely improved from hospitalization. He is applauded at his efforts to get his diabetes under improved control. He is advised to contact our office should he experience multiple episodes of hypo-/hyperglycemia with any questions/concerns prior to follow-up. We did discuss the possibility of adding on other agents to further assist with his diabetic management and possibly transition off of some insulin however the patient declines at the present time and would like to continue with 4 times daily injections. I am managing Joel Falk for complex chronic condition(s) serving as the focal point for the patient's care for consistency and continuity over time. Time spent reviewing chart, during the encounter, putting orders and coordinating care on the encounter day is 30 minutes. z Electronically signed by CASSIDY Castillo 03/09/2025 [1] Social History Socioeconomic History Marital status: Tobacco Use Smoking status: Every Day Current packs/day: 1.00 Average packs/day: 1 pack/day for 35.3 years (35.3 ttl pk-yrs) Types: Cigarettes Start date: 1989 Smokeless tobacco: Never Vaping Use Vaping status: Never Used Substance and Sexual Activity Alcohol use: Yes Comment: occassional Drug use: Never Social Drivers of Health Food Insecurity: No Food Insecurity (01/01/2025) Hunger Vital Sign Worried About Running Out of Food in the Last Year: Never true Ran Out of Food in the Last Year: Never true Transportation Needs: No Transportation Needs (01/01/2025) PRAPARE - Transportation Lack of Transportation (Medical): No Lack of Transportation (Non-Medical): No Housing Stability: Low Risk (01/01/2025) Housing Stability Vital Sign Unable to Pay for Housing in the Last Year: No Number of Times Moved in the Last Year: 0 Homeless in the Last Year: No [2] Allergies Allergen Reactions Chlorhexidine Dermatitis [3] Current Outpatient Medications Medication Sig Dispense Refill blood-glucose sensor (Dexcom G7 Sensor) Denise 1 each by Miscellaneous route every 10 (ten) days . 3 each 11 alcohol swabs PadM Use as directed to check blood glucose readings 4 times daily. Dx E11.65 . 150 each 11 blood sugar diagnostic strips Use as directed to check blood glucose readings 4 times daily. Dx E11.65 . 150 each 11 insulin glargine (Lantus Solostar U-100 Insulin) 100 unit/mL (3 mL) InPn Inject 25 (twenty five) Units under the skin nightly . 15 mL 6 insulin lispro (HumaLOG KwikPen Insulin) 100 unit/mL InPn Inject 9 (nine) Units under the skin 3 (three) times a day before meals Plus sliding scale.Up to 80 units daily. DX E11.65 . 30 mL 9 lancets Misc Use as directed to check blood glucose 4 times daily. DX . 200 each 11 pen needle, diabetic 32 gauge x 5/32" Ndle Use as directed to check blood glucose readings 4 times daily. Dx E11.65 . 150 each 11 traMADol (ULTRAM) 50 mg tablet Take 1 (one) tablet (50 mg total) by mouth every 6 (six) hours as needed for pain . (Patient not taking: Reported on 03/09/2025 .) 12 tablet 0 No current facility-administered medications for this visit. documented in this encounter [facility] 03-09-2025 Note Reason for visit/chi ef complaint: Type 2 diabetes Date: 03/09/2025 Referring Provider: No ref. provider found Primary Care Provider: Yesi, Physician HPI: Mr. Falk is a 54 y.o. male with hx of osteomyelitis who was initially seen by our practice during hospital admission 01/01/2025. He presents today for hospital follow-up of his type 2 diabetes. His most recent hemoglobin A1c is 11.5%. He is currently utilizing a Dexcom CGM which was downloaded and reviewed today. DM type: T2DM Duration/since: 12/2024 At time of diagnosis, patient was overweight/obese Hx of autoimmune diseases: No Family hx of DM: No Diagnostic continuous glucose monitoring interpretation: Trends/interpretation of data: BG within target range majority of the time. Occasional hypoglycemia seen on CGM however when compared to glucometer tend to be false lows. 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 Glucose checks: -Frequency: 4 times daily; Dexcom -Trends: 72-165 -Hypoglycemia: yes, 70-80 with lunch and dinner (false low on dexcom) glucometer read 101. , awareness: no. Lab Results Component Value Date HGBA1C 11.5 (H) 01/02/2025 Mr. Falk endorses No increased thirst, polyuria, blurry vision, or weight loss. Complications/comorbidities: -Retinopathy: no, last dilated eye exam: few years--eye exam coming up. -Nephropathy: no Lab Results Component Value Date EGFR 86 01/29/2025 EGFR 81 01/22/2025 EGFR 91 01/15/2025 -Neuropathy: no, does follow up with podiatry, no feet ulcers--Dr. John; Surgery 01/02/25; Following closely. -Prior CV events: no No results found for: "LDLCALC" -Smoking status: current --1 PPD smoker Diabetes medications tried before/other possible contraindications for DM medications: --none Patient has personal/family hx of medullary thyroid cancer/MEN2 syndrome( Aunt--not sure if thyroid cancer had thyroidectomy). No renal impairment, alcoholism, CHF, decompensated liver disease, persistent nausea/vomiting, hx of pancreatitis, GB/biliary disease, recurrent UTI/genital fungal infections, postural dizziness, PVD, or osteoporosis Review of Systems: as per HPI Medical History: Past Medical History: Diagnosis Date Diabetes mellitus (HCC) Type 2 Surgical History: Past Surgical History: Procedure Laterality Date ACL REPAIR Right 2009 INCISION AND DRAINAGE FOOT AND ANKLE Left 01/02/2025 Procedure: INCISION AND DRAINAGE Left Great Toe with bone bx; Surgeon: FATMATA Arguelles, ANASTACIO; Location: Main OR; Service: Podiatry; Laterality: Left; Family History: History reviewed. No pertinent family history. Social History: Social History[1] Allergies: Allergies[2] Current Medications: Current Medications[3] Physical Exam: Vitals: BP (!) 152/96 (BP Location: Right arm, Patient Position: Sitting) Pulse 84 Wt 116.4 kg (256 lb 9.6 oz) BMI 36.82 kg/m , Body mass index is 36.82 kg/m ., Wt Readings from Last 3 Encounters: 03/09/25 116.4 kg (256 lb 9.6 oz) 01/05/25 115.7 kg (255 lb) 01/01/25 116.4 kg (256 lb 9.9 oz) General/Constitutional: well-developed and in no distress. Head: atrautmatic, no facial lesions observed Eyes: no lid retraction (stare), no proptosis Neck: supple, normal range of motion. no thyromegaly present Cardiovascular: normal rate, regular rhythm, normal heart sounds and intact distal pulses, no edema. Pulmonary/Chest: effort normal and breath sounds normal, no respiratory distress Abdominal: soft, no tenderness Musculoskeletal: nomal range of motion, normal muscle mass and strength Neurological: alert and oriented, no focal deficits, no tremors, DTRs normal, Skin: warm and moist, no rash noted, no acanthosis nigricans, no lipohypertrophy/lipodystrophy, no ulcers or lesions on the feet and nails are intact Psychiatric: appropriate affect Lab/Imaging Data: Lab Results Component Value Date WBC 7.39 01/29/2025 HGB 16.3 01/29/2025 HCT 49.0 01/29/2025 MCV 93.2 01/29/2025 PLT 198 01/29/2025 Lab Results Component Value Date GLUCOSE 78 01/29/2025 NA 136 01/29/2025 K 4.1 01/29/2025 CL 101 01/29/2025 BUN 13 01/29/2025 CREATININE 1.04 01/29/2025 No results found for: "ALT", "AST", "GGT", "ALKPHOS", BILITOT No results found for: "TSH", "M2PMNXZ", "THYROIDAB" Lab Results Component Value Date CALCIUM 9.4 01/29/2025 Lab Results Component Value Date HGBA1C 11.5 (H) 01/02/2025 No results found for: "LDLCALC", "CHOL", "HDL", "TRIG", "CHOLHDL" No results found for: "MICALBCREAT", "[id number]" No results found for: "CPEPTIDE" Assessment and plan: Mr. Falk (more content not included)... [facility] 02-09-2025 Note Established Patient Visit FATMATA Arguelles DPM Patient Name: Joel Falk. . Date of : 1970, 54 y.o.. Gender: male. Subjective: Patient is a pleasant 53-year-old male status post curettage of left hallux distal phalanx with implantation of antibiotic beads (date of surgery 01/02/2025). Patient overall has been doing very well he has been off of it completely with a knee scooter. Changing dressing often. Patient relates that there has been absolutely no drainage for the past week. No pain. Patient denies any current fever, chills, nausea, vomiting, chest pain calf pain or shortness of breath. Patient has no other pedal complaints at this time. Physical Examination: BP (!) 160/84 (BP Location: Left arm, Patient Position: Sitting, BP Cuff Size: X-large Adult) Pulse 71 Temp 98.2 degrees F (36.8 degrees C) (Infrared) General Appearance: Alert, cooperative, no distress, appears stated age. Podiatric Exam Vascular: DP and PT pulses are easily palpable, 2/4. Capillary refill time is brisk to distal digits, less than 3 seconds. Skin temperature is warm to warm from proximal tibial tuberosity to distal digits. No dependent rubor. Neurological: Epicritic and protopathic sensation intact to bilateral lower extremities. Dermatologic: Toe looks substantially improved. No open wound noted. Dry eschar present. Completely stable and hard. Little bit of rubor still present to the toe. Musculoskeletal: Bilateral foot and ankle overall rectus alignment. Muscle tone testing 5 out of 5 to all tested muscular's. Ankle range of motion limited with knee extended and slightly creased knee flex. No tenderness to the left great toe in its entirety mostly to the distal phalanx, improved. Diagnoses: 1. Skin necrosis (HCC) 2. Osteomyelitis of left foot, unspecified type (HCC) 3. Chronic toe pain, left foot 4. Dependent rubor 5. Peripheral vascular disease Imaging: Not acquired during today's visit. MRI reviewed in detail today. Impression below. XR MR Clear Result Date: 12/26/2024 EXAMINATION: XR FOR MRI CLEARANCE HISTORY: ORDERING SYSTEM PROVIDED HISTORY: Hx of metal removed from eye, TECHNOLOGIST PROVIDED HISTORY: Illness/Other Reason for exam: Hx of metal removed from eye Cancer History: unknown Surgery, RadiationHistory: unknown Encounter Type: Initial Additional signs and symptoms: . ORDERING SYSTEM PROVIDED DIAGNOSIS CODES: Z98.890 Hx of metal removed from eye COMPARISON: None. TECHNIQUE: Two views of the orbits and facial bones. FINDINGS: No radiopaque foreign bodies overlying the orbits. Normal aeration and development of the paranasal sinuses. No radiopaque foreign bodies overlying the orbits. Magin/Fortem Workstation ID: [id number] MR Foot Left Without Contrast Result Date: 12/26/2024 EXAMINATION: MR FOOT LEFT WITHOUT CONTRAST 12/26/2024. HISTORY: ORDERING SYSTEM PROVIDED HISTORY: possible osteomyelitis left hallux, TECHNOLOGIST PROVIDED HISTORY: Illness/Other Reason for exam: left great toe wound/bruising/redness following dropping can of soup on it 3 months ago: Encounter Type: Unknown Additional signs and symptoms: n ORDERING SYSTEM PROVIDED DIAGNOSIS CODES: M86.9 Osteomyelitis of left foot, unspecified type (HCC) M79.675 Chronic toe pain, left foot G89.29 Chronic toe pain, left foot L02.612 Abscess of left great toe L53.9 Dependent rubor I73.9 Peripheral vascular disease COMPARISON: Radiographs left foot 12/18/2024. TECHNIQUE: Multiplanar, multisequence MRI images of the left midfoot/forefoot were obtained without contrast. CONTRAST: None. FINDINGS: The bone marrow signal intensity is age-appropriate. The Lisfranc ligament complex appears intact. There is diffuse thickening and increased STIR signal intensity involving the toenail of the 1st toe. There is erosive change of the adjacent dorsal cortex of the 1st distal phalanx in this region and there is an ovoid focus of increased STIR signal intensity within the base and shaft of the 1st distal phalanx in this region. This measures 4 x 4 x 10 mm in craniocaudal, transverse and AP dimension respectively. There is abnormal decreased T1 and increased STIR signal intensity involving the majority of the bone marrow of the 1st distal phalanx and there is also erosive change of the tuft of the 1st distal phalanx. There is mild soft tissue edema of the distal aspect of the 1st toe. The bone marrow signal intensity of the remainder of the midfoot/forefoot appears within normal limits. There are mild degenerative changes of the 1st metatarsal-sesamoid joints. There are MRI findings compatible with a probable infection of the 1st toenail with erosive change of the adjacent dorsal cortex of the 1st distal phalanx and an intraosseous abscess of the 1st distal phalanx with surrounding osteomyelitis of the majority of the 1st distal phalanx. Workstation ID: [id number] Xr Ortho Foot Left Result Date: 12/19/2024 3 v (more content not included)... [facility] 02-09-2025 History of Present illness Narrative Images from the original note were not included. Established Patient Visit FATMATA Arguelles DPM Patient Name: Joel Falk. . Date of : 1970, 54 y.o.. Gender: male. Subjective: Patient is a pleasant 53-year-old male status post curettage of left hallux distal phalanx with implantation of antibiotic beads (date of surgery 01/02/2025). Patient overall has been doing very well he has been off of it completely with a knee scooter. Changing dressing often. Patient relates that there has been absolutely no drainage for the past week. No pain. Patient denies any current fever, chills, nausea, vomiting, chest pain calf pain or shortness of breath. Patient has no other pedal complaints at this time. Physical Examination: BP (!) 160/84 (BP Location: Left arm, Patient Position: Sitting, BP Cuff Size: X-large Adult) Pulse 71 Temp 98.2 F (36.8 C) (Infrared) General Appearance: Alert, cooperative, no distress, appears stated age. Podiatric Exam Vascular: DP and PT pulses are easily palpable, 2/4. Capillary refill time is brisk to distal digits, less than 3 seconds. Skin temperature is warm to warm from proximal tibial tuberosity to distal digits. No dependent rubor. Neurological: Epicritic and protopathic sensation intact to bilateral lower extremities. Dermatologic: Toe looks substantially improved. No open wound noted. Dry eschar present. Completely stable and hard. Little bit of rubor still present to the toe. Musculoskeletal: Bilateral foot and ankle overall rectus alignment. Muscle tone testing 5 out of 5 to all tested muscular's. Ankle range of motion limited with knee extended and slightly creased knee flex. No tenderness to the left great toe in its entirety mostly to the distal phalanx, improved. Diagnoses: 1. Skin necrosis (HCC) 2. Osteomyelitis of left foot, unspecified type (HCC) 3. Chronic toe pain, left foot 4. Dependent rubor 5. Peripheral vascular disease Imaging: Not acquired during today's visit. MRI reviewed in detail today. Impression below. XR MR Clear Result Date: 12/26/2024 EXAMINATION: XR FOR MRI CLEARANCE HISTORY: ORDERING SYSTEM PROVIDED HISTORY: Hx of metal removed from eye, TECHNOLOGIST PROVIDED HISTORY: Illness/Other Reason for exam: Hx of metal removed from eye Cancer History: unknown Surgery, RadiationHistory: unknown Encounter Type: Initial Additional signs and symptoms: . ORDERING SYSTEM PROVIDED DIAGNOSIS CODES: Z98.890 Hx of metal removed from eye COMPARISON: None. TECHNIQUE: Two views of the orbits and facial bones. FINDINGS: No radiopaque foreign bodies overlying the orbits. Normal aeration and development of the paranasal sinuses. No radiopaque foreign bodies overlying the orbits. ST/anjana Workstation ID: [id number] MR Foot Left Without Contrast Result Date: 12/26/2024 EXAMINATION: MR FOOT LEFT WITHOUT CONTRAST 12/26/2024. HISTORY: ORDERING SYSTEM PROVIDED HISTORY: possible osteomyelitis left hallux, TECHNOLOGIST PROVIDED HISTORY: Illness/Other Reason for exam: left great toe wound/bruising/redness following dropping can of soup on it 3 months ago: Encounter Type: Unknown Additional signs and symptoms: n ORDERING SYSTEM PROVIDED DIAGNOSIS CODES: M86.9 Osteomyelitis of left foot, unspecified type ([facility]) M79.675 Chronic toe pain, left foot G89.29 Chronic toe pain, left foot L02.612 Abscess of left great toe L53.9 Dependent rubor I73.9 Peripheral vascular disease COMPARISON: Radiographs left foot 12/18/2024. TECHNIQUE: Multiplanar, multisequence MRI images of the left midfoot/forefoot were obtained without contrast. CONTRAST: None. FINDINGS: The bone marrow signal intensity is age-appropriate. The Lisfranc ligament complex appears intact. There is diffuse thickening and increased STIR signal intensity involving the toenail of the 1st toe. There is erosive change of the adjacent dorsal cortex of the 1st distal phalanx in this region and there is an ovoid focus of increased STIR signal intensity within the base and shaft of the 1st distal phalanx in this region. This measures 4 x 4 x 10 mm in craniocaudal, transverse and AP dimension respectively. There is abnormal decreased T1 and increased STIR signal intensity involving the majority of the bone marrow of the 1st distal phalanx and there is also erosive change of the tuft of the 1st distal phalanx. There is mild soft tissue edema of the distal aspect of the 1st toe. The bone marrow signal intensity of the remainder of the midfoot/forefoot appears within normal limits. There are mild degenerative changes of the 1st metatarsal-sesamoid joints. There are MRI findings compatible with a probable infection of the 1st toenail with erosive change of the adjacent dorsal cortex of the 1st distal phalanx and an intraosseous abscess of the 1st distal phalanx with surrounding osteomyelitis of the majority of the 1st distal phalanx. Workstation ID: [id number] Xr Ortho Foot Left Result Date: 12/19/2024 3 views of the left foot reviewed today AP MO and lateral. No acute fracture or dislocation of note. No evidence of cortical erosion or subcutaneous emphysema. Stable x-ray Assessment/Plan: Patient was seen and evaluated. Discussed all clinical findings Educated patient on overall status of the toe. Appears to have complete healing. Patient still has remnants of black eschar which we will need to baby. Patient can bathe at wash pat dry no scrubbing no picking. Patient can start ambulating. Patient to check foot often. Patient is also okay to return to work. Patient to follow-up in 1 month for reevaluation. This note was partially created using voice recognition software and is inherently subject to errors including those of syntax and "sound-alike" substitutions which may escape proofreading. In such instances, original meaning may be extrapolated by contextual derivation. FATMATA Arguelles DPM Podiatric Foot & Ankle Surgery documented in this encounter [facility] 02-02-2025 History of Present illness Narrative Pt talking to Dr. Cornell and Dr. Cornell told this nurse that PICC line can be pulled and pt should see me in 2 weeks. documented in this encounter [facility] 01-30-2025 History of Present illness Narrative Prior Authorization for Dexcom G7 Sensors Gonzalez: [id number] Prior authorization complete documented in this encounter [facility] 01-28-2025 History of Present illness Narrative Patient confirms his follow up with Dr. Charles is a tele health visit on Sunday02/02/25. documented in this encounter [facility] 01-26-2025 Note Established Patient Visit FATMATA Arguelles DPM Patient Name: Joel Falk. . Date of : 1970, 54 y.o.. Gender: male. Subjective: Patient is a pleasant 53-year-old male status post curettage of left hallux distal phalanx with implantation of antibiotic beads (date of surgery 01/02/2025). Patient overall has been doing very well he has been off of it completely with a knee scooter. Changing dressing often. Patient relates that his sugars have been doing very well since diagnosis. Relates substantially less drainage and redness. Patient denies any current fever, chills, nausea, vomiting, chest pain calf pain or shortness of breath. Patient has no other pedal complaints at this time. Physical Examination: BP (!) 155/91 (BP Location: Left arm, Patient Position: Sitting, BP Cuff Size: X-large Adult) Pulse 83 SpO2 93% General Appearance: Alert, cooperative, no distress, appears stated age. Podiatric Exam Vascular: DP and PT pulses are easily palpable, 2/4. Capillary refill time is brisk to distal digits, less than 3 seconds. Skin temperature is warm to warm from proximal tibial tuberosity to distal digits. No dependent rubor. Neurological: Epicritic and protopathic sensation intact to bilateral lower extremities. Dermatologic: Vast improvement of toe with what appears to be continued tip necrosis of the apex of the lateral incision. Upon palpation there is seropurulent drainage noted difficult to distinguish from drainage from antibiotic beads, much less. [place] decrease any erythema discharge. No malodor noted. No streaking lymphangitis for Musculoskeletal: Bilateral foot and ankle overall rectus alignment. Muscle tone testing 5 out of 5 to all tested muscular's. Ankle range of motion limited with knee extended and slightly creased knee flex. Tenderness to the left great toe in its entirety mostly to the distal phalanx, improved. Diagnoses: 1. Surgical wound dehiscence, initial encounter 2. Skin necrosis (HCC) 3. Osteomyelitis of left foot, unspecified type (HCC) 4. Chronic toe pain, left foot Imaging: Left AP MO and lateral. Interval visualization of antibiotic beads and ostectomy of the distal phalanx. Most have been resorbed leaving none remaining. No evidence of subcutaneous emphysema. Stable x-ray MRI reviewed in detail today. Impression below. XR MR Clear Result Date: 12/26/2024 EXAMINATION: XR FOR MRI CLEARANCE HISTORY: ORDERING SYSTEM PROVIDED HISTORY: Hx of metal removed from eye, TECHNOLOGIST PROVIDED HISTORY: Illness/Other Reason for exam: Hx of metal removed from eye Cancer History: unknown Surgery, RadiationHistory: unknown Encounter Type: Initial Additional signs and symptoms: . ORDERING SYSTEM PROVIDED DIAGNOSIS CODES: Z98.890 Hx of metal removed from eye COMPARISON: None. TECHNIQUE: Two views of the orbits and facial bones. FINDINGS: No radiopaque foreign bodies overlying the orbits. Normal aeration and development of the paranasal sinuses. No radiopaque foreign bodies overlying the orbits. ST/jw Workstation ID: [id number] MR Foot Left Without Contrast Result Date: 12/26/2024 EXAMINATION: MR FOOT LEFT WITHOUT CONTRAST 12/26/2024. HISTORY: ORDERING SYSTEM PROVIDED HISTORY: possible osteomyelitis left hallux, TECHNOLOGIST PROVIDED HISTORY: Illness/Other Reason for exam: left great toe wound/bruising/redness following dropping can of soup on it 3 months ago: Encounter Type: Unknown Additional signs and symptoms: n ORDERING SYSTEM PROVIDED DIAGNOSIS CODES: M86.9 Osteomyelitis of left foot, unspecified type ([facility]) M79.675 Chronic toe pain, left foot G89.29 Chronic toe pain, left foot L02.612 Abscess of left great toe L53.9 Dependent rubor I73.9 Peripheral vascular disease COMPARISON: Radiographs left foot 12/18/2024. TECHNIQUE: Multiplanar, multisequence MRI images of the left midfoot/forefoot were obtained without contrast. CONTRAST: None. FINDINGS: The bone marrow signal intensity is age-appropriate. The Lisfranc ligament complex appears intact. There is diffuse thickening and increased STIR signal intensity involving the toenail of the 1st toe. There is erosive change of the adjacent dorsal cortex of the 1st distal phalanx in this region and there is an ovoid focus of increased STIR signal intensity within the base and shaft of the 1st distal phalanx in this region. This measures 4 x 4 x 10 mm in craniocaudal, transverse and AP dimension respectively. There is abnormal decreased T1 and increased STIR signal intensity involving the majority of the bone marrow of the 1st distal phalanx and there is also erosive change of the tuft of the 1st distal phalanx. There is mild soft tissue edema of the distal aspect of the 1st toe. The bone marrow signal intensity of the remainder of the midfoot/forefoot appears within normal limits. There are mild degenerative changes of the 1st metatarsal-sesamoid joints. There are MRI finding (more content not included)... [facility] 01-26-2025 History of Present illness Narrative Images from the original note were not included. Established Patient Visit FATMATA Arguelles DPM Patient Name: Joel Falk. . Date of : 1970, 54 y.o.. Gender: male. Subjective: Patient is a pleasant 53-year-old male status post curettage of left hallux distal phalanx with implantation of antibiotic beads (date of surgery 01/02/2025). Patient overall has been doing very well he has been off of it completely with a knee scooter. Changing dressing often. Patient relates that his sugars have been doing very well since diagnosis. Relates substantially less drainage and redness. Patient denies any current fever, chills, nausea, vomiting, chest pain calf pain or shortness of breath. Patient has no other pedal complaints at this time. Physical Examination: BP (!) 155/91 (BP Location: Left arm, Patient Position: Sitting, BP Cuff Size: X-large Adult) Pulse 83 SpO2 93% General Appearance: Alert, cooperative, no distress, appears stated age. Podiatric Exam Vascular: DP and PT pulses are easily palpable, 2/4. Capillary refill time is brisk to distal digits, less than 3 seconds. Skin temperature is warm to warm from proximal tibial tuberosity to distal digits. No dependent rubor. Neurological: Epicritic and protopathic sensation intact to bilateral lower extremities. Dermatologic: Vast improvement of toe with what appears to be continued tip necrosis of the apex of the lateral incision. Upon palpation there is seropurulent drainage noted difficult to distinguish from drainage from antibiotic beads, much less. [place] decrease any erythema discharge. No malodor noted. No streaking lymphangitis for Musculoskeletal: Bilateral foot and ankle overall rectus alignment. Muscle tone testing 5 out of 5 to all tested muscular's. Ankle range of motion limited with knee extended and slightly creased knee flex. Tenderness to the left great toe in its entirety mostly to the distal phalanx, improved. Diagnoses: 1. Surgical wound dehiscence, initial encounter 2. Skin necrosis (HCC) 3. Osteomyelitis of left foot, unspecified type (HCC) 4. Chronic toe pain, left foot Imaging: Left AP MO and lateral. Interval visualization of antibiotic beads and ostectomy of the distal phalanx. Most have been resorbed leaving none remaining. No evidence of subcutaneous emphysema. Stable x-ray MRI reviewed in detail today. Impression below. XR MR Clear Result Date: 12/26/2024 EXAMINATION: XR FOR MRI CLEARANCE HISTORY: ORDERING SYSTEM PROVIDED HISTORY: Hx of metal removed from eye, TECHNOLOGIST PROVIDED HISTORY: Illness/Other Reason for exam: Hx of metal removed from eye Cancer History: unknown Surgery, RadiationHistory: unknown Encounter Type: Initial Additional signs and symptoms: . ORDERING SYSTEM PROVIDED DIAGNOSIS CODES: Z98.890 Hx of metal removed from eye COMPARISON: None. TECHNIQUE: Two views of the orbits and facial bones. FINDINGS: No radiopaque foreign bodies overlying the orbits. Normal aeration and development of the paranasal sinuses. No radiopaque foreign bodies overlying the orbits. / Workstation ID: [id number] MR Foot Left Without Contrast Result Date: 12/26/2024 EXAMINATION: MR FOOT LEFT WITHOUT CONTRAST 12/26/2024. HISTORY: ORDERING SYSTEM PROVIDED HISTORY: possible osteomyelitis left hallux, TECHNOLOGIST PROVIDED HISTORY: Illness/Other Reason for exam: left great toe wound/bruising/redness following dropping can of soup on it 3 months ago: Encounter Type: Unknown Additional signs and symptoms: n ORDERING SYSTEM PROVIDED DIAGNOSIS CODES: M86.9 Osteomyelitis of left foot, unspecified type ([facility]) M79.675 Chronic toe pain, left foot G89.29 Chronic toe pain, left foot L02.612 Abscess of left great toe L53.9 Dependent rubor I73.9 Peripheral vascular disease COMPARISON: Radiographs left foot 12/18/2024. TECHNIQUE: Multiplanar, multisequence MRI images of the left midfoot/forefoot were obtained without contrast. CONTRAST: None. FINDINGS: The bone marrow signal intensity is age-appropriate. The Lisfranc ligament complex appears intact. There is diffuse thickening and increased STIR signal intensity involving the toenail of the 1st toe. There is erosive change of the adjacent dorsal cortex of the 1st distal phalanx in this region and there is an ovoid focus of increased STIR signal intensity within the base and shaft of the 1st distal phalanx in this region. This measures 4 x 4 x 10 mm in craniocaudal, transverse and AP dimension respectively. There is abnormal decreased T1 and increased STIR signal intensity involving the majority of the bone marrow of the 1st distal phalanx and there is also erosive change of the tuft of the 1st distal phalanx. There is mild soft tissue edema of the distal aspect of the 1st toe. The bone marrow signal intensity of the remainder of the midfoot/forefoot appears within normal limits. There are mild degenerative changes of the 1st metatarsal-sesamoid joints. There are MRI findings compatible with a probable infection of the 1st toenail with erosive change of the adjacent dorsal cortex of the 1st distal phalanx and an intraosseous abscess of the 1st distal phalanx with surrounding osteomyelitis of the majority of the 1st distal phalanx. Workstation ID: [id number] Xr Ortho Foot Left Result Date: 12/19/2024 3 views of the left foot reviewed today AP MO and lateral. No acute fracture or dislocation of note. No evidence of cortical erosion or subcutaneous emphysema. Stable x-ray Assessment/Plan: Patient was seen and evaluated. Discussed all clinical findings Educated patient on overall status of the toe. Patient to continue with treatment protocol. This is vastly improved from last week. Did discuss with patient that should this worsen he should go to the emergency room for admission and likely need for amputation. Patient understands that there is substantial risk of him losing the rest of his toe. Continue with IV antibiotics per infectious disease. Patient was consented and sutures were removed without incident. Patient to follow-up in 2 week for reevaluation This note was partially created using voice recognition software and is inherently subject to errors including those of syntax and "sound-alike" substitutions which may escape proofreading. In such instances, original meaning may be extrapolated by contextual derivation. FATMATA Arguelles DPM Podiatric Foot & Ankle Surgery documented in this encounter [facility] 01-19-2025 Note Established Patient Visit FATMATA Arguelles DPM Patient Name: Joel Falk. . Date of : 1970, 54 y.o.. Gender: male. Subjective: Patient is a pleasant 53-year-old male status post curettage of left hallux distal phalanx with implantation of antibiotic beads (date of surgery 01/02/2025). Patient overall has been doing very well he has been off of it completely with a knee scooter. Changing dressing often. Patient relates that his sugars have been doing very well since diagnosis. Relates substantially less drainage and redness. Patient denies any current fever, chills, nausea, vomiting, chest pain calf pain or shortness of breath. Patient has no other pedal complaints at this time. Physical Examination: BP 137/85 (BP Location: Left arm, Patient Position: Sitting, BP Cuff Size: X-large Adult) Pulse 93 Temp 98.5 degrees F (36.9 degrees C) (Infrared) General Appearance: Alert, cooperative, no distress, appears stated age. Podiatric Exam Vascular: DP and PT pulses are easily palpable, 2/4. Capillary refill time is brisk to distal digits, less than 3 seconds. Skin temperature is warm to warm from proximal tibial tuberosity to distal digits. No dependent rubor. Neurological: Epicritic and protopathic sensation intact to bilateral lower extremities. Dermatologic: Vast improvement of toe with what appears to be continued tip necrosis of the apex of the lateral incision. Upon palpation there is seropurulent drainage noted difficult to distinguish from drainage from antibiotic beads, much less. [place] decrease any erythema discharge. No malodor noted. No streaking lymphangitis for Musculoskeletal: Bilateral foot and ankle overall rectus alignment. Muscle tone testing 5 out of 5 to all tested muscular's. Ankle range of motion limited with knee extended and slightly creased knee flex. Tenderness to the left great toe in its entirety mostly to the distal phalanx, improved. Diagnoses: No diagnosis found. Imaging: Left AP MO and lateral. Interval visualization of antibiotic beads and ostectomy of the distal phalanx. Most have been resorbed leaving none remaining. No evidence of subcutaneous emphysema. Stable x-ray MRI reviewed in detail today. Impression below. XR MR Clear Result Date: 12/26/2024 EXAMINATION: XR FOR MRI CLEARANCE HISTORY: ORDERING SYSTEM PROVIDED HISTORY: Hx of metal removed from eye, TECHNOLOGIST PROVIDED HISTORY: Illness/Other Reason for exam: Hx of metal removed from eye Cancer History: unknown Surgery, RadiationHistory: unknown Encounter Type: Initial Additional signs and symptoms: . ORDERING SYSTEM PROVIDED DIAGNOSIS CODES: Z98.890 Hx of metal removed from eye COMPARISON: None. TECHNIQUE: Two views of the orbits and facial bones. FINDINGS: No radiopaque foreign bodies overlying the orbits. Normal aeration and development of the paranasal sinuses. No radiopaque foreign bodies overlying the orbits. ST/anjana Workstation ID: [id number] MR Foot Left Without Contrast Result Date: 12/26/2024 EXAMINATION: MR FOOT LEFT WITHOUT CONTRAST 12/26/2024. HISTORY: ORDERING SYSTEM PROVIDED HISTORY: possible osteomyelitis left hallux, TECHNOLOGIST PROVIDED HISTORY: Illness/Other Reason for exam: left great toe wound/bruising/redness following dropping can of soup on it 3 months ago: Encounter Type: Unknown Additional signs and symptoms: n ORDERING SYSTEM PROVIDED DIAGNOSIS CODES: M86.9 Osteomyelitis of left foot, unspecified type ([facility]) M79.675 Chronic toe pain, left foot G89.29 Chronic toe pain, left foot L02.612 Abscess of left great toe L53.9 Dependent rubor I73.9 Peripheral vascular disease COMPARISON: Radiographs left foot 12/18/2024. TECHNIQUE: Multiplanar, multisequence MRI images of the left midfoot/forefoot were obtained without contrast. CONTRAST: None. FINDINGS: The bone marrow signal intensity is age-appropriate. The Lisfranc ligament complex appears intact. There is diffuse thickening and increased STIR signal intensity involving the toenail of the 1st toe. There is erosive change of the adjacent dorsal cortex of the 1st distal phalanx in this region and there is an ovoid focus of increased STIR signal intensity within the base and shaft of the 1st distal phalanx in this region. This measures 4 x 4 x 10 mm in craniocaudal, transverse and AP dimension respectively. There is abnormal decreased T1 and increased STIR signal intensity involving the majority of the bone marrow of the 1st distal phalanx and there is also erosive change of the tuft of the 1st distal phalanx. There is mild soft tissue edema of the distal aspect of the 1st toe. The bone marrow signal intensity of the remainder of the midfoot/forefoot appears within normal limits. There are mild degenerative changes of the 1st metatarsal-sesamoid joints. There are MRI findings compatible with a probable infection of the 1st toenail with erosive change of the adjacent dorsal rickey (more content not included)... [facility] 01-19-2025 History of Present illness Narrative Images from the original note were not included. Established Patient Visit FATMATA Arguelles DPM Patient Name: Joel Falk. . Date of : 1970, 54 y.o.. Gender: male. Subjective: Patient is a pleasant 53-year-old male status post curettage of left hallux distal phalanx with implantation of antibiotic beads (date of surgery 01/02/2025). Patient overall has been doing very well he has been off of it completely with a knee scooter. Changing dressing often. Patient relates that his sugars have been doing very well since diagnosis. Relates substantially less drainage and redness. Patient denies any current fever, chills, nausea, vomiting, chest pain calf pain or shortness of breath. Patient has no other pedal complaints at this time. Physical Examination: BP 137/85 (BP Location: Left arm, Patient Position: Sitting, BP Cuff Size: X-large Adult) Pulse 93 Temp 98.5 F (36.9 C) (Infrared) General Appearance: Alert, cooperative, no distress, appears stated age. Podiatric Exam Vascular: DP and PT pulses are easily palpable, 2/4. Capillary refill time is brisk to distal digits, less than 3 seconds. Skin temperature is warm to warm from proximal tibial tuberosity to distal digits. No dependent rubor. Neurological: Epicritic and protopathic sensation intact to bilateral lower extremities. Dermatologic: Vast improvement of toe with what appears to be continued tip necrosis of the apex of the lateral incision. Upon palpation there is seropurulent drainage noted difficult to distinguish from drainage from antibiotic beads, much less. [place] decrease any erythema discharge. No malodor noted. No streaking lymphangitis for Musculoskeletal: Bilateral foot and ankle overall rectus alignment. Muscle tone testing 5 out of 5 to all tested muscular's. Ankle range of motion limited with knee extended and slightly creased knee flex. Tenderness to the left great toe in its entirety mostly to the distal phalanx, improved. Diagnoses: No diagnosis found. Imaging: Left AP MO and lateral. Interval visualization of antibiotic beads and ostectomy of the distal phalanx. Most have been resorbed leaving none remaining. No evidence of subcutaneous emphysema. Stable x-ray MRI reviewed in detail today. Impression below. XR MR Clear Result Date: 12/26/2024 EXAMINATION: XR FOR MRI CLEARANCE HISTORY: ORDERING SYSTEM PROVIDED HISTORY: Hx of metal removed from eye, TECHNOLOGIST PROVIDED HISTORY: Illness/Other Reason for exam: Hx of metal removed from eye Cancer History: unknown Surgery, RadiationHistory: unknown Encounter Type: Initial Additional signs and symptoms: . ORDERING SYSTEM PROVIDED DIAGNOSIS CODES: Z98.890 Hx of metal removed from eye COMPARISON: None. TECHNIQUE: Two views of the orbits and facial bones. FINDINGS: No radiopaque foreign bodies overlying the orbits. Normal aeration and development of the paranasal sinuses. No radiopaque foreign bodies overlying the orbits. / Workstation ID: [id number] MR Foot Left Without Contrast Result Date: 12/26/2024 EXAMINATION: MR FOOT LEFT WITHOUT CONTRAST 12/26/2024. HISTORY: ORDERING SYSTEM PROVIDED HISTORY: possible osteomyelitis left hallux, TECHNOLOGIST PROVIDED HISTORY: Illness/Other Reason for exam: left great toe wound/bruising/redness following dropping can of soup on it 3 months ago: Encounter Type: Unknown Additional signs and symptoms: n ORDERING SYSTEM PROVIDED DIAGNOSIS CODES: M86.9 Osteomyelitis of left foot, unspecified type ([facility]) M79.675 Chronic toe pain, left foot G89.29 Chronic toe pain, left foot L02.612 Abscess of left great toe L53.9 Dependent rubor I73.9 Peripheral vascular disease COMPARISON: Radiographs left foot 12/18/2024. TECHNIQUE: Multiplanar, multisequence MRI images of the left midfoot/forefoot were obtained without contrast. CONTRAST: None. FINDINGS: The bone marrow signal intensity is age-appropriate. The Lisfranc ligament complex appears intact. There is diffuse thickening and increased STIR signal intensity involving the toenail of the 1st toe. There is erosive change of the adjacent dorsal cortex of the 1st distal phalanx in this region and there is an ovoid focus of increased STIR signal intensity within the base and shaft of the 1st distal phalanx in this region. This measures 4 x 4 x 10 mm in craniocaudal, transverse and AP dimension respectively. There is abnormal decreased T1 and increased STIR signal intensity involving the majority of the bone marrow of the 1st distal phalanx and there is also erosive change of the tuft of the 1st distal phalanx. There is mild soft tissue edema of the distal aspect of the 1st toe. The bone marrow signal intensity of the remainder of the midfoot/forefoot appears within normal limits. There are mild degenerative changes of the 1st metatarsal-sesamoid joints. There are MRI findings compatible with a probable infection of the 1st toenail with erosive change of the adjacent dorsal cortex of the 1st distal phalanx and an intraosseous abscess of the 1st distal phalanx with surrounding osteomyelitis of the majority of the 1st distal phalanx. Workstation ID: [id number] Xr Ortho Foot Left Result Date: 12/19/2024 3 views of the left foot reviewed today AP MO and lateral. No acute fracture or dislocation of note. No evidence of cortical erosion or subcutaneous emphysema. Stable x-ray Assessment/Plan: Patient was seen and evaluated. Discussed all clinical findings Educated patient on overall status of the toe. Patient to continue with treatment protocol. This is vastly improved from last week. Did discuss with patient that should this worsen he should go to the emergency room for admission and likely need for amputation. Patient understands that there is substantial risk of him losing the rest of his toe. Continue with IV antibiotics per infectious disease. Betadine and dry sterile dressing applied today. Patient to follow-up in 1 week for reevaluation at which point I may consider taking some stitches out. This note was partially created using voice recognition software and is inherently subject to errors including those of syntax and "sound-alike" substitutions which may escape proofreading. In such instances, original meaning may be extrapolated by contextual derivation. FATMATA Arguelles DPM Podiatric Foot & Ankle Surgery documented in this encounter [facility] 01-14-2025 Note Established Patient Visit FATMATA Arguelles DPM Patient Name: Joel Falk. . Date of : 1970, 54 y.o.. Gender: male. Subjective: Patient is a pleasant 53-year-old male status post curettage of left hallux distal phalanx with implantation of antibiotic beads (date of surgery 01/02/2025). Patient overall has been doing very well he has been off of it completely with a knee scooter. Changing dressing often. Patient relates that his sugars have been doing very well since diagnosis. Relates substantially less drainage and redness. Patient denies any current fever, chills, nausea, vomiting, chest pain calf pain or shortness of breath. Patient has no other pedal complaints at this time. Physical Examination: BP 137/78 (BP Location: Left arm, Patient Position: Sitting, BP Cuff Size: X-large Adult) Pulse 94 Temp 98.2 degrees F (36.8 degrees C) (Infrared) General Appearance: Alert, cooperative, no distress, appears stated age. Podiatric Exam Vascular: DP and PT pulses are easily palpable, 2/4. Capillary refill time is brisk to distal digits, less than 3 seconds. Skin temperature is warm to warm from proximal tibial tuberosity to distal digits. No dependent rubor. Neurological: Epicritic and protopathic sensation intact to bilateral lower extremities. Dermatologic: Vast improvement of toe with what appears to be continued tip necrosis of the apex of the lateral incision. Upon palpation there is seropurulent drainage noted difficult to distinguish from drainage from antibiotic beads. [place] decrease any erythema discharge. No malodor noted. No streaking lymphangitis for Musculoskeletal: Bilateral foot and ankle overall rectus alignment. Muscle tone testing 5 out of 5 to all tested muscular's. Ankle range of motion limited with knee extended and slightly creased knee flex. Tenderness to the left great toe in its entirety mostly to the distal phalanx, improved. Diagnoses: 1. Surgical wound dehiscence, initial encounter 2. Skin necrosis (HCC) 3. Osteomyelitis of left foot, unspecified type (HCC) 4. Chronic toe pain, left foot 5. Abscess of left great toe 6. Dependent rubor Imaging: Left AP MO and lateral. Interval visualization of antibiotic beads and ostectomy of the distal phalanx. Most have been resorbed or are coming out. No evidence of subcutaneous emphysema. Stable x-ray MRI reviewed in detail today. Impression below. XR MR Clear Result Date: 12/26/2024 EXAMINATION: XR FOR MRI CLEARANCE HISTORY: ORDERING SYSTEM PROVIDED HISTORY: Hx of metal removed from eye, TECHNOLOGIST PROVIDED HISTORY: Illness/Other Reason for exam: Hx of metal removed from eye Cancer History: unknown Surgery, RadiationHistory: unknown Encounter Type: Initial Additional signs and symptoms: . ORDERING SYSTEM PROVIDED DIAGNOSIS CODES: Z98.890 Hx of metal removed from eye COMPARISON: None. TECHNIQUE: Two views of the orbits and facial bones. FINDINGS: No radiopaque foreign bodies overlying the orbits. Normal aeration and development of the paranasal sinuses. No radiopaque foreign bodies overlying the orbits. ST/anjana Workstation ID: [id number] MR Foot Left Without Contrast Result Date: 12/26/2024 EXAMINATION: MR FOOT LEFT WITHOUT CONTRAST 12/26/2024. HISTORY: ORDERING SYSTEM PROVIDED HISTORY: possible osteomyelitis left hallux, TECHNOLOGIST PROVIDED HISTORY: Illness/Other Reason for exam: left great toe wound/bruising/redness following dropping can of soup on it 3 months ago: Encounter Type: Unknown Additional signs and symptoms: n ORDERING SYSTEM PROVIDED DIAGNOSIS CODES: M86.9 Osteomyelitis of left foot, unspecified type ([facility]) M79.675 Chronic toe pain, left foot G89.29 Chronic toe pain, left foot L02.612 Abscess of left great toe L53.9 Dependent rubor I73.9 Peripheral vascular disease COMPARISON: Radiographs left foot 12/18/2024. TECHNIQUE: Multiplanar, multisequence MRI images of the left midfoot/forefoot were obtained without contrast. CONTRAST: None. FINDINGS: The bone marrow signal intensity is age-appropriate. The Lisfranc ligament complex appears intact. There is diffuse thickening and increased STIR signal intensity involving the toenail of the 1st toe. There is erosive change of the adjacent dorsal cortex of the 1st distal phalanx in this region and there is an ovoid focus of increased STIR signal intensity within the base and shaft of the 1st distal phalanx in this region. This measures 4 x 4 x 10 mm in craniocaudal, transverse and AP dimension respectively. There is abnormal decreased T1 and increased STIR signal intensity involving the majority of the bone marrow of the 1st distal phalanx and there is also erosive change of the tuft of the 1st distal phalanx. There is mild soft tissue edema of the distal aspect of the 1st toe. The bone marrow signal intensity of the remainder of the midfoot/forefoot appears within normal limits. There are mild degenerative azra (more content not included)... [facility] 01-14-2025 History of Present illness Narrative Images from the original note were not included. Established Patient Visit FATMATA Arguelles DPM Patient Name: Joel Falk. . Date of : 1970, 54 y.o.. Gender: male. Subjective: Patient is a pleasant 53-year-old male status post curettage of left hallux distal phalanx with implantation of antibiotic beads (date of surgery 01/02/2025). Patient overall has been doing very well he has been off of it completely with a knee scooter. Changing dressing often. Patient relates that his sugars have been doing very well since diagnosis. Relates substantially less drainage and redness. Patient denies any current fever, chills, nausea, vomiting, chest pain calf pain or shortness of breath. Patient has no other pedal complaints at this time. Physical Examination: BP 137/78 (BP Location: Left arm, Patient Position: Sitting, BP Cuff Size: X-large Adult) Pulse 94 Temp 98.2 F (36.8 C) (Infrared) General Appearance: Alert, cooperative, no distress, appears stated age. Podiatric Exam Vascular: DP and PT pulses are easily palpable, 2/4. Capillary refill time is brisk to distal digits, less than 3 seconds. Skin temperature is warm to warm from proximal tibial tuberosity to distal digits. No dependent rubor. Neurological: Epicritic and protopathic sensation intact to bilateral lower extremities. Dermatologic: Vast improvement of toe with what appears to be continued tip necrosis of the apex of the lateral incision. Upon palpation there is seropurulent drainage noted difficult to distinguish from drainage from antibiotic beads. [place] decrease any erythema discharge. No malodor noted. No streaking lymphangitis for Musculoskeletal: Bilateral foot and ankle overall rectus alignment. Muscle tone testing 5 out of 5 to all tested muscular's. Ankle range of motion limited with knee extended and slightly creased knee flex. Tenderness to the left great toe in its entirety mostly to the distal phalanx, improved. Diagnoses: 1. Surgical wound dehiscence, initial encounter 2. Skin necrosis (HCC) 3. Osteomyelitis of left foot, unspecified type (HCC) 4. Chronic toe pain, left foot 5. Abscess of left great toe 6. Dependent rubor Imaging: Left AP MO and lateral. Interval visualization of antibiotic beads and ostectomy of the distal phalanx. Most have been resorbed or are coming out. No evidence of subcutaneous emphysema. Stable x-ray MRI reviewed in detail today. Impression below. XR MR Clear Result Date: 12/26/2024 EXAMINATION: XR FOR MRI CLEARANCE HISTORY: ORDERING SYSTEM PROVIDED HISTORY: Hx of metal removed from eye, TECHNOLOGIST PROVIDED HISTORY: Illness/Other Reason for exam: Hx of metal removed from eye Cancer History: unknown Surgery, RadiationHistory: unknown Encounter Type: Initial Additional signs and symptoms: . ORDERING SYSTEM PROVIDED DIAGNOSIS CODES: Z98.890 Hx of metal removed from eye COMPARISON: None. TECHNIQUE: Two views of the orbits and facial bones. FINDINGS: No radiopaque foreign bodies overlying the orbits. Normal aeration and development of the paranasal sinuses. No radiopaque foreign bodies overlying the orbits. /anjana Workstation ID: [id number] MR Foot Left Without Contrast Result Date: 12/26/2024 EXAMINATION: MR FOOT LEFT WITHOUT CONTRAST 12/26/2024. HISTORY: ORDERING SYSTEM PROVIDED HISTORY: possible osteomyelitis left hallux, TECHNOLOGIST PROVIDED HISTORY: Illness/Other Reason for exam: left great toe wound/bruising/redness following dropping can of soup on it 3 months ago: Encounter Type: Unknown Additional signs and symptoms: n ORDERING SYSTEM PROVIDED DIAGNOSIS CODES: M86.9 Osteomyelitis of left foot, unspecified type ([facility]) M79.675 Chronic toe pain, left foot G89.29 Chronic toe pain, left foot L02.612 Abscess of left great toe L53.9 Dependent rubor I73.9 Peripheral vascular disease COMPARISON: Radiographs left foot 12/18/2024. TECHNIQUE: Multiplanar, multisequence MRI images of the left midfoot/forefoot were obtained without contrast. CONTRAST: None. FINDINGS: The bone marrow signal intensity is age-appropriate. The Lisfranc ligament complex appears intact. There is diffuse thickening and increased STIR signal intensity involving the toenail of the 1st toe. There is erosive change of the adjacent dorsal cortex of the 1st distal phalanx in this region and there is an ovoid focus of increased STIR signal intensity within the base and shaft of the 1st distal phalanx in this region. This measures 4 x 4 x 10 mm in craniocaudal, transverse and AP dimension respectively. There is abnormal decreased T1 and increased STIR signal intensity involving the majority of the bone marrow of the 1st distal phalanx and there is also erosive change of the tuft of the 1st distal phalanx. There is mild soft tissue edema of the distal aspect of the 1st toe. The bone marrow signal intensity of the remainder of the midfoot/forefoot appears within normal limits. There are mild degenerative changes of the 1st metatarsal-sesamoid joints. There are MRI findings compatible with a probable infection of the 1st toenail with erosive change of the adjacent dorsal cortex of the 1st distal phalanx and an intraosseous abscess of the 1st distal phalanx with surrounding osteomyelitis of the majority of the 1st distal phalanx. Workstation ID: [id number] Xr Ortho Foot Left Result Date: 12/19/2024 3 views of the left foot reviewed today AP MO and lateral. No acute fracture or dislocation of note. No evidence of cortical erosion or subcutaneous emphysema. Stable x-ray Assessment/Plan: Patient was seen and evaluated. Discussed all clinical findings Educated patient on overall status of the toe. Patient to continue with treatment protocol. This is vastly improved from last week. Did discuss with patient that should this worsen he should go to the emergency room for admission and likely need for amputation. Patient understands that there is substantial risk of him losing the rest of his toe. Continue with IV antibiotics per infectious disease. Betadine and dry sterile dressing applied today. Patient to follow-up in 2week for reevaluation at which point time should toe worsen may need to consider admission for total hallux amputation. This note was partially created using voice recognition software and is inherently subject to errors including those of syntax and "sound-alike" substitutions which may escape proofreading. In such instances, original meaning may be extrapolated by contextual derivation. FATMATA Arguelles DPM Podiatric Foot & Ankle Surgery documented in this encounter [facility] 01-11-2025 History of Present illness Narrative IVPB Ceftriaxone completed, flushed line with NS, capped PICC line, dressing changed completed per [facility] P&P, tolerated well IVPB Ceftriaxone via pump, tolerating well documented in this encounter [facility] 01-10-2025 History of Present illness Narrative IVPB completed, flushed line with NS, capped PICC line, tolerated well IVPB Ceftriaxone initiated via pump, tolerating well Arrived to floor via ambulatory, name band verified, taken to room 3112, call light placed within reach documented in this encounter [facility] 01-07-2025 Note Established Patient Visit FATMATA Arguelles DPM Patient Name: Joel Falk. . Date of : 1970, 54 y.o.. Gender: male. Subjective: Patient is a pleasant 53-year-old male status post curettage of left hallux distal phalanx with implantation of antibiotic beads (date of surgery 01/02/2025). Patient and relate that there has been minimal drainage and she has been changing it often. Toe has been looking substantially better. He did start IV antibiotics on Sunday and has a PICC line in place. Minimal to no discomfort to the toe. Patient does admit that he has been quite active and really has not been off of it at all. Patient was recently diagnosed diabetic in the hospital with A1c of 11.5. Patient relates that his sugars have been doing very well since diagnosis. Patient denies any current fever, chills, nausea, vomiting, chest pain calf pain or shortness of breath. Patient has no other pedal complaints at this time. Physical Examination: BP (!) 157/92 (BP Location: Left arm, Patient Position: Sitting, BP Cuff Size: X-large Adult) Pulse 89 Temp 98.2 degrees F (36.8 degrees C) (Infrared) General Appearance: Alert, cooperative, no distress, appears stated age. Podiatric Exam Vascular: DP and PT pulses are easily palpable, 2/4. Capillary refill time is brisk to distal digits, less than 3 seconds. Skin temperature is warm to warm from proximal tibial tuberosity to distal digits. No dependent rubor. Neurological: Epicritic and protopathic sensation intact to bilateral lower extremities. Dermatologic: See picture below. Worsening of toe with what appears to be tip necrosis of the apex of the lateral incision. Upon palpation there is seropurulent drainage noted difficult to distinguish from drainage from antibiotic beads. Increased erythema but no streaking lymphangitis. Musculoskeletal: Bilateral foot and ankle overall rectus alignment. Muscle tone testing 5 out of 5 to all tested muscular's. Ankle range of motion limited with knee extended and slightly creased knee flex. Tenderness to the left great toe in its entirety mostly to the distal phalanx. Diagnoses: 1. Surgical wound dehiscence, initial encounter 2. Skin necrosis (HCC) 3. Osteomyelitis of left foot, unspecified type (HCC) 4. Chronic toe pain, left foot 5. Abscess of left great toe 6. Dependent rubor 7. Cellulitis of foot, left Imaging: Left AP MO and lateral. Interval visualization of antibiotic beads and ostectomy of the distal phalanx. No evidence of subcutaneous emphysema. Stable x-ray MRI reviewed in detail today. Impression below. XR MR Clear Result Date: 12/26/2024 EXAMINATION: XR FOR MRI CLEARANCE HISTORY: ORDERING SYSTEM PROVIDED HISTORY: Hx of metal removed from eye, TECHNOLOGIST PROVIDED HISTORY: Illness/Other Reason for exam: Hx of metal removed from eye Cancer History: unknown Surgery, RadiationHistory: unknown Encounter Type: Initial Additional signs and symptoms: . ORDERING SYSTEM PROVIDED DIAGNOSIS CODES: Z98.890 Hx of metal removed from eye COMPARISON: None. TECHNIQUE: Two views of the orbits and facial bones. FINDINGS: No radiopaque foreign bodies overlying the orbits. Normal aeration and development of the paranasal sinuses. No radiopaque foreign bodies overlying the orbits. / Workstation ID: [id number] MR Foot Left Without Contrast Result Date: 12/26/2024 EXAMINATION: MR FOOT LEFT WITHOUT CONTRAST 12/26/2024. HISTORY: ORDERING SYSTEM PROVIDED HISTORY: possible osteomyelitis left hallux, TECHNOLOGIST PROVIDED HISTORY: Illness/Other Reason for exam: left great toe wound/bruising/redness following dropping can of soup on it 3 months ago: Encounter Type: Unknown Additional signs and symptoms: n ORDERING SYSTEM PROVIDED DIAGNOSIS CODES: M86.9 Osteomyelitis of left foot, unspecified type (HCC) M79.675 Chronic toe pain, left foot G89.29 Chronic toe pain, left foot L02.612 Abscess of left great toe L53.9 Dependent rubor I73.9 Peripheral vascular disease COMPARISON: Radiographs left foot 12/18/2024. TECHNIQUE: Multiplanar, multisequence MRI images of the left midfoot/forefoot were obtained without contrast. CONTRAST: None. FINDINGS: The bone marrow signal intensity is age-appropriate. The Lisfranc ligament complex appears intact. There is diffuse thickening and increased STIR signal intensity involving the toenail of the 1st toe. There is erosive change of the adjacent dorsal cortex of the 1st distal phalanx in this region and there is an ovoid focus of increased STIR signal intensity within the base and shaft of the 1st distal phalanx in this region. This measures 4 x 4 x 10 mm in craniocaudal, transverse and AP dimension respectively. There is abnormal decreased T1 and increased STIR signal intensity involving the majority of the bone marrow of the 1st distal phalanx and there is also erosive change of the tuft of the 1st distal phalanx. There is mild so (more content not included)... [facility] 01-07-2025 History of Present illness Narrative Images from the original note were not included. Established Patient Visit FATMATA Arguelles DPM Patient Name: Joel Falk. . Date of : 1970, 54 y.o.. Gender: male. Subjective: Patient is a pleasant 53-year-old male status post curettage of left hallux distal phalanx with implantation of antibiotic beads (date of surgery 01/02/2025). Patient and relate that there has been minimal drainage and she has been changing it often. Toe has been looking substantially better. He did start IV antibiotics on Sunday and has a PICC line in place. Minimal to no discomfort to the toe. Patient does admit that he has been quite active and really has not been off of it at all. Patient was recently diagnosed diabetic in the hospital with A1c of 11.5. Patient relates that his sugars have been doing very well since diagnosis. Patient denies any current fever, chills, nausea, vomiting, chest pain calf pain or shortness of breath. Patient has no other pedal complaints at this time. Physical Examination: BP (!) 157/92 (BP Location: Left arm, Patient Position: Sitting, BP Cuff Size: X-large Adult) Pulse 89 Temp 98.2 F (36.8 C) (Infrared) General Appearance: Alert, cooperative, no distress, appears stated age. Podiatric Exam Vascular: DP and PT pulses are easily palpable, 2/4. Capillary refill time is brisk to distal digits, less than 3 seconds. Skin temperature is warm to warm from proximal tibial tuberosity to distal digits. No dependent rubor. Neurological: Epicritic and protopathic sensation intact to bilateral lower extremities. Dermatologic: See picture below. Worsening of toe with what appears to be tip necrosis of the apex of the lateral incision. Upon palpation there is seropurulent drainage noted difficult to distinguish from drainage from antibiotic beads. Increased erythema but no streaking lymphangitis. Musculoskeletal: Bilateral foot and ankle overall rectus alignment. Muscle tone testing 5 out of 5 to all tested muscular's. Ankle range of motion limited with knee extended and slightly creased knee flex. Tenderness to the left great toe in its entirety mostly to the distal phalanx. Diagnoses: 1. Surgical wound dehiscence, initial encounter 2. Skin necrosis (HCC) 3. Osteomyelitis of left foot, unspecified type (HCC) 4. Chronic toe pain, left foot 5. Abscess of left great toe 6. Dependent rubor 7. Cellulitis of foot, left Imaging: Left AP MO and lateral. Interval visualization of antibiotic beads and ostectomy of the distal phalanx. No evidence of subcutaneous emphysema. Stable x-ray MRI reviewed in detail today. Impression below. XR MR Clear Result Date: 12/26/2024 EXAMINATION: XR FOR MRI CLEARANCE HISTORY: ORDERING SYSTEM PROVIDED HISTORY: Hx of metal removed from eye, TECHNOLOGIST PROVIDED HISTORY: Illness/Other Reason for exam: Hx of metal removed from eye Cancer History: unknown Surgery, RadiationHistory: unknown Encounter Type: Initial Additional signs and symptoms: . ORDERING SYSTEM PROVIDED DIAGNOSIS CODES: Z98.890 Hx of metal removed from eye COMPARISON: None. TECHNIQUE: Two views of the orbits and facial bones. FINDINGS: No radiopaque foreign bodies overlying the orbits. Normal aeration and development of the paranasal sinuses. No radiopaque foreign bodies overlying the orbits. ST/jw Workstation ID: [id number] MR Foot Left Without Contrast Result Date: 12/26/2024 EXAMINATION: MR FOOT LEFT WITHOUT CONTRAST 12/26/2024. HISTORY: ORDERING SYSTEM PROVIDED HISTORY: possible osteomyelitis left hallux, TECHNOLOGIST PROVIDED HISTORY: Illness/Other Reason for exam: left great toe wound/bruising/redness following dropping can of soup on it 3 months ago: Encounter Type: Unknown Additional signs and symptoms: n ORDERING SYSTEM PROVIDED DIAGNOSIS CODES: M86.9 Osteomyelitis of left foot, unspecified type ([facility]) M79.675 Chronic toe pain, left foot G89.29 Chronic toe pain, left foot L02.612 Abscess of left great toe L53.9 Dependent rubor I73.9 Peripheral vascular disease COMPARISON: Radiographs left foot 12/18/2024. TECHNIQUE: Multiplanar, multisequence MRI images of the left midfoot/forefoot were obtained without contrast. CONTRAST: None. FINDINGS: The bone marrow signal intensity is age-appropriate. The Lisfranc ligament complex appears intact. There is diffuse thickening and increased STIR signal intensity involving the toenail of the 1st toe. There is erosive change of the adjacent dorsal cortex of the 1st distal phalanx in this region and there is an ovoid focus of increased STIR signal intensity within the base and shaft of the 1st distal phalanx in this region. This measures 4 x 4 x 10 mm in craniocaudal, transverse and AP dimension respectively. There is abnormal decreased T1 and increased STIR signal intensity involving the majority of the bone marrow of the 1st distal phalanx and there is also erosive change of the tuft of the 1st distal phalanx. There is mild soft tissue edema of the distal aspect of the 1st toe. The bone marrow signal intensity of the remainder of the midfoot/forefoot appears within normal limits. There are mild degenerative changes of the 1st metatarsal-sesamoid joints. There are MRI findings compatible with a probable infection of the 1st toenail with erosive change of the adjacent dorsal cortex of the 1st distal phalanx and an intraosseous abscess of the 1st distal phalanx with surrounding osteomyelitis of the majority of the 1st distal phalanx. Workstation ID: [id number] Xr Ortho Foot Left Result Date: 12/19/2024 3 views of the left foot reviewed today AP MO and lateral. No acute fracture or dislocation of note. No evidence of cortical erosion or subcutaneous emphysema. Stable x-ray Assessment/Plan: Patient was seen and evaluated. Discussed all clinical findings Educated patient on overall status of the toe. Upon taking off patient is dressing today toe looked substantially worsened as and related. It did not have any drainage hardly at all. relates that patient has really not taken any break and is very active all day long which is AGAINST MEDICAL ADVICE. Discussed overall status of the toe. He is only 2 days on IV antibiotics. Educated patient to decrease activity. Betadine and dry sterile dressing was applied to change often. Did discuss with patient that should this worsen he should go to the emergency room for admission and likely need for amputation. Patient understands that there is substantial risk of him losing the rest of his toe. Continue with IV antibiotics per infectious disease. Patient to follow-up in 1 week for reevaluation at which point time should toe worsen may need to consider admission for total hallux amputation. This note was partially created using voice recognition software and is inherently subject to errors including those of syntax and "sound-alike" substitutions which may escape proofreading. In such instances, original meaning may be extrapolated by contextual derivation. FATMATA Arguelles DPM Podiatric Foot & Ankle Surgery documented in this encounter [facility] 01-05-2025 Consult note Formatting of th is note might be different from the original. IV team consulted for PICC placement. Chart and history reviewed. PICC insertion explained to patient , agreed to procedure. Single lumen PICC inserted following [place] Protocol into basilic vein. PICC trimmed at 43cm. External length at 1cm. Patient tolerated well. PICC okay to use as tip is confirmed in lower SVC per ECG technology- maximum P wave and absence of negative deflection. Invasive line Insertion Check list followed. Flushes easily with good blood return. RN notified OK to use. [facility] 01-05-2025 Consult note Formatting of th is note might be different from the original. IV team consulted for PICC placement. Chart and history reviewed. PICC insertion explained to patient , agreed to procedure. Single lumen PICC inserted following [place] Protocol into basilic vein. PICC trimmed at 43cm. External length at 1cm. Patient tolerated well. PICC okay to use as tip is confirmed in lower SVC per ECG technology- maximum P wave and absence of negative deflection. Invasive line Insertion Check list followed. Flushes easily with good blood return. RN notified OK to use. documented in this encounter [facility] 01-03-2025 Note Patient Name: Osito Falk Admit Date: [id number] MR #: [id number] : 1970 Physicians: No, Physician (Family); No ref. provider found (Referring) Assessment: History of left great toenail avulsion Left great toe with abscess Left great toe cellulitis Left great toe osteomyelitis Leukocytosis Plan: Continue present management. Patient on IV Zosyn Patient on IV vancomycin I reviewed lab, culture and sensitivity ESR of 12 and CRP of 15.5. MRSA probe is negative. Blood culture has no growth to date. I reviewed bone culture with gram-positive cocci and gram-negative bacilli. Reviewed wound cultures with gram-positive bacilli Gram positive cocci and gram-negative bacilli. Follow-up pathology report. Left foot MRI findings compatible with infection of the first toenail with erosive changes of the adjacent dorsal cortex of the first distal phalanx and intervention was abscess of the first distal phalanx with surrounding osteomyelitis of the majority of the first distal phalanx. I appreciate podiatry evaluation. Has scheduled for incision and drainage with bone antibiotics bead implantation of the left great toe We will continue to follow On Discharge: We will wait for wound culture and bone culture result prior to starting antibiotics. Patient was encouraged to follow-up in the office On discharge in 1 week. Subjective: Today patient evaluated, there was no reported new symptoms, no fever no chills. Tmax of 98.3. Saturating at 92%. Patient was said to be wanting to go home. Said to have phobia for admission in the hospital Exam: PACU Vitals 01/03/25 0757 BP: (!) 152/83 Pulse: 85 Resp: 18 Temp: 97.9 degrees F (36.6 degrees C) SpO2: 92% Allergies: Patient has no known allergies. Current Facility-Administered Medications: acetaminophen (TYLENOL) tablet 650 mg, 650 mg, Oral, Q4H PRN, Rod Frost MD alteplase (CATH JOHNNY) injection 2 mg, 2 mg, Other, PRN, Rod Frost MD aluminum-magnesium hydroxide-simethicone (MAALOX PLUS) 200-200-20 mg/5 mL suspension 30 mL, 30 mL, Oral, Q4H PRN, Rod Frost MD bisacodyL (DULCOLAX) suppository 10 mg, 10 mg, Rectal, Daily PRN, Rod Frost MD enoxaparin (LOVENOX) syringe 40 mg, 40 mg, Subcutaneous, Daily, Rod Frost MD ibuprofen (ADVIL,MOTRIN) tablet 600 mg, 600 mg, Oral, Q6H PRN, Rod Frost MD, 600 mg at 01/03/25 0903 insulin glargine (LANTUS) injection 25 Units, 25 Units, Subcutaneous, Nightly, Carmelita Randolph CNP, 25 Units at 01/02/252031 insulin lispro (AdmeLOG,HumaLOG) injection 0-15 Units, 0-15 Units, Subcutaneous, at bedtime AND Notify physician, , , Until Discontinued, Rod Frost MD insulin lispro (AdmeLOG,HumaLOG) injection 0-30 Units, 0-30 Units, Subcutaneous, TID AC, Carmelita Randolph CNP, 11 Units at 01/03/25 0855 lidocaine 10 mg/mL (1 %) injection 1 mL, 1 mL, Intradermal, Once PRN, Rod Frost MD magnesium hydroxide (MOM) 400 mg/5 mL suspension 2,400 mg, 30 mL, Oral, Daily PRN, Rod Frost MD melatonin Tab 5 mg, 5 mg, Oral, Nightly PRN, Rod Frost MD nicotine (NICODERM CQ) 21 mg/24 hr 1 patch, 1 patch, Transdermal, Daily PRN, Alondra Gregorio CNP ondansetron (ZOFRAN-ODT) disintegrating tablet 4 mg, 4 mg, Oral, Q6H PRN OR ondansetron (ZOFRAN) injection 4 mg, 4 mg, Intravenous, Q6H PRN, Rod Frost MD piperacillin-tazobactam (ZOSYN) IVPB 3.375 g (premix), 3.375 g, Intravenous, Q8H, Rod Frost MD, Last Rate: 12.5 mL/hr at 01/03/25 0900, 3.375 g at 01/03/25 0900 senna (SENOKOT) tablet 8.6 mg, 1 tablet, Oral, BID PRN, Rod Frost MD sodium chloride (PF) (NS) flush 10 mL, 10 mL, Intracatheter, Q8H DONELL, Rod Frost MD sodium chloride (PF) (NS) flush 10-20 mL, 10-20 mL, Intracatheter, PRNGloria Nicholas Wade, MD [COMPLETED] Insert peripheral IV, , , Once AND Saline lock IV, , , Once AND sodium chloride (PF) (NS) flush 5 mL, 5 mL, Intravenous, PRN AND sodium chloride 0.9% (NS), 0-150 mL/hr, Intravenous, PRN, RingsYfn MD, Last Rate: 25 mL/hr at 01/02/25 1752, 25 mL/hr at 01/02/25 1752 Saline lock IV, , , Continuous AND sodium chloride (PF) (NS) flush 5 mL, 5 mL, Intravenous, PRN AND sodium chloride (PF) (NS) flush 5 mL, 5 mL, Intravenous, Q8H DONELL, 5 mL at 01/02/25 0600 AND sodium chloride 0.9% (NS), 0-150 mL/hr, Intravenous, PRN, Rod Frost MD traZODone (DESYREL) tablet 50 mg, 50 mg, Oral, Nightly PRN, Rod Frost MD Current Outpatient Medications: alcohol swabs PadM, Use as directed to check blood glucose readings 4 times daily. Dx E11.65 ., Disp: 150 each, Rfl: 11 blood sugar diagnostic strips, Use as directed to check blood glucose readings 4 times daily. Dx E11.65 ., Disp: 150 each, Rfl: 11 blood-glucose meter [facility], by (more content not included)... [facility] 01-03-2025 Note HMS DISCHARGE SUMMAR Joel Zamora Admitted: 01/01/2025 Discharge Date: 01/03/25 PCP Handoff Recommended Outpatient Testing: Follow up with Podiatry 01/07/25 Follow up Infectious Disease Follow up Endocrinology Results Pending At Discharge: wound cx Clinical Summary Joel Falk is a 54 y.o. 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 Left 1st Toe Osteomyelitis MRI left foot with porbable infection of the 1st toenail with erosive change of the adjacent dorsal corex of the 1st distal phalanx and an intraosseous abscess of the 1st distal phalanx with surrounding osteomyelitis of the majority of the 1st distal phalanx. MRSA swab-negative PICC Line to be placed outpatient S/P IV Vancomycin /Zosyn Podiatry -follow up outpatient ID - follow up outpatient Wound Cx- no growth to date Care management for Abx coordination S/P washout and bone biopsy 01/02 New onset Diabetes A1c-11.5 Endocrinology consult- follow up outpatient Diabetic education Hypertension Care management for PCP resources BP stable Tobacco abuse Smoking cessation counseling Discharge Medications Current Discharge Medication List START taking these medications Details alcohol swabs PadM Use as directed to check blood glucose readings 4 times daily. Dx E11.65 . Qty: 150 each, Refills: 11 blood sugar diagnostic strips Use as directed to check blood glucose readings 4 times daily. Dx E11.65 . Qty: 150 each, Refills: 11 blood-glucose meter Misc by Miscellaneous route Use as directed to check blood glucose 4 times daily. May fill with brand insurance prefers. . Qty: 1 each, Refills: 0 blood-glucose sensor (Dexcom G7 Sensor) Denise 1 each by Miscellaneous route every 10 (ten) days . Qty: 3 each, Refills: 11 Associated Diagnoses: Type 2 diabetes mellitus with hyperglycemia, with long-term current use of insulin (HCC) insulin glargine (Lantus Solostar U-100 Insulin) 100 unit/mL (3 mL) InPn Inject 25 (twenty five) Units under the skin nightly . Qty: 15 mL, Refills: 6 Comments: Dispense full package quantity if needed insulin lispro (HumaLOG KwikPen Insulin) 100 unit/mL InPn Inject 9 (nine) Units under the skin 3 (three) times a day before meals Plus sliding scale.Up to 50 units daily. DX E11.65 . Qty: 15 mL, Refills: 0 Comments: Dispense full package quantity if needed lancets Misc Use as directed to check blood glucose 4 times daily. DX . Qty: 200 each, Refills: 11 pen needle, diabetic 32 gauge x 5/32" Ndle Use as directed to check blood glucose readings 4 times daily. Dx E11.65 . Qty: 150 each, Refills: 11 traMADol (ULTRAM) 50 mg tablet Take 1 (one) tablet (50 mg total) by mouth every 6 (six) hours as needed for pain . Qty: 12 tablet, Refills: 0 Associated Diagnoses: Osteomyelitis of left foot, unspecified type (HCC) STOP taking these medications amoxicillin-clavulanate (AUGMENTIN) 875-125 mg per tablet Comments: Reason for Stopping: Physician(s) Follow Up: Chang Charles MD [address] [place], [place] [id number] Schedule an appointment as soon as possible for a visit FATMATA Arguelles, DPM [address] [address] Follow up on 01/07/2025 [facility] [address] [place] [address] Medical Office [facility] [id number] Schedule an appointment as soon as possible for a visit Condition at Discharge: Good Disposition: Home On day of discharge, I performed a final bedside evaluation including a physical exam. I reviewed discharge recommendations with the patient in person. Patient instructions, including activity, were given to the patient/family at discharge. Time spent on discharge: > 30 minutes Completed by: Alondra Gregorio CNP on 01/03/25, 11:13 AM AUTHENTICATED BY ALONDRA GREGORIO, ON 01/03/2025 11:33:18 [facility] 01-03-2025 Hospital course Narrative [facility] DISCHARGE SUMMARY Joel Falk Admitted: 01/01/2025 Discharge Date: 01/03/25 PCP Handoff Recommended Outpatient Testing: Follow up with Podiatry 01/07/25 Follow up Infectious Disease Follow up Endocrinology Results Pending At Discharge: wound cx Clinical Summary Joel Falk is a 54 y.o. 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 Left 1st Toe Osteomyelitis MRI left foot with porbable infection of the 1st toenail with erosive change of the adjacent dorsal corex of the 1st distal phalanx and an intraosseous abscess of the 1st distal phalanx with surrounding osteomyelitis of the majority of the 1st distal phalanx. MRSA swab-negative PICC Line to be placed outpatient S/P IV Vancomycin /Zosyn Podiatry -follow up outpatient ID - follow up outpatient Wound Cx- no growth to date Care management for Abx coordination S/P washout and bone biopsy 01/02 New onset Diabetes A1c-11.5 Endocrinology consult- follow up outpatient Diabetic education Hypertension Care management for PCP resources BP stable Tobacco abuse Smoking cessation counseling Discharge Medications Current Discharge Medication List START taking these medications Details alcohol swabs PadM Use as directed to check blood glucose readings 4 times daily. Dx E11.65 . Qty: 150 each, Refills: 11 blood sugar diagnostic strips Use as directed to check blood glucose readings 4 times daily. Dx E11.65 . Qty: 150 each, Refills: 11 blood-glucose meter Misc by Miscellaneous route Use as directed to check blood glucose 4 times daily. May fill with brand insurance prefers. . Qty: 1 each, Refills: 0 blood-glucose sensor (Dexcom G7 Sensor) Denise 1 each by Miscellaneous route every 10 (ten) days . Qty: 3 each, Refills: 11 Associated Diagnoses: Type 2 diabetes mellitus with hyperglycemia, with long-term current use of insulin (HCC) insulin glargine (Lantus Solostar U-100 Insulin) 100 unit/mL (3 mL) InPn Inject 25 (twenty five) Units under the skin nightly . Qty: 15 mL, Refills: 6 Comments: Dispense full package quantity if needed insulin lispro (HumaLOG KwikPen Insulin) 100 unit/mL InPn Inject 9 (nine) Units under the skin 3 (three) times a day before meals Plus sliding scale.Up to 50 units daily. DX E11.65 . Qty: 15 mL, Refills: 0 Comments: Dispense full package quantity if needed lancets Misc Use as directed to check blood glucose 4 times daily. DX . Qty: 200 each, Refills: 11 pen needle, diabetic 32 gauge x 5/32" Ndle Use as directed to check blood glucose readings 4 times daily. Dx E11.65 . Qty: 150 each, Refills: 11 traMADol (ULTRAM) 50 mg tablet Take 1 (one) tablet (50 mg total) by mouth every 6 (six) hours as needed for pain . Qty: 12 tablet, Refills: 0 Associated Diagnoses: Osteomyelitis of left foot, unspecified type (HCC) STOP taking these medications amoxicillin-clavulanate (AUGMENTIN) 875-125 mg per tablet Comments: Reason for Stopping: Physician(s) Follow Up: Chang Charles MD [address] [place], [place] [id number] Schedule an appointment as soon as possible for a visit FATMATA Arguelles, DPM [address] [phone] Follow up on 01/07/2025 [facility] Endocrinology Phys[facility] [address] [place] [address] Medical Office [facility] [phone] Schedule an appointment as soon as possible for a visit Condition at Discharge: Good Disposition: Home On day of discharge, I performed a final bedside evaluation including a physical exam. I reviewed discharge recommendations with the patient in person. Patient instructions, including activity, were given to the patient/family at discharge. Time spent on discharge: > 30 minutes Completed by: Alondra Gregorio CNP on 01/03/25, 11:13 AM documented in this encounter [facility] 01-03-2025 Progress note Formatting of t his note might be different from the original. Spoke with Dr. Charles regarding discharge oral antibiotics, patient can be discharged with no antibiotics and office will call on Sunday and discuss further antibiotic management and midline placement , patient to follow up with Dr. Tipton podiatry on Sunday [facility] 01-03-2025 Miscellaneous Notes Spoke with Dr. Charles regarding discharge oral antibiotics, patient can be discharged with no antibiotics and office will call on Sunday and discuss further antibiotic management and midline placement , patient to follow up with Dr. Tipton podiatry on Sunday Problem: Actual or potential alteration in health Goal: Absence of healthcare acquired conditions Outcome: Partially Met Goal: Knowledge of Interdisciplinary Plan of Care Outcome: Partially Met Goal: Knowledge of Enviroment Outcome: Partially Met Problem: Pain Goal: Reduced pain sensation Outcome: Partially Met Goal: Control of acute pain to acceptable level Outcome: Partially Met Goal: Able to cope with pain Outcome: Partially Met Goal: Able to achieve maximum level of physical functioning Outcome: Partially Met Goal: Able to achieve maximum level of psychosocial functioning Outcome: Partially Met Brief Post Operative Note Patient Name: Joel Falk : 1970 (54 y.o.) Date of Service: 01/02/2025 [facility]: [id number] Procedure(s): INCISION AND DRAINAGE Left Great Toe with bone bx Implantation of antibiotic beads Pre-Operative Diagnoses: * Left great toe osteomyelitis status post previous traumatic nail avulsion Left great toe cellulitis Tobacco abuse Post-Operative Diagnoses: Same Surgeons and Role: * FATMATA Arguelles DPM - Primary Anesthesiologist: Ever Chambers MD Anesthesiologist Sporting Goods Salesperson: Scott Flores [facility] Aide: Bouchra Solomon RN Crop And Soil Technician: Honey Bhatt, TECHNOLOGIST Clerk Guide: Anita Valentin PSA Scrub Person Preceptor: Chiquis Gottlieb ST Float: Nallely Linton RN; Nevin Granado RN Operative findings: Diagnosis confirmed Intra and immediate post-operative complications: none Type of anesthesia used: General Estimated blood loss: 1 mL Estimated urine output: Refer to surgical log Specimen(s): ID Type Source Tests Collected by Time Destination 1 : Swab Toe, Left, One WOUND AEROBIC AND ANAEROBIC CULTURE FATMATA Arguelles, ANASTACIO 01/02/2025 1459 2 : Bone Toe, Left, One BONE AEROBIC & ANAEROBIC CULTURE FATMATA Arguelles, ANASTACIO 01/02/2025 1511 A : Bone Toe, Left, One TISSUE EXAM FATMATA Arguelles DPM 01/02/2025 1512 Implant(s): * No implants in log * Drain(s): * No LDAs found * Wound(s): Wound 01/02/25 Surgical Wound Dorsal;Left (Active) FATMATA Arguelles DPM 01/02/2025 3:41 PM Images from the original note were not included. In to see patient briefly prior to surgery. Patient is quite anxious in his room and claustrophobic. He would like to be discharged as soon as possible, no later than tomorrow. Discussed with patient there are many moving pieces that still need to be addressed prior to his discharge. This includes seeing endocrinology for his newly diagnosed diabetes including hemoglobin A1c 11.5. is present at bedside, both and patient states they do want this addressed. Surgical plan discussed with patient at length, including his poor healing ability given uncontrolled diabetes. Patient and verbalized understanding. Discussed with treatment team patient will be coming to short-term care for IV antibiotic infusions if so decided on by infectious disease. Although unconventional, this can be arranged once culture results are available instead of keeping patient here over the weekend waiting for cultures to result. Primary nurse present in the room for this discussion. All questions and concerns addressed to patient and his 's satisfaction. Problem: Actual or potential alteration in health Goal: Absence of healthcare acquired conditions Outcome: Partially Met Goal: Knowledge of Interdisciplinary Plan of Care Outcome: Partially Met Goal: Knowledge of Enviroment Outcome: Partially Met Problem: Pain Goal: Reduced pain sensation Outcome: Partially Met Goal: Control of acute pain to acceptable level Outcome: Partially Met Goal: Able to cope with pain Outcome: Partially Met Goal: Able to achieve maximum level of physical functioning Outcome: Partially Met Goal: Able to achieve maximum level of psychosocial functioning Outcome: Partially Met Problem: Actual or potential alteration in health Goal: Absence of healthcare acquired conditions Outcome: Partially Met Goal: Knowledge of Interdisciplinary Plan of Care Outcome: Partially Met Goal: Knowledge of Enviroment Outcome: Partially Met documented in this encounter [facility] 01-03-2025 Note Podiatry Inpatient P martín Note 01/03/2025 FATMATA Arguelles DPM [facility] Patient: Joel Falk Date of : 1970 (54 y.o.) PCP: Yesi, Physician ASSESSMENT 54 y.o. male with the following pedal anomalies: Left great toe osteomyelitis status post previous traumatic nail avulsion status post curettage of distal phalanx bone with application of antibiotic beads (date of surgery 01/02/2025) Left great toe cellulitis Tobacco abuse Plan: Patient was seen and evaluated at the bedside, I discussed the findings with the patient. CRP 15.5, ESR normal. WBC 11.90. Hemoglobin A1c 11.5. This will be a great barrier to healing Left foot MRI: probable infection of the 1st toenail with erosive change of the adjacent dorsal cortex of the 1st distal phalanx and an intraosseous abscess of the 1st distal phalanx with surrounding osteomyelitis of the majority of the 1st distal phalanx. Previous wound culture in October no growth. T infectious disease: Following Surgical cultures pending Pending IV antibiotics per infectious disease Okay to discharge from podiatry standpoint once patient's antibiotics are established. Inpatient recommendations: Dressings as follows: Per podiatry, Betadine to incision 4 x 4 Kerlix Cherelle Mobility/weightbearing: Heel weightbearing OT/PT: n/a Case management: Following Disposition/discharge: Okay to discharge per podiatry Discharge instructions from AVS: Per above SUBJECTIVE: Patient was seen at bedside today. Minimal pain. Overall doing quite well eager to go home. OBJECTIVE: Podiatric Exam Vascular: DP and PT pulses are palpable 2 of 4. Capillary refill time is less than 3 seconds to distal digits. Skin temperature is warm to warm from proximal tibial tuberosity to distal digit. No pedal edema Neurological: Gross sensation is intact. Protective sensation is intact. Babinski's is normal. Dermatologic: Incisions are intact to the left hallux. Mild maceration noted to the proximal medial nail fold. No purulence on expression. Still persistent hyperemia/rubor noted. Minimal edema present. Musculoskeletal: Compartments soft and compressible. No calf pain or fullness. Muscle strength 5/5 tenderness on palpation to left hallux. AUTHENTICATED BY CHRISTIAN ARGUELLES II, ON 01/03/2025 10:05:30 [facility] 01-03-2025 History of Present illness Narrative Podiatry Inpatient Progress Note 01/03/2025 FATMATA Arguelles, [facility] Patient: Joel Falk Date of : 1970 (54 y.o.) PCP: Yesi, Physician ASSESSMENT 54 y.o. male with the following pedal anomalies: Left great toe osteomyelitis status post previous traumatic nail avulsion status post curettage of distal phalanx bone with application of antibiotic beads (date of surgery 01/02/2025) Left great toe cellulitis Tobacco abuse Plan: Patient was seen and evaluated at the bedside, I discussed the findings with the patient. CRP 15.5, ESR normal. WBC 11.90. Hemoglobin A1c 11.5. This will be a great barrier to healing Left foot MRI: probable infection of the 1st toenail with erosive change of the adjacent dorsal cortex of the 1st distal phalanx and an intraosseous abscess of the 1st distal phalanx with surrounding osteomyelitis of the majority of the 1st distal phalanx. Previous wound culture in October no growth. T infectious disease: Following Surgical cultures pending Pending IV antibiotics per infectious disease Okay to discharge from podiatry standpoint once patient's antibiotics are established. Inpatient recommendations: Dressings as follows: Per podiatry, Betadine to incision 4 x 4 Kerlix Cherelle Mobility/weightbearing: Heel weightbearing OT/PT: n/a Case management: Following Disposition/discharge: Okay to discharge per podiatry Discharge instructions from AVS: Per above SUBJECTIVE: Patient was seen at bedside today. Minimal pain. Overall doing quite well eager to go home. OBJECTIVE: Podiatric Exam Vascular: DP and PT pulses are palpable 2 of 4. Capillary refill time is less than 3 seconds to distal digits. Skin temperature is warm to warm from proximal tibial tuberosity to distal digit. No pedal edema Neurological: Gross sensation is intact. Protective sensation is intact. Babinski's is normal. Dermatologic: Incisions are intact to the left hallux. Mild maceration noted to the proximal medial nail fold. No purulence on expression. Still persistent hyperemia/rubor noted. Minimal edema present. Musculoskeletal: Compartments soft and compressible. No calf pain or fullness. Muscle strength 5/5 tenderness on palpation to left hallux. Images from the original note were not included. Patient ID: Patient Name: Joel Falk Admit Date: 01/01/2025 MR #: [id number] : 1970 Current location: [facility] Physicians: No, Physician (Family); Alondra Gregorio CNP (Referring) Reason for consult: Type 2 diabetes newly diagnosed Assessment/Plan: Dx: Type 2 diabetes, under poor control- newly diagnosed Currently taking as outpatient: No DM Meds Current Hemoglobin A1C= Lab Results Component Value Date HGBA1C 11.5 (H) 01/02/2025 NOTES: 01/02: Patient resting in bed with no real complaints right now. He is awaiting a an I&D procedure with podiatry. Blood sugar this morning was elevated at 243. He is currently ordered sliding scale insulin coverage. He is n.p.o. currently. 01/03: BG and labs reviewed. BG ranging from 175-243 over the last 24 hours. Currently receiving Lantus 25 units nightly Humalog 9 units with meals plus usual corrective scale. Patient with no complaints this a.m. Reports plan to go home later today. Blood Glucoses: 01/02: 243--- 226---215---237 0/6/0/0H--25L 01/03: Plan: 1. Rx changes: see below Start Lantus insulin 25 units nightly Start Humalog 9 units at meals plus usual sensitivity sliding scale Consults of already been placed for diabetic education and dietitian referral. We did discuss what is diabetes, goals/expectations of treatment, possible complications from diabetes should it remain out of control. 01/03: CPM 2. Education: Reviewed ABCs of diabetes management (respective goals in parentheses): A1C (7.0-8.0), blood pressure (<130/80), and cholesterol (LDL <100). Referral to Diabetes Education Referral to Nutrition therapy Subjective: Brief HPI: Joel Falk is a 54 y.o. 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 Spoke with podiatry who prescribed Augmentin and was coordinating outpatient IV antibiotics. Patient says noone has communicated with him since, so he presented to the ED. this has been an ongoing issue for this patient for quite some time, since August. No fever, chills, N/V. Denies h/o diabetes. He had an MRI which demonstrated osteomyelitis on 12/26/2024. He was also found to be hyperglycemic on admission and endocrinology was consulted to further evaluate. Hemoglobin A1c was checked and was 11.5%. He denies any family history of diabetes. He does drink mountain dew every day, about 8 or 9 cans per day. He denies polyuria, polydipsia or polyphagia. He has had no weight loss. Allergies: No Known Allergies Home Medications: Outpatient Medications Marked as Taking for the 01/01/25 encounter (Hospital Encounter): amoxicillin-clavulanate (AUGMENTIN) 875-125 mg per tablet, Take 1 (one) tablet by mouth 2 (two) times a day for 7 days . Current Medications: enoxaparin (LOVENOX) injection 40 mg Subcutaneous Daily insulin glargine 25 Units Subcutaneous Nightly lispro insulin 0-15 Units Subcutaneous at bedtime insulin lispro 0-30 Units Subcutaneous TID AC piperacillin-tazobactam (ZOSYN) extended infusion 3.375 g Intravenous Q8H sodium chloride (PF) 10 mL Intracatheter Q8H DONELL sodium chloride (PF) 5 mL Intravenous Q8H DONELL acetaminophen, alteplase, aluminum-magnesium hydroxide-simethicone, bisacodyL, ibuprofen, lidocaine 1%, magnesium hydroxide, melatonin, nicotine, ondansetron OR ondansetron, senna, sodium chloride (PF), [COMPLETED] Insert peripheral IV AND Saline lock IV AND sodium chloride (PF) AND sodium chloride 0.9 %, Saline lock IV AND sodium chloride (PF) AND sodium chloride (PF) AND sodium chloride 0.9 %, traZODone Review of Systems: Review of Systems Constitutional: Negative for activity change, appetite change, fatigue and unexpected weight change. HENT: Negative. Negative for sore throat and trouble swallowing. Eyes: Negative. Respiratory: Negative for cough, chest tightness and shortness of breath. Cardiovascular: Negative for chest pain, palpitations and leg swelling. Gastrointestinal: Negative for abdominal pain, constipation, diarrhea, nausea and vomiting. Endocrine: Negative for cold intolerance, heat intolerance, polydipsia, polyphagia and polyuria. Genitourinary: Negative for dysuria and frequency. Musculoskeletal: Negative. Skin: Positive for wound (Left great toe). Negative for rash. Allergic/Immunologic: Negative. Neurological: Negative for numbness. Hematological: Negative. Psychiatric/Behavioral: Negative. History: History reviewed. No pertinent past medical history. Past Surgical History: Procedure Laterality Date ACL REPAIR Right History reviewed. No pertinent family history. Social History Tobacco Use Smoking status: Every Day Current packs/day: 1.00 Types: Cigarettes Smokeless tobacco: Never Vaping Use Vaping status: Never Used Substance Use Topics Drug use: Never The following portions of the patient's history were reviewed and updated as appropriate: allergies, current medications, past family history, past medical history, past social history, past surgical history and problem list. Objective: BP 130/82 Pulse 77 Temp 98.3 F (36.8 C) (Oral) Resp 16 Ht 5' 10" Wt 116.4 kg (256 lb 9.9 oz) SpO2 90% BMI 36.82 kg/m Wt Readings from Last 3 Encounters: 01/01/25 116.4 kg (256 lb 9.9 oz) 12/26/24 115.7 kg (255 lb) 11/25/22 117.9 kg (260 lb) Physical Exam: Physical Exam Constitutional: Appearance: He is well-developed. HENT: Head: Normocephalic. Eyes: Pupils: Pupils are equal, round, and reactive to light. Neck: Thyroid: No thyromegaly. Cardiovascular: Rate and Rhythm: Normal rate and regular rhythm. Heart sounds: No murmur heard. Pulmonary: Effort: Pulmonary effort is normal. Breath sounds: Normal breath sounds. Abdominal: General: Bowel sounds are normal. Palpations: Abdomen is soft. Tenderness: There is no abdominal tenderness. Musculoskeletal: General: Normal range of motion. Cervical back: Neck supple. Skin: General: Skin is warm and dry. Comments: Left great toe discolored +onychomycosis. Neurological: Mental Status: He is alert and oriented to person, place, and time. Laboratory Review: BP 130/82 Pulse 77 Temp 98.3 F (36.8 C) (Oral) Resp 16 Ht 5' 10" Wt 116.4 kg (256 lb 9.9 oz) SpO2 90% BMI 36.82 kg/m Lab Results Component Value Date HGBA1C 11.5 (H) 01/02/2025 Glucose (mg/dL) Date Value 01/02/2025 240 (H) Creatinine (mg/dL) Date Value 01/03/2025 1.12 No results found for: "CHOL", "TRIG", "HDL", "LDLCALC", "LDL" No results found for: "TSH" No results found for: "FREET4" Lab Results Component Value Date WBC 7.58 01/02/2025 HGB 16.2 01/02/2025 HCT 48.4 01/02/2025 MCV 95.5 01/02/2025 PLT 162 01/02/2025 This SmartLink has not been configured with any valid records. This SmartLink has not been configured with any valid records. MRI, foot on 12/26/2024: There are MRI findings compatible with a probable infection of the 1st toenail with erosive change of the adjacent dorsal cortex of the 1st distal phalanx and an intraosseous abscess of the 1st distal phalanx with surrounding osteomyelitis of the majority of the 1st distal phalanx. Laboratory and Additional Data Reviewed: Laboratory 01/03/25 7:18 AM Microbiology 01/03/25 7:18 AM Pathology 01/03/25 7:18 AM Radiology 01/03/25 7:18 AM Cardiology 01/03/25 7:18 AM Medications 01/03/25 7:18 AM Transcriptions 01/03/25 7:18 AM Discharge recommendations: Lantus 25 units nightly Humalog 9 units with breakfast, 9 units with lunch, 9 units with dinner plus Humalog insulin with Sliding scale with meals and at bedtime: BG<150=0 150-200=+2 U 201-250=+4 U 251-300= +6 U 301-350=+8 U >350=+10 U He would like to follow-up with our office for diabetes management going forward. Would recommend follow-up in 8 to 10 weeks. Our office will call you on Sunday to set up a hospital follow-up appointment. If you do not hear from our office on Sunday please feel free to reach out to us at [phone] to schedule that appointment. Electronically signed by CASSIDY Castillo 01/03/2025 Spiritual Care Progress Note Completed by: Cici Peng Person(s) Present During this Visit: Patient Time Spent in Direct Patient Care: 15 Narrative: Field Cane Scaler Helper visited pt Héctor while rounding on the unit. Pt was very nice, expressed no support need at that time but was appreciative of the support. Field Cane Scaler Helper provided compassionate presence and remains available upon request. Patients Response to Pastoral Care: Appeared to be well-engaged, Expressed Gratitude for Visit Planning for Future Visits: PRN, Pt aware to contact Field Cane Scaler Helper as needed 01/02/25 1300 Visit Background Visit With Patient Visit By Staff Field Cane Scaler Helper Visit Progression Introduction Visit Requested By Field Cane Scaler Helper Initiated Visit Source Field Cane Scaler Helper Initiated Visit Type Inpatient;Rounding Visit Circumstances and Events Routine Visit Visit Length (minutes) 15 Patient's Response to Pastoral Care Appeared to be well-engaged;Expressed Gratitude for Visit Visit Planning PRN;Pt aware to contact Field Cane Scaler Helper as needed Spiritual Assessment Not assessed during visit Taoism Assessment Not assessed during this visit Family assessment provided? Not assessed during this visit Cici Peng MA Staff Field Cane Scaler Helper Pastoral Care Department [facility] [phone] On-call Care Management Progress Note Date: 01/02/2025 Time: 12:54 PM Patient Name: Joel Falk Date of : 1970 Discharge Plan: Home Discharging Transportation Plan: can transport Discharge Plan Status: Per medical team, the plan is for pt to discharge home tomorrow on oral ATBs and to do wound dressing changes and pt will follow up with the wound clinic when wound culture results come back to set up IV ATBs with outpatient infusion clinic. No needs identifed for CM, CM signing off. Assessment and Background Information: [facility] PROGRESS NOTE Assessment and Plan Joel Falk is a 54 y.o. 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 Left 1st Toe Osteomyelitis MRI left foot with porbable infection of the 1st toenail with erosive change of the adjacent dorsal corex of the 1st distal phalanx and an intraosseous abscess of the 1st distal phalanx with surrounding osteomyelitis of the majority of the 1st distal phalanx. MRSA swab-negative PICC Line Vanc/Zosyn started Podiatry and ID consults Care management for Abx coordination Scheduled washout and bone biopsy 01/02 New onset Diabetes A1c-11.5 SSI Endocrinology consult Diabetic education Hypertension BP 166/103 at last outpatient appointment Care management for PCP resources Tobacco abuse Smoking cessation counseling Nicotine replacement prn Resolved acute medical issues Discharge Planning Medically Stable for Discharge Date: 01/03/25 Patient requires continued hospitalization due to: OR Discharge Location: home Quality Measures DVT Prophylaxis: lovenox Ortega Catheter: absent Subjective Patient resting in bed, does endorse left great toe discomfort, no reported fever or chills Objective BP (!) 152/81 Pulse 66 Temp 98.1 F (36.7 C) (Oral) Resp 16 Ht 5' 10" Wt 116.4 kg (256 lb 9.9 oz) SpO2 94% BMI 36.82 kg/m Physical Examination General Appearance: alert; well appearing; in no acute distress HEENT: Head- normocephalic; Eyes- EOMI, sclera anicteric; Throat- mucous membranes moist Cardiovascular: regular rate and rhythm; normal S1, S2; no murmurs, rubs, clicks or gallops; peripheral edema absent Respiratory: lungs clear to auscultation; without wheezes, rales or rhonchi; on room air Abdomen: soft, non-tender, non-distended Neurological: oriented x 3; normal speech; no focal findings or movement disorder noted Musculoskeletal: no significant deformity or tenderness to palpation Skin: normal coloration, left great toe edema Psych: normal mood and affect Notified Dr Gay that pt is Ax4 and denied blood sugar check @ and insulin. Pt reported that he is not a diabetic. He has been eating candy and drinking pop tonight and reported of course he will be high. Pt did reported he will let the nursing staff check his blood sugar in the morning. Provider reported that was fine Pharmacy to Dose Antimicrobials Assessment / Plan: Joel Falk is a 54 y.o. male initiated on vancomycin for Osteo . Vancomycin goal AUC is 400-600 mcg h/mL. Current regimen will produce a predicted AUC of 464 mcg h/mL with trough of 13 mcg/mL. Pharmacy will continue to follow and make adjustments as needed. Please use [employer] to call pharmacy or secure chat the assigned pharmacist with questions. Dosing for this admission: Date Dose and interval before level (or initial dose) Level Dose and interval after level Notes/Follow-Up 01/01 1750mg LD, 1250mg q 12hrs -- -- Other active antibiotics include: piperacillin-tazobactam 3.375mg q8h Objective: Lab Results Component Value Date CREATININE 1.05 01/01/2025 Lab Results Component Value Date WBC 11.90 (H) 01/01/2025 Ht Readings from Last 1 Encounters: 12/26/24 5' 10" (177.8 cm) Wt Readings from Last 1 Encounters: 12/26/24 115.7 kg (255 lb) [place] body weight: 73 kg (160 lb 15 oz) Adjusted ideal body weight: 90.1 kg (198 lb 9 oz) Patient Tmax (last 24 hours): 97.5 F Micro: pending Pharmacy Personnel: Arron Olivas RPh,PharmD Contact: or Vocera documented in this encounter [facility] 01-03-2025 Note Patient ID: Patient Name: Joel Falk Admit Date: 01/01/2025 MR #: [id number] : 1970 Current location: [facility] Physicians: Yesi, Physician (Family); Alondra Gregorio CNP (Referring) Reason for consult: Type 2 diabetes newly diagnosed Assessment/Plan: Dx: Type 2 diabetes, under poor control- newly diagnosed Currently taking as outpatient: No DM Meds Current Hemoglobin A1C= Lab Results Component Value Date HGBA1C 11.5 (H) 01/02/2025 NOTES: 01/02: Patient resting in bed with no real complaints right now. He is awaiting a an I&D procedure with podiatry. Blood sugar this morning was elevated at 243. He is currently ordered sliding scale insulin coverage. He is n.p.o. currently. 01/03: BG and labs reviewed. BG ranging from 175-243 over the last 24 hours. Currently receiving Lantus 25 units nightly Humalog 9 units with meals plus usual corrective scale. Patient with no complaints this a.m. Reports plan to go home later today. Blood Glucoses: 01/02: 243--- 226---215---237 0/6/0/0H--25L 01/03: Plan: 1. Rx changes: see below Start Lantus insulin 25 units nightly Start Humalog 9 units at meals plus usual sensitivity sliding scale Consults of already been placed for diabetic education and dietitian referral. We did discuss what is diabetes, goals/expectations of treatment, possible complications from diabetes should it remain out of control. 01/03: CPM 2. Education: Reviewed 'ABCs' of diabetes management (respective goals in parentheses): A1C (7.0-8.0), blood pressure (<130/80), and cholesterol (LDL <100). Referral to Diabetes Education Referral to Nutrition therapy Subjective: Brief HPI: Joel Falk is a 54 y.o. 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 Spoke with podiatry who prescribed Augmentin and was coordinating outpatient IV antibiotics. Patient says noone has communicated with him since, so he presented to the ED. this has been an ongoing issue for this patient for quite some time, since August. No fever, chills, N/V. Denies h/o diabetes. He had an MRI which demonstrated osteomyelitis on 12/26/2024. He was also found to be hyperglycemic on admission and endocrinology was consulted to further evaluate. Hemoglobin A1c was checked and was 11.5%. He denies any family history of diabetes. He does drink mountain dew every day, about 8 or 9 cans per day. He denies polyuria, polydipsia or polyphagia. He has had no weight loss. Allergies: No Known Allergies Home Medications: Outpatient Medications Marked as Taking for the 01/01/25 encounter (Hospital Encounter): amoxicillin-clavulanate (AUGMENTIN) 875-125 mg per tablet, Take 1 (one) tablet by mouth 2 (two) times a day for 7 days . Current Medications: enoxaparin (LOVENOX) injection 40 mg Subcutaneous Daily insulin glargine 25 Units Subcutaneous Nightly lispro insulin 0-15 Units Subcutaneous at bedtime insulin lispro 0-30 Units Subcutaneous TID AC piperacillin-tazobactam (ZOSYN) extended infusion 3.375 g Intravenous Q8H sodium chloride (PF) 10 mL Intracatheter Q8H DONELL sodium chloride (PF) 5 mL Intravenous Q8H DONELL acetaminophen, alteplase, aluminum-magnesium hydroxide-simethicone, bisacodyL, ibuprofen, lidocaine 1%, magnesium hydroxide, melatonin, nicotine, ondansetron OR ondansetron, senna, sodium chloride (PF), [COMPLETED] Insert peripheral IV AND Saline lock IV AND sodium chloride (PF) AND sodium chloride 0.9 %, Saline lock IV AND sodium chloride (PF) AND sodium chloride (PF) AND sodium chloride 0.9 %, traZODone Review of Systems: Review of Systems Constitutional: Negative for activity change, appetite change, fatigue and unexpected weight change. HENT: Negative. Negative for sore throat and trouble swallowing. Eyes: Negative. Respiratory: Negative for cough, chest tightness and shortness of breath. Cardiovascular: Negative for chest pain, palpitations and leg swelling. Gastrointestinal: Negative for abdominal pain, constipation, diarrhea, nausea and vomiting. Endocrine: Negative for cold intolerance, heat intolerance, polydipsia, polyphagia and polyuria. Genitourinary: Negative for dysuria and frequency. Musculoskeletal: Negative. Skin: Positive for wound (Left great toe). Negative for rash. Allergic/Immunologic: Negative. Neurological: Negative for numbness. Hematological: Negative. Psychiatric/Behavioral: Negative. History: History reviewed. No pertinent past medical history. Past Surgical History: Procedure Laterality Date ACL REPAIR Right History reviewed. No pertinent family history. Social History Tobacco Use Smoking status: Every Day Current packs/day: 1.00 Types: Cigarettes Smokeless tobacco: Never Vaping Use Vaping status: Never Used Substance Use Topics Drug use: Never The following portions of the patient's history wer (more content not included)... [facility] 01-03-2025 Plan of care note Problem: Actual or potential alteration in health Goal: Absence of healthcare acquired conditions Outcome: Partially Met Goal: Knowledge of Interdisciplinary Plan of Care Outcome: Partially Met Goal: Knowledge of Enviroment Outcome: Partially Met Problem: Pain Goal: Reduced pain sensation Outcome: Partially Met Goal: Control of acute pain to acceptable level Outcome: Partially Met Goal: Able to cope with pain Outcome: Partially Met Goal: Able to achieve maximum level of physical functioning Outcome: Partially Met Goal: Able to achieve maximum level of psychosocial functioning Outcome: Partially Met [facility] 01-02-2025 Note 1. Intraoperative fluoroscopy. See operative report for procedure description 2. Ka,r mGy: Fluoro dose in Ka,r mGy: 0.02 Workstation ID: [id number] 01-02-2025 Procedure note Brief Post Operative Note Patient Name: Joel Falk : 1970 (54 y.o.) Date of Service: 01/02/2025 [facility]: [id number] Procedure(s): INCISION AND DRAINAGE Left Great Toe with bone bx Implantation of antibiotic beads Pre-Operative Diagnoses: * Left great toe osteomyelitis status post previous traumatic nail avulsion Left great toe cellulitis Tobacco abuse Post-Operative Diagnoses: Same Surgeons and Role: * FATMATA Arguelles DPM - Primary Anesthesiologist: Ever Chambers MD Anesthesiologist Sporting Goods Salesperson: Scott Flores [facility] Aide: Bouchra Solomon RN Crop And Soil Technician: Honey Bhatt, TECHNOLOGIST Clerk Guide: Anita Valentin PSA Scrub Person Preceptor: Chiquis Gottlieb ST Float: Nallely Linton RN; Nevin Granado RN Operative findings: Diagnosis confirmed Intra and immediate post-operative complications: none Type of anesthesia used: General Estimated blood loss: 1 mL Estimated urine output: Refer to surgical log Specimen(s): ID Type Source Tests Collected by Time Destination 1 : Swab Toe, Left, One WOUND AEROBIC AND ANAEROBIC CULTURE FATMATA Arguelles DPM 01/02/2025 1459 2 : Bone Toe, Left, One BONE AEROBIC & ANAEROBIC CULTURE FATMATA Arguelles DPM 01/02/2025 1511 A : Bone Toe, Left, One TISSUE EXAM FATMATA Arguelles DPM 01/02/2025 1512 Implant(s): * No implants in log * Drain(s): * No LDAs found * Wound(s): Wound 01/02/25 Surgical Wound Dorsal;Left (Active) FATMATA Arguelles DPM 01/02/2025 3:41 PM [facility] 01-02-2025 Consult note Formatting of th is note might be different from the original. Patient going home on oral ATB's and will place picc line next week when coming into [facility]. [facility] 01-02-2025 Consult note Formatting of th is note might be different from the original. Patient going home on oral ATB's and will place picc line next week when coming into [facility]. Associated Order(s): IP CONSULT TO DIETITIAN Nutrition Care Initial Assessment Poorly managed DM; w/ left foot osteomyelytis Reason for visit: Physician Consult: Nutrition Diagnosis: Food and Nutrition Related Knowledge Deficit related to DM as evidenced by diet hx. Nutrition Intervention Initiate Comprehensive Nutrition Education Nutrition Prescription: Diet:Continue NPO(advance to DM diet) Nutrition Goals: Able to verbalize understanding of education provided Start Date:01/02/2025 Expected End Date:01/08/2025 Nutrition Education: Learner: patient and significant other Educated on: DM diet menu planning Readiness: acceptance Method: explanation and handout Response: verbalizes understanding Expected Compliance: faiir(eliminate 1000kcal sugars giving up "MOUNT[place] DEW" Assessment: Pertinent clinical information: left foot wound History reviewed. No pertinent past medical history. Past Surgical History: Procedure Laterality Date ACL REPAIR Right Height: 5' 10" Current weight: 116.4 kg (256 lb 9.9 oz) BMI Body mass index is 36.82 kg/m . Weight hx: stable Wt Readings from Last 10 Encounters: 01/01/25 116.4 kg (256 lb 9.9 oz) 12/26/24 115.7 kg (255 lb) 11/25/22 117.9 kg (260 lb) Significant Weight Change: No Current diet order: Diet: NPO Recent intake: 75% Current intake likely does not meet estimated needs Barriers to adequate p.o. intakes: No barriers identified Nutrition Related Allergies/Intolerances: No Nutrition Related Allergies noted Cultural or Taoism Dietary Needs :No Cultural or Taoism Dietary needs noted Patient/family comments: could verbalize menues Difficulty Chewing or Swallowing: No Skin Integrity: left great toe osteomyelytis GI Function: WDL Fluid Status: WNL Physical Appearance: No signs and symptoms of malnutrition noted Labs: Recent Labs 01/01/25 1106 01/02/25 0448 NA 134* 135 K 4.3 4.0 BICARB 24 26 CL 98 100 GLUCOSE 294* 240* BUN 11 11 CREATININE 1.05 1.07 CRP 15.5* -- Recent Labs 01/01/25 1106 01/02/25 0448 GLUCOSE 294* 240* Lab Results Component Value Date HGBA1C 11.5 (H) 01/02/2025 Home Medications Reviewed: Yes Scheduled Meds: [Jan] enoxaparin (LOVENOX) injection 40 mg Subcutaneous Daily [Jan] insulin glargine 25 Units Subcutaneous Nightly [Jan] lispro insulin 0-15 Units Subcutaneous at bedtime [Jan] insulin lispro 0-30 Units Subcutaneous TID AC [Jan] piperacillin-tazobactam (ZOSYN) extended infusion 3.375 g Intravenous Q8H [Jan] sodium chloride (PF) 10 mL Intracatheter Q8H DONELL [Jan] sodium chloride (PF) 5 mL Intravenous Q8H DONELL Continuous Infusions: Nutrient Depleting Medications: No chronic use of nutrient depleting medications noted. Estimated Energy Needs Total Energy Estimated Needs: 2000kcal Method for Estimating Needs: MStJ Total Protein Estimated Needs: 100gm Method for Estimating Needs: 1.1gm/kg adj Fidel Johnson RD Met with patient at bedside to discuss his newly diagnosed type 2 Diabetes. RN discussed A1C of 11.5% and goal of less than 7%. RN also discussed target levels for best control, pathophysiology of Diabetes, the role of the Liver and Pancreas, difference between T1DM and T2DM, Hypo and Hyperglycemia with treatment, timing action of rapid and long acting insulin, medication compliance, testing blood sugars regularly, regular feeding schedule and importance of 30 minutes of exercise 5 days a week. Pt denies any polyuria, polydipsia or excessive weight loss. Pt reports he normally skips breakfast and lunch and just eats dinner. Pt does drink regular soda and admits his diet could use some work. Pt reports an occasional potential hypoglycemic event where he might eat something and feel better but nothing consistent. 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 Pt is interested in trying a CGM. Pt is in process of getting a new PCP and was encouraged to follow up to help with diabetes management. This Rn also stated physician then could check to see if insurance would cover CGM. Proper insulin instruction, preparation, safe disposal of sharps and storage was done by RN for both pen and syringe using a practice tummy. Patient declined to do a return demonstration. Proper sites for insulin administration were also discussed along with importance of rotating site for each injection. Questions encouraged and patient was notified an educator would be back on Sunday if patient is still admitted. Handouts: Diabetes and You Book Target Glucose Levels A1C How Your Insulin Works Glucose Log Hypoglycemia Identification & Treatment Hyperglycemia Type 2 Diabetes and Adding Insulin Primary RN updated. Associated Order(s): IP CONSULT TO ENDOCRINOLOGY Images from the original note were not included. Patient ID: Patient Name: Joel Falk Admit Date: 01/01/2025 MR #: [id number] : 1970 Current location: [facility] Physicians: No, Physician (Family); Alondra Gregorio CNP (Referring) Reason for consult: Type 2 diabetes newly diagnosed Assessment/Plan: Dx: Type 2 diabetes, under poor control- newly diagnosed Currently taking as outpatient: No DM Meds Current Hemoglobin A1C= Lab Results Component Value Date HGBA1C 11.5 (H) 01/02/2025 NOTES: 01/02: Patient resting in bed with no real complaints right now. He is awaiting a an I&D procedure with podiatry. Blood sugar this morning was elevated at 243. He is currently ordered sliding scale insulin coverage. He is n.p.o. currently. Blood Glucoses: 12/13: 243--- Plan: 1. Rx changes: see below Start Lantus insulin 25 units nightly Start Humalog 9 units at meals plus usual sensitivity sliding scale Consults of already been placed for diabetic education and dietitian referral. We did discuss what is diabetes, goals/expectations of treatment, possible complications from diabetes should it remain out of control. 2. Education: Reviewed ABCs of diabetes management (respective goals in parentheses): A1C (7.0-8.0), blood pressure (<130/80), and cholesterol (LDL <100). Referral to Diabetes Education Referral to Nutrition therapy Subjective: Brief HPI: Joel Falk is a 54 y.o. 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 Spoke with podiatry who prescribed Augmentin and was coordinating outpatient IV antibiotics. Patient says noone has communicated with him since, so he presented to the ED. this has been an ongoing issue for this patient for quite some time, since August. No fever, chills, N/V. Denies h/o diabetes. He had an MRI which demonstrated osteomyelitis on 12/26/2024. He was also found to be hyperglycemic on admission and endocrinology was consulted to further evaluate. Hemoglobin A1c was checked and was 11.5%. He denies any family history of diabetes. He does drink mountain dew every day, about 8 or 9 cans per day. He denies polyuria, polydipsia or polyphagia. He has had no weight loss. Allergies: No Known Allergies Home Medications: Outpatient Medications Marked as Taking for the 01/01/25 encounter (Hospital Encounter): amoxicillin-clavulanate (AUGMENTIN) 875-125 mg per tablet, Take 1 (one) tablet by mouth 2 (two) times a day for 7 days . Current Medications: enoxaparin (LOVENOX) injection 40 mg Subcutaneous Daily lispro insulin 0-15 Units Subcutaneous at bedtime insulin lispro 0-30 Units Subcutaneous TID AC piperacillin-tazobactam (ZOSYN) extended infusion 3.375 g Intravenous Q8H sodium chloride (PF) 10 mL Intracatheter Q8H DONELL sodium chloride (PF) 5 mL Intravenous Q8H DONELL acetaminophen, alteplase, aluminum-magnesium hydroxide-simethicone, bisacodyL, ibuprofen, lidocaine 1%, magnesium hydroxide, melatonin, ondansetron OR ondansetron, senna, sodium chloride (PF), [COMPLETED] Insert peripheral IV AND Saline lock IV AND sodium chloride (PF) AND sodium chloride 0.9 %, Saline lock IV AND sodium chloride (PF) AND sodium chloride (PF) AND sodium chloride 0.9 %, sodium chloride 0.9 %, traZODone Review of Systems: Review of Systems Constitutional: Negative for activity change, appetite change, fatigue and unexpected weight change. HENT: Negative. Negative for sore throat and trouble swallowing. Eyes: Negative. Respiratory: Negative for cough, chest tightness and shortness of breath. Cardiovascular: Negative for chest pain, palpitations and leg swelling. Gastrointestinal: Negative for abdominal pain, constipation, diarrhea, nausea and vomiting. Endocrine: Negative for cold intolerance, heat intolerance, polydipsia, polyphagia and polyuria. Genitourinary: Negative for dysuria and frequency. Musculoskeletal: Negative. Skin: Positive for wound (Left great toe). Negative for rash. Allergic/Immunologic: Negative. Neurological: Negative for numbness. Hematological: Negative. Psychiatric/Behavioral: Negative. History: History reviewed. No pertinent past medical history. Past Surgical History: Procedure Laterality Date ACL REPAIR Right History reviewed. No pertinent family history. Social History Tobacco Use Smoking status: Every Day Current packs/day: 1.00 Types: Cigarettes Smokeless tobacco: Never Vaping Use Vaping status: Never Used Substance Use Topics Drug use: Never The following portions of the patient's history were reviewed and updated as appropriate: allergies, current medications, past family history, past medical history, past social history, past surgical history and problem list. Objective: BP (!) 152/81 Pulse 66 Temp 98.1 F (36.7 C) (Oral) Resp 16 Ht 5' 10" Wt 116.4 kg (256 lb 9.9 oz) SpO2 94% BMI 36.82 kg/m Wt Readings from Last 3 Encounters: 01/01/25 116.4 kg (256 lb 9.9 oz) 12/26/24 115.7 kg (255 lb) 11/25/22 117.9 kg (260 lb) Physical Exam: Physical Exam Constitutional: Appearance: He is well-developed. HENT: Head: Normocephalic. Eyes: Pupils: Pupils are equal, round, and reactive to light. Neck: Thyroid: No thyromegaly. Cardiovascular: Rate and Rhythm: Normal rate and regular rhythm. Heart sounds: No murmur heard. Pulmonary: Effort: Pulmonary effort is normal. Breath sounds: Normal breath sounds. Abdominal: General: Bowel sounds are normal. Palpations: Abdomen is soft. Tenderness: There is no abdominal tenderness. Musculoskeletal: General: Normal range of motion. Cervical back: Neck supple. Skin: General: Skin is warm and dry. Comments: Left great toe discolored +onychomycosis. Neurological: Mental Status: He is alert and oriented to person, place, and time. Laboratory Review: BP (!) 152/81 Pulse 66 Temp 98.1 F (36.7 C) (Oral) Resp 16 Ht 5' 10" Wt 116.4 kg (256 lb 9.9 oz) SpO2 94% BMI 36.82 kg/m Lab Results Component Value Date HGBA1C 11.5 (H) 01/02/2025 Glucose (mg/dL) Date Value 01/02/2025 240 (H) Creatinine (mg/dL) Date Value 01/02/2025 1.07 No results found for: "CHOL", "TRIG", "HDL", "LDLCALC", "LDL" No results found for: "TSH" No results found for: "FREET4" Lab Results Component Value Date WBC 7.58 01/02/2025 HGB 16.2 01/02/2025 HCT 48.4 01/02/2025 MCV 95.5 01/02/2025 PLT 162 01/02/2025 This SmartLink has not been configured with any valid records. This SmartLink has not been configured with any valid records. MRI, foot on 12/26/2024: There are MRI findings compatible with a probable infection of the 1st toenail with erosive change of the adjacent dorsal cortex of the 1st distal phalanx and an intraosseous abscess of the 1st distal phalanx with surrounding osteomyelitis of the majority of the 1st distal phalanx. Laboratory and Additional Data Reviewed: Laboratory 01/02/25 9:02 AM Microbiology 01/02/25 9:02 AM Pathology 01/02/25 9:02 AM Radiology 01/02/25 9:02 AM Cardiology 01/02/25 9:02 AM Medications 01/02/25 9:02 AM Transcriptions 01/02/25 9:02 AM Thank you for this consultation, we will continue to follow this patient with you. Electronically signed by Carmelita Randolph APRN-OLIVER 259:11 AM Carmelita Randolph CNP Cosigned by David Hurtado MD at 01/02/2025 12:58 PM EST Attempted to meet patient for newly diagnosed T2DM. Per primary RN patient very adamant about not having newly diagnosed diabetes. Primary RN states patient states blood sugars are elevated in relation to what he ate prior to hospital admission. Primary RN recommends education be held at this time. Will continue to follow and educate when more appropriate. PICC team consulted for PICC line. Dr. Charles consulted for management of abx. Awaiting Dr. Vázquez recommendations for plan with abx to determine which line placement. Associated Order(s): IP CONSULT TO PODIATRY Images from the original note were not included. PODIATRY CONSULTATION Patient Name: Joel Falk. . Date of : 1970, 54 y.o.. Gender: male. Date of Consultation: 01/01/2025. Author: Mayuri Abarca CNP Thank you Rod Frost MD for this consultation. We appreciate the opportunity to help care for your patient. Below you will find our findings and recommendations: Reason for Consultation: Left great toe osteomyelitis Assessment: 54 y.o. male with the following pedal anomalies: Left great toe osteomyelitis status post previous traumatic nail avulsion Left great toe cellulitis Tobacco abuse Plan: Patient was seen and evaluated at the bedside, I discussed the findings with the patient. CRP 15.5, ESR normal. WBC 11.90. Hemoglobin A1c pending Left foot MRI: probable infection of the 1st toenail with erosive change of the adjacent dorsal cortex of the 1st distal phalanx and an intraosseous abscess of the 1st distal phalanx with surrounding osteomyelitis of the majority of the 1st distal phalanx. Previous wound culture in October no growth. Toe is completely closed without ulceration at this time. Infectious disease has been consulted Plan for surgical washout and bone biopsy tomorrow with Dr. Arguelles 01/02. N.p.o. at midnight, hold blood thinners History of Present Illness: Patient is a 54 y.o. male consulted to the Podiatry Service for left great toe osteomyelitis. Patient suffered left great toe trauma back in October when he dropped a soup can onto his left foot. He did have a traumatic nail avulsion as a result and was following with Dr. Arguelles. Nail bed and left great toe in general was slow to heal despite outpatient antibiotics. Toe remained erythematous, bruised, swollen and tender. MRI was obtained which showed osteomyelitis and possible intraosseous abscess. Due to clinical presentation of the left great toe, arrangements were started with infectious disease for outpatient IV antibiotics. Instead of waiting for infectious disease to follow-up with him, patient came to the ED instead. Decision was made for inpatient admission. Since infectious disease specialist Dr. Charles is requesting bone biopsy to determine need for IV antibiotics, patient will go for surgical washout and bone biopsy tomorrow with Dr. Jett 01/02. On exam patient reports sinus congestion and feeling cold but no other constitutional symptoms. No reports of fevers, no nausea/vomiting/diarrhea. No changes in appetite. Reports no further trauma to the great toe other than what happened in October. 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 Patient has no significant past medical history. Patient is a daily smoker. Estimated body mass index is 36.59 kg/m as calculated from the following: Height as of 12/26/24: 5' 10". Weight as of 12/26/24: 115.7 kg (255 lb). Allergies: No Known Allergies. Scheduled Meds: enoxaparin (LOVENOX) injection 40 mg Subcutaneous Daily lispro insulin 0-15 Units Subcutaneous at bedtime insulin lispro 0-30 Units Subcutaneous TID AC sodium chloride (PF) 10 mL Intracatheter Q8H DONELL sodium chloride (PF) 5 mL Intravenous Q8H DONELL . Continuous Infusions: . PRN Meds: acetaminophen, alteplase, aluminum-magnesium hydroxide-simethicone, bisacodyL, ibuprofen, lidocaine 1%, magnesium hydroxide, melatonin, ondansetron OR ondansetron, senna, sodium chloride (PF), [COMPLETED] Insert peripheral IV AND Saline lock IV AND sodium chloride (PF) AND sodium chloride 0.9 %, Saline lock IV AND sodium chloride (PF) AND sodium chloride (PF) AND sodium chloride 0.9 %, traZODone. Medical History: History reviewed. No pertinent past medical history.. Surgical History: Past Surgical History: Procedure Laterality Date ACL REPAIR Right . Social History: Social History Socioeconomic History Marital status: Tobacco Use Smoking status: Every Day Current packs/day: 1.00 Types: Cigarettes Smokeless tobacco: Never Vaping Use Vaping status: Never Used Substance and Sexual Activity Drug use: Never Family History: History reviewed. No pertinent family history. Review of Systems: Pertinent positives and negatives as mentioned above, otherwise full review of systems is negative unless mentioned below: Patient currently denies Nausea/Vomiting/Fever/Chills/Shor tness of Breath/Chest Pain. Physical Examination: BP (!) 149/86 Pulse 79 Temp 97.5 F (36.4 C) Resp 18 SpO2 92% General Appearance: Alert, cooperative, no distress, appears stated age. Podiatric Exam Vascular: DP and PT pulses are palpable 2 of 4. Capillary refill time is less than 3 seconds to distal digits. Skin temperature is warm to warm from proximal tibial tuberosity to distal digit. No pedal edema Neurological: Gross sensation is intact. Protective sensation is intact. Babinski's is normal. Dermatologic: Left great toe erythematous and swollen with slight bruised appearance. Toenail is traumatized with only a remnant noted at the nail base. No open ulceration, no drainage or purulence. Musculoskeletal: Compartments soft and compressible. No calf pain or fullness. Muscle strength 5/5 Laboratory Data: Lab Results Component Value Date WBC 11.90 (H) 01/01/2025 HGB 17.6 (H) 01/01/2025 HCT 50.1 01/01/2025 PLT 186 01/01/2025 BUN 11 01/01/2025 CREATININE 1.05 01/01/2025 Radiographs: No orders to display Again, thank you for the opportunity to help care for your patient. Mayuri Abarca CNP Cosigned by FATMATA Arguelles DPM at 01/02/2025 7:24 AM EST Associated attestation - FATMATA Arguelles DPM - 01/02/2025 7:24 AM EST Patient was seen at bedside. I agree with Daisy Abarca's assessment and plan. Associated Order(s): IP CONSULT TO CARE MANAGEMENT Care Management Consult Note Date: 01/01/2025 Time: 1:34 PM Patient Name: Joel Falk Date of : 1970 Reason for Consult: Discharge Plan: Plan A: Home Discharging Transportation Plan: Discharge Plan Status: TBD Assessment and Background Information: Héctor presented to the emergency department due to a toe infection. He has been following with Dr. Arguelles at [facility]. He tells me that Dr. Arguelles sent in a prescription for an antibiotic yesterday but he has not picked this up. Héctor lives with his spouse in a split level home. He is able to navigate the steps within the home with no problems. He drives himself to appointments and is independent with his ADLs. He receives no in home services. He denies any food/medical insecurities. His insurance is O. No PCP listed. Héctor will be moved to the medical floor for further treatment including consults with Podiatry and ID. Care management will continue to follow. Living Arrangements: Spouse/significant other Support Systems: Spouse/significant other Type of Residence: Private residence Prior to Admission Home Care Services: No Current Home Equipment: None Holistic Assessment Medication adherence problem:: No History of falls in last 6 months:: No Family aware of the patient's advance care planning wishes:: Yes Do you have any cultural/spiritual connections or beliefs that would impact how we deliver your care?: No Chronic pain:: No documented in this encounter [facility] 01-02-2025 Attending History and physical note INTERVAL HISTORY AND PHYSICAL Patient Name: Joel Falk Admit Date: [id number] MR #: [id number] : 1970 The H&P has been reviewed and the patient has been examined. I concur with the findings of the H&P. There are no significant changes. It is appropriate to proceed with the planned procedure. FATMATA Arguelles DPM 01/02/2025 2:48 PM Source Note - Mayuri Abarca CNP - 01/01/2025 3:38 PM EST Images from the original note were not included. PODIATRY CONSULTATION Patient Name: Joel Falk. . Date of : 1970, 54 y.o.. Gender: male. Date of Consultation: 01/01/2025. Author: Mayuri Abarca CNP Thank you Rod Frost MD for this consultation. We appreciate the opportunity to help care for your patient. Below you will find our findings and recommendations: Reason for Consultation: Left great toe osteomyelitis Assessment: 54 y.o. male with the following pedal anomalies: Left great toe osteomyelitis status post previous traumatic nail avulsion Left great toe cellulitis Tobacco abuse Plan: Patient was seen and evaluated at the bedside, I discussed the findings with the patient. CRP 15.5, ESR normal. WBC 11.90. Hemoglobin A1c pending Left foot MRI: probable infection of the 1st toenail with erosive change of the adjacent dorsal cortex of the 1st distal phalanx and an intraosseous abscess of the 1st distal phalanx with surrounding osteomyelitis of the majority of the 1st distal phalanx. Previous wound culture in October no growth. Toe is completely closed without ulceration at this time. Infectious disease has been consulted Plan for surgical washout and bone biopsy tomorrow with Dr. Arguelles 01/02. N.p.o. at midnight, hold blood thinners History of Present Illness: Patient is a 54 y.o. male consulted to the Podiatry Service for left great toe osteomyelitis. Patient suffered left great toe trauma back in October when he dropped a soup can onto his left foot. He did have a traumatic nail avulsion as a result and was following with Dr. Arguelles. Nail bed and left great toe in general was slow to heal despite outpatient antibiotics. Toe remained erythematous, bruised, swollen and tender. MRI was obtained which showed osteomyelitis and possible intraosseous abscess. Due to clinical presentation of the left great toe, arrangements were started with infectious disease for outpatient IV antibiotics. Instead of waiting for infectious disease to follow-up with him, patient came to the ED instead. Decision was made for inpatient admission. Since infectious disease specialist Dr. Charles is requesting bone biopsy to determine need for IV antibiotics, patient will go for surgical washout and bone biopsy tomorrow with Dr. Jett 01/02. On exam patient reports sinus congestion and feeling cold but no other constitutional symptoms. No reports of fevers, no nausea/vomiting/diarrhea. No changes in appetite. Reports no further trauma to the great toe other than what happened in October. 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 Patient has no significant past medical history. Patient is a daily smoker. Estimated body mass index is 36.59 kg/m as calculated from the following: Height as of 12/26/24: 5' 10". Weight as of 12/26/24: 115.7 kg (255 lb). Allergies: No Known Allergies. Scheduled Meds: enoxaparin (LOVENOX) injection 40 mg Subcutaneous Daily lispro insulin 0-15 Units Subcutaneous at bedtime insulin lispro 0-30 Units Subcutaneous TID AC sodium chloride (PF) 10 mL Intracatheter Q8H DONELL sodium chloride (PF) 5 mL Intravenous Q8H DONELL . Continuous Infusions: . PRN Meds: acetaminophen, alteplase, aluminum-magnesium hydroxide-simethicone, bisacodyL, ibuprofen, lidocaine 1%, magnesium hydroxide, melatonin, ondansetron OR ondansetron, senna, sodium chloride (PF), [COMPLETED] Insert peripheral IV AND Saline lock IV AND sodium chloride (PF) AND sodium chloride 0.9 %, Saline lock IV AND sodium chloride (PF) AND sodium chloride (PF) AND sodium chloride 0.9 %, traZODone. Medical History: History reviewed. No pertinent past medical history.. Surgical History: Past Surgical History: Procedure Laterality Date ACL REPAIR Right . Social History: Social History Socioeconomic History Marital status: Tobacco Use Smoking status: Every Day Current packs/day: 1.00 Types: Cigarettes Smokeless tobacco: Never Vaping Use Vaping status: Never Used Substance and Sexual Activity Drug use: Never Family History: History reviewed. No pertinent family history. Review of Systems: Pertinent positives and negatives as mentioned above, otherwise full review of systems is negative unless mentioned below: Patient currently denies Nausea/Vomiting/Fever/Chills/Shor tness of Breath/Chest Pain. Physical Examination: BP (!) 149/86 Pulse 79 Temp 97.5 F (36.4 C) Resp 18 SpO2 92% General Appearance: Alert, cooperative, no distress, appears stated age. Podiatric Exam Vascular: DP and PT pulses are palpable 2 of 4. Capillary refill time is less than 3 seconds to distal digits. Skin temperature is warm to warm from proximal tibial tuberosity to distal digit. No pedal edema Neurological: Gross sensation is intact. Protective sensation is intact. Babinski's is normal. Dermatologic: Left great toe erythematous and swollen with slight bruised appearance. Toenail is traumatized with only a remnant noted at the nail base. No open ulceration, no drainage or purulence. Musculoskeletal: Compartments soft and compressible. No calf pain or fullness. Muscle strength 5/5 Laboratory Data: Lab Results Component Value Date WBC 11.90 (H) 01/01/2025 HGB 17.6 (H) 01/01/2025 HCT 50.1 01/01/2025 PLT 186 01/01/2025 BUN 11 01/01/2025 CREATININE 1.05 01/01/2025 Radiographs: No orders to display Again, thank you for the opportunity to help care for your patient. Mayuri Abarca CNP Cosigned by FATMATA Arguelles DPM at 01/02/2025 7:24 AM EST [facility] 01-02-2025 History and physical note INTERVAL HISTORY AND PHYSICAL Patient Name: Joel Falk Admit Date: [id number] MR #: [id number] : 1970 The H&P has been reviewed and the patient has been examined. I concur with the findings of the H&P. There are no significant changes. It is appropriate to proceed with the planned procedure. FATMATA Arguelles DPM 01/02/2025 2:48 PM Source Note - Mayuri Abarca CNP - 01/01/2025 3:38 PM EST Images from the original note were not included. PODIATRY CONSULTATION Patient Name: Joel Falk. . Date of : 1970, 54 y.o.. Gender: male. Date of Consultation: 01/01/2025. Author: Mayuri Abarca CNP Thank you Rod Frost MD for this consultation. We appreciate the opportunity to help care for your patient. Below you will find our findings and recommendations: Reason for Consultation: Left great toe osteomyelitis Assessment: 54 y.o. male with the following pedal anomalies: Left great toe osteomyelitis status post previous traumatic nail avulsion Left great toe cellulitis Tobacco abuse Plan: Patient was seen and evaluated at the bedside, I discussed the findings with the patient. CRP 15.5, ESR normal. WBC 11.90. Hemoglobin A1c pending Left foot MRI: probable infection of the 1st toenail with erosive change of the adjacent dorsal cortex of the 1st distal phalanx and an intraosseous abscess of the 1st distal phalanx with surrounding osteomyelitis of the majority of the 1st distal phalanx. Previous wound culture in October no growth. Toe is completely closed without ulceration at this time. Infectious disease has been consulted Plan for surgical washout and bone biopsy tomorrow with Dr. Arguelles 01/02. N.p.o. at midnight, hold blood thinners History of Present Illness: Patient is a 54 y.o. male consulted to the Podiatry Service for left great toe osteomyelitis. Patient suffered left great toe trauma back in October when he dropped a soup can onto his left foot. He did have a traumatic nail avulsion as a result and was following with Dr. Arguelles. Nail bed and left great toe in general was slow to heal despite outpatient antibiotics. Toe remained erythematous, bruised, swollen and tender. MRI was obtained which showed osteomyelitis and possible intraosseous abscess. Due to clinical presentation of the left great toe, arrangements were started with infectious disease for outpatient IV antibiotics. Instead of waiting for infectious disease to follow-up with him, patient came to the ED instead. Decision was made for inpatient admission. Since infectious disease specialist Dr. Charles is requesting bone biopsy to determine need for IV antibiotics, patient will go for surgical washout and bone biopsy tomorrow with Dr. Jett 01/02. On exam patient reports sinus congestion and feeling cold but no other constitutional symptoms. No reports of fevers, no nausea/vomiting/diarrhea. No changes in appetite. Reports no further trauma to the great toe other than what happened in October. 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 Patient has no significant past medical history. Patient is a daily smoker. Estimated body mass index is 36.59 kg/m as calculated from the following: Height as of 12/26/24: 5' 10". Weight as of 12/26/24: 115.7 kg (255 lb). Allergies: No Known Allergies. Scheduled Meds: enoxaparin (LOVENOX) injection 40 mg Subcutaneous Daily lispro insulin 0-15 Units Subcutaneous at bedtime insulin lispro 0-30 Units Subcutaneous TID AC sodium chloride (PF) 10 mL Intracatheter Q8H DONELL sodium chloride (PF) 5 mL Intravenous Q8H DONELL . Continuous Infusions: . PRN Meds: acetaminophen, alteplase, aluminum-magnesium hydroxide-simethicone, bisacodyL, ibuprofen, lidocaine 1%, magnesium hydroxide, melatonin, ondansetron OR ondansetron, senna, sodium chloride (PF), [COMPLETED] Insert peripheral IV AND Saline lock IV AND sodium chloride (PF) AND sodium chloride 0.9 %, Saline lock IV AND sodium chloride (PF) AND sodium chloride (PF) AND sodium chloride 0.9 %, traZODone. Medical History: History reviewed. No pertinent past medical history.. Surgical History: Past Surgical History: Procedure Laterality Date ACL REPAIR Right . Social History: Social History Socioeconomic History Marital status: Tobacco Use Smoking status: Every Day Current packs/day: 1.00 Types: Cigarettes Smokeless tobacco: Never Vaping Use Vaping status: Never Used Substance and Sexual Activity Drug use: Never Family History: History reviewed. No pertinent family history. Review of Systems: Pertinent positives and negatives as mentioned above, otherwise full review of systems is negative unless mentioned below: Patient currently denies Nausea/Vomiting/Fever/Chills/Shor tness of Breath/Chest Pain. Physical Examination: BP (!) 149/86 Pulse 79 Temp 97.5 F (36.4 C) Resp 18 SpO2 92% General Appearance: Alert, cooperative, no distress, appears stated age. Podiatric Exam Vascular: DP and PT pulses are palpable 2 of 4. Capillary refill time is less than 3 seconds to distal digits. Skin temperature is warm to warm from proximal tibial tuberosity to distal digit. No pedal edema Neurological: Gross sensation is intact. Protective sensation is intact. Babinski's is normal. Dermatologic: Left great toe erythematous and swollen with slight bruised appearance. Toenail is traumatized with only a remnant noted at the nail base. No open ulceration, no drainage or purulence. Musculoskeletal: Compartments soft and compressible. No calf pain or fullness. Muscle strength 5/5 Laboratory Data: Lab Results Component Value Date WBC 11.90 (H) 01/01/2025 HGB 17.6 (H) 01/01/2025 HCT 50.1 01/01/2025 PLT 186 01/01/2025 BUN 11 01/01/2025 CREATININE 1.05 01/01/2025 Radiographs: No orders to display Again, thank you for the opportunity to help care for your patient. Mayuri Abarca, OLIVER Cosigned by FATMATA Arguelles DPM at 01/02/2025 7:24 AM EST HMS HISTORY AND PHYSICAL -- [facility] Patient Name: Joel Falk : 1970 MR #: [id number] Admit Date: 01/01/2025 Physicians: Yesi, Physician (Family); No ref. provider found (Referring) Joel Falk is a 54 y.o. 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 Left 1st Toe Osteomyelitis MRI left foot with porbable infection of the 1st toenail with erosive change of the adjacent dorsal corex of the 1st distal phalanx and an intraosseous abscess of the 1st distal phalanx with surrounding osteomyelitis of the majority of the 1st distal phalanx. Podiatry was trying to coordinate IV antibiotics as outpatient when patient decided to present to the ED of his own accord. MRSA swab PICC Line Vanc/Zosyn started Podiatry and ID consults Care management for Abx coordination Hyperglycemia A1c SSI High BP BP 166/103 at last outpatient appointment Trend BP Care management for PCP resources Residence prior to admission: house or apartment Was patient transferred from outlying hospital or ED no Quality Measures DVT Prophylaxis: lovenox Ortega Catheter: absent Medication Reconciliation: Verified Admitted with these risk variables:None. Please see assessment and plan for further details. Estimated Date of Discharge less than 2 midnights; patient may be discharged as soon as his outpatient antibiotics are arranged and if BP returns to baseline Code Status Full Code; code status verified on 01/01/2025 with patient (capacity intact) Chief Complaint Toe Infection History of Present Illness Joel Falk is a 54 y.o. 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 Spoke with podiatry yesterday who prescribed Augmentin and was coordinating outpatient IV antibiotics. Patient says noone has communicated with him since, so he presented to the ED. No fever, chills, N/V. Denies h/o diabetes. Just drank a Mountain Dew before coming to the ED. Past Medical History History reviewed. No pertinent past medical history. Past Surgical History Past Surgical History: Procedure Laterality Date ACL REPAIR Right Family History History reviewed. No pertinent family history. Social History Social History Tobacco Use Smoking Status Every Day Current packs/day: 1.00 Types: Cigarettes Smokeless Tobacco Never Social History Substance and Sexual Activity Alcohol Use None Comment: occassional Social History Substance and Sexual Activity Drug Use Never Allergy Information I have reviewed the patient's allergies. Patient has no known allergies. Home Medications Home medications were reviewed. Review Of Systems All relevant systems have been reviewed and are negative except as noted in HPI or below Physical Examination BP (!) 179/114 Pulse (!) 103 Temp 97.5 F (36.4 C) Resp 16 SpO2 93% General Appearance: alert; well appearing; in no acute distress HEENT: Head- normocephalic; Eyes- EOMI, sclera anicteric; Throat- mucous membranes moist Cardiovascular: regular rate and rhythm; normal S1, S2; no murmurs, rubs, clicks or gallops; peripheral edema absent Respiratory: lungs clear to auscultation; without wheezes, rales or rhonchi; on room air Abdomen: soft, non-tender, non-distended Neurological: oriented x 3; normal speech; no focal findings or movement disorder noted Musculoskeletal: no significant deformity; left 1st toe tenderness Skin: normal coloration Psych: normal mood and affect documented in this encounter [facility] 01-02-2025 Consult note Associated Order (s): IP CONSULT TO DIETITIAN Nutrition Care Initial Assessment Poorly managed DM; w/ left foot osteomyelytis Reason for visit: Physician Consult: Nutrition Diagnosis: Food and Nutrition Related Knowledge Deficit related to DM as evidenced by diet hx. Nutrition Intervention Initiate Comprehensive Nutrition Education Nutrition Prescription: Diet:Continue NPO(advance to DM diet) Nutrition Goals: Able to verbalize understanding of education provided Start Date:01/02/2025 Expected End Date:01/08/2025 Nutrition Education: Learner: patient and significant other Educated on: DM diet menu planning Readiness: acceptance Method: explanation and handout Response: verbalizes understanding Expected Compliance: faiir(eliminate 1000kcal sugars giving up "JULIANA CALIXTOW" Assessment: Pertinent clinical information: left foot wound History reviewed. No pertinent past medical history. Past Surgical History: Procedure Laterality Date ACL REPAIR Right Height: 5' 10" Current weight: 116.4 kg (256 lb 9.9 oz) BMI Body mass index is 36.82 kg/m . Weight hx: stable Wt Readings from Last 10 Encounters: 01/01/25 116.4 kg (256 lb 9.9 oz) 12/26/24 115.7 kg (255 lb) 11/25/22 117.9 kg (260 lb) Significant Weight Change: No Current diet order: Diet: NPO Recent intake: 75% Current intake likely does not meet estimated needs Barriers to adequate p.o. intakes: No barriers identified Nutrition Related Allergies/Intolerances: No Nutrition Related Allergies noted Cultural or Taoism Dietary Needs :No Cultural or Taoism Dietary needs noted Patient/family comments: could verbalize menues Difficulty Chewing or Swallowing: No Skin Integrity: left great toe osteomyelytis GI Function: WDL Fluid Status: WNL Physical Appearance: No signs and symptoms of malnutrition noted Labs: Recent Labs 01/01/25 1106 01/02/25 0448 NA 134* 135 K 4.3 4.0 BICARB 24 26 CL 98 100 GLUCOSE 294* 240* BUN 11 11 CREATININE 1.05 1.07 CRP 15.5* -- Recent Labs 01/01/25 1106 01/02/25 0448 GLUCOSE 294* 240* Lab Results Component Value Date HGBA1C 11.5 (H) 01/02/2025 Home Medications Reviewed: Yes Scheduled Meds: [Jan] enoxaparin (LOVENOX) injection 40 mg Subcutaneous Daily [Jan] insulin glargine 25 Units Subcutaneous Nightly [Jan] lispro insulin 0-15 Units Subcutaneous at bedtime [JAN Hold] insulin lispro 0-30 Units Subcutaneous TID AC [JAN Hold] piperacillin-tazobactam (ZOSYN) extended infusion 3.375 g Intravenous Q8H [JAN Hold] sodium chloride (PF) 10 mL Intracatheter Q8H DONELL [JAN Hold] sodium chloride (PF) 5 mL Intravenous Q8H DONELL Continuous Infusions: Nutrient Depleting Medications: No chronic use of nutrient depleting medications noted. Estimated Energy Needs Total Energy Estimated Needs: 2000kcal Method for Estimating Needs: MStJ Total Protein Estimated Needs: 100gm Method for Estimating Needs: 1.1gm/kg adj Fidel [address] [facility] 01-02-2025 Consult note Formatting of th is note might be different from the original. Met with patient at bedside to discuss his newly diagnosed type 2 Diabetes. RN discussed A1C of 11.5% and goal of less than 7%. RN also discussed target levels for best control, pathophysiology of Diabetes, the role of the Liver and Pancreas, difference between T1DM and T2DM, Hypo and Hyperglycemia with treatment, timing action of rapid and long acting insulin, medication compliance, testing blood sugars regularly, regular feeding schedule and importance of 30 minutes of exercise 5 days a week. Pt denies any polyuria, polydipsia or excessive weight loss. Pt reports he normally skips breakfast and lunch and just eats dinner. Pt does drink regular soda and admits his diet could use some work. Pt reports an occasional potential hypoglycemic event where he might eat something and feel better but nothing consistent. 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 Pt is interested in trying a CGM. Pt is in process of getting a new PCP and was encouraged to follow up to help with diabetes management. This Rn also stated physician then could check to see if insurance would cover CGM. Proper insulin instruction, preparation, safe disposal of sharps and storage was done by RN for both pen and syringe using a practice tummy. Patient declined to do a return demonstration. Proper sites for insulin administration were also discussed along with importance of rotating site for each injection. Questions encouraged and patient was notified an educator would be back on Sunday if patient is still admitted. Handouts: Diabetes and You Book Target Glucose Levels A1C How Your Insulin Works Glucose Log Hypoglycemia Identification & Treatment Hyperglycemia Type 2 Diabetes and Adding Insulin Primary RN updated. [facility] 01-02-2025 Note [facility] PROGRESS NOTE Assessment and Plan Joel Falk is a 54 y.o. 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 Left 1st Toe Osteomyelitis MRI left foot with porbable infection of the 1st toenail with erosive change of the adjacent dorsal corex of the 1st distal phalanx and an intraosseous abscess of the 1st distal phalanx with surrounding osteomyelitis of the majority of the 1st distal phalanx. MRSA swab-negative PICC Line Vanc/Zosyn started Podiatry and ID consults Care management for Abx coordination Scheduled washout and bone biopsy 01/02 New onset Diabetes A1c-11.5 SSI Endocrinology consult Diabetic education Hypertension BP 166/103 at last outpatient appointment Care management for PCP resources Tobacco abuse Smoking cessation counseling Nicotine replacement prn Resolved acute medical issues Discharge Planning Medically Stable for Discharge Date: 01/03/25 Patient requires continued hospitalization due to: OR Discharge Location: home Quality Measures DVT Prophylaxis: lovenox Ortega Catheter: absent Subjective Patient resting in bed, does endorse left great toe discomfort, no reported fever or chills Objective BP (!) 152/81 Pulse 66 Temp 98.1 degrees F (36.7 degrees C) (Oral) Resp 16 Ht 5' 10" Wt 116.4 kg (256 lb 9.9 oz) SpO2 94% BMI 36.82 kg/m Physical Examination General Appearance: alert; well appearing; in no acute distress HEENT: Head- normocephalic; Eyes- EOMI, sclera anicteric; Throat- mucous membranes moist Cardiovascular: regular rate and rhythm; normal S1, S2; no murmurs, rubs, clicks or gallops; peripheral edema absent Respiratory: lungs clear to auscultation; without wheezes, rales or rhonchi; on room air Abdomen: soft, non-tender, non-distended Neurological: oriented x 3; normal speech; no focal findings or movement disorder noted Musculoskeletal: no significant deformity or tenderness to palpation Skin: normal coloration, left great toe edema Psych: normal mood and affect AUTHENTICATED BY ALONDRA GREGORIO, ON 01/02/2025 12:46:22 [facility] 01-02-2025 Progress note Formatting of t his note might be different from the original. Images from the original note were not included. In to see patient briefly prior to surgery. Patient is quite anxious in his room and claustrophobic. He would like to be discharged as soon as possible, no later than tomorrow. Discussed with patient there are many moving pieces that still need to be addressed prior to his discharge. This includes seeing endocrinology for his newly diagnosed diabetes including hemoglobin A1c 11.5. is present at bedside, both and patient states they do want this addressed. Surgical plan discussed with patient at length, including his poor healing ability given uncontrolled diabetes. Patient and verbalized understanding. Discussed with treatment team patient will be coming to short-term care for IV antibiotic infusions if so decided on by infectious disease. Although unconventional, this can be arranged once culture results are available instead of keeping patient here over the weekend waiting for cultures to result. Primary nurse present in the room for this discussion. All questions and concerns addressed to patient and his 's satisfaction. [facility] 01-02-2025 Hospital Discharge instructions Windy Schwartz CNP - 01/02/2025 9:13 AM EST Lantus 25 units nightly Humalog 9 units with breakfast, 9 units with lunch, 9 units with dinner plus Humalog insulin with Sliding scale with meals and at bedtime: BG<150=0 150-200=+2 U 201-250=+4 U 251-300= +6 U 301-350=+8 U >350=+10 U If you skip a meal skip your set dose of insulin but continue to take sliding scale if BG >150 If you eat a small meal only take half of your set dose of insulin plus sliding scale. If you eat a full meal take set dose of insulin plus sliding scale. Call the office [phone] with Blood sugar readings for dose adjustments to your insulin, if needed. The goal hemoglobin A1C is 7%-8%, closer to 7%, which is an average BG of 150 Please call the office sooner for episodes of hypoglycemia, BG < 70. Please remember to check your blood sugar 4x per day. Bring your blood sugar meter with you to appointments for review/download. It is important for us to prove you are checking your blood sugar, in order for us to renew/prescribe testing supplies. *Get updated labs done prior to your follow up appointment with us. If you do not get updated labs done, that are requested, please consider rescheduling your appointment until those are done * If you do not have labs or blood sugar readings for review at your visit please consider rescheduling your appointment as it is difficult for us to make changes to your diabetes regimen without sufficient information. documented in this encounter [facility] 01-02-2025 Consult note Associated Order (s): IP CONSULT TO ENDOCRINOLOGY Images from the original note were not included. Patient ID: Patient Name: Joel Falk Admit Date: 01/01/2025 MR #: [id number] : 1970 Current location: [facility] Physicians: Yesi, Physician (Family); Alondra Gregorio CNP (Referring) Reason for consult: Type 2 diabetes newly diagnosed Assessment/Plan: Dx: Type 2 diabetes, under poor control- newly diagnosed Currently taking as outpatient: No DM Meds Current Hemoglobin A1C= Lab Results Component Value Date HGBA1C 11.5 (H) 01/02/2025 NOTES: 01/02: Patient resting in bed with no real complaints right now. He is awaiting a an I&D procedure with podiatry. Blood sugar this morning was elevated at 243. He is currently ordered sliding scale insulin coverage. He is n.p.o. currently. Blood Glucoses: 12/13: 243--- Plan: 1. Rx changes: see below Start Lantus insulin 25 units nightly Start Humalog 9 units at meals plus usual sensitivity sliding scale Consults of already been placed for diabetic education and dietitian referral. We did discuss what is diabetes, goals/expectations of treatment, possible complications from diabetes should it remain out of control. 2. Education: Reviewed ABCs of diabetes management (respective goals in parentheses): A1C (7.0-8.0), blood pressure (<130/80), and cholesterol (LDL <100). Referral to Diabetes Education Referral to Nutrition therapy Subjective: Brief HPI: Joel Falk is a 54 y.o. 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 Spoke with podiatry who prescribed Augmentin and was coordinating outpatient IV antibiotics. Patient says noone has communicated with him since, so he presented to the ED. this has been an ongoing issue for this patient for quite some time, since August. No fever, chills, N/V. Denies h/o diabetes. He had an MRI which demonstrated osteomyelitis on 12/26/2024. He was also found to be hyperglycemic on admission and endocrinology was consulted to further evaluate. Hemoglobin A1c was checked and was 11.5%. He denies any family history of diabetes. He does drink mountain dew every day, about 8 or 9 cans per day. He denies polyuria, polydipsia or polyphagia. He has had no weight loss. Allergies: No Known Allergies Home Medications: Outpatient Medications Marked as Taking for the 01/01/25 encounter (Hospital Encounter): amoxicillin-clavulanate (AUGMENTIN) 875-125 mg per tablet, Take 1 (one) tablet by mouth 2 (two) times a day for 7 days . Current Medications: enoxaparin (LOVENOX) injection 40 mg Subcutaneous Daily lispro insulin 0-15 Units Subcutaneous at bedtime insulin lispro 0-30 Units Subcutaneous TID AC piperacillin-tazobactam (ZOSYN) extended infusion 3.375 g Intravenous Q8H sodium chloride (PF) 10 mL Intracatheter Q8H DONELL sodium chloride (PF) 5 mL Intravenous Q8H DONELL acetaminophen, alteplase, aluminum-magnesium hydroxide-simethicone, bisacodyL, ibuprofen, lidocaine 1%, magnesium hydroxide, melatonin, ondansetron OR ondansetron, senna, sodium chloride (PF), [COMPLETED] Insert peripheral IV AND Saline lock IV AND sodium chloride (PF) AND sodium chloride 0.9 %, Saline lock IV AND sodium chloride (PF) AND sodium chloride (PF) AND sodium chloride 0.9 %, sodium chloride 0.9 %, traZODone Review of Systems: Review of Systems Constitutional: Negative for activity change, appetite change, fatigue and unexpected weight change. HENT: Negative. Negative for sore throat and trouble swallowing. Eyes: Negative. Respiratory: Negative for cough, chest tightness and shortness of breath. Cardiovascular: Negative for chest pain, palpitations and leg swelling. Gastrointestinal: Negative for abdominal pain, constipation, diarrhea, nausea and vomiting. Endocrine: Negative for cold intolerance, heat intolerance, polydipsia, polyphagia and polyuria. Genitourinary: Negative for dysuria and frequency. Musculoskeletal: Negative. Skin: Positive for wound (Left great toe). Negative for rash. Allergic/Immunologic: Negative. Neurological: Negative for numbness. Hematological: Negative. Psychiatric/Behavioral: Negative. History: History reviewed. No pertinent past medical history. Past Surgical History: Procedure Laterality Date ACL REPAIR Right History reviewed. No pertinent family history. Social History Tobacco Use Smoking status: Every Day Current packs/day: 1.00 Types: Cigarettes Smokeless tobacco: Never Vaping Use Vaping status: Never Used Substance Use Topics Drug use: Never The following portions of the patient's history were reviewed and updated as appropriate: allergies, current medications, past family history, past medical history, past social history, past surgical history and problem list. Objective: BP (!) 152/81 Pulse 66 Temp 98.1 F (36.7 C) (Oral) Resp 16 Ht 5' 10" Wt 116.4 kg (256 lb 9.9 oz) SpO2 94% BMI 36.82 kg/m Wt Readings from Last 3 Encounters: 01/01/25 116.4 kg (256 lb 9.9 oz) 12/26/24 115.7 kg (255 lb) 11/25/22 117.9 kg (260 lb) Physical Exam: Physical Exam Constitutional: Appearance: He is well-developed. HENT: Head: Normocephalic. Eyes: Pupils: Pupils are equal, round, and reactive to light. Neck: Thyroid: No thyromegaly. Cardiovascular: Rate and Rhythm: Normal rate and regular rhythm. Heart sounds: No murmur heard. Pulmonary: Effort: Pulmonary effort is normal. Breath sounds: Normal breath sounds. Abdominal: General: Bowel sounds are normal. Palpations: Abdomen is soft. Tenderness: There is no abdominal tenderness. Musculoskeletal: General: Normal range of motion. Cervical back: Neck supple. Skin: General: Skin is warm and dry. Comments: Left great toe discolored +onychomycosis. Neurological: Mental Status: He is alert and oriented to person, place, and time. Laboratory Review: BP (!) 152/81 Pulse 66 Temp 98.1 F (36.7 C) (Oral) Resp 16 Ht 5' 10" Wt 116.4 kg (256 lb 9.9 oz) SpO2 94% BMI 36.82 kg/m Lab Results Component Value Date HGBA1C 11.5 (H) 01/02/2025 Glucose (mg/dL) Date Value 01/02/2025 240 (H) Creatinine (mg/dL) Date Value 01/02/2025 1.07 No results found for: "CHOL", "TRIG", "HDL", "LDLCALC", "LDL" No results found for: "TSH" No results found for: "FREET4" Lab Results Component Value Date WBC 7.58 01/02/2025 HGB 16.2 01/02/2025 HCT 48.4 01/02/2025 MCV 95.5 01/02/2025 PLT 162 01/02/2025 This SmartLink has not been configured with any valid records. This SmartLink has not been configured with any valid records. MRI, foot on 12/26/2024: There are MRI findings compatible with a probable infection of the 1st toenail with erosive change of the adjacent dorsal cortex of the 1st distal phalanx and an intraosseous abscess of the 1st distal phalanx with surrounding osteomyelitis of the majority of the 1st distal phalanx. Laboratory and Additional Data Reviewed: Laboratory 01/02/25 9:02 AM Microbiology 01/02/25 9:02 AM Pathology 01/02/25 9:02 AM Radiology 01/02/25 9:02 AM Cardiology 01/02/25 9:02 AM Medications 01/02/25 9:02 AM Transcriptions 01/02/25 9:02 AM Thank you for this consultation, we will continue to follow this patient with you. Electronically signed by Carmelita BENJAMIN 259:11 AM Carmelita Randolph CNP Cosigned by David Hurtado MD at 01/02/2025 12:58 PM EST [facility] Work Phone: 01-02-2025 Consult note Formatting of th is note might be different from the original. Attempted to meet patient for newly diagnosed T2DM. Per primary RN patient very adamant about not having newly diagnosed diabetes. Primary RN states patient states blood sugars are elevated in relation to what he ate prior to hospital admission. Primary RN recommends education be held at this time. Will continue to follow and educate when more appropriate. [facility] 01-01-2025 Plan of care note Problem: Actual or potential alteration in health Goal: Absence of healthcare acquired conditions Outcome: Partially Met Goal: Knowledge of Interdisciplinary Plan of Care Outcome: Partially Met Goal: Knowledge of Enviroment Outcome: Partially Met Problem: Pain Goal: Reduced pain sensation Outcome: Partially Met Goal: Control of acute pain to acceptable level Outcome: Partially Met Goal: Able to cope with pain Outcome: Partially Met Goal: Able to achieve maximum level of physical functioning Outcome: Partially Met Goal: Able to achieve maximum level of psychosocial functioning Outcome: Partially Met [facility] 01-01-2025 Plan of care note Problem: Actual or potential alteration in health Goal: Absence of healthcare acquired conditions Outcome: Partially Met Goal: Knowledge of Interdisciplinary Plan of Care Outcome: Partially Met Goal: Knowledge of Enviroment Outcome: Partially Met [facility] 01-01-2025 Emergency department Note Report called at this time. [facility] 01-01-2025 Emergency department Note Report called at this time. Pt. Asking to talk with infectious disease. Messaged Dr. Charles to make aware. Pt. Denies any needs at this time. Call light in reach. Remains on monitor. Pt reports that he doesn't take insulin at home and doesn't want it here. Dr. Frost made aware. Also spoke with PICC team about PICC placement and they state they will wait for Araceli to have a plan in order to place the PICC based off the tx. Plan. Pt came back from room 2. Report received, this nurse to assume care at this time. Pt. On monitor. Call light in reach. Bed: 34 Expected date: Expected time: Means of arrival: Comments: RM 03 PATIENT PRESENTS TO THE ED FROM AFTER HIS MRI SUGGESTED OSTEO. HE HAS BEEN FOLLOWING WITH DR. JETT. Bed: 03 Expected date: Expected time: Means of arrival: Comments: NEXT 1 documented in this encounter [facility] 01-01-2025 Consult note Formatting of th is note might be different from the original. PICC team consulted for PICC line. Dr. Charles consulted for management of abx. Awaiting Dr. Vázquez recommendations for plan with abx to determine which line placement. [facility] 01-01-2025 Consult note Associated Order (s): IP CONSULT TO PODIATRY Images from the original note were not included. PODIATRY CONSULTATION Patient Name: Joel Falk. . Date of : 1970, 54 y.o.. Gender: male. Date of Consultation: 01/01/2025. Author: Mayuri Abarca CNP Thank you Rod Frost MD for this consultation. We appreciate the opportunity to help care for your patient. Below you will find our findings and recommendations: Reason for Consultation: Left great toe osteomyelitis Assessment: 54 y.o. male with the following pedal anomalies: Left great toe osteomyelitis status post previous traumatic nail avulsion Left great toe cellulitis Tobacco abuse Plan: Patient was seen and evaluated at the bedside, I discussed the findings with the patient. CRP 15.5, ESR normal. WBC 11.90. Hemoglobin A1c pending Left foot MRI: probable infection of the 1st toenail with erosive change of the adjacent dorsal cortex of the 1st distal phalanx and an intraosseous abscess of the 1st distal phalanx with surrounding osteomyelitis of the majority of the 1st distal phalanx. Previous wound culture in October no growth. Toe is completely closed without ulceration at this time. Infectious disease has been consulted Plan for surgical washout and bone biopsy tomorrow with Dr. Arguelles 01/02. N.p.o. at midnight, hold blood thinners History of Present Illness: Patient is a 54 y.o. male consulted to the Podiatry Service for left great toe osteomyelitis. Patient suffered left great toe trauma back in October when he dropped a soup can onto his left foot. He did have a traumatic nail avulsion as a result and was following with Dr. Arguelles. Nail bed and left great toe in general was slow to heal despite outpatient antibiotics. Toe remained erythematous, bruised, swollen and tender. MRI was obtained which showed osteomyelitis and possible intraosseous abscess. Due to clinical presentation of the left great toe, arrangements were started with infectious disease for outpatient IV antibiotics. Instead of waiting for infectious disease to follow-up with him, patient came to the ED instead. Decision was made for inpatient admission. Since infectious disease specialist Dr. Charles is requesting bone biopsy to determine need for IV antibiotics, patient will go for surgical washout and bone biopsy tomorrow with Dr. Jett 01/02. On exam patient reports sinus congestion and feeling cold but no other constitutional symptoms. No reports of fevers, no nausea/vomiting/diarrhea. No changes in appetite. Reports no further trauma to the great toe other than what happened in October. 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 Patient has no significant past medical history. Patient is a daily smoker. Estimated body mass index is 36.59 kg/m as calculated from the following: Height as of 12/26/24: 5' 10". Weight as of 12/26/24: 115.7 kg (255 lb). Allergies: No Known Allergies. Scheduled Meds: enoxaparin (LOVENOX) injection 40 mg Subcutaneous Daily lispro insulin 0-15 Units Subcutaneous at bedtime insulin lispro 0-30 Units Subcutaneous TID AC sodium chloride (PF) 10 mL Intracatheter Q8H DONELL sodium chloride (PF) 5 mL Intravenous Q8H DONELL . Continuous Infusions: . PRN Meds: acetaminophen, alteplase, aluminum-magnesium hydroxide-simethicone, bisacodyL, ibuprofen, lidocaine 1%, magnesium hydroxide, melatonin, ondansetron OR ondansetron, senna, sodium chloride (PF), [COMPLETED] Insert peripheral IV AND Saline lock IV AND sodium chloride (PF) AND sodium chloride 0.9 %, Saline lock IV AND sodium chloride (PF) AND sodium chloride (PF) AND sodium chloride 0.9 %, traZODone. Medical History: History reviewed. No pertinent past medical history.. Surgical History: Past Surgical History: Procedure Laterality Date ACL REPAIR Right . Social History: Social History Socioeconomic History Marital status: Tobacco Use Smoking status: Every Day Current packs/day: 1.00 Types: Cigarettes Smokeless tobacco: Never Vaping Use Vaping status: Never Used Substance and Sexual Activity Drug use: Never Family History: History reviewed. No pertinent family history. Review of Systems: Pertinent positives and negatives as mentioned above, otherwise full review of systems is negative unless mentioned below: Patient currently denies Nausea/Vomiting/Fever/Chills/Shor tness of Breath/Chest Pain. Physical Examination: BP (!) 149/86 Pulse 79 Temp 97.5 F (36.4 C) Resp 18 SpO2 92% General Appearance: Alert, cooperative, no distress, appears stated age. Podiatric Exam Vascular: DP and PT pulses are palpable 2 of 4. Capillary refill time is less than 3 seconds to distal digits. Skin temperature is warm to warm from proximal tibial tuberosity to distal digit. No pedal edema Neurological: Gross sensation is intact. Protective sensation is intact. Babinski's is normal. Dermatologic: Left great toe erythematous and swollen with slight bruised appearance. Toenail is traumatized with only a remnant noted at the nail base. No open ulceration, no drainage or purulence. Musculoskeletal: Compartments soft and compressible. No calf pain or fullness. Muscle strength 5/5 Laboratory Data: Lab Results Component Value Date WBC 11.90 (H) 01/01/2025 HGB 17.6 (H) 01/01/2025 HCT 50.1 01/01/2025 PLT 186 01/01/2025 BUN 11 01/01/2025 CREATININE 1.05 01/01/2025 Radiographs: No orders to display Again, thank you for the opportunity to help care for your patient. Mayuri Abarca CNP Cosigned by FATMATA Arguelles DPM at 01/02/2025 7:24 AM EST Associated attestation - FATMATA Arguelles DPM - 01/02/2025 7:24 AM EST Patient was seen at bedside. I agree with Daisy Abarca's assessment and plan. [facility] Work Phone: 01-01-2025 Emergency department Note Pt. Asking to talk with infectious disease. Messaged Dr. Charles to make aware. Pt. Denies any needs at this time. Call light in reach. Remains on monitor. [facility] 01-01-2025 Emergency department Note Pt reports that he doesn't take insulin at home and doesn't want it here. Dr. Frost made aware. Also spoke with PICC team about PICC placement and they state they will wait for Araceli to have a plan in order to place the PICC based off the tx. Plan. [facility] 01-01-2025 Emergency department Note Pt came back from room 2. Report received, this nurse to assume care at this time. Pt. On monitor. Call light in reach. [facility] 01-01-2025 Emergency department Note Bed: 34 Expected date: Expected time: Means of arrival: Comments: RM 03 [facility] 01-01-2025 Consult note Associated Order (s): IP CONSULT TO CARE MANAGEMENT Care Management Consult Note Date: 01/01/2025 Time: 1:34 PM Patient Name: Joel Falk Date of : 1970 Reason for Consult: Discharge Plan: Plan A: Home Discharging Transportation Plan: Discharge Plan Status: TBD Assessment and Background Information: Héctor presented to the emergency department due to a toe infection. He has been following with Dr. Arguelles at [facility]. He tells me that Dr. Arguelles sent in a prescription for an antibiotic yesterday but he has not picked this up. Héctor lives with his spouse in a split level home. He is able to navigate the steps within the home with no problems. He drives himself to appointments and is independent with his ADLs. He receives no in home services. He denies any food/medical insecurities. His insurance is O. No PCP listed. Héctor will be moved to the medical floor for further treatment including consults with Podiatry and ID. Care management will continue to follow. Living Arrangements: Spouse/significant other Support Systems: Spouse/significant other Type of Residence: Private residence Prior to Admission Home Care Services: No Current Home Equipment: None Holistic Assessment Medication adherence problem:: No History of falls in last 6 months:: No Family aware of the patient's advance care planning wishes:: Yes Do you have any cultural/spiritual connections or beliefs that would impact how we deliver your care?: No Chronic pain:: No [facility] 01-01-2025 History and physical note [facility] [place] HISTORY AND PHYSICAL -- [facility] Patient Name: Joel Falk : 1970 MR #: [id number] Admit Date: 01/01/2025 Physicians: No, Physician (Family); No ref. provider found (Referring) Joel Falk is a 54 y.o. 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 Left 1st Toe Osteomyelitis MRI left foot with porbable infection of the 1st toenail with erosive change of the adjacent dorsal corex of the 1st distal phalanx and an intraosseous abscess of the 1st distal phalanx with surrounding osteomyelitis of the majority of the 1st distal phalanx. Podiatry was trying to coordinate IV antibiotics as outpatient when patient decided to present to the ED of his own accord. MRSA swab PICC Line Vanc/Zosyn started Podiatry and ID consults Care management for Abx coordination Hyperglycemia A1c SSI High BP BP 166/103 at last outpatient appointment Trend BP Care management for PCP resources Residence prior to admission: house or apartment Was patient transferred from outlying hospital or ED no Quality Measures DVT Prophylaxis: lovenox Ortega Catheter: absent Medication Reconciliation: Verified Admitted with these risk variables:None. Please see assessment and plan for further details. Estimated Date of Discharge less than 2 midnights; patient may be discharged as soon as his outpatient antibiotics are arranged and if BP returns to baseline Code Status Full Code; code status verified on 01/01/2025 with patient (capacity intact) Chief Complaint Toe Infection History of Present Illness Joel Falk is a 54 y.o. 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 Spoke with podiatry yesterday who prescribed Augmentin and was coordinating outpatient IV antibiotics. Patient says noone has communicated with him since, so he presented to the ED. No fever, chills, N/V. Denies h/o diabetes. Just drank a Mountain Dew before coming to the ED. Past Medical History History reviewed. No pertinent past medical history. Past Surgical History Past Surgical History: Procedure Laterality Date ACL REPAIR Right Family History History reviewed. No pertinent family history. Social History Social History Tobacco Use Smoking Status Every Day Current packs/day: 1.00 Types: Cigarettes Smokeless Tobacco Never Social History Substance and Sexual Activity Alcohol Use None Comment: occassional Social History Substance and Sexual Activity Drug Use Never Allergy Information I have reviewed the patient's allergies. Patient has no known allergies. Home Medications Home medications were reviewed. Review Of Systems All relevant systems have been reviewed and are negative except as noted in HPI or below Physical Examination BP (!) 179/114 Pulse (!) 103 Temp 97.5 F (36.4 C) Resp 16 SpO2 93% General Appearance: alert; well appearing; in no acute distress HEENT: Head- normocephalic; Eyes- EOMI, sclera anicteric; Throat- mucous membranes moist Cardiovascular: regular rate and rhythm; normal S1, S2; no murmurs, rubs, clicks or gallops; peripheral edema absent Respiratory: lungs clear to auscultation; without wheezes, rales or rhonchi; on room air Abdomen: soft, non-tender, non-distended Neurological: oriented x 3; normal speech; no focal findings or movement disorder noted Musculoskeletal: no significant deformity; left 1st toe tenderness Skin: normal coloration Psych: normal mood and affect [facility] 01-01-2025 Note [facility] HISTORY AND PHYS ICAL -- [facility] Patient Name: Joel Falk : 1970 MR #: [id number] Admit Date: 01/01/2025 Physicians: Yesi, Physician (Family); No ref. provider found (Referring) Joel Falk is a 54 y.o. 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 Left 1st Toe Osteomyelitis MRI left foot with porbable infection of the 1st toenail with erosive change of the adjacent dorsal corex of the 1st distal phalanx and an intraosseous abscess of the 1st distal phalanx with surrounding osteomyelitis of the majority of the 1st distal phalanx. Podiatry was trying to coordinate IV antibiotics as outpatient when patient decided to present to the ED of his own accord. MRSA swab PICC Line Vanc/Zosyn started Podiatry and ID consults Care management for Abx coordination Hyperglycemia A1c SSI High BP BP 166/103 at last outpatient appointment Trend BP Care management for PCP resources Residence prior to admission: house or apartment Was patient transferred from outlying hospital or ED no Quality Measures DVT Prophylaxis: lovenox Ortega Catheter: absent Medication Reconciliation: Verified Admitted with these risk variables:None. Please see assessment and plan for further details. Estimated Date of Discharge less than 2 midnights; patient may be discharged as soon as his outpatient antibiotics are arranged and if BP returns to baseline Code Status Full Code; code status verified on 01/01/2025 with patient (capacity intact) Chief Complaint Toe Infection History of Present Illness Joel Falk is a 54 y.o. 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 Spoke with podiatry yesterday who prescribed Augmentin and was coordinating outpatient IV antibiotics. Patient says noone has communicated with him since, so he presented to the ED. No fever, chills, N/V. Denies h/o diabetes. Just drank a Mountain Dew before coming to the ED. Past Medical History History reviewed. No pertinent past medical history. Past Surgical History Past Surgical History: Procedure Laterality Date ACL REPAIR Right Family History History reviewed. No pertinent family history. Social History Social History Tobacco Use Smoking Status Every Day Current packs/day: 1.00 Types: Cigarettes Smokeless Tobacco Never Social History Substance and Sexual Activity Alcohol Use None Comment: occassional Social History Substance and Sexual Activity Drug Use Never Allergy Information I have reviewed the patient's allergies. Patient has no known allergies. Home Medications Home medications were reviewed. Review Of Systems All relevant systems have been reviewed and are negative except as noted in HPI or below Physical Examination BP (!) 179/114 Pulse (!) 103 Temp 97.5 degrees F (36.4 degrees C) Resp 16 SpO2 93% General Appearance: alert; well appearing; in no acute distress HEENT: Head- normocephalic; Eyes- EOMI, sclera anicteric; Throat- mucous membranes moist Cardiovascular: regular rate and rhythm; normal S1, S2; no murmurs, rubs, clicks or gallops; peripheral edema absent Respiratory: lungs clear to auscultation; without wheezes, rales or rhonchi; on room air Abdomen: soft, non-tender, non-distended Neurological: oriented x 3; normal speech; no focal findings or movement disorder noted Musculoskeletal: no significant deformity; left 1st toe tenderness Skin: normal coloration Psych: normal mood and affect AUTHENTICATED BY ROD FROST, ON 01/01/2025 13:55:46 [facility] 01-01-2025 Emergency department Triage note PATIENT PRESENTS TO THE ED FROM AFTER HIS MRI SUGGESTED OSTEO. HE HAS BEEN FOLLOWING WITH DR. JETT. [facility] 01-01-2025 Emergency department Note Bed: 03 Expected date: Expected time: Means of arrival: Comments: NEXT 1 [facility] 12-31-2024 Note Established Patient Visit FATMATA Arguelles DPM Patient Name: Joel Falk. . Date of : 1970, 54 y.o.. Gender: male. Subjective: Patient is a pleasant 53-year-old male status post left hallux hyperemia and rubor. Patient is here status post MRI. He is here post MRI and here for reevaluation of the toe. . Patient denies any current fever, chills, nausea, vomiting, chest pain calf pain or shortness of breath. Patient has no other pedal complaints at this time. Physical Examination: BP (!) 166/103 (BP Location: Right arm, Patient Position: Sitting, BP Cuff Size: Adult) Pulse 90 Temp 98 degrees F (36.7 degrees C) (Infrared) General Appearance: Alert, cooperative, no distress, appears stated age. Podiatric Exam Vascular: DP and PT pulses are easily palpable, 2/4. Capillary refill time is brisk to distal digits, less than 3 seconds. Skin temperature is warm to warm from proximal tibial tuberosity to distal digits. No dependent rubor. Neurological: Epicritic and protopathic sensation intact to bilateral lower extremities. Dermatologic: Quality of skin is supple. Nails 1-5 bilaterally are normotrophic with exception to nail 1 on the left which has evidence of previous procedure. Healed nailbed. Persistent dependent rubor noted but no millie erythema or streaking lymphangitis.. Webspaces 1-4 bilaterally are clean, dry and intact. No hyperkeratoses. No open lesions, rashes or subcutaneous nodules of note. Musculoskeletal: Bilateral foot and ankle overall rectus alignment. Muscle tone testing 5 out of 5 to all tested muscular's. Ankle range of motion limited with knee extended and slightly creased knee flex. Tenderness to the left great toe in its entirety mostly to the distal phalanx. Diagnoses: No diagnosis found. Imaging: MRI reviewed in detail today. Impression below. XR MR Clear Result Date: 12/26/2024 EXAMINATION: XR FOR MRI CLEARANCE HISTORY: ORDERING SYSTEM PROVIDED HISTORY: Hx of metal removed from eye, TECHNOLOGIST PROVIDED HISTORY: Illness/Other Reason for exam: Hx of metal removed from eye Cancer History: unknown Surgery, RadiationHistory: unknown Encounter Type: Initial Additional signs and symptoms: . ORDERING SYSTEM PROVIDED DIAGNOSIS CODES: Z98.890 Hx of metal removed from eye COMPARISON: None. TECHNIQUE: Two views of the orbits and facial bones. FINDINGS: No radiopaque foreign bodies overlying the orbits. Normal aeration and development of the paranasal sinuses. No radiopaque foreign bodies overlying the orbits. Magin/Fortem Workstation ID: [id number] MR Foot Left Without Contrast Result Date: 12/26/2024 EXAMINATION: MR FOOT LEFT WITHOUT CONTRAST 12/26/2024. HISTORY: ORDERING SYSTEM PROVIDED HISTORY: possible osteomyelitis left hallux, TECHNOLOGIST PROVIDED HISTORY: Illness/Other Reason for exam: left great toe wound/bruising/redness following dropping can of soup on it 3 months ago: Encounter Type: Unknown Additional signs and symptoms: n ORDERING SYSTEM PROVIDED DIAGNOSIS CODES: M86.9 Osteomyelitis of left foot, unspecified type ([facility]) M79.675 Chronic toe pain, left foot G89.29 Chronic toe pain, left foot L02.612 Abscess of left great toe L53.9 Dependent rubor I73.9 Peripheral vascular disease COMPARISON: Radiographs left foot 12/18/2024. TECHNIQUE: Multiplanar, multisequence MRI images of the left midfoot/forefoot were obtained without contrast. CONTRAST: None. FINDINGS: The bone marrow signal intensity is age-appropriate. The Lisfranc ligament complex appears intact. There is diffuse thickening and increased STIR signal intensity involving the toenail of the 1st toe. There is erosive change of the adjacent dorsal cortex of the 1st distal phalanx in this region and there is an ovoid focus of increased STIR signal intensity within the base and shaft of the 1st distal phalanx in this region. This measures 4 x 4 x 10 mm in craniocaudal, transverse and AP dimension respectively. There is abnormal decreased T1 and increased STIR signal intensity involving the majority of the bone marrow of the 1st distal phalanx and there is also erosive change of the tuft of the 1st distal phalanx. There is mild soft tissue edema of the distal aspect of the 1st toe. The bone marrow signal intensity of the remainder of the midfoot/forefoot appears within normal limits. There are mild degenerative changes of the 1st metatarsal-sesamoid joints. There are MRI findings compatible with a probable infection of the 1st toenail with erosive change of the adjacent dorsal cortex of the 1st distal phalanx and an intraosseous abscess of the 1st distal phalanx with surrounding osteomyelitis of the majority of the 1st distal phalanx. Workstation ID: [id number] Xr Ortho Foot Left Result Date: 12/19/2024 3 views of the left foot reviewed today AP MO and lateral. No acute fracture or dislocation of note. No evidence of cortical erosion or subcutaneous emphysema. Sta (more content not included)... [facility] 12-31-2024 History of Present illness Narrative Images from the original note were not included. Established Patient Visit FATMATA Arguelles DPM Patient Name: Joel Falk. . Date of : 1970, 54 y.o.. Gender: male. Subjective: Patient is a pleasant 53-year-old male status post left hallux hyperemia and rubor. Patient is here status post MRI. He is here post MRI and here for reevaluation of the toe. . Patient denies any current fever, chills, nausea, vomiting, chest pain calf pain or shortness of breath. Patient has no other pedal complaints at this time. Physical Examination: BP (!) 166/103 (BP Location: Right arm, Patient Position: Sitting, BP Cuff Size: Adult) Pulse 90 Temp 98 F (36.7 C) (Infrared) General Appearance: Alert, cooperative, no distress, appears stated age. Podiatric Exam Vascular: DP and PT pulses are easily palpable, 2/4. Capillary refill time is brisk to distal digits, less than 3 seconds. Skin temperature is warm to warm from proximal tibial tuberosity to distal digits. No dependent rubor. Neurological: Epicritic and protopathic sensation intact to bilateral lower extremities. Dermatologic: Quality of skin is supple. Nails 1-5 bilaterally are normotrophic with exception to nail 1 on the left which has evidence of previous procedure. Healed nailbed. Persistent dependent rubor noted but no millie erythema or streaking lymphangitis.. Webspaces 1-4 bilaterally are clean, dry and intact. No hyperkeratoses. No open lesions, rashes or subcutaneous nodules of note. Musculoskeletal: Bilateral foot and ankle overall rectus alignment. Muscle tone testing 5 out of 5 to all tested muscular's. Ankle range of motion limited with knee extended and slightly creased knee flex. Tenderness to the left great toe in its entirety mostly to the distal phalanx. Diagnoses: No diagnosis found. Imaging: MRI reviewed in detail today. Impression below. XR MR Clear Result Date: 12/26/2024 EXAMINATION: XR FOR MRI CLEARANCE HISTORY: ORDERING SYSTEM PROVIDED HISTORY: Hx of metal removed from eye, TECHNOLOGIST PROVIDED HISTORY: Illness/Other Reason for exam: Hx of metal removed from eye Cancer History: unknown Surgery, RadiationHistory: unknown Encounter Type: Initial Additional signs and symptoms: . ORDERING SYSTEM PROVIDED DIAGNOSIS CODES: Z98.890 Hx of metal removed from eye COMPARISON: None. TECHNIQUE: Two views of the orbits and facial bones. FINDINGS: No radiopaque foreign bodies overlying the orbits. Normal aeration and development of the paranasal sinuses. No radiopaque foreign bodies overlying the orbits. Magin/Fortem Workstation ID: [id number] MR Foot Left Without Contrast Result Date: 12/26/2024 EXAMINATION: MR FOOT LEFT WITHOUT CONTRAST 12/26/2024. HISTORY: ORDERING SYSTEM PROVIDED HISTORY: possible osteomyelitis left hallux, TECHNOLOGIST PROVIDED HISTORY: Illness/Other Reason for exam: left great toe wound/bruising/redness following dropping can of soup on it 3 months ago: Encounter Type: Unknown Additional signs and symptoms: n ORDERING SYSTEM PROVIDED DIAGNOSIS CODES: M86.9 Osteomyelitis of left foot, unspecified type ([facility]) M79.675 Chronic toe pain, left foot G89.29 Chronic toe pain, left foot L02.612 Abscess of left great toe L53.9 Dependent rubor I73.9 Peripheral vascular disease COMPARISON: Radiographs left foot 12/18/2024. TECHNIQUE: Multiplanar, multisequence MRI images of the left midfoot/forefoot were obtained without contrast. CONTRAST: None. FINDINGS: The bone marrow signal intensity is age-appropriate. The Lisfranc ligament complex appears intact. There is diffuse thickening and increased STIR signal intensity involving the toenail of the 1st toe. There is erosive change of the adjacent dorsal cortex of the 1st distal phalanx in this region and there is an ovoid focus of increased STIR signal intensity within the base and shaft of the 1st distal phalanx in this region. This measures 4 x 4 x 10 mm in craniocaudal, transverse and AP dimension respectively. There is abnormal decreased T1 and increased STIR signal intensity involving the majority of the bone marrow of the 1st distal phalanx and there is also erosive change of the tuft of the 1st distal phalanx. There is mild soft tissue edema of the distal aspect of the 1st toe. The bone marrow signal intensity of the remainder of the midfoot/forefoot appears within normal limits. There are mild degenerative changes of the 1st metatarsal-sesamoid joints. There are MRI findings compatible with a probable infection of the 1st toenail with erosive change of the adjacent dorsal cortex of the 1st distal phalanx and an intraosseous abscess of the 1st distal phalanx with surrounding osteomyelitis of the majority of the 1st distal phalanx. Workstation ID: [id number] Xr Ortho Foot Left Result Date: 12/19/2024 3 views of the left foot reviewed today AP MO and lateral. No acute fracture or dislocation of note. No evidence of cortical erosion or subcutaneous emphysema. Stable x-ray Assessment/Plan: Patient was seen and evaluated. Discussed all clinical findings Educated patient on overall status of the toe. Reviewed MRI in detail with patient today. Appears to have underlying osteomyelitis within the bone and questionable intraosseous abscess. There is no millie wound noted to the toe whatsoever. Extensive discussion today with patient with regards to the overall stable nature of the toe and options moving forward. I do believe with the new findings of osteomyelitis and questionable intraosseous abscess I would feel patient would benefit from course of IV antibiotics lasting anywhere from 6 to 8 weeks. Referral placed to infectious disease Did discuss with patient that should he fail this treatment would potentially need hallux amputation. Patient understands this Rx for Augmentin Patient to follow-up in 1 week for reevaluation This note was partially created using voice recognition software and is inherently subject to errors including those of syntax and "sound-alike" substitutions which may escape proofreading. In such instances, original meaning may be extrapolated by contextual derivation. FATMATA Arguelles DPM Podiatric Foot & Ankle Surgery documented in this encounter [facility] 12-25-2024 Note Established Patient Visit FATMATA Arguelles DPM Patient Name: Joel Falk. . Date of : 1970, 54 y.o.. Gender: male. Subjective: Patient is a pleasant 53-year-old male status post left total temporary nail avulsion of the hallux. Patient presents today because the toe has remained quite pigmented. Redness has improved and he has finished his antibiotics today. Patient relates that it has remained persistently painful. He continues to smoke. Patient denies any current fever, chills, nausea, vomiting, chest pain calf pain or shortness of breath. Patient has no other pedal complaints at this time. Physical Examination: BP (!) 150/100 (BP Location: Right arm, Patient Position: Sitting, BP Cuff Size: X-large Adult) Pulse 98 Temp 98.4 degrees F (36.9 degrees C) (Infrared) General Appearance: Alert, cooperative, no distress, appears stated age. Podiatric Exam Vascular: DP and PT pulses are easily palpable, 2/4. Capillary refill time is brisk to distal digits, less than 3 seconds. Skin temperature is warm to warm from proximal tibial tuberosity to distal digits. No dependent rubor. Neurological: Epicritic and protopathic sensation intact to bilateral lower extremities. Dermatologic: Quality of skin is supple. Nails 1-5 bilaterally are normotrophic with exception to nail 1 on the left which has evidence of previous procedure. Healed nailbed. Persistent dependent rubor noted but no millie erythema or streaking lymphangitis.. Webspaces 1-4 bilaterally are clean, dry and intact. No hyperkeratoses. No open lesions, rashes or subcutaneous nodules of note. Musculoskeletal: Bilateral foot and ankle overall rectus alignment. Muscle tone testing 5 out of 5 to all tested muscular's. Ankle range of motion limited with knee extended and slightly creased knee flex. Tenderness to the left great toe in its entirety mostly to the distal phalanx. Diagnoses: 1. Osteomyelitis of left foot, unspecified type ([facility]) MR Foot Left Without Contrast 2. Chronic toe pain, left foot MR Foot Left Without Contrast 3. Abscess of left great toe MR Foot Left Without Contrast 4. Dependent rubor MR Foot Left Without Contrast 5. Peripheral vascular disease MR Foot Left Without Contrast Imagin views of the left foot reviewed today AP MO and lateral. Persistent visualization of cortical irregularity to the distal phalanx as previously seen on x-rays back in November. MRI would be better to further evaluate if underlying bone infection is present. Assessment/Plan: Patient was seen and evaluated. Discussed all clinical findings Educated patient on overall status of the toe. Did have patient elevate the toe today and much of the rubor dissipated. Given his persistent pain to entirely possible that he has a subtle underlying bone infection in the distal phalanx. We will order a stat MRI. Should patient have underlying osteomyelitis we will need likely admission to set up IV antibiotics on an outpatient basis. Patient follow-up post MRI This note was partially created using voice recognition software and is inherently subject to errors including those of syntax and sound-alike substitutions which may escape proofreading. In such instances, original meaning may be extrapolated by contextual derivation. FATMATA Arguelles DPM Podiatric Foot & Ankle Surgery AUTHENTICATED BY CHRISTIAN ARGUELLES II, [place] 12/25/2024 09:56:44 [facility] 12-25-2024 History of Present illness Narrative Images from the original note were not included. Established Patient Visit FATMATA Arguelles DPM Patient Name: Joel Falk. . Date of : 1970, 54 y.o.. Gender: male. Subjective: Patient is a pleasant 53-year-old male status post left total temporary nail avulsion of the hallux. Patient presents today because the toe has remained quite pigmented. Redness has improved and he has finished his antibiotics today. Patient relates that it has remained persistently painful. He continues to smoke. Patient denies any current fever, chills, nausea, vomiting, chest pain calf pain or shortness of breath. Patient has no other pedal complaints at this time. Physical Examination: BP (!) 150/100 (BP Location: Right arm, Patient Position: Sitting, BP Cuff Size: X-large Adult) Pulse 98 Temp 98.4 F (36.9 C) (Infrared) General Appearance: Alert, cooperative, no distress, appears stated age. Podiatric Exam Vascular: DP and PT pulses are easily palpable, 2/4. Capillary refill time is brisk to distal digits, less than 3 seconds. Skin temperature is warm to warm from proximal tibial tuberosity to distal digits. No dependent rubor. Neurological: Epicritic and protopathic sensation intact to bilateral lower extremities. Dermatologic: Quality of skin is supple. Nails 1-5 bilaterally are normotrophic with exception to nail 1 on the left which has evidence of previous procedure. Healed nailbed. Persistent dependent rubor noted but no millie erythema or streaking lymphangitis.. Webspaces 1-4 bilaterally are clean, dry and intact. No hyperkeratoses. No open lesions, rashes or subcutaneous nodules of note. Musculoskeletal: Bilateral foot and ankle overall rectus alignment. Muscle tone testing 5 out of 5 to all tested muscular's. Ankle range of motion limited with knee extended and slightly creased knee flex. Tenderness to the left great toe in its entirety mostly to the distal phalanx. Diagnoses: 1. Osteomyelitis of left foot, unspecified type (HCC) MR Foot Left Without Contrast 2. Chronic toe pain, left foot MR Foot Left Without Contrast 3. Abscess of left great toe MR Foot Left Without Contrast 4. Dependent rubor MR Foot Left Without Contrast 5. Peripheral vascular disease MR Foot Left Without Contrast Imagin views of the left foot reviewed today AP MO and lateral. Persistent visualization of cortical irregularity to the distal phalanx as previously seen on x-rays back in November. MRI would be better to further evaluate if underlying bone infection is present. Assessment/Plan: Patient was seen and evaluated. Discussed all clinical findings Educated patient on overall status of the toe. Did have patient elevate the toe today and much of the rubor dissipated. Given his persistent pain to entirely possible that he has a subtle underlying bone infection in the distal phalanx. We will order a stat MRI. Should patient have underlying osteomyelitis we will need likely admission to set up IV antibiotics on an outpatient basis. Patient follow-up post MRI This note was partially created using voice recognition software and is inherently subject to errors including those of syntax and "sound-alike" substitutions which may escape proofreading. In such instances, original meaning may be extrapolated by contextual derivation. FATMATA Arguelles DPM Podiatric Foot & Ankle Surgery documented in this encounter [facility] 12-18-2024 Note Established Patient Visit FATMATA Arguelles DPM Patient Name: Joel Falk. . Date of : 1970, 54 y.o.. Gender: male. Subjective: Patient is a pleasant 53-year-old male status post left total temporary nail avulsion of the hallux. Patient presents today because the toe has remained quite red. Wanted to have it reevaluated as it started to become painful on the bottom of his toe as well. Patient denies any current fever, chills, nausea, vomiting, chest pain calf pain or shortness of breath. Patient has no other pedal complaints at this time. Physical Examination: BP (!) 165/119 (BP Location: Right arm, Patient Position: Sitting, BP Cuff Size: Adult) Pulse (!) 103 Temp 98 degrees F (36.7 degrees C) (Infrared) General Appearance: Alert, cooperative, no distress, appears stated age. Podiatric Exam Vascular: DP and PT pulses are easily palpable, 2/4. Capillary refill time is brisk to distal digits, less than 3 seconds. Skin temperature is warm to warm from proximal tibial tuberosity to distal digits. No dependent rubor. Neurological: Epicritic and protopathic sensation intact to bilateral lower extremities. Dermatologic: Quality of skin is supple. Nails 1-5 bilaterally are normotrophic with exception to nail 1 on the left which has evidence of previous procedure. Healed nailbed. Persistent increased hyperemia and dependent rubor noted but no millie erythema or streaking lymphangitis.. Webspaces 1-4 bilaterally are clean, dry and intact. No hyperkeratoses. No open lesions, rashes or subcutaneous nodules of note. Musculoskeletal: Bilateral foot and ankle overall rectus alignment. Muscle tone testing 5 out of 5 to all tested muscular's. Ankle range of motion limited with knee extended and slightly creased knee flex. No tenderness on palpation to left great toe distal nail fold as well as lateral nail fold. Diagnoses: 1. Cellulitis, unspecified cellulitis site 2. Onychocryptosis 3. Abscess of left great toe 4. Ingrown nail 5. Chronic toe pain, left foot Imagin views of the left foot reviewed today AP MO and lateral. No acute fracture or dislocation of note. Assessment/Plan: Patient was seen and evaluated. Discussed all clinical findings Educated patient on overall status of the toe. We will give him a new prescription for antibiotics I do believe that this is mostly just some hyperemia from the area healing and from him being on it all day. Did discuss smoking cessation. Patient to follow-up with me in a week for reevaluation. This note was partially created using voice recognition software and is inherently subject to errors including those of syntax and sound-alike substitutions which may escape proofreading. In such instances, original meaning may be extrapolated by contextual derivation. FATMATA Arguelles DPM Podiatric Foot & Ankle Surgery AUTHENTICATED BY CHRISTIAN ARGUELELS II, [place] 12/18/2024 14:38:36 [facility] 12-18-2024 History of Present illness Narrative Images from the original note were not included. Established Patient Visit FATMATA Arguelles DPM Patient Name: Joel Falk. . Date of : 1970, 54 y.o.. Gender: male. Subjective: Patient is a pleasant 53-year-old male status post left total temporary nail avulsion of the hallux. Patient presents today because the toe has remained quite red. Wanted to have it reevaluated as it started to become painful on the bottom of his toe as well. Patient denies any current fever, chills, nausea, vomiting, chest pain calf pain or shortness of breath. Patient has no other pedal complaints at this time. Physical Examination: BP (!) 165/119 (BP Location: Right arm, Patient Position: Sitting, BP Cuff Size: Adult) Pulse (!) 103 Temp 98 F (36.7 C) (Infrared) General Appearance: Alert, cooperative, no distress, appears stated age. Podiatric Exam Vascular: DP and PT pulses are easily palpable, 2/4. Capillary refill time is brisk to distal digits, less than 3 seconds. Skin temperature is warm to warm from proximal tibial tuberosity to distal digits. No dependent rubor. Neurological: Epicritic and protopathic sensation intact to bilateral lower extremities. Dermatologic: Quality of skin is supple. Nails 1-5 bilaterally are normotrophic with exception to nail 1 on the left which has evidence of previous procedure. Healed nailbed. Persistent increased hyperemia and dependent rubor noted but no millie erythema or streaking lymphangitis.. Webspaces 1-4 bilaterally are clean, dry and intact. No hyperkeratoses. No open lesions, rashes or subcutaneous nodules of note. Musculoskeletal: Bilateral foot and ankle overall rectus alignment. Muscle tone testing 5 out of 5 to all tested muscular's. Ankle range of motion limited with knee extended and slightly creased knee flex. No tenderness on palpation to left great toe distal nail fold as well as lateral nail fold. Diagnoses: 1. Cellulitis, unspecified cellulitis site 2. Onychocryptosis 3. Abscess of left great toe 4. Ingrown nail 5. Chronic toe pain, left foot Imagin views of the left foot reviewed today AP MO and lateral. No acute fracture or dislocation of note. Assessment/Plan: Patient was seen and evaluated. Discussed all clinical findings Educated patient on overall status of the toe. We will give him a new prescription for antibiotics I do believe that this is mostly just some hyperemia from the area healing and from him being on it all day. Did discuss smoking cessation. Patient to follow-up with me in a week for reevaluation. This note was partially created using voice recognition software and is inherently subject to errors including those of syntax and "sound-alike" substitutions which may escape proofreading. In such instances, original meaning may be extrapolated by contextual derivation. FATMATA Arguelles DPM Podiatric Foot & Ankle Surgery documented in this encounter [facility] 11-20-2024 Note Established Patient Visit FATMATA Arguelles DPM Patient Name: Joel Falk. . Date of : 1970, 53 y.o.. Gender: male. Subjective: Patient is a pleasant 53-year-old male status post left total temporary nail avulsion of the hallux. He is doing extremely well and has minimal to no pain. Finishing up his antibiotics. Has minimal to no drainage. Very content with the treatment provided. Patient does relate that it is only a little tender because his grandson stepped on it yesterday. Patient denies any current fever, chills, nausea, vomiting, chest pain calf pain or shortness of breath. Patient has no other pedal complaints at this time. Physical Examination: BP (!) 172/99 (BP Location: Right arm, Patient Position: Sitting, BP Cuff Size: Adult) Pulse 99 Temp 97 degrees F (36.1 degrees C) (Infrared) General Appearance: Alert, cooperative, no distress, appears stated age. Podiatric Exam Vascular: DP and PT pulses are easily palpable, 2/4. Capillary refill time is brisk to distal digits, less than 3 seconds. Skin temperature is warm to warm from proximal tibial tuberosity to distal digits. No dependent rubor. Neurological: Epicritic and protopathic sensation intact to bilateral lower extremities. Dermatologic: Quality of skin is supple. Nails 1-5 bilaterally are normotrophic with exception to nail 1 on the left which has evidence of previous procedure. Healed nailbed. Mild hyperemia and dependent rubor noted but no millie erythema or streaking lymphangitis.. Webspaces 1-4 bilaterally are clean, dry and intact. No hyperkeratoses. No open lesions, rashes or subcutaneous nodules of note. Musculoskeletal: Bilateral foot and ankle overall rectus alignment. Muscle tone testing 5 out of 5 to all tested muscular's. Ankle range of motion limited with knee extended and slightly creased knee flex. No tenderness on palpation to left great toe distal nail fold as well as lateral nail fold. Diagnoses: 1. Abscess of left great toe 2. Onychocryptosis 3. Ingrown nail 4. Chronic toe pain, left foot Imaging: Not acquired during today's visit. Assessment/Plan: Patient was seen and evaluated. Discussed all clinical findings Educated patient on overall status of the toe. Patient to finish antibiotics Reviewed cultures which showed normal margaux. Did discuss will take about a year for the nail to grow completely out or not at all. Patient to follow-up with me as needed This note was partially created using voice recognition software and is inherently subject to errors including those of syntax and sound-alike substitutions which may escape proofreading. In such instances, original meaning may be extrapolated by contextual derivation. FATMATA Arguelles DPM Podiatric Foot & Ankle Surgery AUTHENTICATED BY CHRISTIAN ARGUELLES II, [place] 11/20/2024 11:06:30 [facility] 11-20-2024 History of Present illness Narrative Images from the original note were not included. Established Patient Visit FATMATA Arguelles DPM Patient Name: Joel Falk. . Date of : 1970, 53 y.o.. Gender: male. Subjective: Patient is a pleasant 53-year-old male status post left total temporary nail avulsion of the hallux. He is doing extremely well and has minimal to no pain. Finishing up his antibiotics. Has minimal to no drainage. Very content with the treatment provided. Patient does relate that it is only a little tender because his grandson stepped on it yesterday. Patient denies any current fever, chills, nausea, vomiting, chest pain calf pain or shortness of breath. Patient has no other pedal complaints at this time. Physical Examination: BP (!) 172/99 (BP Location: Right arm, Patient Position: Sitting, BP Cuff Size: Adult) Pulse 99 Temp 97 F (36.1 C) (Infrared) General Appearance: Alert, cooperative, no distress, appears stated age. Podiatric Exam Vascular: DP and PT pulses are easily palpable, 2/4. Capillary refill time is brisk to distal digits, less than 3 seconds. Skin temperature is warm to warm from proximal tibial tuberosity to distal digits. No dependent rubor. Neurological: Epicritic and protopathic sensation intact to bilateral lower extremities. Dermatologic: Quality of skin is supple. Nails 1-5 bilaterally are normotrophic with exception to nail 1 on the left which has evidence of previous procedure. Healed nailbed. Mild hyperemia and dependent rubor noted but no millie erythema or streaking lymphangitis.. Webspaces 1-4 bilaterally are clean, dry and intact. No hyperkeratoses. No open lesions, rashes or subcutaneous nodules of note. Musculoskeletal: Bilateral foot and ankle overall rectus alignment. Muscle tone testing 5 out of 5 to all tested muscular's. Ankle range of motion limited with knee extended and slightly creased knee flex. No tenderness on palpation to left great toe distal nail fold as well as lateral nail fold. Diagnoses: 1. Abscess of left great toe 2. Onychocryptosis 3. Ingrown nail 4. Chronic toe pain, left foot Imaging: Not acquired during today's visit. Assessment/Plan: Patient was seen and evaluated. Discussed all clinical findings Educated patient on overall status of the toe. Patient to finish antibiotics Reviewed cultures which showed normal margaux. Did discuss will take about a year for the nail to grow completely out or not at all. Patient to follow-up with me as needed This note was partially created using voice recognition software and is inherently subject to errors including those of syntax and "sound-alike" substitutions which may escape proofreading. In such instances, original meaning may be extrapolated by contextual derivation. FATMATA Arguelles DPM Podiatric Foot & Ankle Surgery documented in this encounter [facility] 11-03-2024 Note NEW Patient Visit FATMATA Arguelles DPM Patient Name: Joel Falk. . Date of : 1970, 53 y.o.. Gender: male. Subjective: Patient is a pleasant 53-year-old male who presents to clinic today after sustaining an injury to his left great toe. A number of weeks ago he dropped a seat can of soup on it. Since that time it has been quite red and swollen and the nail has been incredibly painful. Patient relates that he deals with chronic ingrown toenails. The shape of his nail is changed over the Past couple months. Patient is a current every day smoker. He is nondiabetic. He denies any current fever, chills, nausea, vomiting, chest pain calf pain or shortness of breath. Patient has no other pedal complaints at this time peer History reviewed. No pertinent past medical history. Past Surgical History: Procedure Laterality Date ACL REPAIR Right Social History Socioeconomic History Marital status: Tobacco Use Smoking status: Every Day Current packs/day: 1.00 Types: Cigarettes Smokeless tobacco: Never Vaping Use Vaping status: Never Used Substance and Sexual Activity Drug use: Never Physical Examination: BP (!) 166/98 (BP Location: Right arm, Patient Position: Sitting, BP Cuff Size: X-large Adult) Pulse 83 Temp 98.5 degrees F (36.9 degrees C) (Infrared) SpO2 92% General Appearance: Alert, cooperative, no distress, appears stated age. Podiatric Exam Vascular: DP and PT pulses are easily palpable, 2/4. Capillary refill time is brisk to distal digits, less than 3 seconds. Skin temperature is warm to warm from proximal tibial tuberosity to distal digits. No dependent rubor. Neurological: Epicritic and protopathic sensation intact to bilateral lower extremities. Dermatologic: Quality of skin is supple. Nails 1-5 bilaterally are normotrophic with exception to nail 1 on the left which has evidence of incurvation medial lateral border. Mild hyperemia and dependent rubor noted but no millie erythema or streaking lymphangitis.. Webspaces 1-4 bilaterally are clean, dry and intact. No hyperkeratoses. No open lesions, rashes or subcutaneous nodules of note. Musculoskeletal: Bilateral foot and ankle overall rectus alignment. Muscle tone testing 5 out of 5 to all tested muscular's. Ankle range of motion limited with knee extended and slightly creased knee flex. Tenderness on palpation to left great toe distal nail fold as well as lateral nail fold. Diagnoses: 1. Abscess of left great toe Wound Aerobic And Anaerobic Culture 2. Onychocryptosis Wound Aerobic And Anaerobic Culture 3. Ingrown nail Wound Aerobic And Anaerobic Culture 4. Chronic toe pain, left foot Wound Aerobic And Anaerobic Culture Imagin views of the left foot reviewed today AP MO and lateral. No acute fracture or dislocation of note. Questionable radiolucency noted to the distal hallux will clinically correlate. Assessment/Plan: Patient was seen and evaluated. Discussed all clinical and radiograph findings. Educated patient on etiology and pathophysiology associated with various foot maladies per Discussed various treatment options available patient. Patient is elected to move forward with left great toe total temporary nail avulsion. Educated patient on risk associated with proposed procedure including not limited to infection, recurrence, bone infection, loss of toe. Despite these risk patient wishes to move forward proposed procedure. Informed consent was received and consent was signed Procedure was performed, see procedure note below Patient had a small abscess subungually. This did not go into the subcutaneous tissue and there is no millie wound. Wound aerobic and anaerobic culture taken today Rx for Keflex for 7 days Post procedure handout was dispensed Patient to follow-up in 2 weeks for reevaluation Destruction of lesion Timeout: Verbal Consent obtained?: Yes Written Consent obtained?: Yes Date:: 11/03/2024 Consent given by:: Patient Procedure: Procedure Performed for: Left great toe total temporary nail avulsion Performed by: Physician Dr. FATMATA Arguelles, ANASTACIO Fenestrated: No Bleeding: Minimal Hemostasis Achieved: N/A Secured: Yes Secured with: Bandage Dressing Applied: Yes Type of dressing applied: Adaptic Pain Control: 2% Lidocaine Procedural Pain:: 0 Post Procedural Pain:: 0 Additional Procedure details:: Attention was directed to the left great toenail. Area was prepped and draped in normal aseptic fashion. [place] elevator was used to free up the nail plate from the nailbed. Upon doing this small amount of purulence was released. No significant malodor is noted with this. Appears almost cottage cheeselike possibly consistent with a sterile abscess. Aerobic and anaerobic culture was taken. Proximal nail fold was then freed up from the nail plate. The nail was then avulsed appropriately. Area was inspected and no spicu (more content not included)... [facility] 11-03-2024 History of Present illness Narrative Associated Order(s): Destruction of lesion Post-Procedure Diagnose(s): Onychocryptosis; Ingrown nail; Chronic toe pain, left foot; Abscess of left great toe Images from the original note were not included. NEW Patient Visit FATMATA Arguelles DPM Patient Name: Joel Falk. . Date of : 1970, 53 y.o.. Gender: male. Subjective: Patient is a pleasant 53-year-old male who presents to clinic today after sustaining an injury to his left great toe. A number of weeks ago he dropped a seat can of soup on it. Since that time it has been quite red and swollen and the nail has been incredibly painful. Patient relates that he deals with chronic ingrown toenails. The shape of his nail is changed over the Past couple months. Patient is a current every day smoker. He is nondiabetic. He denies any current fever, chills, nausea, vomiting, chest pain calf pain or shortness of breath. Patient has no other pedal complaints at this time peer History reviewed. No pertinent past medical history. Past Surgical History: Procedure Laterality Date ACL REPAIR Right Social History Socioeconomic History Marital status: Tobacco Use Smoking status: Every Day Current packs/day: 1.00 Types: Cigarettes Smokeless tobacco: Never Vaping Use Vaping status: Never Used Substance and Sexual Activity Drug use: Never Physical Examination: BP (!) 166/98 (BP Location: Right arm, Patient Position: Sitting, BP Cuff Size: X-large Adult) Pulse 83 Temp 98.5 F (36.9 C) (Infrared) SpO2 92% General Appearance: Alert, cooperative, no distress, appears stated age. Podiatric Exam Vascular: DP and PT pulses are easily palpable, 2/4. Capillary refill time is brisk to distal digits, less than 3 seconds. Skin temperature is warm to warm from proximal tibial tuberosity to distal digits. No dependent rubor. Neurological: Epicritic and protopathic sensation intact to bilateral lower extremities. Dermatologic: Quality of skin is supple. Nails 1-5 bilaterally are normotrophic with exception to nail 1 on the left which has evidence of incurvation medial lateral border. Mild hyperemia and dependent rubor noted but no millie erythema or streaking lymphangitis.. Webspaces 1-4 bilaterally are clean, dry and intact. No hyperkeratoses. No open lesions, rashes or subcutaneous nodules of note. Musculoskeletal: Bilateral foot and ankle overall rectus alignment. Muscle tone testing 5 out of 5 to all tested muscular's. Ankle range of motion limited with knee extended and slightly creased knee flex. Tenderness on palpation to left great toe distal nail fold as well as lateral nail fold. Diagnoses: 1. Abscess of left great toe Wound Aerobic And Anaerobic Culture 2. Onychocryptosis Wound Aerobic And Anaerobic Culture 3. Ingrown nail Wound Aerobic And Anaerobic Culture 4. Chronic toe pain, left foot Wound Aerobic And Anaerobic Culture Imagin views of the left foot reviewed today AP MO and lateral. No acute fracture or dislocation of note. Questionable radiolucency noted to the distal hallux will clinically correlate. Assessment/Plan: Patient was seen and evaluated. Discussed all clinical and radiograph findings. Educated patient on etiology and pathophysiology associated with various foot maladies per Discussed various treatment options available patient. Patient is elected to move forward with left great toe total temporary nail avulsion. Educated patient on risk associated with proposed procedure including not limited to infection, recurrence, bone infection, loss of toe. Despite these risk patient wishes to move forward proposed procedure. Informed consent was received and consent was signed Procedure was performed, see procedure note below Patient had a small abscess subungually. This did not go into the subcutaneous tissue and there is no millie wound. Wound aerobic and anaerobic culture taken today Rx for Keflex for 7 days Post procedure handout was dispensed Patient to follow-up in 2 weeks for reevaluation Destruction of lesion Timeout: Verbal Consent obtained?: Yes Written Consent obtained?: Yes Date:: 11/03/2024 Consent given by:: Patient Procedure: Procedure Performed for: Left great toe total temporary nail avulsion Performed by: Physician Dr. FATMATA Arguelles DPM Fenestrated: No Bleeding: Minimal Hemostasis Achieved: N/A Secured: Yes Secured with: Bandage Dressing Applied: Yes Type of dressing applied: Adaptic Pain Control: 2% Lidocaine Procedural Pain:: 0 Post Procedural Pain:: 0 Additional Procedure details:: Attention was directed to the left great toenail. Area was prepped and draped in normal aseptic fashion. [place] elevator was used to free up the nail plate from the nailbed. Upon doing this small amount of purulence was released. No significant malodor is noted with this. Appears almost cottage cheeselike possibly consistent with a sterile abscess. Aerobic and anaerobic culture was taken. Proximal nail fold was then freed up from the nail plate. The nail was then avulsed appropriately. Area was inspected and no spicules were found. Area was then thoroughly irrigated. Dry sterile dressing was applied. Response to Treatment:: Procedure was tolerated well This note was partially created using voice recognition software and is inherently subject to errors including those of syntax and "sound-alike" substitutions which may escape proofreading. In such instances, original meaning may be extrapolated by contextual derivation. FATMATA Arguelles DPM Podiatric Foot & Ankle Surgery documented in this encounter [facility] 03-21-2022 Instructions Marlyn Martin APRN.[facility] 03/21/2022 10:30 AM EDT 1.) Get more rest than you usually do - this will speed your recovery. If you push hard with your usual busy schedule, you will be sicker longer. 2.) Drink a lot of water - enough to make you urinate every 2-3 hours (your urine should be a light yellow color). This helps thin the phlegm and sooth the airways. Gatorade (G2) is less in sugar and replaces your electrolytes if not eating well. 3.) Run a cool mist humidifier in your bedroom on high with the door closed. This is a natural way to decongest, and it helps lessen scratchy throats, nasal stuffiness and coughs. 4.) For those without blood pressure concerns, take Sudafed as a decongestant (decreases stuffiness-lets drain), but realize that you will need to take it every 4-6 hours for several days. The lower dose is generally better tolerated (30mg)... Some people can make feel fast heart rate/jittery. You also may try anti-allergy pill like Claritin(loratidine) 10mg or samantha, benadryl (makes sleepy) over the counter as directed to help with drippy nose. Mucinex 600-1200mg twice daily(plain) may help thin secretions so they are easier to cough up. Those with high blood pressure and not with prostate problems can try [id number] Coricidin HBP for congestion. You may find nasal sprays such as Flonase or Nasacort, saline nasal spray and/or Netti Pot may be beneficial 5.) Take ibuprofen or acetominophen every 4-6 hours for pain/aches as needed if not contraindicated for you. Antibiotic as directed per prescription If you should breakout in a rash, stop the medicine and call the office. Any antibiotic has the potential to cause diarrhea due to alteration in the normal bacterial margaux of the gut. This can be reduced by eating yogurt with active cultures or taking probiotics daily while on the medication. If diarrhea becomes severe (watery, large volumes or more than 3-4/day) call the office. Women may experience yeast vaginitis due to alteration in the vaginal margaux. Symptoms include vaginal itching, irritation, and often a clumpy white discharge. If this occurs, there are several effective over the counter remedies available, including one-dose treatments. If these are unsuccessful, call the office. Antibiotics may interfer with control. If you are on oral contraceptives, use another form of protection (condoms, foams, jellies, diaphragm) throught the end of whatever pill pack you are on in 10 days. If you are not improving in 3-5 days or are worsening follow up with PCP documented in this encounter [facility] 03-21-2022 History of Present illness Narrative CC: Patient presents with: Cough: cough, ST, congestion and loss of voice x 1 week HPI: Joel Falk is a 51 year old male who presents to the office with complaint of head congestion, cough, nonproductive, sore throat and sinus symptoms for a week. Symptoms are worsening Associated symptoms includes hoarse voice. Denies fever, nausea, vomiting and diarrhea. Treatments tried include nothing so far. with no relief of symptoms. Sick contacts: unknown. History of asthma, frequent episodes of bronchitis, chronic bronchitis, bronchiectasis or COPD: No Smoker: No Seasonal/environmental allergies: No The ROS is otherwise negative. The patient's pmh, medications, allergies, and past visits are reviewed. PHYSICAL EXAM: BP 132/84 Pulse 77 Temp 36.4 C (97.6 F) (Tympanic) Resp 16 Wt 119.5 kg (263 lb 6.4 oz) SpO2 96% General appearance: alert, cooperative, pleasant, in no acute distress Head: Normocephalic Eyes: EOM's intact, conjunctiva pink and moist, no icterus, sclera white, non-injected Ears: Right ear: External ear/canal- Normal, TM - clear with good landmarks. Left ear: External ear/canal- Normal, TM - clear with good landmarks Oropharynx: can not evaluate throat due to red cough drops. Heart: Negative. RRR without obvious murmur, gallop, or rubs. No ectopy. Lungs: clear to auscultation, without rales or wheeze, good air exchange History reviewed. No pertinent past medical history. No past surgical history on file. ALLERGIES Patient has no known allergies. MEDICATIONS benzonatate (TESSALON PERLES) 100 mg capsule Take 2 capsules by mouth three times daily as needed for Cough. mometasone (NASONEX) 50 mcg/actuation nasal spray Use 2 Sprays in the nose once daily. Rinse mouth after use. Kijefhhigsoyhjh-Xxwygvfhu-AJ (BROMFED DM) 2-30-10 mg/5 mL syrup Take 5 mL by mouth four times daily as needed. albuterol HFA (VENTOLIN HFA) 90 mcg/actuation inhaler Inhale 2 Puffs as instructed every 4 hours as needed for Wheezing/Shortness of Breath. No family history on file. Social History Tobacco Use Smoking status: Current Every Day Smoker Smokeless tobacco: Never Used Substance Use Topics Alcohol use: Not on file Drug use: Not on file ASSESSMENT/PLAN: 1. Sinus congestion - ICD9: 478.19, ICD10: R09.81 (primary diagnosis) 2. Sore throat - ICD9: 462, ICD10: J02.9 - STREP A MOLECULAR (POC) - negative Prescription instructions reviewed with patient as applicable. Augmentin bid for 5 days, prednisone 40 mg daily for 4 days. Potential red flag symptoms discussed with the patient. Reviewed appropriate action plan to take if red flag symptoms occur. Patient agreeable to treatment plan. Marlyn Martin APRN.[facility] documented in this encounter [facility] Evaluation note Diagnosis Sinus congestion- Primary Other diseases of nasal cavity and sinuses Sore throat Acute pharyngitis [facility] Abscess of left great toe- Primary Onychocryptosis Ingrowing nail Ingrown nail Ingrowing nail Chronic toe pain, [facility] Abscess of left great toe- Primary Onychocryptosis Ingrowing nail Ingrown nail Ingrowing nail Chronic toe pain, left foot [facility] Diagnosis Cellulitis, unspecified cellulitis site- Primary Onychocryptosis Ingrowing nail Abscess of left great toe Ingrown nail Ingrowing nail Chronic toe pain, left foot [facility] Diagnosis Osteomyelitis of left foot, unspecified type (HCC)- Primary Chronic toe pain, left foot Abscess of left great toe Dependent rubor Peripheral vascular disease Unspecified peripheral vascular disease [facility] Diagnosis Osteomyelitis of left foot, unspecified type (HCC)- Primary Chronic toe pain, left foot Abscess of left great toe Dependent rubor Peripheral vascular disease Unspecified peripheral vascular disease [facility] Diagnosis Osteomyelitis (HCC)- Primary Unspecified osteomyelitis, site unspecified Osteomyelitis of great toe of left foot (HCC) Type 2 diabetes mellitus with hyperglycemia, with long-term current use of insulin (HCC) Osteomyelitis of left foot, unspecified type (HCC) [facility] Diagnosis Acute hematogenous osteomyelitis, unspecified site (HCC)- Primary [facility] Diagnosis Acute hematogenous osteomyelitis, unspecified site (HCC)- Primary [facility] Diagnosis Acute hematogenous osteomyelitis, unspecified site (HCC)- Primary [facility] Diagnosis Acute hematogenous osteomyelitis, unspecified site (HCC)- Primary [facility] Diagnosis Surgical wound dehiscence, initial encounter- Primary Skin necrosis (HCC) Other specified disorder of skin Osteomyelitis of left foot, unspecified type (HCC) Chronic toe pain, left foot Abscess of left great toe Dependent rubor Cellulitis of foot, left [facility] Diagnosis Acute hematogenous osteomyelitis, unspecified site (HCC)- Primary [facility] Diagnosis Acute hematogenous osteomyelitis, unspecified site (HCC)- Primary [facility] Diagnosis Acute hematogenous osteomyelitis, unspecified site (HCC)- Primary documented in this encounter [facility] note* Diagnosis Acute hematogenous osteomyelitis, unspecified site (HCC)- Primary [facility] Diagnosis Acute hematogenous osteomyelitis, unspecified site (HCC)- Primary [facility] Diagnosis Acute hematogenous osteomyelitis, unspecified site (HCC)- Primary [facility] Diagnosis Surgical wound dehiscence, initial encounter- Primary Skin necrosis (HCC) Other specified disorder of skin Osteomyelitis of left foot, unspecified type (HCC) Chronic toe pain, left foot Abscess of left great toe Dependent rubor documented in this encounter [facility] note* Diagnosis Acute hematogenous osteomyelitis, unspecified site (HCC)- Primary [facility] Diagnosis Acute hematogenous osteomyelitis, unspecified site (HCC)- Primary [facility] Diagnosis Acute hematogenous osteomyelitis, unspecified site (HCC)- Primary [facility] Acute hematogenous osteomyelitis, unspecified site (HCC)- Primary [facility] Diagnosis Acute hematogenous osteomyelitis, unspecified site (HCC)- Primary [facility] Diagnosis Acute hematogenous osteomyelitis, unspecified site (HCC)- Primary documented in this encounter [facility] note* Diagnosis Surgical wound dehiscence, initial encounter- Primary Skin necrosis (HCC) Other specified disorder of skin Osteomyelitis of left foot, unspecified type (HCC) Chronic toe pain, left foot documented in this encounter [facility] note* Diagnosis Acute hematogenous osteomyelitis, unspecified site (HCC)- Primary documented in this encounter [facility] note* Diagnosis Acute hematogenous osteomyelitis, unspecified site (HCC)- Primary documented in this encounter [facility] note* Diagnosis Acute hematogenous osteomyelitis, unspecified site (HCC)- Primary documented in this encounter [facility] note* Diagnosis Acute hematogenous osteomyelitis, unspecified site (HCC)- Primary documented in this encounter [facility] note* Diagnosis Acute hematogenous osteomyelitis, unspecified site (HCC)- Primary documented in this encounter [facility] note* Diagnosis Acute hematogenous osteomyelitis, unspecified site (HCC)- Primary documented in this encounter [facility] note* Diagnosis Acute hematogenous osteomyelitis, unspecified site (HCC)- Primary Acute hematogenous osteomyelitis, unspecified site (HCC)- Primary documented in this encounter [facility] note* Diagnosis Acute hematogenous osteomyelitis, unspecified site (HCC)- Primary documented in this encounter [facility] note* Diagnosis Surgical wound dehiscence, initial encounter- Primary Skin necrosis (HCC) Other specified disorder of skin Osteomyelitis of left foot, unspecified type (HCC) Chronic toe pain, left foot documented in this encounter [facility] note* Diagnosis Acute hematogenous osteomyelitis, unspecified site (HCC)- Primary documented in this encounter [facility] note* Diagnosis Acute hematogenous osteomyelitis, unspecified site (HCC)- Primary documented in this encounter [facility] note* Diagnosis Acute hematogenous osteomyelitis, unspecified site (HCC)- Primary documented in this encounter [facility] note* Diagnosis Acute hematogenous osteomyelitis, unspecified site (HCC)- Primary documented in this encounter [facility] note* Diagnosis Acute hematogenous osteomyelitis, unspecified site (HCC)- Primary documented in this encounter [facility] note* Diagnosis Acute hematogenous osteomyelitis, unspecified site (HCC)- Primary documented in this encounter [facility] note* Diagnosis Skin necrosis (HCC)- Primary Other specified disorder of skin Osteomyelitis of left foot, unspecified type (HCC) Chronic toe pain, left foot Dependent rubor Peripheral vascular disease Unspecified peripheral vascular disease [facility] Diagnosis Type 2 diabetes mellitus without complication, with long-term current use of insulin (HCC)- Primary [facility] Diagnosis Osteomyelitis of left foot, unspecified type (HCC)- Primary Chronic toe pain, left foot Peripheral vascular disease Unspecified peripheral vascular disease Dependent rubor [facility] Diagnosis Type 2 diabetes mellitus with hyperglycemia, with long-term current use of insulin (HCC) [facility] Diagnosis Left foot pain- Primary Pain in soft tissues of limb Chronic toe pain, left foot Osteomyelitis of left foot, unspecified type (HCC) Peripheral vascular disease Unspecified peripheral vascular disease Dependent rubor [facility] Diagnosis Type 2 diabetes mellitus without complication, with long-term current use of insulin (HCC)- Primary [facility] Diagnosis Type 2 diabetes mellitus with hyperglycemia, with long-term current use of insulin (HCC) [facility] Diagnosis Type 2 diabetes mellitus with hyperglycemia, with long-term current use of insulin (HCC) Type 2 diabetes mellitus without complication, with long-term current use of insulin (HCC) [facility] Diagnosis Chronic toe pain, left foot- Primary Osteomyelitis of left foot, unspecified type (HCC) Left foot pain Pain in soft tissues of limb Peripheral vascular disease Unspecified peripheral vascular disease [facility] Diagnosis Osteomyelitis of left foot, unspecified type (HCC)- Primary Left foot pain Pain in soft tissues of limb Dependent rubor Abscess, toe, left Peripheral vascular disease Unspecified peripheral vascular disease Abscess of left great toe [facility] Diagnosis Osteomyelitis of left foot, unspecified type (HCC)- Primary Left foot pain Pain in soft tissues of limb Dependent rubor Abscess, toe, left Peripheral vascular disease Unspecified peripheral vascular disease Abscess of left great toe Osteomyelitis (HCC) Unspecified osteomyelitis, site unspecified [facility] Diagnosis Osteomyelitis of left foot, unspecified type (HCC)- Primary Left foot pain Pain in soft tissues of limb Dependent rubor Abscess, toe, left Peripheral vascular disease Unspecified peripheral vascular disease Abscess of left great toe Osteomyelitis (HCC) Unspecified osteomyelitis, site unspecified Left foot pain Pain in soft tissues of limb Dependent rubor Abscess, toe, left Peripheral vascular disease Unspecified peripheral vascular disease Abscess of left great toe [facility] Diagnosis Osteomyelitis (HCC) Unspecified osteomyelitis, site unspecified Left foot pain Pain in soft tissues of limb Dependent rubor Abscess, toe, left Peripheral vascular disease Unspecified peripheral vascular disease Abscess of left great toe Osteomyelitis of left foot, unspecified type (HCC)- Primary Left foot pain Pain in soft tissues of limb Dependent rubor Abscess, toe, left Peripheral vascular disease Unspecified peripheral vascular disease Osteomyelitis of left foot, unspecified type (HCC) Left foot pain Pain in soft tissues of limb Dependent rubor Abscess, toe, left Peripheral vascular disease Unspecified peripheral vascular disease Abscess of left great toe [facility] Diagnosis Pre-op examination- Primary Osteomyelitis of left foot, unspecified type (HCC) Left foot pain Pain in soft tissues of limb Dependent rubor Abscess, toe, left Peripheral vascular disease Unspecified peripheral vascular disease Abscess of left great toe Type 2 diabetes mellitus with foot ulcer, with long-term current use of insulin (HCC) Osteomyelitis of left foot, unspecified type (HCC)- Primary Left foot pain Pain in soft tissues of limb [facility] Diagnosis Pre-op examination- Primary Osteomyelitis of left foot, unspecified type (HCC) Left foot pain Pain in soft tissues of limb Dependent rubor Abscess, toe, left Peripheral vascular disease Unspecified peripheral vascular disease Abscess of left great toe Type 2 diabetes mellitus with foot ulcer, with long-term current use of insulin (HCC) Osteomyelitis of left foot, unspecified type (HCC)- Primary Left foot pain Pain in soft tissues of limb Abscess, toe, left Peripheral vascular disease Unspecified peripheral vascular disease [facility] Diagnosis Pre-op examination- Primary Osteomyelitis of left foot, unspecified type (HCC) Left foot pain Pain in soft tissues of limb Dependent rubor Abscess, toe, left Peripheral vascular disease Unspecified peripheral vascular disease Abscess of left great toe Type 2 diabetes mellitus with foot ulcer, with long-term current use of insulin (HCC) Type 2 diabetes mellitus without complication, with long-term current use of insulin (HCC)- Primary [facility] Diagnosis Pre-op examination- Primary Osteomyelitis of left foot, unspecified type (HCC) Left foot pain Pain in soft tissues of limb Dependent rubor Abscess, toe, left Peripheral vascular disease Unspecified peripheral vascular disease Abscess of left great toe Type 2 diabetes mellitus with foot ulcer, with long-term current use of insulin (HCC) Osteomyelitis of left foot, unspecified type (HCC)- Primary Left foot pain Pain in soft tissues of limb Peripheral vascular disease Unspecified peripheral vascular disease [facility] Diagnosis Pre-op examination- Primary Osteomyelitis of left foot, unspecified type (HCC) Left foot pain Pain in soft tissues of limb Dependent rubor Abscess, toe, left Peripheral vascular disease Unspecified peripheral vascular disease Abscess of left great toe Type 2 diabetes mellitus with foot ulcer, with long-term current use of insulin (HCC) Status post amputation- Primary Other problems of limbs Osteomyelitis of left foot, unspecified type (HCC) Left foot pain Pain in soft tissues of limb Abscess, toe, left Peripheral vascular disease Unspecified peripheral vascular disease Dependent rubor documented in this encounter [facility] Summary Purpose Family History No Family History Records FoundNo Family History Records FoundNo Family History Records FoundNo Family History Records FoundNo Family History Records FoundNo Family History Records Found Advance Directives No Advanced Directives Records Found Date Activated Date Inactivated Comments 01/02/2025 3:42 PM 01/03/2025 3:44 PM Date Activated Date Inactivated Comments 01/01/2025 12:23 PM 01/02/2025 3:42 PM Date Activated Date Inactivated Comments 01/02/2025 3:42 PM 01/03/2025 3:44 PM Date Activated Date Inactivated Comments 01/01/2025 12:23 PM 01/02/2025 3:42 PM Date Activated Date Inactivated Comments 06/19/2025 8:02 AM 06/19/2025 11:11 AM Date Activated Date Inactivated Comments 01/02/2025 3:42 PM 01/03/2025 3:44 PM Date Activated Date Inactivated Comments 01/01/2025 12:23 PM 01/02/2025 3:42 PM Additional Source Comments Source Comments (unrecognize d section and content) In the event this informatio n is protected by the Federal Confidentiality of Alcohol and Drug Abuse Patient Records regulations: The Federal rules restrict any use of the information to criminally investigate or prosecute any alcohol or drug abuse patient.[facility] Reason for Visit (unrecogniz ed section and content) Reason Comments IV Medication Specialty Diagnoses / Procedures Referred By Contac t Referred To Contact Infusion Therapy Diagnoses Acute hematogenous osteomyelitis, unspecified site (HCC) Procedures GA INJECTION, CEFTRIAXONE SODIUM, PER 250 MG Maximo Charles, [employer] [address] [place] [address] Phone: tel: fax: [facility] Librarian [address] [place] [address] Phone: tel: fax: Referral ID Status Reason Start Date Expiration Date Visits Re quested Visits Authorized [id number] Closed 01/05/2025 04/07/2025 30 30 Reason Comments antibiotic infusion Referral ID Status Reason Start Date Expiration Date V isits Requested Visits Authorized [id number] Authorized 01/05/2025 04/07/2025 30 30 Reason Comments IV Medication Rocephrin Reason Comments IV Medication Ceftriaxone (ROCEPHI N) Reason Comments atb Reason Comments IV ATB Reason Comments IV Medication 2G Ceftriaxone Reason Comments IV antb Reason Comments IV Medication Ceftriaxone (ROCEPHI N) Reason Comments Cough cough, ST, congestio n and loss of voice x 1 week Reason Comments Foot Injury Left great toenail; dropped can of mushroom soup on it about a month ago Reason Comments Follow-up Left great toenail f ollow up Reason Comments Foot Pain LT G toe pain; poss ingrown Reason Comments Foot Pain Lft great toe pain Reason Comments Follow-up MRI results Reason Comments Foot Injury Specialty Diagnoses / Procedures Referred By Contac t Referred To Contact Diagnoses Osteomyelitis (HCC) Osteomyelitis of great toe of left foot (HCC) Referral ID Status Reason Start Date Expiration Date Visits Re quested Visits Authorized [id number] 1 1 Reason Comments IV Medication 2G Ceftriaxone PICC placement Per PICC Team Specialty Diagnoses / Procedures Referred By Contac t Referred To Contact Diagnoses Acute hematogenous osteomyelitis, unspecified site (HCC) Maximo Charles [employer] [address] [place] [address] Phone: tel: fax: [facility] [address] [place] [address] Phone: tel: fax: Referral ID Status Reason Start Date Expiration Date V isits Requested Visits Authorized [id number] Pending Review 01/05/2025 01/05/2026 1 1 Specialty Diagnoses / Procedures Referred By Contac t Referred To Contact Infusion Therapy Diagnoses Acute hematogenous osteomyelitis, unspecified site (HCC) Procedures GA INJECTION, CEFTRIAXONE SODIUM, PER 250 MG Maximo Charles [employer] [address] [place] [address] Phone: tel: fax: [facility] Librarian [address] [place] [address] Phone: tel: fax: Reason Comments Follow-up 1 wk LT great toe Reason Comments Wound Check Left foot wound. Reason Comments Wound Check Reason Comments Wound Check Left foot wound chec k . No pain Reason Comments Diabetes Mellitus Gap Closure (Health Maintenance) Diabeti c Foot Exam Never doneDiabetic Eye Exam Never done Reason Comments Wound Check Left foot wound chec k up Reason Onset Date Comments Medication Refill 03/18/2025 Reason Comments Follow-up FU left great toe. P atient believes infection is returning. Toes is draining started Sunday now it seems to be drying up. Reason Onset Date Comments Medication Refill 04/02/2025 Reason Onset Date Comments Medication Refill 04/03/2025 Reason Onset Date Comments Medication Refill 04/09/2025 Reason Comments Wound Check Left foot; something came out of the side of the toe Reason Comments Ingrown Toenail Left foot great toe with pain and patient thinks there is a nail or bone piece coming out; started Sunday night Reason Comments Pre-op Exam Reason Comments Gap Closure (Health Maintenance) Diabeti c Foot Exam Never doneDiabetic Eye Exam Never done Reason Comments Post-op Left toe partial amp follow up; sutures out ; fell over scooter in the yard about a week ago Reason Comments Follow-up Not having any probl ems with it , working his normal hours. Care Teams (unrecognized sec tion and content) Hydro Excavation Operator Relationship Specialty Start Date End Date Sumit Dhillon [address] [address] PCP - General Family Practice 04/16/18 Hydro Excavation Operator Relationship Specialty Start Date End Date No, Physician [facility] PCP - General 11/25/22 Hydro Excavation Operator Relationship Specialty Start Date End Date No, Physician [facility] PCP - General 11/25/22 Hydro Excavation Operator Relationship Specialty Start Date End Date No, Physician [facility] PCP - General 11/25/22 Hydro Excavation Operator Relationship Specialty Start Date End Date No, Physician [facility] PCP - General 11/25/22 Hydro Excavation Operator Relationship Specialty Start Date End Date No, Physician [facility] PCP - General 11/25/22 Hydro Excavation Operator Relationship Specialty Start Date End Date No, Physician [facility] PCP - General 11/25/22 Hydro Excavation Operator Relationship Specialty Start Date End Date No, Physician [facility] PCP - General 11/25/22 Hydro Excavation Operator Relationship Specialty Start Date End Date No, Physician [facility] PCP - General 11/25/22 Hydro Excavation Operator Relationship Specialty Start Date End Date No, Physician [facility] PCP - General 11/25/22 Hydro Excavation Operator Relationship Specialty Start Date End Date No, Physician [facility] PCP - General 11/25/22 Hydro Excavation Operator Relationship Specialty Start Date End Date No, Physician [facility] PCP - General 11/25/22 Hydro Excavation Operator Relationship Specialty Start Date End Date No, Physician [facility] PCP - General 11/25/22 Hydro Excavation Operator Relationship Specialty Start Date End Date No, Physician [facility] PCP - General 11/25/22 Hydro Excavation Operator Relationship Specialty Start Date End Date No, Physician [facility] PCP - General 11/25/22 Hydro Excavation Operator Relationship Specialty Start Date End Date No, Physician [facility] PCP - General 11/25/22 Hydro Excavation Operator Relationship Specialty Start Date End Date No, Physician [facility] PCP - General 11/25/22 Hydro Excavation Operator Relationship Specialty Start Date End Date No, Physician [facility] PCP - General 11/25/22 Hydro Excavation Operator Relationship Specialty Start Date End Date No, Physician [facility] PCP - General 11/25/22 Hydro Excavation Operator Relationship Specialty Start Date End Date No, Physician [facility] PCP - General 11/25/22 Hydro Excavation Operator Relationship Specialty Start Date End Date No, Physician [facility] PCP - General 11/25/22 Hydro Excavation Operator Relationship Specialty Start Date End Date No, Physician [facility] PCP - General 11/25/22 Hydro Excavation Operator Relationship Specialty Start Date End Date No, Physician [facility] PCP - General 11/25/22 Hydro Excavation Operator Relationship Specialty Start Date End Date No, Physician [facility] PCP - General 11/25/22 Hydro Excavation Operator Relationship Specialty Start Date End Date No, Physician [facility] PCP - General 11/25/22 Hydro Excavation Operator Relationship Specialty Start Date End Date No, Physician [facility] PCP - General 11/25/22 Hydro Excavation Operator Relationship Specialty Start Date End Date No, Physician [facility] PCP - General 11/25/22 Hydro Excavation Operator Relationship Specialty Start Date End Date No, Physician [facility] PCP - General 11/25/22 Hydro Excavation Operator Relationship Specialty Start Date End Date No, Physician [facility] PCP - General 11/25/22 Hydro Excavation Operator Relationship Specialty Start Date End Date No, Physician [facility] PCP - General 11/25/22 Hydro Excavation Operator Relationship Specialty Start Date End Date No, Physician [facility] PCP - General 11/25/22 Hydro Excavation Operator Relationship Specialty Start Date End Date No, Physician [facility] PCP - General 11/25/22 Hydro Excavation Operator Relationship Specialty Start Date End Date No, Physician [facility] PCP - General 11/25/22 Hydro Excavation Operator Relationship Specialty Start Date End Date No, Physician [facility] PCP - General 11/25/22 Hydro Excavation Operator Relationship Specialty Start Date End Date No, Physician [facility] PCP - General 11/25/22 Hydro Excavation Operator Relationship Specialty Start Date End Date No, Physician [facility] PCP - General 11/25/22 Hydro Excavation Operator Relationship Specialty Start Date End Date No, Physician [facility] PCP - General 11/25/22 Hydro Excavation Operator Relationship Specialty Start Date End Date No, Physician [facility] PCP - General 11/25/22 Hydro Excavation Operator Relationship Specialty Start Date End Date No, Physician [facility] PCP - General 11/25/22 Hydro Excavation Operator Relationship Specialty Start Date End Date No, Physician [facility] PCP - General 11/25/22 Hydro Excavation Operator Relationship Specialty Start Date End Date No, Physician [facility] PCP - General 11/25/22 Hydro Excavation Operator Relationship Specialty Start Date End Date No, Physician [facility] PCP - General 11/25/22 Windy Schwartz CNP [address] [place] [id number] Nurse Practitioner Nurse Practitioner 06/10/25 Hydro Excavation Operator Relationship Specialty Start Date End Date No, Physician [facility] PCP - General 11/25/22 Windy Schwartz, [facility]IVER [address] [facility] [place] [id number] Nurse Practitioner Nurse Practitioner 06/10/25 Hydro Excavation Operator Relationship Specialty Start Date End Date No, Physician [facility] PCP - General 11/25/22 Windy Schwartz, OLIVER [address] [facility] [address] [place] [id number] Nurse Practitioner Nurse Practitioner 06/10/25 Hydro Excavation Operator Relationship Specialty Start Date End Date No, Physician [facility] PCP - General 06/15/25 Windy Schwartz, DOPE DRY HOUSE OPERATOR [address] [facility] [place] [id number] Nurse Practitioner Nurse Practitioner 06/10/25 Hydro Excavation Operator Relationship Specialty Start Date End Date No, Physician [facility] PCP - General 06/15/25 Windy Schwartz, OLVIER [address] [facility] Brenda [place] [phone] Nurse Practitioner Nurse Practitioner 06/10/25 Hydro Excavation Operator Relationship Specialty Start Date End Date No, Physician [facility] PCP - General 06/15/25 Windy Schwartz, DOPE DRY HOUSE OPERATOR [address] [facility] [place] [phone] Nurse Practitioner Nurse Practitioner 06/10/25 Hydro Excavation Operator Relationship Specialty Start Date End Date No, Physician [facility] PCP - General 06/15/25 Windy Schwartz, DOPE DRY HOUSE OPERATOR [address] [facility] [address] [place] [phone] Nurse Practitioner Nurse Practitioner 06/10/25 Hydro Excavation Operator Relationship Specialty Start Date End Date No, Physician [facility] PCP - General 06/15/25 Windy Schwartz, DOPE DRY HOUSE OPERATOR [address] [place] [address] Nurse Practitioner Nurse Practitioner 06/10/25 (unrecognized sect ion and content) No Status Records FoundNo Status Records FoundNo Status Records FoundNo Status Records FoundNo Status Records FoundNo Status Records Found INFORMATION SOURCE (unrecogn ized section and content) DATE CREATED AUTHOR 11/29/2022 [facility] DATE CREATED AUTHOR AUTHOR'S ORGANIZ ATION 06/11/2025 [facility] DATE CREATED AUTHOR AUTHOR'S ORGANIZ ATION 07/17/2025 [facility] DATE CREATED AUTHOR AUTHOR'S ORGANIZ ATION 07/17/2025 [facility] DATE CREATED AUTHOR AUTHOR'S ORGANIZ ATION 09/10/2025 [facility] DATE CREATED AUTHOR AUTHOR'S ORGANIZ ATION 09/10/2025 [facility] Scheduled Active and Recently Administ ered Medications (unrecognized section and content) Medication Order 01/01/2025 01/02/2025 01/03/2025 enoxaparin (LOVENOX) syringe 40 mg 40 mg, Subcutaneous, Daily, First dose on Elayne 01/01/25 at 1230, Administer in abdomen unless otherwise directed by prescriber. Notify physician if patient refuses., Indication: VTE Prophylaxis 1230 (Not Given - Provider: Valentine Lozano RN - Reason: Other - Comment: POSSIBLE SURGERY) 0900 (Hold - Provider: Ivonne Nixon RN - Reason: Contraindicated)1322 (JAN Hold - Provider: Transfer Provider, Automatic - Reason: Patient not available)1631 (JAN Unhold - Provider: Transfer Provider, Automatic) 0854 (Not Given - Provider: Derian Garcia LPN - Reason: Patient/family refused) insulin glargine (LANTUS) injection 25 Units 25 Units, Subcutaneous, Nightly, First dose on Sun01/02/25 at 2100, If patient NPO and BG LESS than 100 before procedure, administer half (rounded up to nearest unit) of the glargine insulin (LANTUS) dose; if BG is GREATER than 100, administer the full dose unless otherwise instructed by ordering physician Do not mix with other insulins in a syringe. "Do NOT hold basal insulin without notifying physician" 132 (JAN Hold - Provider: Transfer Provider, Automatic - Reason: Patient not available)163 (JAN Unhold - Provider: Transfer Provider, Automatic)2031 (Given - Provider: Cande Johansen LPN) insulin lispro (AdmeLOG,HumaLOG) injection 0-15 Units(Linked Group 1) 0-15 Units, Subcutaneous, At bedtime, First dose on Sun01/01/25 at 2100, IF initial POC glucose is greater than 250, administer insulin as directed and re-check POC glucose no sooner than 2 hours after administration. THEN notify provider if POC glucose is still greater than 250., For nightly BG greater than 250, give: Half ( ) Corrective Scale, Nightly Prandial Snack Dosing Method: NO Snack Coverage - Corrective Scale ONLY, Nightly Insulin Dose Corrective Scale: FOLLOW DAYTIME Prandial Corrective Scale, Corrective Insulin Regimen (select desired scale to cover BG result): USUAL Sensitivity Scale, (REMINDER: Nightly Insulin Dose Corrective Scale will be automatically calculated to be of the daytime scale), Dose Reduction Threshold (at meals) for POC Blood Glucose less than or equal to: 80, For Downtime Calculator, use: "Insulin SC NIGHTtime" 2099 (Not Given - Provider: Miesha Farmer RN - Reason: Patient/family refused) 132 (JAN Hold - Provider: Transfer Provider, Automatic - Reason: Patient not available)163 (JAN Unhold - Provider: Transfer Provider, Automatic)2099 (Not Given - Provider: Cande Johansen LPN - Reason: Order parameters not met) insulin lispro (AdmeLOG,HumaLOG) injection 0-30 Units 0-30 Units, Subcutaneous, 3 times daily before meals, First dose (after last modification) on Sun01/02/25 at 1330, * Dose should be given EITHER: No sooner than 10-15 minutes BEFORE a meal ("Specific Prandial Doses" or "NO Prandial Dose - Corrective Scale ONLY") - OR - Immediately AFTER meal completed ("Carb Counting Ratio"), Prandial Insulin Dosing Method: SPECIFIC Prandial Doses, Specific Prandial Dose (units of Insulin): 9, Corrective Insulin Regimen (select desired scale to cover BG result): USUAL Sensitivity Scale, Dose Reduction Threshold (at meals) for POC Blood Glucose less than or equal to: 80, For Downtime Calculator, use: "Insulin SC MEALtime PREprandial" 1309 (Given - Provider: Ivonne Nixon RN)1322 (JAN Hold - Provider: Transfer Provider, Automatic - Reason: Patient not available)1631 (JAN Unhold - Provider: Transfer Provider, Automatic) 0855 (Given - Provider: Derian Garcia LPN)1130 (Given - Provider: Derian Garcia LPN) ketorolac (TORADOL) injection 30 mg (COMPLETED) 30 mg, Intravenous, Once, On Sun01/02/25 at 1415, For 1 dose, Pre-Procedure 1410 (Given - Provider: Liliya De La Torre RN) piperacillin-tazobactam (ZOSYN) IVPB 3.375 g (premix) 3.375 g, Intravenous, at 12.5 mL/hr, Every 8 hours, First dose on Sun01/01/25 at 1600, VESICANT, Indication: Other: (specify), Indication: Osteomyelitis 1559 (New Bag - Provider: Dana Fregoso RN)1710 (Paused - Provider: Loida Muniz RN)1710 (Restarted - Provider: Loida Muniz RN)1723 (Paused - Provider: Loida Muniz RN)1723 (Restarted - Provider: Loida Muniz RN)1805 (Rate/Dose Verify - Provider: Loida Muniz RN)1845 (Paused - Provider: Yobany Granados LPN)1852 (Restarted - Provider: Yobany Granados LPN)185 (Stopped - Provider: Yobany Granados LPN)195 (Due: Stopped - Provider: Dana Fregoso RN) 0022 (New Bag - Provider: Miesha Farmer RN)0628 (Rate/Dose Verify - Provider: Yobany Granados LPN)1015 (New Bag - Provider: Ivonne Nixon RN)1322 (MAR Hold - Provider: Transfer Provider, Automatic - Reason: Patient not available)1631 (JAN Unhold - Provider: Transfer Provider, Automatic)1753 (New Bag - Provider: Ivonne Nixon RN) 0048 (New Bag - Provider: Cande Johansen LPN)0900 (New Bag - Provider: Derian Garcia LPN) piperacillin-tazobactam (ZOSYN) IVPB 4.5 g (premix) (COMPLETED) 4.5 g, Intravenous, at 200 mL/hr, Once, On Elayne 01/01/25 at 1105, For 1 dose, VESICANT, Indication: Skin/Soft Tissue Infection 1126 (New Bag - Provider: Valentine Lozano RN)1205 (Stopped - Provider: Valentine Lozano RN) sodium chloride (PF) (NS) flush 10 mL 10 mL, Intracatheter, Every 8 hours scheduled, First dose on Elayne 01/01/25 at 1400, Flush PICC lumens when not in use. 1400 (Not Given - Provider: Valentine Lozano RN - Reason: Other - Comment: INFUSING)2200 (Not Given - Provider: Miesha Farmer RN - Reason: Contraindicated) 0600 (Not Given - Provider: Yobany Granados LPN - Reason: Other - Comment: duplicate order)1322 (JAN Hold - Provider: Transfer Provider, Automatic - Reason: Patient not available)1400 (Automatically Held - Provider: Transfer Provider, Automatic)1631 (JAN Unhold - Provider: Transfer Provider, Automatic)1949 (Not Given - Provider: Cande Johansen LPN - Reason: Other - Comment: No picc)2200 (Canceled Entry - Provider: Cande Johansen LPN) 0600 (Canceled Entry - Provider: Cande Johansen LPN) sodium chloride (PF) (NS) flush 5 mL(Linked Group 2) 5 mL, Intravenous, Every 8 hours scheduled, First dose on Elayne 01/01/25 at 1400, Saline lock 1400 (Not Given - Provider: Valentine Lozano RN - Reason: Other - Comment: INFUSING) 0014 (Given - Provider: Miesha Farmer RN)0600 (Given - Provider: Yobany Granados LPN)1322 (JAN Hold - Provider: Transfer Provider, Automatic - Reason: Patient not available)1400 (Automatically Held - Provider: Transfer Provider, Automatic)1631 (JAN Unhold - Provider: Transfer Provider, Automatic)2056 (Not Given - Provider: Cande Johansen LPN - Reason: Other - Comment: infusing)2200 (Canceled Entry - Provider: Cande Johansen LPN) 0505 (Not Given - Provider: Cande Johansen LPN - Reason: Other - Comment: infusing)0600 (Canceled Entry - Provider: Cande Johansen LPN) sodium chloride 0.9% (NS) bolus 1,000 mL (COMPLETED) 1,000 mL, Intravenous, at 1,935.5 mL/hr, Once, On Sun01/02/25 at 1500, For 1 dose, Pre-Procedure 1416 (New Bag - Provider: Liliya De La Torre RN)1500 (Stopped - Provider: Cande Johansen LPN) vancomycin (VANCOCIN) 1750 mg in sodium chloride 0.9% (NS) 500 mL IVPB (COMPLETED) 1,750 mg, Intravenous, at 250 mL/hr, Once, On Elayne 01/01/25 at 1110, For 1 dose, Indication: Skin/Soft Tissue Infection 1207 (New Bag - Provider: Valentine Lozano, DONY)1546 (Stopped - Provider: Dana Fregoso RN) PRN Medication Order 01/01/2025 01/02/2025 01/03/2025 acetaminophen (TYLENOL) tablet 650 mg 650 mg, Oral, Every 4 hours PRN, headaches, mild pain, fever 100.4 F or greater, infusion related reactions, Starting on Elayne 01/01/25 at 1225 1322 (JAN Hold - Provider: Transfer Provider, Automatic - Reason: Patient not available)1631 (JAN Unhold - Provider: Transfer Provider, Automatic) alteplase (CATH JOHNNY) injection 2 mg 2 mg, Other, As needed, occluded PICC, Starting on Elayne 01/01/25 at 1221, Use for occlusion or absence of blood return, unless allergy or infected line. Assess catheter function 30 minutes after instillation. Repeat 2 mg x 1 dose if no blood return obtained after 120 minutes of dwell time. If medication has not yet been reconstituted RECONSTITUTE ALTEPLASE (CATHFLO) INJ WITH 2.2 ML OF STERILE WATER FOR INJ FOR CATHETER CLEARANCE ONLY 1322 ([employer] [facility] [employer] Hold - Provider: Transfer Provider, Automatic - Reason: Patient not available)1631 ([employer] [facility] Unhold - Provider: Transfer Provider, Automatic) aluminum-magnesium hydroxide-simethicone (MAALOX PLUS) 200-200-20 mg/5 mL suspension 30 mL 30 mL, Oral, Every 4 hours PRN, indigestion, Starting on Elayne 01/01/25 at 1225 1322 ([facility] Hold - Provider: Transfer Provider, Automatic - Reason: Patient not available)1631 ([employer] [facility] Unhold - Provider: Transfer Provider, Automatic) bisacodyL (DULCOLAX) suppository 10 mg 10 mg, Rectal, Daily PRN, constipation, Starting on Elayne 01/01/25 at 1225, Try oral medications first for constipation. Try rectal medication if oral meds are ineffective, not tolerated, or not ordered. 1322 ([facility] Hold - Provider: Transfer Provider, Automatic - Reason: Patient not available)1631 ([employer] [facility] Unhold - Provider: Transfer Provider, Automatic) BUPivacaine (PF) (MARCAINE) 0.5 % (5 mg/mL) injection (CANCELED) As needed, Starting on Sun01/02/25 at 1523, Intra-Procedure 1523 (Given - Provider: FATMATA Arguelles DPM - Comment: left foot) ibuprofen (ADVIL,MOTRIN) tablet 600 mg 600 mg, Oral, Every 6 hours PRN, mild pain, fever 100.4 F or greater, headaches, Starting on Elayne 01/01/25 at 1225, Give with food. Do Not Crush or Chew if administering orally due to bitter taste. May be crushed if given via tube. 2048 (Given - Provider: Miesha Farmer RN) 1322 ([facility] Hold - Provider: Transfer Provider, Automatic - Reason: Patient not available)1631 ([employer] [facility] Unhold - Provider: Transfer Provider, Automatic) 0903 (Given - Provider: Derian Garcia LPN) lidocaine 10 mg/mL (1 %) injection 1 mL 1 mL, Intradermal, Once as needed, For PICC placement, if patient has no known Lidocaine allergy., Starting on Elayne 01/01/25 at 1221, For 1 dose 1322 ([facility] Hold - Provider: Transfer Provider, Automatic - Reason: Patient not available)1631 ([facility] Unhold - Provider: Transfer Provider, Automatic) magnesium hydroxide (MOM) 400 mg/5 mL suspension 2,400 mg 2,400 mg (30 mL), Oral, Daily PRN, constipation, Starting on Elayne 01/01/25 at 1225, If no bowel movement in 24 hours after Sennosides (SENNA) administration. 1322 ([facility] Hold - Provider: Transfer Provider, Automatic - Reason: Patient not available)1631 ([employer] [facility] Unhold - Provider: Transfer Provider, Automatic) melatonin Tab 5 mg 5 mg, Oral, Nightly PRN, Sleep, Starting on Elayne 01/01/25 at 1225, If still awake in 1 hour proceed to trazodone (Desyrel) 1322 ([facility] Hold - Provider: Transfer Provider, Automatic - Reason: Patient not available)1631 ([employer] [facility] Unhold - Provider: Transfer Provider, Automatic) nicotine (NICODERM CQ) 21 mg/24 hr 1 patch 1 patch, Transdermal, Administer over 24 Hours, Daily PRN, nicotine replacement, Starting on Sun01/02/25 at 1242, U/P Listed Hazardous Drug. Waste Must Be Disposed in [employer] Waste Container 1322 ([facility] Hold - Provider: Transfer Provider, Automatic - Reason: Patient not available)1631 ([employer] [facility] Unhold - Provider: Transfer Provider, Automatic) ondansetron (ZOFRAN) injection 4 mg(Linked Group 3) 4 mg, Intravenous, Every 6 hours PRN, nausea, vomiting, Starting on Elayne 01/01/25 at 1225, Use oral route first, if tolerated. 1322 ([facility] Hold - Provider: Transfer Provider, Automatic - Reason: Patient not available)1631 ([employer] [facility] Unhold - Provider: Transfer Provider, Automatic) ondansetron (ZOFRAN-ODT) disintegrating tablet 4 mg(Linked Group 3) 4 mg, Oral, Every 6 hours PRN, nausea, vomiting, Starting on Elayne 01/01/25 at 1225, Use oral route first, if tolerated. Formulation requires tablet remain in sealed package until immediately prior to dose being administered. 1322 ([facility] Hold - Provider: Transfer Provider, Automatic - Reason: Patient not available)1631 ([employer] [facility] Unhold - Provider: Transfer Provider, Automatic) senna (SENOKOT) tablet 8.6 mg 8.6 mg (1 tablet), Oral, 2 times daily PRN, constipation, Starting on Elayne 01/01/25 at 1225 1322 ([facility] Hold - Provider: Transfer Provider, Automatic - Reason: Patient not available)1631 ([employer] [facility] Unhold - Provider: Transfer Provider, Automatic) sodium chloride (NS) 0.9 % irrigation solution (CANCELED) As needed, Starting on Sun01/02/25 at 1527, Intra-Procedure 1527 (Given - Provider: FATMATA Arguelles DPM - Comment: left foot) sodium chloride (PF) (NS) flush 10-20 mL 10-20 mL, Intracatheter, As needed, line care, Flush PICC with 10ml before and after each use, and with 20ml after blood draws, transfusions, and TPN., Starting on Elayne 01/01/25 at 1221 1322 ([facility] Hold - Provider: Transfer Provider, Automatic - Reason: Patient not available)163 ([employer] [facility] Unhold - Provider: Transfer Provider, Automatic) sodium chloride (PF) (NS) flush 5 mL(Linked Group 4) 5 mL, Intravenous, As needed, line care, Starting on Elayne 01/01/25 at 1101 1322 ([facility] Hold - Provider: Transfer Provider, Automatic - Reason: Patient not available)1631 ([facility] Unhold - Provider: Transfer Provider, Automatic) sodium chloride (PF) (NS) flush 5 mL(Linked Group 2) 5 mL, Intravenous, As needed, line care, Starting on Elayne 01/01/25 at 1225 1322 ([facility] Hold - Provider: Transfer Provider, Automatic - Reason: Patient not available)1631 ([facility] Unhold - Provider: Transfer Provider, Automatic) sodium chloride 0.9% (NS)(Linked Group 4) 0-150 mL/hr, Intravenous, As needed, To flush line after IV infusions when no maintenance IV ordered or a compatibility issue. Infuse 20ml at the same rate as the secondary infusion, Starting on Elayne 01/01/25 at 1101, Run as Primary IV. NOT intended for KVO. 1125 (New Bag - Provider: Valentine Lozano RN)1126 (Paused - Provider: Loida Muniz RN)1156 (Restarted - Provider: Loida Muniz RN)1207 (Paused - Provider: Loida Muniz RN)1407 (Restarted - Provider: Loida Muniz RN)1532 (Paused - Provider: Loida Muniz RN)1533 (Restarted - Provider: Loida Muniz RN)1555 (Rate/Dose Change - Provider: Loida Muniz RN)1555 (Stopped - Provider: Loida Muniz RN) 1013 (New Bag - Provider: Ivonne Nixon, DONY)1322 ([facility] Hold - Provider: Transfer Provider, Automatic - Reason: Patient not available)1631 ([facility] Unhold - Provider: Transfer Provider, Automatic)1752 (New Bag - Provider: Ivonne Nixon RN) sodium chloride 0.9% (NS)(Linked Group 2) 0-150 mL/hr, Intravenous, As needed, To flush line after IV infusions when no maintenance IV ordered or a compatibility issue. Infuse 20ml at the same rate as the secondary infusion, Starting on Elayne 01/01/25 at 1225, Run as Primary IV. NOT intended for KVO. 1322 ([facility] Hold - Provider: Transfer Provider, Automatic - Reason: Patient not available)1631 ([facility] Unhold - Provider: Transfer Provider, Automatic) traZODone (DESYREL) tablet 50 mg 50 mg, Oral, Nightly PRN, sleep, Starting on Elayne 01/01/25 at 1225, To be administered 1 hour after melatonin if still awake. May repeat x 1 dose in 30 minutes if still awake. 1322 ([facility] Hold - Provider: Transfer Provider, Automatic - Reason: Patient not available)1631 ([facility] Unhold - Provider: Transfer Provider, Automatic) UNABLE TO FIND (CANCELED) As needed, Starting on Sun01/02/25 at 1525, Intra-Procedure 1525 (Given - Provider: FATMATA Arguelles DPM - Comment: 500 mg vancoycin powder mixed into antibiotic beads and beads applied to left great toe) Linked Groups Order Group 1: insulin lispro (AdmeLOG,HumaLOG) injection 0-15 UnitsJump to med 0-15 Units, Subcutaneous, At bedtime, First dose on Elayne 01/01/25 at 2100, IF initial POC glucose is greater than 250, administer insulin as directed and re-check POC glucose no sooner than 2 hours after administration. THEN notify provider if POC glucose is still greater than 250., For nightly BG greater than 250, give: Half ( ) Corrective Scale, Nightly Prandial Snack Dosing Method: NO Snack Coverage - Corrective Scale ONLY, Nightly Insulin Dose Corrective Scale: FOLLOW DAYTIME Prandial Corrective Scale, Corrective Insulin Regimen (select desired scale to cover BG result): USUAL Sensitivity Scale, (REMINDER: Nightly Insulin Dose Corrective Scale will be automatically calculated to be of the daytime scale), Dose Reduction Threshold (at meals) for POC Blood Glucose less than or equal to: 80, For Downtime Calculator, use: "Insulin SC NIGHTtime" And Notify physician (CANCELED) Routine, Until discontinued, Starting on Elayne 01/01/25 at 1307, Until Specified, Other: IF HS POC Glucose RE-CHECK Greater than 250, If initial HS POC glucose is greater than 250, administer insulin as directed and re-check POC glucose no sooner than 2 hours after administration. IF RE-CHECK POC glucose is still greater than 250, notify provider. Group 2: Saline lock IV (CANCELED) Routine, Continuous, Starting on Sun01/01/25 at 1226, Until Specified And sodium chloride (PF) (NS) flush 5 mLJump to med 5 mL, Intravenous, As needed, line care, Starting on Elayne 01/01/25 at 1225 And sodium chloride (PF) (NS) flush 5 mLJump to med 5 mL, Intravenous, Every 8 hours scheduled, First dose on Sun01/01/25 at 1400, Saline lock And sodium chloride 0.9% (NS)Jump to med 0-150 mL/hr, Intravenous, As needed, To flush line after IV infusions when no maintenance IV ordered or a compatibility issue. Infuse 20ml at the same rate as the secondary infusion, Starting on Elayne 01/01/25 at 1225, Run as Primary IV. NOT intended for KVO. Group 3: ondansetron (ZOFRAN-ODT) disintegrating tablet 4 mgJump to med 4 mg, Oral, Every 6 hours PRN, nausea, vomiting, Starting on Sun01/01/25 at 1225, Use oral route first, if tolerated. Formulation requires tablet remain in sealed package until immediately prior to dose being administered. Or ondansetron (ZOFRAN) injection 4 mgJump to med 4 mg, Intravenous, Every 6 hours PRN, nausea, vomiting, Starting on Elayne 01/01/25 at 1225, Use oral route first, if tolerated. Group 4: Insert peripheral IV (COMPLETED) RAMIRO, Once, On Elayne 01/01/25 at 1102, For 1 occurrence And Saline lock IV (CANCELED) RAMIRO, Once, On Elayne 01/01/25 at 1102, For 1 occurrence And sodium chloride (PF) (NS) flush 5 mLJump to med 5 mL, Intravenous, As needed, line care, Starting on Elayne 01/01/25 at 1101 And sodium chloride 0.9% (NS)Jump to med 0-150 mL/hr, Intravenous, As needed, To flush line after IV infusions when no maintenance IV ordered or a compatibility issue. Infuse 20ml at the same rate as the secondary infusion, Starting on Elayne 01/01/25 at 1101, Run as Primary IV. NOT intended for KVO. FOR RECORDS PERTAINING TO PATIENTS WHO ARE OR HAVE BEEN ENROLLED IN A CHEMICAL DEPENDENCY/SUBSTANCEABUSE PROGRAM, SOME INFORMATION MAY BE OMITTED. This clinical summary was aggregated from multiple sources. Caution should be exercised in using it in the provision of clinical care. This summary normalizes information from multiple sources, and as a consequence, information in this document may materially change the coding, format and clinical context of patient data. In addition, data may be omitted in some cases. CLINICAL DECISIONS SHOULD BE BASED ON THE PRIMARY CLINICAL RECORDS. [employer] [facility]. provides no warranty or guarantee of the accuracy or completeness of information in this document.
== END | disposition home or self-care (01) ==
LOC: MTRAD 15:34
PROVIDERS: PCP Nurse Practitioner Family; Referring Provider Nurse Practitioner Family; Visit Provider Nurse Practitioner Family
DX: M25.531 Pain in right wrist (principal)
CPT/HCPCS: 73110